=== PATIENT | male | born 1950 | race Caucasian/White ===

== ENCOUNTER 2024-09-01 15:47 | Inpatient (IN) | payer MEDICARE, SELFPAY ==
[2024-09-01 15:55] VITALS: BP 107/71; PULSE 77; RESP 16; TEMP 36.8; O2SAT 100; BMI 21.2
--- NOTE | 2024-09-01 15:55 | ADMGEN ---
This patient, Raysa Valiente, was admitted to 2nd Floor Room 210-2 as a skilled swing bed. Patient/family oriented to hospital policies and general routines including ID bracelet, bed and alarms, visiting hours, pain management, procedures, bathroom and other care routines, personal items, smoking policy, room service/diet, and visiting hours. Information on how to activate the Rapid Response Team has been discussed. Patient/Family are encouraged to report perceived risks to care and to ask questions if they do not understand what they are told or what they should do.
--- NOTE | 2024-09-01 16:00 | PC.NURSE ---
Addendum entered by Enedelia Yuan RN 09/01/24 19:29: Patients Ladan asked if medication Jardiance was continued, patient was taking prior to hospitalization. If possible she would like it to be discontinued, States she does not feel it is safe for him to take and worries it contributed to DKA. Original Note: This RN spoke with patients Ladan about patients stay at [place], states what brought him in was a fall and patient going unconscious. At hospital patient was diagnosed with DKA, UTI and pneumonia. states prior to patients fall there was an issue with insurance and getting patients Dexcom so he was without his Dexcom for 10 days. Patients believes this contributed to him going into DKA.
--- OUTSIDE RECORDS SUMMARY | 2024-09-01 17:20 | XMS_ITS | Encounter Summary ---
Author Organization [facility] Address [address] [place] [address] Care Team Providers Care Site Identification Specialist Name Role Phone Otoniel Hoover MD Primary Care Provider [phone] Encounter Details Date Type Department Care Team (Late st Contact Info) Description 2023 Hospital Orders Only [employer] Pre/Post [address] [place] [address] Kim Montes MD [address] [facility] [address] [phone] Social History Tobacco Use Types Packs/Day Years Used Date Smoking Tobacco: Never Smokeless Tobacco: Never Alcohol Use Standard Drinks/Week Comments Never 0 (1 standard drink = 0.6 oz pur e alcohol) [facility] Utilities Answer Date Recorded In the past 12 months has e [employer], gas, oil, or water [employer] threatened to shut off services in your home? No 10/14/2023 Humiliation, Afraid, Rape, and Kick questionnair e Answer Date Recorded Within the last year, have y ou been afraid of your partner or ex-partner? No 10/14/2023 Within the last year, have y ou been humiliated or emotionally abused in other ways by your partner or ex-partner? No Within the last year, have y ou been kicked, hit, slapped, or otherwise physically hurt by your partner or ex-partner? No 10/14/2023 Within the last year, have y ou been raped or forced to have any kind of sexual activity by your partner or ex-partner? No 10/14/2023 Overall Financial Resource Strain (CARDIA) Answe r Date Recorded How hard is it for you to pa y for the very basics like food, housing, medical care, and heating? Not hard at all 10/14/2023 Hunger Vital Sign Answer Date Recorded Within the past 12 months, y ou worried that your food would run out before you got the money to buy more. Never true 10/14/19 24 Within the past 12 months, t he food you bought just didn't last and you didn't have money to get more. Never true 10/14/2023 PRAPARE - Transportation Answer Date Re corded In the past 12 months, has l ack of transportation kept you from medical appointments or from getting medications? No 10/02 In the past 12 months, has l ack of transportation kept you from meetings, work, or from getting things needed for daily living? No 10/14/2023 Housing Stability Vital Sign Answer Joey e Recorded In the last 12 months, was t here a time when you were not able to pay the mortgage or rent on time? No 10/14/2023 In the past 12 months, how m any times have you moved where you were living? 0 10/14/2023 At any time in the past [address] [facility], were you homeless or living in a prison (including now)? No 10/14/2023 Sex and Gender Information Value Date Recorded Sex Assigned at Male 08/24/2024 11:13 PM CDT Legal Sex Male 6:00 PM CDT Gender Identity Not on file Sexual Orientation Not on file documented as of this encounter Functional Status * Are you deaf or do you have serious difficulty hearing Answer Date of Assessment Author Status No 10/14/2023 11:00 PM CDT Dianne Badillo RN Active * Are you blind or do you have serious difficulty seeing, even when wearing glasses? Answer Date of Assessment Author Status No 10/14/2023 11:00 PM SOPHIAT Dianne Badillo RN Active * Do you have serious difficulty walking or climbing stairs? Answer Date of Assessment Author Status No 10/14/2023 11:00 PM SOPHIAT Dianne Badillo RN Active * Do you have difficulty dressing or bathing? Answer Date of Assessment Author Status No 10/14/2023 11:00 PM CDT Dianne Badillo RN Active * Because of a physical, mental, or emotional condition, do you have difficulty doing errands alone such as visiting a doctor's office or shopping? Answer Date of Assessment Author Status No 10/14/2023 11:00 PM CDT Dianne Badillo RN Active documented as of this encounter Mental Status * Because of a physical, mental, or emotional condition, do you have serious difficulty concentrating, remembering, or making decisions? Answer Entry Date Author Status No 10/14/2023 11:00 PM CDT Dianne Badillo RN Active documented in this encounter Plan of Treatment Not on file documented as of this encounter Visit Diagnoses Not on filedocumented in this encounter Additional Health Concerns Infection Onset Date Last Indicated Resolved Time Respiratory Rule-Out 08/25/2024 08/25/2024 025 2:16 PM CDT documented as of this encounter Care Teams Site Identification Specialist Relationship Specialty Start Date End Date Otoniel Hoover MD [address] [place] [phone] PCP - General FAMILY PRACTICE 02/15/21 documented as of this encounter
--- OUTSIDE RECORDS SUMMARY | 2024-09-01 17:20 | XMS_ITS | Encounter Summary ---
Author Organization [facility] Address [facility] [place] [address] Care Team Providers Care Client Solutions Specialist Name Role Phone Ian Edwards MD Primary Care Provider [phone] Otoniel Hoover MD Primary Care Provider Encounter Details Date Type Department Care Team (Late st Contact Info) Description 11/09/2018 Abstract SFL CONVERSION [address] [place] [address] , Generic Conversion, Social History Tobacco Use Types Packs/Day Years Used Date Smoking Tobacco: Never Assessed Sex and Gender Information Value Date Recorded Sex Assigned at Male 08/24/2024 11:13 PM CDT Legal Sex Male 6:00 PM CDT Gender Identity Not on file Sexual Orientation Not on file documented as of this encounter Plan of Treatment Not on file documented as of this encounter Visit Diagnoses Not on filedocumented in this encounter Additional Health Concerns Infection Onset Date Last Indicated Resolved Time Respiratory Rule-Out 08/25/2024 08/25/2024 025 2:16 PM CDT documented as of this encounter Care Teams Client Solutions Specialist Relationship Specialty Start Date End Date Ian Edwards MD [address] [place] [phone] PCP - General FAMILY PRACTICE 02/14/19 02/14/21 Otoniel Hoover MD [address] [place] [phone] PCP - General FAMILY PRACTICE 02/15/21 documented as of this encounter
--- OUTSIDE RECORDS SUMMARY | 2024-09-01 17:20 | XMS_ITS | Encounter Summary ---
Author Organization [facility] Address [address] [place] [address] Care Team Providers Care Guest Service Host Name Role Phone Otoniel Hoover MD Primary Care Provider Encounter Details Date Type Department Care Team (Late st Contact Info) Description 2023 Pre-Procedure Call [employer] Position Clerk Pre/Post [address] [place] [address] Kim Montes MD [address] [place] [phone] Social History Tobacco Use Types Packs/Day Years Used Date Smoking Tobacco: Never Smokeless Tobacco: Never Alcohol Use Standard Drinks/Week Comments Never 0 (1 standard drink = 0.6 oz pur e alcohol) [facility] Utilities Answer Date Recorded In the past 12 months has [facility] [employer], gas, oil, or water [employer] threatened to shut off services in your [...] any time in the past 12 m [facility], were you homeless or living in a half-way (including now)? No 10/14/2023 Sex and Gender [...] documented as of this encounter Care Teams Guest Service Host Relationship Specialty Start Date End Date Otoniel Hoover MD [address] [place] [phone] PCP - General FAMILY PRACTICE 02/15/21 documented as of this encounter
--- OUTSIDE RECORDS SUMMARY | 2024-09-01 17:20 | XMS_ITS | Encounter Summary ---
Author Organization [facility] Address [facility] [place] [address] Care Team Providers Care Hydroelectric Plant Mechanical Engineer Name Role Phone Otoniel Hoover MD Primary Care Provider [phone] Reason for Referral * Imaging (Routine) - Closed Specialty Diagnoses / Procedures Referred By Nancy varner Referred To Contact RADIOLOGY Diagnoses Mitral regurgitation Procedures [facility]A [facility] POSS Kim Montes MD [address] [place] [phone] Phone: tel: fax: Referral ID Status Reason Start Date Expiration Date Visits Re quested Visits Authorized [id number] Closed 01/24/2024 01/23/2025 1 1 Encounter Details Date Type Department Care Team ([facility] st Contact Info) Description 01/24/2024 Community Orders [facility] EPICCARE LINK Kim Montes MD [address] [place] [phone] Social History Tobacco Use Types Packs/Day Years Used Date Smoking Tobacco: Never Smokeless Tobacco: Never Alcohol Use Standard Drinks/Week Comments Never 0 (1 standard drink = 0.6 oz pur e alcohol) [facility] Utilities Answer Date Recorded In the past 12 months has th e electric, gas, oil, or water company threatened to shut off services in your [...] any time in the past 12 m [facility], were you homeless or living in a senior care (including now)? No 10/14/2023 Sex and Gender [...] PM CDT Dianne Badillo RN Active * Do you have serious difficulty walking or climbing stairs? Answer Date of Assessment Author Status No 10/14/2023 11:00 PM CDT Dianne Badillo RN Active * Do you [...] on file documented as of this encounter Results * XA [facility] POSS (02/01/2024 10:11 AM CDT) Anatomical Region Laterality Modality Cardiac [employer] Out[employer] Supervisor 02/01/2024 9:00 AM CDT Kim Montes MD LUNCHROOM WORKER Final Res ult documented in this encounter Visit Diagnoses Diagnosis Mitral regurgitation- Primary Mitral valve disorders documented in this encounter Additional Health Concerns Infection Onset Date Last Indicated Resolved Time Respiratory Rule-Out 08/25/2024 08/25/2024 025 2:16 PM CDT documented as of this encounter Care Teams Hydroelectric Plant Mechanical Engineer Relationship Specialty Start Date End Date Otoniel Hoover MD [address] [place] [phone] PCP - General FAMILY PRACTICE 02/15/21 documented as of this encounter
--- OUTSIDE RECORDS SUMMARY | 2024-09-01 17:20 | XMS_ITS | Clinical Summary ---
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 Active aspirin 81 MG chewable tablet Chew 1 tablet (81 mg total) by mouth daily. Active clopidogrel (PLAVIX) 75 MG tablet Take 1 tablet (75 mg total) by mouth daily. Active JARDIANCE 10 MG tablet Take 1 tablet (10 mg total) by mouth daily. Active BASAGLAR KWIKPEN 100 UNIT/ML injection (PEN) Lantus 8 units in the morning and 2 units at night 3 mL 1 09/02/19 25 Active NOVOLOG FLEXPEN 100 UNIT/ML injection (PEN) 4 units before meals three times a day Add sliding scale insulin coverage as below: 0-5 Units, Subcutaneous, 4 times daily with meals and nightly, First dose (after last modification) on Sun08/29/24 at 1700, Until Discontinued Instructions: Humalog for high blood sugars. 150-200 +1 unit 201-250 +2 unit 251-300 +3 units 301-350 +4 units 351-400 +5 units. 3 mL 09/02/19 25 Active atorvastatin (LIPITOR) 20 MG tablet Take 1 tablet (20 mg total) by mouth daily. 30 tablet 09/03/19 25 Active polyethylene glycol (GLYCOLAX) packet Take 240 mLs (17 g total) by mouth daily as needed. Dissolve powder in 240 mL water 30 each 09/02/19 25 Active senna-docusat e (SENOKOT-S) 8.6-50 MG tablet Take 2 tablets by mouth nightly as needed for Constipation. 60 tablet 09/02/19 25 Active cefUROXime (CEFTIN) 500 MG tablet Take 1 tablet (500 mg total) by mouth 2 (two) times daily for 14 days. 28 tablet 09/02/19 25 025 Active NOVOLOG FLEXPEN 100 UNIT/ML injection (PEN) Inject 10 Units into the skin 3 (three) times daily before meals. Sliding scale with meals. Typically about 10 units 06/06/19 22 025 Discontinued BASAGLAR KWIKPEN 100 UNIT/ML injection (PEN) Inject 12 Units into the skin every morning. 6 units every night 04/19/20 21 025 Discontinued simvastatin 40 MG tablet Take 1 tablet (40 mg total) by mouth daily. 05/20/20 21 025 Discontinued(S top Taking at Discharge) senna-docusat e (SENOKOT-S) 8.6-50 MG tablet Take 1 tablet by mouth 2 (two) times daily for 7 days. 14 tablet 10/16/19 24 025 Discontinued(S top Taking at Discharge) Active Problems Problem Noted Date Diagnosed Date DKA (diabetic ketoacidosis) ([facility]) SDH (subdural hematoma) 10/14/2023 Nasal bones, closed fracture 10/14/2023 Nasal septum fracture, closed, initial encounter 10/14/2023 Closed fracture of right orbit 10/14/2023 Closed fracture of left orbit 10/14/2023 Fall 10/14/2023 Closed nondisplaced fracture of sternal end of left clavicle with routine healing 06/13/2021 Other closed fracture of dis dharmesh end of left radius with routine healing, subsequent encounter 06/13/2021 Encounters Date Type Department Care Team Description 08/28/2024 Telephone [facility] Care Management Formerly [facility], [id number] [facility] [place] [address] 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, 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 to [facility] from S/) 08/25/2024 4:37 AM CDT - 09/01/2024 2:40 PM CDT Hospital Encounter [facility] 4th Floor Medical [address] [place] [address] Alexandria Longo MD Subramaniyam, MD Jess Dinero, MD Efraín Crain, MD Mia Zavala, MD Zay Discharge Disposition: Swing Bed 08/24/2024 11:02 PM CDT - 08/25/2024 2:57 AM CDT Emergency [facility] Emergency Services [address] [place] [address] DO Hyperglycemia Discharge Disposition: Another Health Care Institution Not Defined 08/24/2024 Travel 06/06/2024 11:55 AM DISC JOCKEY - 06/06/2024 11:59 PM DISC JOCKEY Hospital Encounter [facility], 1928[id number] [place] [address] Frantz Dee MD Discharge Disposition: Home or Self Care (Routine Discharge) 06/06/[address] [facility], [id number] [place] [address] Frantz Dee MD 06/06/2024 Travel from Last 3 Months Immunizations Name Administration Dates Next Due Fluzone High Dose - >Age 65 (Prefilled Syringe) 02/27/2019,02/21/2018,02/26/2017 Influenza (Generic) 02/19/2020 Influenza Adult (Generic) 03/01/2016,01/2015,02/19/2014, 013 MODERNA COVID-19 (12+) MRNA, LNP-S, PF, 100 MCG/ 0.5 ML DOSE 09/10/2020,08/13/2020 Tdap (Boostrix) 10/16/2023 Family History Medical History Relation Comments No Known Problems Brother No Known Problems Father No Known Problems Mother Relation Status Comments Brother Father Mother Social History Tobacco Use Types Packs/Day Years Used Date Smoking Tobacco: Never Smokeless Tobacco: Never Alcohol Use Standard Drinks/Week Comments Never 0 (1 standard drink = 0.6 oz pur e alcohol) [facility] Utilities Answer Date Recorded In the past 12 months has e electric, gas, oil, or water company threatened to shut off services in your home? Patient unable to answer 08/25/2024 Humiliation, Afraid, Rape, a nd Kick questionnaire Answer Date Recorded Within the last year, have y ou been afraid of your partner or ex-partner? Patient unable to answer 08/25/2024 Within the last year, have y ou been humiliated or emotionally abused in other ways by your partner or ex-partner? Patient unable to answer 08/25/2024 Within the last year, have y ou been kicked, hit, slapped, or otherwise physically hurt by your partner or ex-partner? Patient unable to answer 08/25/2024 Within the last year, have y ou been raped or forced to have any kind of sexual activity by your partner or ex-partner? Patient unable to answer 08/25/2024 Overall Financial Resource Strain (CARDIA) Answe r Date Recorded How hard is it for you to pa y for the very basics like food, housing, medical care, and heating? Patient unable to answer 08/25/2024 Hunger Vital Sign Answer Date Recorded Within the past 12 months, y ou worried that your food would run out before you got the money to buy more. Patient unable to answer 08/25/2024 Within the past 12 months, t he food you bought just didn't last and you didn't have money to get more. Patient unable to answer 08/25/2024 PRAPARE - Transportation Answer Date Re corded In the past 12 months, has l ack of transportation kept you from medical appointments or from getting medications? Patient unable to answer 08/25/2024 In the past 12 months, has l ack of transportation kept you from meetings, work, or from getting things needed for daily living? Patient unable to answer 08/25/2024 Housing Stability Vital Sign Answer Ojey e Recorded In the last 12 months, was t here a time when you were not able to pay the mortgage or rent on time? Patient unable to answer 08/25/2024 In the past 12 months, how m any times have you moved where you were living? 1 08/25/2024 At any time in the past 12 m [facility], were you homeless or living in a senior living (including now)? Patient unable to answer 08/25/2024 Sex and Gender Information Value Date Recorded Sex Assigned at Male 08/24/2024 11:13 PM CDT Legal Sex Male 6:00 PM CDT Gender Identity Not on file Sexual Orientation Not on file Last Filed Vital Signs Vital Sign Reading Time Taken Comments Blood Pressure 92/52 09/01/2024 8:25 AM CDT Pulse 89 09/01/2024 8:25 AM CDT Temperature 36.4 C (97.5 F) 09/01/2024 8:25 AM CDT Respiratory Rate 20 09/01/2024 8:25 AM CDT Oxygen Saturation 96% 09/01/2024 8:25 AM CDT Inhaled Oxygen Concentration - - Weight 59.1 kg (130 lb 6.4 oz) 08/30/2024 4:00 A M CDT Height 180.3 cm (5' 10.98 ) 08/25/2024 5:30 AM C DT Body Mass Index 18.2 08/25/2024 5:30 AM CDT Plan of Treatment Health Maintenance Due Date Last Done Comments Colorectal Cancer Screening Colonoscopy (10 Years) 1950 Pneumococcal Vaccine: 65+ Years (1 of 2 - PCV) 11/06/1957 Diabetes: Retinopathy Eye Exam 11/06/1969 Hepatitis C 11/06/1969 Zoster Vaccines (1 of 2) 11/06/2001 RSV Immunization or 60+ Years (1 - Risk 60-74 years 1-dose series) 2011 Annual Medicare Wellness Visit 11/06/2016 COVID-19 Vaccine ( season) 2024 04/25/2021, 09/10/2020, 08/13/2020 Hemoglobin A1C 02/26/2025 08/26/2024, 08/2024, 10/15/2023, Additional history exists Kidney Health Evaluation 06/06/2025 06/06/2024 Lipid Panel 06/06/2025 06/06/2024, 08/02, 10/22/2020, Additional history exists DTaP, Tdap and Td Vaccines (2 - Td or Tdap) 10/15/2033 10/16/2023 Meningococcal B Vaccine Aged Out No l onger eligible based on patient's age to complete this topic Meningococcal Vaccine Aged Out No cindy samreen eligible based on patient's age to complete this topic RSV Immunizations Under 20 Months Aged Out No longer eligible based on patient's age to complete this topic Procedures Procedure Name Priority Date/Time Associated Diagnosis Comments HEMOGLOBIN AND HEMATOCRIT Routine 09/01/2024 12:13 PM CDT POCT GLUCOSE - CHÁVEZ DOCKED DEVICE Routine 09/01/2024 10:29 AM CDT POCT GLUCOSE - CHÁVEZ DOCKED DEVICE Routine 09/01/2024 8:39 AM CDT POCT GLUCOSE - CHÁVEZ DOCKED DEVICE Routine 09/01/2024 6:25 AM CDT POCT GLUCOSE - CHÁVEZ DOCKED DEVICE Routine 08/31/2024 8:12 PM CDT POCT GLUCOSE - CHÁVEZ DOCKED DEVICE Routine 08/31/2024 5:21 PM CDT POCT GLUCOSE - CHÁVEZ DOCKED DEVICE Routine 08/31/2024 11:43 AM CDT PHOSPHORUS, INORGANIC PHOSPHATE Routine 08/31/2024 8:25 AM CDT MAGNESIUM Routine 08/31/2024 8:25 AM CDT BASIC METABOLIC PANEL Routine 08/31/2024 8:25 AM CDT CBC W/DIFF AUTOMATED Routine 08/31/2024 8:25 AM CDT HEPARIN INDUCED ANTIBODIES Routine 08/31/2024 8:25 AM CDT POCT GLUCOSE - CHÁVEZ DOCKED DEVICE Routine 08/31/2024 5:50 AM CDT POCT GLUCOSE - CHÁVEZ DOCKED DEVICE Routine 08/30/2024 8:56 PM CDT POCT GLUCOSE - CHÁVEZ DOCKED DEVICE Routine 08/30/2024 4:46 PM CDT POCT GLUCOSE - CHÁVEZ DOCKED DEVICE Routine 08/30/2024 11:47 AM CDT POCT GLUCOSE - CHÁVEZ DOCKED DEVICE Routine 08/30/2024 9:45 AM CDT POCT GLUCOSE - CHÁVEZ DOCKED DEVICE Routine 08/30/2024 5:43 AM CDT BASIC METABOLIC PANEL Routine 08/30/2024 4:53 AM CDT CBC W/DIFF AUTOMATED Routine 08/30/2024 4:53 AM CDT POCT GLUCOSE - CHÁVEZ DOCKED DEVICE Routine 08/29/2024 8:23 PM CDT POCT GLUCOSE - CHÁVEZ DOCKED DEVICE Routine 08/29/2024 6:39 PM CDT POCT GLUCOSE - CHÁVEZ DOCKED DEVICE Routine 08/29/2024 5:07 PM CDT POCT GLUCOSE - CHÁVEZ DOCKED DEVICE Routine 08/29/2024 11:47 AM CDT POCT GLUCOSE - CHÁVEZ DOCKED DEVICE Routine 08/29/2024 6:23 AM CDT POCT GLUCOSE - CHÁVEZ DOCKED DEVICE Routine 08/29/2024 6:04 AM CDT POCT GLUCOSE - CHÁVEZ DOCKED DEVICE Routine 08/29/2024 5:05 AM CDT BASIC METABOLIC PANEL Routine 08/29/2024 4:04 AM CDT CBC W/DIFF AUTOMATED Routine 08/29/2024 4:04 AM CDT POCT GLUCOSE - CHÁVEZ DOCKED DEVICE Routine 08/28/2024 8:42 PM CDT URINE BACTERIA CULTURE Nurse Collected Priority 08/28/2024 5:47 PM CDT POCT GLUCOSE - CHÁVEZ DOCKED DEVICE Routine 08/28/2024 5:44 PM CDT CBC W/DIFF AUTOMATED STAT 08/28/2024 12:25 PM CDT POCT GLUCOSE - CHÁVEZ DOCKED DEVICE Routine 08/28/2024 10:59 AM CDT CULTURE, BACTERIA, BLOOD Routine 08/28/2024 7:51 AM CDT POCT GLUCOSE - CHÁVEZ DOCKED DEVICE Routine 08/28/2024 5:15 AM CDT BASIC METABOLIC PANEL Routine 08/28/2024 3:33 AM CDT BLOOD GAS, VENOUS Routine 08/28/2024 3:3 3 AM CDT MAGNESIUM Routine 08/28/2024 3:33 AM CDT PHOSPHORUS, INORGANIC PHOSPHATE Routine 08/28/2024 3:33 AM CDT POCT GLUCOSE - CHÁVEZ DOCKED DEVICE Routine 08/27/2024 8:31 PM CDT POCT GLUCOSE - CHÁVEZ DOCKED DEVICE Routine 08/27/2024 4:59 PM CDT USE ECHOCARDIOGRAM Today 08/27/2024 4: 04 PM CDT POCT GLUCOSE - CHÁVEZ DOCKED DEVICE Routine 08/27/2024 1:06 PM CDT POCT GLUCOSE - CHÁVEZ DOCKED DEVICE Routine 08/27/2024 6:29 AM CDT POCT EG7 BLD GAS VENOUS TEMP VERÓNICA Routine 08/27/2024 4:03 AM CDT BASIC METABOLIC PANEL TIMED 08/27/2024 4:00 AM CDT MAGNESIUM Routine 08/27/2024 4:00 AM CDT PHOSPHORUS, INORGANIC PHOSPHATE Routine 08/27/2024 4:00 AM CDT POCT GLUCOSE - CHÁVEZ DOCKED DEVICE Routine 08/26/2024 9:06 PM CDT POCT ACUTE VENOUS PANEL Routine 08/26/2024 9:06 PM CDT BASIC METABOLIC PANEL TIMED 08/26/2024 9:05 PM CDT MRI BRAIN WWO CON STAT 08/26/2024 6:5 8 PM CDT BASIC METABOLIC PANEL TIMED 08/26/2024 6:00 PM CDT POCT GLUCOSE - CHÁVEZ DOCKED DEVICE Routine 08/26/2024 5:47 PM CDT POCT GLUCOSE - CHÁVEZ DOCKED DEVICE Routine 08/26/2024 4:25 PM CDT BLOOD GAS, VENOUS TIMED 08/26/2024 4:0 0 PM CDT POCT GLUCOSE - CHÁVEZ DOCKED DEVICE Routine 08/26/2024 1:49 PM CDT BLOOD GAS, VENOUS TIMED 08/26/2024 1:4 5 PM CDT POTASSIUM, SERUM Routine 08/26/2024 12:45 PM CDT POCT ACUTE VENOUS PANEL Routine 08/26/2024 10:22 AM CDT POCT GLUCOSE - CHÁVEZ DOCKED DEVICE Routine 08/26/2024 8:36 AM CDT POCT GLUCOSE - CHÁVEZ DOCKED DEVICE Routine 08/26/2024 6:37 AM CDT POCT ACUTE VENOUS PANEL Routine 08/26/2024 4:27 AM CDT POCT GLUCOSE - CHÁVEZ DOCKED DEVICE Routine 08/26/2024 4:26 AM CDT MAGNESIUM Routine 08/26/2024 4:25 AM CDT PHOSPHORUS, INORGANIC PHOSPHATE Routine 08/26/2024 4:25 AM CDT HEMOGLOBIN, GLYCOSYLATED Routine 08/26/2024 4:25 AM CDT COMPREHENSIVE METABOLIC PANEL Routine 08/26/2024 4:25 AM CDT CBC W/DIFF AUTOMATED Routine 08/26/2024 4:25 AM CDT POCT GLUCOSE - CHÁVEZ DOCKED DEVICE Routine 08/25/2024 11:58 PM CDT POCT GLUCOSE - CHÁVEZ DOCKED DEVICE Routine 08/25/2024 9:12 PM CDT POCT GLUCOSE - CHÁVEZ DOCKED DEVICE Routine 08/25/2024 6:13 PM CDT POCT GLUCOSE - CHÁVEZ DOCKED DEVICE Routine 08/25/2024 4:32 PM CDT MAGNESIUM TIMED 08/25/2024 4:30 PM CDT BASIC METABOLIC PANEL TIMED 08/25/2024 4:30 PM CDT BLOOD GAS, VENOUS TIMED 08/25/2024 4:3 0 PM CDT PHOSPHORUS, INORGANIC PHOSPHATE TIMED 08/25/2024 4:30 PM CDT POCT GLUCOSE - CHÁVEZ DOCKED DEVICE Routine 08/25/2024 3:33 PM CDT RESPIRATORY PCR PANEL 2 Nurse Collected Priority 08/25/2024 12:45 PM CDT MAGNESIUM TIMED 08/25/2024 12:45 PM CDT BASIC METABOLIC PANEL TIMED 08/25/2024 12:45 PM CDT BLOOD GAS, VENOUS TIMED 08/25/2024 12:45 PM CDT PHOSPHORUS, INORGANIC PHOSPHATE TIMED 08/25/2024 12:45 PM CDT POCT GLUCOSE - CHÁVEZ DOCKED DEVICE Routine 08/25/2024 12:38 PM CDT POCT GLUCOSE - CHÁVEZ DOCKED DEVICE Routine 08/25/2024 11:09 AM CDT POCT GLUCOSE - CHÁVEZ DOCKED DEVICE Routine 08/25/2024 10:07 AM CDT POCT GLUCOSE - CHÁVEZ DOCKED DEVICE Routine 08/25/2024 9:11 AM CDT MAGNESIUM TIMED 08/25/2024 8:15 AM CDT BASIC METABOLIC PANEL TIMED 08/25/2024 8:15 AM CDT BLOOD GAS, VENOUS TIMED 08/25/2024 8:1 5 AM CDT PHOSPHORUS, INORGANIC PHOSPHATE TIMED 08/25/2024 8:15 AM CDT POCT GLUCOSE - CHÁVEZ DOCKED DEVICE Routine 08/25/2024 8:09 AM CDT POCT GLUCOSE - CHÁVEZ DOCKED DEVICE Routine 08/25/2024 6:25 AM CDT MAGNESIUM STAT 08/25/2024 4:50 AM CDT COMPREHENSIVE METABOLIC PANEL STAT 08/25/2024 4:50 AM CDT POCT GLUCOSE - CHÁVEZ DOCKED DEVICE Routine 08/25/2024 4:45 AM CDT POCT GLUCOSE - CHÁVEZ DOCKED DEVICE Routine 08/25/2024 2:25 AM CDT LACTIC ACID W REFLEX (SEPSIS) TIMED 08/25/2024 1:24 AM CDT POCT GLUCOSE - CHÁVEZ DOCKED DEVICE Routine 08/25/2024 1:16 AM CDT XR CHEST PORTABLE STAT 08/25/2024 12:30 AM CDT POCT GLUCOSE - CHÁVEZ DOCKED DEVICE Routine 08/25/2024 12:30 AM CDT URINALYSIS AUTO DIP STAT 08/25/2024 12:[address] HEAD WO CON STAT 08/24/2024 11:49 PM CDT ECG 12-LEAD Routine 08/24/2024 11:21 PM CDT KETONE BODYS QUALITATIVE STAT 08/24/2024 11:16 PM CDT LACTIC ACID W REFLEX (SEPSIS) STAT 08/24/2024 11:16 PM CDT TROPONIN, QUANT STAT 08/24/2024 11:16 PM CDT COMPREHENSIVE METABOLIC PANEL STAT 08/24/2024 11:16 PM CDT CBC W/DIFF AUTOMATED STAT 08/24/2024 11:16 PM CDT POCT GLUCOSE - CHÁVEZ DOCKED DEVICE Routine 08/24/2024 11:06 PM CDT ALBUMIN URINE RANDOM W/CREATININE Routine 06/06/2024 12:30 PM DISC JOCKEY Type 1 diabetes mellitus without complications (CMS/HCC HHS/HCC) THYROXINE, FREE (FT4) Routine 06/06/2024 12:11 PM DISC JOCKEY COMPREHENSIVE METABOLIC PANEL Routine 06/06/2024 12:11 PM DISC JOCKEY Diabetes mellitus type I (CMS/HCC HHS/HCC) HEMOGLOBIN, GLYCOSYLATED Routine 06/06/2024 12:11 PM DISC JOCKEY Diabetes mellitus type I (CMS/HCC HHS/HCC) TSH W/REFLEX Routine 06/06/2024 12:11 PM DISC JOCKEY Diabetes mellitus type I (CMS/HCC HHS/HCC) VITAMIN B-12 Routine 06/06/2024 12:11 PM DISC JOCKEY Diabetes mellitus type I (CMS/HCC HHS/HCC) LIPID PANEL Routine 06/06/2024 12:11 PM DISC JOCKEY Diabetes mellitus type I (CMS/HCC HHS/HCC) from Last 3 Months Results * (ABNORMAL) HEMOGLOBIN AND HEMATOCRIT (09/01/2024 12:13 PM CDT) HGB 9.2(L) 12.0 - 16.0 G/DL 09/01/2024 12:35 PM CDT [facility] HCT 28.5(L) 37.0 - 52.0 % 09/01/2024 12:35 PM CDT [facility] 09/01/2024 12:1 3 PM CDT us Zay Bellamy MD LABORATORY Final Result Performing Organization Address [facility]/ZIP Co de Phone Number [facility] [address] [place] [address], [id number] * (ABNORMAL) POCT glucose (09/01/2024 10:29 AM CDT) Only the most recent of50 resultswithin the time period is included. GLUCOSE POC 284(H) 70 - 109 09/01/2024 10:51 AM CDT [facility] 09/01/2024 10:2 9 AM CDT us Zay Bellamy MD POCT ORDERABLES - DEVICE Final Result Performing Organization Address City/[facility]/ZIP Co de Phone Number [facility] [address] [place] [address], [id number] * HEPARIN INDUCED ANTIBODIES (08/31/2024 8:25 AM CDT) Pathologist [facility] HIT AMINATA (ANTI-HEPARIN PF4) NEGATIVE NEGATIVE 09/01/2024 9:30 AM CDT [facility] Comment: A POSITIVE HIT AB (HEPARIN PF4 ANTIBODY PRISCILA TEST) IS EXTREMELY SENSITIVE FOR HEPARIN-INDUCED THROMBOCYTOPENIA (HIT), BUT NOT SPECIFIC, SINCE MANY PATIENTS EXPOSED TO HEPARIN HAVE POSITIVE ANTIBODY TESTS WITHOUT DEVELOPING HIT. HIT IS A CLINICAL DIAGNOSIS, SUPPORTED BY LABORATORY TESTING. THEREFORE, CLINICAL CORRELATION IS REQUIRED. 08/31/2024 8:25 AM CDT Zay Bellamy MD LABORATORY Final Result [facility] [address] [place] [address], [id number] * (ABNORMAL) BASIC METABOLIC PANEL (08/31/2024 8:25 AM CDT) Only the most recent of10 resultswithin the time period is included. [facility] SODIUM S/P/B 140 136 - 145 MMOL/L 08/31/2024 9:19 AM CDT [facility] POTASSIUM S/P/B 3.7 3.5 - 5.1 MMOL/L 08/31/2024 9:19 AM CDT [facility] CHLORIDE S/P/B 103 97 - 115 MMOL/L 08/31/2024 9:19 AM CDT [facility] CO2 30.2 21.0 - 32.0 MMOL/L 08/31/2024 9:19 AM CDT [facility] GLUCOSE 131(H) 74 - 106 MG/DL 08/31/2024 9:19 AM CDT [facility] BUN 9 7 - 18 MG/DL 08/31/2024 9:19 AM CDT [facility] CREATININE S/P/B 0.84 0.70 - 1.30 MG/DL 08/31/2024 9:19 AM CDT [facility] CALCIUM S/P/B 8.7 8.5 - 10.1 MG/DL 08/31/2024 9:19 AM CDT [facility] ANION GAP 6.8 2.0 - 10.0 MMOL/L 08/31/2024 9:19 AM CDT [facility] OSMOLALITY (CALC) 290 MOSM/KG 025 9:19 AM CDT [facility] Comment:REFERENCE RANGE NOT ESTABLISHED GFR ESTIMATE >90 >90 ML/MIN/1. 73 M2 08/31/2024 9:19 AM CDT [facility] GFR NOTES GFR REFERENCE S: 08/31/2024 9:19 AM CDT [facility] Comment: THE ESTIMATED GFR IS CALCULATED USING THE 2020 CKD-EPI EQUATION. THE FOLLOWING CATEGORIES FOR GRADING RENAL FUNCTION ARE RECOMMENDED BY THE INTERNATIONAL SOCIETY OF NEPHROLOGY (KDIGO 2012 CLINICAL PRACTICE GUIDELINE). G1,NORMAL OR HIGH: >89 ml/min/1.73 m2 G2,MILDLY DECREASED: 60-89 ml/min/1.73 m2 G3A,MILDLY TO MODERATELY DECREASED: 45-59 ml/min/1.73 m2 G3B,MODERATELY TO SEVERELY DECREASED: 30-44 ml/min/1.73 m2 G4,SEVERELY DECREASED: 15-29 ml/min/1.73 m2 G5,KIDNEY FAILURE: <15 ml/min/1.73 m2 08/31/2024 8:25 AM CDT Zay Bellamy MD LABORATORY Final Result [facility] [address] [place] [address], [id number] * (ABNORMAL) CBC W/DIFF AUTOMATED (08/31/2024 8:25 AM CDT) Only the most recent of6 resultswithin the time period is included. WBC 4.93 4.00 - 10.80 x10'3/uL 08/31/2024 9:12 AM CDT [facility] RBC 2.95(L) 4.50 - 6.10 x10'6/uL 08/31/2024 9:12 AM CDT [facility] HGB 9.8(L) 12.0 - 16.0 G/DL 08/31/2024 9:12 AM CDT [facility] HCT 29.3(L) 37.0 - 52.0 % 08/31/2024 9:12 AM CDT [facility] MCV 99.3 78.0 - 100.0 FL 08/31/2024 9:12 AM CDT [facility] MCH 33.2(H) 27.0 - 31.0 PG 08/31/2024 9:12 AM CDT [facility] MCHC 33.4 33.0 - 36.0 G/DL 08/31/2024 9:12 AM CDT [facility] RDW 16.2(H) 11.5 - 14.5 % 08/31/2024 9:12 AM CDT [facility] PLT 66(L) 150 - 350 x10'3/uL 08/31/2024 9:12 AM CDT [facility] MPV 12.0(H) 7.4 - 10.4 FL 08/31/2024 9:12 AM CDT [facility] DIFFERENTIAL TYPE AUTOMATED DIFFERENTIAL 08/31/2024 9:13 AM CDT [facility] SEG NEUTROPHILS 64.3 % 9:13 AM CDT [facility] LYMPHOCYTES 17.4 % 08/31/2024 9:13 AM CDT [facility] MONOCYTES 13.6 % 08/31/2024 9:13 AM CDT [facility] EOSINOPHILS 3.7 % 08/31/2024 9:13 AM CDT [facility] BASOPHILS 0.6 % 08/31/2024 9:13 AM CDT [facility] IMMATURE GRANS % 0.4 % 09/01/19 9:13 AM CDT [facility] ABS. NEUTROPHILS 3.17 1.60 - 8.30 x10'3/uL 08/31/2024 9:13 AM CDT [facility] ABS. LYMPHOCYTES 0.86 0.80 - 4.70 x10'3/uL 08/31/2024 9:13 AM CDT [facility] ABS. MONOCYTES 0.67 0.00 - 1.50 x10'3/uL 08/31/2024 9:13 AM CDT [facility] ABS. EOSINOPHILS 0.18 0.00 - 0.40 x10'3/uL 08/31/2024 9:13 AM CDT [facility] ABS. BASOPHILS 0.03 0.00 - 0.20 x10'3/uL 08/31/2024 9:13 AM CDT [facility] ABS. IMMATURE GRANULOCYTES 0.02 0.00 - 0.03 x10'3/uL 08/31/2024 9:13 AM CDT [facility] ABS. NUCLEATED RBC'S 0.00 0.00 - 0.01 x10'3/uL 08/31/2024 9:13 AM CDT [facility] NRBC % 0.0 % 08/31/2024 9:13 AM CDT [facility] 08/31/2024 8:25 AM CDT Zay Bellamy MD LABORATORY Final Result [facility] [address] [place] [address], [id number] * PHOSPHORUS, INORGANIC PHOSPHATE (08/31/2024 8:25 AM CDT) Only the most recent of7 resultswithin the time period is included. [facility] PHOSPHORUS 3.0 2.5 - 4.9 MG/DL 08/31/2024 9:19 AM CDT [facility] 08/31/2024 8:25 AM CDT us Zay Bellamy MD LABORATORY Final Result Performing Organization Address City/[facility]/ZIP Co de Phone Number [facility] [address] [place] [address], [place] [phone] * MAGNESIUM (08/31/2024 8:25 AM CDT) Only the most recent of8 resultswithin the time period is included. MAGNESIUM 2.0 1.6 - 2.6 MG/DL 08/31/2024 9:19 AM CDT [facility] 08/31/2024 8:25 AM CDT us Zay Bellamy MD LABORATORY Final Result Performing Organization Address [facility] de Phone Number [facility] [address] [place] [address], [place] [phone] * CULTURE, URINE (08/28/2024 5:47 PM CDT) SPEC DESCRIPTION URINE CLEAN CATCH 08/28/2024 5:47 PM CDT [facility] SPECIAL REQUESTS NO SPECIAL REQUEST 08/28/2024 5:47 PM CDT [facility] CULTURE RESULT NO GROWTH (< OR = 1,000 CFU/ML) 08/30/2024 12:13 PM CDT [facility] URINE SPECIMEN OBTAINED BY CLEAN CATCH PROCEDURE / Unknown 08/28/2024 5:47 PM CDT 08/28/2024 5:59 PM CDT us Simin Younger [employer] DES[employer]-BC MICROBIOLOGY - GENERAL ORDER MIAH Final Result Performing Organization Address [facility] Co de Phone Number [facility] [address] [place] [address], [place] [phone] * (ABNORMAL) Blood gas, venous (08/28/2024 3:33 AM CDT) Only the most recent of6 resultswithin the time period is included. PH VENOUS 7.38 7.32 - 7.42 08/28/2024 3:48 AM CDT [facility] PCO2 VENOUS 49.6 41.0 - 51.0 MMHG 08/28/2024 3:48 AM CDT [facility] PO2 VENOUS 45.9(H) 25.0 - 40.0 MM HG 08/28/2024 3:48 AM CDT [facility] BICARB VENOUS 28.8(H) 24 - 28 MMOL/L 08/28/2024 3:48 AM CDT [facility] [facility] TOTAL CO2 VENOUS 30.3(H) 25.0 - 29.0 MMOL/L 08/28/2024 3:48 AM CDT [facility] BASE EXCESS VENOUS 3.6(H) 0 - 2 MMOL/L 08/28/2024 3:48 AM CDT [facility] O2 SAT VENOUS 80(H) <75 % 08/28/2024 3:48 AM CDT [facility] 08/28/2024 3:33 AM CDT Ariadna Saucedo MD LABORATORY Fi nal Result [facility] [address] [place] [address], [id number] * USE ECHOCARDIOGRAM (08/27/2024 4:04 PM CDT) Anatomical Region Laterality Modality Cardiac Echocardiogram 08/27/2024 3:29 PM CDT Narrative 08/28/2024 10:59 AM CDT Echocardiography Report Pat.Name: CORBY VALIENTE Pat.ID: [id number] .Date: 08/27/2024 Refer.: [id number] VICENTE JOVANNY Mikie EWDPROV EWDPROV Exam Time: 3:29:00 PM Study Type:ECHO WITH CARDIAC DOPPLER COMP Height: 70 in Weight: 132 lb BSA: 1.75 m2 Age: 6 1950,73Y Sex: M HR: 70 bpm Sonogrphr: Shari Garg Pat. Stat.:Inpatient Room: [facility] CPT - 4: 61847 Reason for Study:CAD Procedures: 2D, M-mode, Doppler, Color Flow Race: W ++++++++++++++++++++++++++++++++++++ SUMMARY: ++++++++++++++++++++++++++++++++++++ Estimated left ventricular ejection fraction is 45-50%. The left ventricular size is mildly enlarged. Mild global hypokinesis is noted. Right ventricular systolic function is normal. The right ventricular size is mildly enlarged. The left atrial volume is severely increased (>48 ml/M2). Right atrial size is mildly enlarged. 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 s/p three MitraClip at A2 P2 with residual mild eccentric mitral regurgitation. Mild mitral stenosis with MG of 4 at heart willie of 70 bpm Mild tricuspid regurgitation. Right ventricular systolic pressure is 34 mmHg. ++++++++++++++++++++++++++++++++++++ FINDINGS: ++++++++++++++++++++++++++++++++++++ LV: The left ventricular size is mildly enlarged. Estimated left ventricular ejection fraction is 45-50%. Left ventricular diastolic function is abnormal (grade 1 - impaired relaxation). WM: Mild global hypokinesis is noted. RV: The right ventricular size is mildly enlarged. Right ventricular systolic function is normal. IVS: Intraventricular septum is normal. LA: The left atrial volume is severely increased (>48 ml/M2). RA: Right atrial size is mildly enlarged. 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 KRISTI: No evidence of pericardial effusion. AO: The proximal ascending aorta measures 3.3cm. PA: Estimated right atrial pressure of 3 mmHg. SVn: Systemic veins not well visualized. Other: Technically difficult exam due to patient position, exam done in chair. AV: Structurally normal aortic valve. The aortic valve is trileaflet. No evidence of aortic valve stenosis. No evidence of aortic valve regurgitation. MV: Mild eccentric mitral regurgitation. Mitral clip visualized. PV: No evidence of pulmonic regurgitation. Pulmonic valve not well visualized. TV: Structurally normal tricuspid valve. Mild tricuspid regurgitation. Right ventricular systolic pressure is 34 mmHg. ++++++++++++++++++++++++++++++++++++ MEASUREMENTS: ++++++++++++++++++++++++++++++++++++ DOPPLER LVOT LVOTpkPG 1 mmHg LVOT TVI 8.62 cm LVOTpkVel 59.1 cm/s (70-110)+* LVOT SV 39 ml AV Forward Flow AV TVI 18.6 cm AV pkPG 4 mmHg AV pkVel 99.9 cm/s (100-170)+* Area (TVI) 2.09 cm2 (3-5)* AV mnVel 62.3 cm/s Area (Arvind) 2.67 cm2 (3-5)* AV mnPG 2 mmHg MV Forward Flow MV DeTm 415 msec MV E/A 1.5 MV mnPG 4 mmHg MV pkE 98 cm/s (60-130) MV pkPG 12 mmHg MV pkA 63.5 cm/s MV Regurg Flow MV TVI 116 cm MV pkPG 51 mmHg MV mnPG 30 mmHg MV pkVel 356 cm/s (60-130)* MV mnVel 257 cm/s PV Forward Flow PV pkVel 82.8 cm/s (60-90) PV pkPG 3 mmHg TV Regurg Flow TV pkPG 29 mmHg TV pkVel 267 cm/s (30-70)+* Lat E' Lat e 4.68 cm/s Lat E/E' Lat E/e 20.9 Med E' Med e 6.09 cm/s Med E/E' Med E/e 16.1 Aortic Valve Aortic Valve Ar 1.19 Aortic Valve Ve 0.59 AV DI Value 0.5 MOOKIE (VTI) Index Value 1.2 LV Mass 2D Value 261 g LV Mass [id number] Value 149 g/m2 RA Volume Atrial Barahona 5.89 cm Atrial Barahona 23.4 cm2 Atrial Barahona 74.5 ml SV (LVOT) Index Value 22 ml 2D Left Ventricle LVIDd 6.06 cm (3.6-5.2)* LV EF(Bi-Plane) 49.3 % (63-77)* LVIDs 4.23 cm (2.3-3.9)* LVPW LVPWd 1.02 cm Ventricular Septum IVSd 1.04 cm Left Atrium LA a-p 4.63 cm (2.8-3.4)* Aorta Ao Rtd 3.27 cm (zsc 1.9) Ao Asc 3.33 cm (zsc 3.6)* LVOT LVOT 2.4 cm RVOT RVOT 2.55 cm (1.8-3.4) RVOT Area 5.11 cm2 Ratios IVS LA Biplane LAVol I BP 70.3 ml/m2 Right Ventricle Right Ventricle 4.4 cm Major [place] 8.67 cm MMODE TA Tricuspid Annul 2.89 cm <Electronic Signature> 08/28/2024 10:59 AM Kim Montes M.D. Procedure Note Kim Montes MD - 08/28/2024 Echocardiography Report Pat.Name: CORBY VALIENTE Pat.ID: [id number] .Date: 08/27/2024 Refer.: [id number] VICENTE Deluna EWDPROV EWDPROV Exam Time: 3:29:00 PM Study Type:ECHO WITH CARDIAC DOPPLER COMP Height: 70 in Weight: 132 lb BSA: 1.75 m2 Age: 6 1950,73Y Sex: M HR: 70 bpm Sonogrphr: Shari Garg Pat. Stat.:Inpatient Room: 440 CPT - 4: 08494 Reason for Study:CAD Procedures: 2D, M-mode, Doppler, Color Flow Race: W ++++++++++++++++++++++++++++++++++++ SUMMARY: ++++++++++++++++++++++++++++++++++++ Estimated left ventricular ejection fraction is 45-50%. The left ventricular size is mildly enlarged. Mild global hypokinesis is noted. Right ventricular systolic function is normal. The right ventricular size is mildly enlarged. The left atrial volume is severely increased (>48 ml/M2). Right atrial size is mildly enlarged. 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 s/p three MitraClip at A2 P2 with residual mild eccentric mitral regurgitation. Mild mitral stenosis with MG of 4 at heart willie of 70 bpm Mild tricuspid regurgitation. Right ventricular systolic pressure is 34 mmHg. ++++++++++++++++++++++++++++++++++++ FINDINGS: ++++++++++++++++++++++++++++++++++++ LV: The left ventricular size is mildly enlarged. Estimated left ventricular ejection fraction is 45-50%. Left ventricular diastolic function is abnormal (grade 1 - impaired relaxation). WM: Mild global hypokinesis is noted. RV: The right ventricular size is mildly enlarged. Right ventricular systolic function is normal. IVS: Intraventricular septum is normal. LA: The left atrial volume is severely increased (>48 ml/M2). RA: Right atrial size is mildly enlarged. 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 KRISTI: No evidence of pericardial effusion. AO: The proximal ascending aorta measures 3.3cm. PA: Estimated right atrial pressure of 3 mmHg. SVn: Systemic veins not well visualized. Other: Technically difficult exam due to patient position, exam done in chair. AV: Structurally normal aortic valve. The aortic valve is trileaflet. No evidence of aortic valve stenosis. No evidence of aortic valve regurgitation. MV: Mild eccentric mitral regurgitation. Mitral clip visualized. PV: No evidence of pulmonic regurgitation. Pulmonic valve not well visualized. TV: Structurally normal tricuspid valve. Mild tricuspid regurgitation. Right ventricular systolic pressure is 34 mmHg. ++++++++++++++++++++++++++++++++++++ MEASUREMENTS: ++++++++++++++++++++++++++++++++++++ DOPPLER LVOT LVOTpkPG 1 mmHg LVOT TVI 8.62 cm LVOTpkVel 59.1 cm/s (70-110)+* LVOT SV 39 ml AV Forward Flow AV TVI 18.6 cm AV pkPG 4 mmHg AV pkVel 99.9 cm/s (100-170)+* Area (TVI) 2.09 cm2 (3-5)* AV mnVel 62.3 cm/s Area (Arvind) 2.67 cm2 (3-5)* AV mnPG 2 mmHg MV Forward Flow MV DeTm 415 msec MV E/A 1.5 MV mnPG 4 mmHg MV pkE 98 cm/s (60-130) MV pkPG 12 mmHg MV pkA 63.5 cm/s MV Regurg Flow MV TVI 116 cm MV pkPG 51 mmHg MV mnPG 30 mmHg MV pkVel 356 cm/s (60-130)* MV mnVel 257 cm/s PV Forward Flow PV pkVel 82.8 cm/s (60-90) PV pkPG 3 mmHg TV Regurg Flow TV pkPG 29 mmHg TV pkVel 267 cm/s (30-70)+* Lat E' Lat e 4.68 cm/s Lat E/E' Lat E/e 20.9 Med E' Med e 6.09 cm/s Med E/E' Med E/e 16.1 Aortic Valve Aortic Valve Ar 1.19 Aortic Valve Ve 0.59 AV DI Value 0.5 MOOKIE (VTI) Index Value 1.2 LV Mass 2D Value 261 g LV Mass [id number] Value 149 g/m2 RA Volume Atrial Barahona 5.89 cm Atrial [place] 23.4 cm2 Atrial [place] 74.5 ml SV (LVOT) Index Value 22 ml 2D Left Ventricle LVIDd 6.06 cm (3.6-5.2)* LV EF(Bi-Plane) 49.3 % (63-77)* LVIDs 4.23 cm (2.3-3.9)* LVPW LVPWd 1.02 cm Ventricular Septum IVSd 1.04 cm Left Atrium LA a-p 4.63 cm (2.8-3.4)* Aorta Ao Rtd 3.27 cm (zsc 1.9) Ao Asc 3.33 cm (zsc 3.6)* LVOT LVOT 2.4 cm RVOT RVOT 2.55 cm (1.8-3.4) RVOT Area 5.11 cm2 Ratios IVS LA Biplane LAVol I BP 70.3 ml/m2 Right Ventricle Right Ventricle 4.4 cm Major [place] 8.67 cm MMODE TA Tricuspid Annul 2.89 cm <Electronic Signature> 08/28/2024 10:59 AM Kim Montes M.D. [facility] ECHO Final Result * (ABNORMAL) POCT EG7 BLD GAS VENOUS TEMP VERÓNICA (08/27/2024 4:03 AM CDT) SODIUM WHOLE BLOOD 139 138 - 146 mmol/L 08/27/2024 4:08 AM CDT [facility] POTASSIUM WHOLE BLOOD 4.2 3.5 - 4.9 mmol/L 08/27/2024 4:08 AM CDT [facility] CA IONIZED WH BLOOD 1.25 1.12 - 1.32 mmol/L 08/27/2024 4:08 AM CDT [facility] POC PH VENOUS 7.349 7.31 - 7.41 08/27/2024 4:08 AM T [facility] POC PCO2 VENOUS 49.2 41.0 - 51.0 MMHG 08/27/2024 4:08 AM CDT [facility] POC PO2 VENOUS 43(H) 25 - 40 MMHG 08/27/2024 4:08 AM CDT [facility] POC HCO3 VENOUS 27.1 23 - 28 MMOL/L 08/27/2024 4:08 AM CDT [facility] POC TCO2 VENOUS 29 24 - 29 MMOL/L 08/27/2024 4:08 AM T [facility] POC BASE EXCESS VENOUS 1 0 - 3 MMOL/L 08/27/2024 4:08 AM CDT [facility] TEMPERATURE 98.6 08/27/2024 4:08 AM CDT [facility] POC PH TEMP CORRECTED VENOUS 7.349 7.31 - 7.41 08/27/2024 4:08 AM CDT [facility] POC PCO2 TEMP VERÓNICA VENOUS 49.2 41.0 - 51.0 MMHG 08/27/2024 4:08 AM CDT [facility] POC PO2 TEMP VERÓNICA VENOUS 43(H) 25 - 40 MMHG 08/27/2024 4:08 AM CDT [facility] POC HEMATOCRIT 28(L) 38 - 51 % 08/27/2024 4:08 AM CDT [facility] TIME TEST WAS PERFORMED: 403 08/27/2024 4:08 AM CDT [facility] 08/27/2024 4:03 AM CDT us Ariadna Saucedo MD POINT OF CARE TEST ORDERABLES Final Result [facility] [address] [place] [address], [id number] * (ABNORMAL) POCT ACUTE VENOUS PANEL (08/26/2024 9:06 PM CDT) Only the most recent of3 resultswithin the time period is included. SODIUM WHOLE BLOOD 140 138 - 146 mmol/L 08/26/2024 9:13 PM CDT [facility] POTASSIUM WHOLE BLOOD 4.1 3.5 - 4.9 mmol/L 08/26/2024 9:13 PM CDT [facility] CA IONIZED WH BLOOD 1.25 1.12 - 1.32 mmol/L 08/26/2024 9:13 PM CDT [facility] POC PH VENOUS 7.338 7.31 - 7.41 08/26/2024 9:13 PM CDT [facility] POC PCO2 VENOUS 48.0 41.0 - 51.0 MMHG 08/26/2024 9:13 PM CDT [facility] POC PO2 VENOUS 27 25 - 40 MMHG 08/26/2024 9:13 PM CDT [facility] POC HCO3 VENOUS 25.8 23 - 28 MMOL/L 08/26/2024 9:13 PM CDT [facility] POC TCO2 VENOUS 27 24 - 29 MMOL/L 08/26/2024 9:13 PM CDT [facility] POC BASE EXCESS VENOUS 0 0 - 3 MMOL/L 08/26/2024 9:13 PM CDT [facility] POC HEMATOCRIT 27(L) 38 - 51 % 08/26/2024 9:13 PM CDT [facility] TIME TEST WAS PERFORMED: 210508/26/2024 9:13 PM CDT [facility] 08/26/2024 9:06 PM CDT Ariadna Saucedo MD POCT ORDERABLES - DEVICE Final Result [facility] [address] [place] [address], [id number] * MRI BRAIN WWO CON (08/26/2024 6:58 PM CDT) Anatomical Region Laterality Modality Head Magnetic Resonan ce 08/26/2024 7:08 PM CDT Impressions 08/26/2024 7:17 PM CDT IMPRESSION: 1. No acute intracranial findings. No brain abscess. 2. Indeterminate mastoid air cell effusions. 3. Chronic/nonemergent findings as above. Referred By: JOVANNY STREET Interpreted By: Whitney Thorne DO, 08/26/2024 7:08 PM Narrative 08/26/2024 7:17 PM CDT [facility] [address] [place] [address] EXAMINATION: MRI Brain without and with Contrast REPORT DATE: 08/26/2024 INDICATION: Brain abscess COMPARISON(S): CT head without 08/24/2024, 11/22/2023. TECHNIQUE: Multiplanar, multisequence MR imaging of the brain before and after intravenous administration of gadolinium based contrast. Contrast: 13 mL Dotarem. FINDINGS: Brain: Scattered foci of T2 hyperintensity within the periventricular and subcortical white matter. Small foci of increased diffusion signal with T2 shine through, no diffusion restriction. Small foci of susceptibility. No abnormal enhancement. Ventricles/CSF spaces: Mildly prominent size with associated parenchymal loss. Vascular: Intracranial flow voids are normal. Intracranial vascular structures enhance normally. Orbits: Bilateral lens replacement. Paranasal sinuses: Normal. Mastoids/middle ears: Moderate left and small right mastoid air cell effusions. Bones: Normal. Scalp/facial soft tissues: Normal. Procedure Note Whitney Thorne DO - 08/26/2024 [place] [address] EXAMINATION: MRI Brain without and with Contrast REPORT DATE: 08/26/2024 INDICATION: Brain abscess COMPARISON(S): CT head without 08/24/2024, 11/22/2023. TECHNIQUE: Multiplanar, multisequence MR imaging of the brain before andafter intravenous administration of gadolinium based contrast. Contrast: 13 mL Dotarem. FINDINGS: Brain: Scattered foci of T2 hyperintensity within the periventricular andsubcortical white matter. Small foci of increased diffusion signal with [id number] through, no diffusion restriction. Small foci of susceptibility. Noabnormal enhancement. Ventricles/CSF spaces: Mildly prominent size with associated parenchymalloss. Vascular: Intracranial flow voids are normal. Intracranial vascularstructures enhance normally. Orbits: Bilateral lens replacement. Paranasal sinuses: Normal. Mastoids/middle ears: Moderate left and small right mastoid air celleffusions. Bones: Normal. Scalp/facial soft tissues: Normal. IMPRESSION: 1. No acute intracranial findings. No brain abscess. 2. Indeterminate mastoid air cell effusions. 3. Chronic/nonemergent findings as above. Referred By: JOVANNY STREET Interpreted By: Whitney Thorne DO, 08/26/2024 7:08 PM Ariadna Saucedo MD MRI Fi nal Result * POTASSIUM, SERUM (08/26/2024 12:45 PM CDT) POTASSIUM S/P/B 4.3 3.5 - 5.1 MMOL/L 08/26/2024 2:32 PM CDT [facility] 08/26/2024 12:4 5 PM CDT Ariadna Saucedo MD LABORATORY Fi nal Result Performing Organization Address [facility] Co de Phone Number [facility] [address] [place] [address], [id number] * (ABNORMAL) HEMOGLOBIN, GLYCATED (08/26/2024 4:25 AM CDT) Only the most recent of2 resultswithin the time period is included. HGB A1C 8.2(H) <5.7 % 08/26/2024 5:51 AM CDT [facility] ESTIMATED AVG GLUCOSE 189(H) 74 - 114 MG/DL 08/26/2024 5:51 AM CDT [facility] 08/26/2024 4:25 AM CDT Alexandria Longo MD LABORATORY Final Result Performing Organization Address [facility] Co de Phone Number [facility] [address] [place] [address], [id number] * (ABNORMAL) COMPREHENSIVE METABOLIC PANEL (08/26/2024 4:25 AM CDT) Only the most recent of4 resultswithin the time period is included. SODIUM S/P/B 141 136 - 145 MMOL/L 08/26/2024 5:30 AM CDT [facility] POTASSIUM S/P/B 4.5 3.5 - 5.1 MMOL/L 08/26/2024 5:30 AM CDT [facility] CHLORIDE S/P/B 109 97 - 115 MMOL/L 08/26/2024 5:30 AM [facility] CO2 28.3 21.0 - 32.0 MMOL/L 08/26/2024 5:30 AM CDT [facility] GLUCOSE 88 74 - 106 MG/DL 08/26/2024 5:30 AM T [facility] BUN 22(H) 7 - 18 MG/DL 08/26/2024 5:30 AM T [facility] CREATININE S/P/B 1.39(H) 0.70 - 1.30 MG/DL 08/26/2024 5:30 AM T [facility] CALCIUM S/P/B 8.1(L) 8.5 - 10.1 MG/DL 08/26/2024 5:30 AM T [facility] BILIRUBIN TOTAL S/P/B 0.8 0.2 - 1.0 MG/DL 08/26/2024 5:30 AM T [facility] ALKALINE PHOSPHATASE S/P/B 63 45 - 115 U/L 08/26/2024 5:30 AM [facility] AST 87(H) 15 - 37 U/L 08/26/2024 5:30 AM T [facility] ALT 29 16 - 61 U/L 08/26/2024 5:30 AM T [facility] TOTAL PROTEIN S/P/B 5.6(L) 6.4 - 8.2 G/DL 08/26/2024 5:30 AM T [facility] ALBUMIN S/P/B 3.1(L) 3.4 - 5.0 G/DL 08/26/2024 5:30 AM T [facility] ANION GAP 3.7 2.0 - 10.0 MMOL/L 08/26/2024 5:30 AM CDT [facility] OSMOLALITY (CALC) 295 MOSM/KG 025 5:30 AM CDT [facility] Comment:REFERENCE RANGE NOT ESTABLISHED GFR ESTIMATE 54(L) >90 ML/MIN/1. 73 M2 08/26/2024 5:30 AM CDT [facility] GFR NOTES GFR REFERENCE S: 08/26/2024 5:30 AM CDT [facility] Comment: THE ESTIMATED GFR IS CALCULATED USING THE 2020 CKD-EPI EQUATION. THE FOLLOWING CATEGORIES FOR GRADING RENAL FUNCTION ARE RECOMMENDED BY THE INTERNATIONAL SOCIETY OF NEPHROLOGY (KDIGO 2012 CLINICAL PRACTICE GUIDELINE). G1,NORMAL OR HIGH: >89 ml/min/1.73 m2 G2,MILDLY DECREASED: 60-89 ml/min/1.73 m2 G3A,MILDLY TO MODERATELY DECREASED: 45-59 ml/min/1.73 m2 G3B,MODERATELY TO SEVERELY DECREASED: 30-44 ml/min/1.73 m2 G4,SEVERELY DECREASED: 15-29 ml/min/1.73 m2 G5,KIDNEY FAILURE: <15 ml/min/1.73 m2 08/26/2024 4:25 AM CDT Alexandria Longo MD LABORATORY Final Result [facility] [address] [place] [address], [id number] * BIOFIRE PCR UPPER RESPIRATORY PROFILE (RESPIRATORY PCR PANEL 2) (08/25/2024 12:45 PM CDT) ADENOVIRUS PCR (RESP) NOT DETECTED NOT DETECTED 08/25/2024 2:15 PM CDT [facility] CORONAVIRUS 229E PCR (RESP) NOT DETECTED NOT DETECTED 08/25/2024 2:15 PM CDT [facility] CORONAVIRUS HKU1 PCR (RESP) NOT DETECTED NOT DETECTED 08/25/2024 2:15 PM CDT [facility] CORONAVIRUS NL63 PCR (RESP) NOT DETECTED NOT DETECTED 08/25/2024 2:15 PM CDT [facility] CORONAVIRUS OC43 PCR (RESP) NOT DETECTED NOT DETECTED 08/25/2024 2:15 PM CDT [facility] METAPNEUMOVIRUS PCR (RESP) NOT DETECTED NOT DETECTED 08/25/2024 2:15 PM CDT [facility] RHINOVIRUS/ENTEROV IRUS PCR (RESP) NOT DETECTED NOT DETECTED 08/25/2024 2:15 PM CDT [facility] INFLUENZA A PCR (RESP) NOT DETECTED NOT DETECTED 08/25/2024 2:15 PM CDT [facility] INFLUENZA B PCR (RESP) NOT DETECTED NOT DETECTED 08/25/2024 2:15 PM CDT [facility] PARAINFLUENZA 1 PCR (RESP) NOT DETECTED NOT DETECTED 08/25/2024 2:15 PM CDT [facility] PARAINFLUENZA 2 PCR (RESP) NOT DETECTED NOT DETECTED 08/25/2024 2:15 PM CDT [facility] PARAINFLUENZA 3 PCR (RESP) NOT DETECTED NOT DETECTED 08/25/2024 2:15 PM CDT [facility] PARAINFLUENZA 4 PCR (RESP) NOT DETECTED NOT DETECTED 08/25/2024 2:15 PM CDT [facility] RSV PCR (RESP) NOT DETECTED NOT DETECTED 08/25/2024 2:15 PM CDT [facility] B PARAPERTUSIS PCR (RESP) NOT DETECTED NOT DETECTED 08/25/2024 2:15 PM CDT [facility] BORDETELLA PERTUSSIS PCR (RESP) NOT DETECTED NOT DETECTED 08/25/2024 2:15 PM CDT [facility] CHLAMYDOPHILA PNEUMONIAE PCR (RESP) NOT DETECTED NOT DETECTED 08/25/2024 2:15 PM CDT [facility] MYCOPLASMA PNEUMONIAE PCR (RESP) NOT DETECTED NOT DETECTED 08/25/2024 2:15 PM CDT [facility] CORONAVIRUS SARS COV 2 PCR (RESP) NOT DETECTED NOT DETECTED 08/25/2024 2:15 PM CDT [facility] NASOPHARYNGEAL SWAB / Unknown 08/25/2024 12:45 PM CDT Ariadna Saucedo MD MICROBIOLOGY - GEN ERAL ORDERABLES Final Result Performing Organization Address [facility]/ZIP Co de Phone Number [facility] [address] [place] [address], [place] [phone] * (ABNORMAL) LACTIC ACID W REFLEX (SEPSIS) (08/25/2024 1:24 AM CDT) Only the most recent of2 resultswithin the time period is included. LACTIC ACID VENOUS 3.9(HH) 0.5 - 2.0 MMOL/L 08/25/2024 2:02 AM CDT [facility] Comment: CRITICAL VALUE CALLED RESULT RESULT REPORTED TO JARROD IN ED @0202 CL 08/25/2024 1:[address] DO LABORATORY Final Result Performing Organization Address [facility] de Phone Number [facility] [address] [place] [address], [place] * XR CHEST PORTABLE (08/25/2024 12:30 AM CDT) Anatomical Region Laterality Modality Chest Computed Tomogra phy 08/25/2024 12:3 1 AM CDT Impressions 08/25/2024 12:32 AM CDT IMPRESSION: Mild left basilar atelectasis or consolidation Ordered By: JOVANNY STREET Interpreted By: Artur Morales MD, 08/25/2024 12:31 AM Narrative 08/25/2024 12:32 AM CDT [facility] [address] [place] [address] SINGLE VIEW OF THE CHEST Clinical history: Dyspnea Comparison: December 24, 2023 A single view of the chest demonstrates cardiomegaly. Multiple mitral clips are noted. The pulmonary vessels are normally distributed. Mild left basilar atelectasis or consolidation partially silhouettes the heart border and left hemidiaphragm. The right lung is clear Procedure Note Artur Morales MD - 08/25/2024 [place] [address] [place] [address] SINGLE VIEW OF THE CHEST Clinical history: Dyspnea Comparison: December 24, 2023 A single view of the chest demonstrates cardiomegaly. Multiple mitralclips are noted. The pulmonary vessels are normally distributed. Mild leftbasilar atelectasis or consolidation partially silhouettes the heartborder and left hemidiaphragm. The right lung is clear IMPRESSION: Mild left basilar atelectasis or consolidation Ordered By: JOVANNY STREET Interpreted By: Artur Morales MD, 08/25/2024 12:[address] DO GENERAL IMAGING Final Result * (ABNORMAL) URINALYSIS AUTO DIP (08/25/2024 12:20 AM CDT) COLOR (U) YELLOW YELLOW 08/25/2024 12:54 AM CDT [facility] TRANSPARENCY CLOUDY(A) CLEAR 08/25/2024 12:54 AM CDT [facility] SPECIFIC GRAVITY (U) 1.020 1.010 - 1.025 08/25/2024 12:54 AM CDT [facility] U PH 6.0 5.0 - 8.5 08/25/2024 12:54 AM CDT [facility] LEUKOCYTES (U) NEGATIVE NEGATIVE 08/25/2024 12:54 AM CDT [facility] NITRITES NEGATIVE NEGATIVE 08/25/2024 12:54 AM CDT [facility] PROTEIN RANDOM (U) NEGATIVE NEGATIVE 08/25/2024 12:54 AM CDT [facility] GLUCOSE (U) 2+(A) NEGATIVE 08/25/2024 12:54 AM CDT [facility] KETONES MG/DL (U) 2+(A) NEGATIVE 08/25/2024 12:54 AM CDT [facility] UROBILINOGEN 0.2 0.2 - 1.0 EU/DL 08/25/2024 12:54 AM CDT [facility] BILIRUBIN (U) NEGATIVE NEGATIVE 08/25/2024 12:54 AM CDT [facility] BLOOD (U) 3+(A) NEGATIVE 08/25/2024 12:54 AM CDT [facility] URINE SPECIMEN OBTAINED BY CLEAN CATCH PROCEDURE / Unknown 08/25/2024 12:20 AM CDT us [address] DO URINE ORDERABLES Final Result [address] [place] [address], [place] * CT HEAD WO CON (08/24/2024 11:49 PM CDT) Anatomical Region Laterality Modality Head Computed Tomogra phy 08/24/2024 11:4 9 PM CDT Impressions 08/24/2024 11:50 PM CDT IMPRESSION: Compromised study due to motion artifact. No gross acute findings Ordered By: JOVANNY STRE[address] Interpreted By: Artur Morales MD, 08/24/2024 11:49 PM Narrative 08/24/2024 11:50 PM CDT [address] [place] [address] CT HEAD WITHOUT CONTRAST Exam date: 08/24/2024 11:49 PM Clinical history: Depressed mental status Technique: 3 mm collimated axial images of the head were obtained without contrast. A dose lowering technique was used for this procedure, which may include, but is not limited to, dose reduction technique, automated exposure control, the use of iterative reconstruction, and ALARA (As Low As Reasonably Achievable) / Image Gently techniques. Comparison: November 22, 2023 FINDINGS: The obtained images are moderately compromised due to motion artifact. Grossly, there is no evidence of acute or chronic intercranial hemorrhage. No masses or mass effects are seen. The ventricles and sulci are symmetric and within normal limits. There is normal allison-white differentiation throughout. No extra-axial fluid collections are evident. The basilar cisterns are normally patent. The posterior fossa is unchanged Bone windows reveal the paranasal sinuses and mastoid air cells to appear clear. There is no evidence of fracture. Procedure Note Artur Morales MD - 08/24/[address] [place] [address] CT HEAD WITHOUT CONTRAST Exam date: 08/24/2024 11:49 PM Clinical history: Depressed mental status Technique: 3 mm collimated axial images of the head were obtained withoutcontrast. A dose lowering technique was used for this procedure, which mayinclude, but is not limited to, dose reduction technique, automatedexposure control, the use of iterative reconstruction, and ALARA (As LowAs Reasonably Achievable) / Image Gently techniques. Comparison: November 22, 2023 FINDINGS: The obtained images are moderately compromised due to motion artifact.Grossly, there is no evidence of acute or chronic intercranial hemorrhage.No masses or mass effects are seen. The ventricles and sulci are symmetricand within normal limits. There is normal allison-white differentiationthroughout. No extra-axial fluid collections are evident. The basilarcisterns are normally patent. The posterior fossa is unchanged Bone windows reveal the paranasal sinuses and mastoid air cells to appearclear. There is no evidence of fracture. IMPRESSION: Compromised study due to motion artifact. 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1950 Requested By: JOVANNY STREET Order Number: [id number] Reading MD: Adrian Nieto Measurements Intervals [place] Rate: 109 P: 0 PA: 0 QRS: 24 QRSD: 113 T: 77 QT: 341 QTc: 460 Interpretive Statements ATRIAL FIBRILLATION WITH RAPID VENTRICULAR RESPONSE WITH ABERRANT CONDUCTION OR VENTRICULAR PREMATURE COMPLEXES MODERATE INTRAVENTRICULAR CONDUCTION DELAY [110+ ms QRS DURATION] NONSPECIFIC ST & T-WAVE ABNORMALITY ABNORMAL RHYTHM ECG COMPARED TO PREVIOUS TRACING Atrial fibrillation is present Procedure Note Adrian Nieto MD - 08/26/2024 HFG Test Date: 2024-08-24 Pat Name: [facility] Department: 100 Room: ED202 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1950 Requested By: JOVANNY STREET Order Number: [id number] Reading MD: Adrian Nieto Measurements Intervals [place] Rate: 109 P: 0 PA: 0 QRS: 24 QRSD: 113 T: 77 QT: 341 QTc: 460 Interpretive Statements ATRIAL FIBRILLATION WITH RAPID VENTRICULAR RESPONSE WITH ABERRANTCONDUCTION OR VENTRICULAR PREMATURE COMPLEXES MODERATE INTRAVENTRICULAR CONDUCTION DELAY [110+ ms QRS DURATION] NONSPECIFIC ST & T-WAVE ABNORMALITY ABNORMAL RHYTHM ECG COMPARED TO PREVIOUS TRACING Atrial fibrillation is present Jovanny Street DO ECG ORDERABLES Final Result [address] [address] * (ABNORMAL) KETONE BODYS QUALITATIVE (08/24/2024 11:16 PM CDT) ACETONE S/P/B POSITIVE(A ) NEGATIVE 08/25/2024 12:06 AM CDT [facility] 08/24/2024 11:1 [address] DO LABORATORY Final Result Performing Organization Address [facility]/ZIP Co de Phone Number [facility] [address] [place] [address], [place] * TROPONIN, QUANT (08/24/2024 11:16 PM CDT) Pathologist [facility] TROPONIN I HIGH SENSITIVITY 46 0 - 54 ng/L 08/25/2024 12:04 AM CDT [facility] Comment: HIGH DOSES OF BIOTIN, TROPONIN-SPECIFIC AUTOANTIBODIES, AND ANTIBODY THERAPY CONTAINING HAMA MAY INTERFERE WITH THIS TEST RESULT. CORRELATION TO CLINICAL HISTORY AND PRESENTATION RECOMMENDED. 08/24/2024 11:[address] DO LABORATORY Final Result Performing Organization Address [facility] Co de Phone Number [facility] [address] [place] [address], [place] * (ABNORMAL) ALBUMIN CREATININE URINE RANDOM (06/06/2024 12:30 PM DISC JOCKEY) [facility] ALBUMIN (U) 6.7 MG/DL 06/06/2024 4:06 PM DISC JOCKEY [facility] Comment:REFERENCE RANGE NOT ESTABLISHED CREATININE RANDOM (U) 189.3 MG/DL 06/06/2024 4:06 PM DISC JOCKEY [facility] Comment:REFERENCE RANGE NOT ESTABLISHED ALBUMIN/CREAT RATIO 35.4(H) <30 MG/G 06/06/2024 4:06 PM DISC JOCKEY [facility] Comment: NORMAL TO MILDLY INCREASED ALBUMINURIA: <30 MG/G MODERATELY INCREASED ALBUMINURIA: 30 TO 300 MG/G SEVERELY INCREASED ALBUMINURIA: >300 MG/G PER KDIGO URINE SPECIMEN / Unknown 06/06/2024 12:30 PM DISC JOCKEY us Frantz Dee MD URINE ORDERABLES Final Result Performing Organization Address City/[facility]/ZIP Co de Phone Number [facility] [address] [place] [address], * (ABNORMAL) TSH W/REFLEX (06/06/2024 12:11 PM DISC JOCKEY) Pathologist [facility] TSH 17.733(H) 0.358 - 3.740 uIU/ML 06/06/2024 1:09 PM DISC JOCKEY [facility] Comment: ASSAY PERFORMED BY CHEMILUMINESCENT IMMUNOASSAY METHODOLOGY USING SIEMENS DIMENSION REAGENT. PATIENT RESULTS DETERMINED BY ASSAYS FROM DIFFERENT MANUFACTURERS AND/OR BY DIFFERENT METHODS MAY NOT BE COMPARABLE. 06/06/2024 12:1 1 PM DISC JOCKEY us Frantz Dee MD LABORATORY Final Result [facility] [address] [place] [address], [place] [phone] * (ABNORMAL) VITAMIN B-12 (06/06/2024 12:11 PM DISC JOCKEY) Pathologist [facility] VITAMIN B12 S/P/B 1,549(H) 193 - 986 PG/ML 06/07/2024 7:39 PM DISC JOCKEY [facility] 06/06/2024 12:1 1 PM DISC JOCKEY us Frantz Dee MD LABORATORY Final Result [facility] [address] [place] [address], [place] [phone] [id number] * LIPID PANEL (06/06/2024 12:11 PM DISC JOCKEY) Pathologist [facility] CHOLESTEROL 181 MG/DL 06/07/2024 3:50 PM DISC JOCKEY [facility] Comment:DESIRABLE: <200 TRIGLYCERIDES 92 MG/DL 06/07/2024 3:50 PM DISC JOCKEY [facility] Comment:<150 NORMAL HDL 76 >39 MG/DL 06/07/2024 3:50 PM DISC JOCKEY [facility] LDL-C 87 MG/DL 06/07/2024 3:50 PM DISC JOCKEY [facility] Comment:<100 OPTIMAL VLDL CALCULATION 18 MG/DL 06/07/19 25 3:50 PM DISC JOCKEY [facility] Comment:REFERENCE RANGE NOT ESTABLISHED CHOL/HDL RATIO 2.4 06/07/2024 3:50 PM DISC JOCKEY [facility] Comment:REFERENCE RANGE NOT ESTABLISHED LDL/HDL 1.1 06/07/2024 3:50 PM DISC JOCKEY [facility] Comment:REFERENCE RANGE NOT ESTABLISHED NON HDL CHOLESTEROL 105 MG/DL 06/07/2024 3:50 PM DISC JOCKEY [facility] Comment:REFERENCE RANGE NOT ESTABLISHED 06/06/2024 12:1 1 PM DISC JOCKEY us Frantz Dee MD LABORATORY Final Result [facility] [address] [place] [address], [place] [phone] [id number] * THYROXINE, FREE (FT4) (06/06/2024 12:11 PM DISC JOCKEY) FREE T4 1.05 0.76 - 1.46 NG/DL 06/06/2024 1:28 PM DISC JOCKEY [facility] 06/06/2024 12:1 1 PM DISC JOCKEY us Frantz Dee MD LABORATORY Final Result [facility] [address] [place] [address], from Last 3 Months Insurance MEDICARE BLUE CROSS BLUE [employer] Advance Directives * Full Code (Latest Code Status on File) Date Activated Date Inactivated Comments 08/25/2024 4:38 AM 09/01/2024 4:51 PM * Full Code Date Activated Date Inactivated Comments 02/01/2024 10:21 AM 02/01/2024 2:32 PM * Full Code Date Activated Date Inactivated Comments 10/14/2023 10:22 PM 10/16/2023 3:36 PM Care Teams 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
--- OUTSIDE RECORDS SUMMARY | 2024-09-01 17:20 | XMS_ITS | Encounter Summary ---
Author Organization [facility] Address [facility] [place] [address] Care Team Providers Care Oracle Database Consultant Name Role Phone Otoniel Melton MD Primary Care Provider [phone]- [phone] Reason for Referral * Imaging (Urgent) - New Request Specialty Diagnoses / Procedures Referred By Contac t Referred To Contact RADIOLOGY Procedures USE ECHOCARDIOGRAM Mary Kay Kilgore DNP [address] [address] Phone: tel: fax: Referral ID Status Reason Start Date Expiration Date V isits Requested Visits Authorized [id number] New Request 08/27/2024 08/27/2025 1 1 * Imaging (Emergency) - New Request Specialty Diagnoses / Procedures Referred By Contac t Referred To Contact RADIOLOGY Procedures MRI BRAIN WWO CON Ariadna Saucedo MD [address] [place] [address] Phone: tel: fax: Referral ID Status Reason Start Date Expiration Date V isits Requested Visits Authorized [id number] New Request 08/26/2024 08/26/2025 1 1 * (Routine) - Canceled Specialty Diagnoses / Procedures Referred By Contac t Referred To Contact Procedures OT Eval and Treat [facility] Intensive Care Unit - [address] [place] [address] Phone: tel: Referral ID Status Reason Start Date Expiration Date V isits Requested Visits Authorized [id number] Canceled 08/26/2024 08/26/2025 1 1 * (Routine) - Canceled Specialty Diagnoses / Procedures Referred By Contac t Referred To Contact Procedures PT Eval and Treat [facility] Intensive Care Unit - [address] [place] [address] Phone: tel: Referral ID Status Reason Start Date Expiration Date V isits Requested Visits Authorized [id number] Canceled 08/26/2024 08/26/2025 1 1 Reason for Visit * Auth/Cert (Routine) Specialty Diagnoses / Procedures Referred By Contac t Referred To Contact Diagnoses DKA (diabetic ketoacidosis) ([facility]) DKA Procedures NONE Alexandria Longo MD [address] [place] [address] Phone: tel: fax: Referral ID Status Reason Start Date Expiration Date Visits Re quested Visits Authorized [id number] 1 1 Encounter Details Date Type Department Care Team (Late st Contact Info) Description 08/25/2024 4:37 AM CDT - 09/01/2024 2:40 PM CDT Hospital Encounter [facility] 4th Floor Medical [address] [place] [address] Alexandria Longo MD [address] [place] [address] Ariadna Saucedo MD [address] [place] [address] Dony Mercado MD [address] [place] [address] Lucas Kenny MD [address] [place] [address] Zay Bellamy MD [address] [place] [address] Discharge Disposition: Swing Bed Social History Tobacco Use Types Packs/Day Years Used Date Smoking Tobacco: Never Smokeless Tobacco: Never Alcohol Use Standard Drinks/Week Comments Never 0 (1 standard drink = 0.6 oz pur e alcohol) [facility] Utilities Answer Date Recorded In the past 12 months has [facility] electric, gas, oil, or water [employer] threatened to shut off services in your [...] answer 08/25/2024 Housing Stability Vital Sign Answer Joey e Recorded In the last 12 months, was t here a time when you were not able to pay the mortgage or rent on time? Patient unable to answer 08/25/2024 In the past 12 months, how m any times have you moved where you were living? 1 08/25/2024 At any time in the past 12 m [facility], were you homeless or living in a residential (including now)? Patient unable to answer 08/25/2024 Sex and Gender Information Value Date Recorded Sex Assigned at Male 08/24/2024 11:13 PM CDT Legal Sex Male 6:00 PM CDT Gender Identity Not on file Sexual Orientation Not on file documented as of this encounter Last Filed Vital Signs Vital Sign Reading [...] Mass Index 18.2 08/25/2024 5:30 AM CDT documented in this encounter Functional Status * Question Answer Date of Assessment Author Status Do you have serious difficulty walking or climbing stairs? No 08/25/2024 8:33 AM CDT Nallely Feliciano RN Ac tive * Question Answer Date of Assessment Author Status Do you have difficulty dressing or bathing? No 08/25/2024 8:33 AM CDNallely Ellison R N Active Because of a physical, mental, or emotional condition, do you have difficulty doing errands alone such as visiting a doctor's office or shopping? No 08/25/2024 8:33 AM Nallely Montanez RN Act daphne * Are you deaf or do you have serious difficulty hearing Answer Date of Assessment Author Status No 08/25/2024 8:33 AM Nallely Montanez RN Active * Are you blind or do you have serious difficulty seeing, even when wearing glasses? Answer Date of Assessment Author Status No 08/25/2024 8:33 AM Nallely Montanez RN Active * Do you have serious difficulty walking or climbing stairs? Answer Date of Assessment Author Status No 08/25/2024 8:33 AM Nallely Montanez RN Active * Do you have difficulty dressing or bathing? Answer Date of Assessment Author Status No 08/25/2024 8:33 AM Nallely Montanez RN Active * Because of a physical, mental, or emotional condition, do you have difficulty doing errands alone such as visiting a doctor's office or shopping? Answer Date of Assessment Author Status No 08/25/2024 8:33 AM Nallely Montanez RN Active documented as of this encounter Mental Status * Question Answer Entry Date Author Status Because of a physical, mental, or emotional condition, do you have serious difficulty concentrating, remembering, or making decisions? No 08/25/2024 8:33 AM Nallely Montanez R N Active * Because of a physical, mental, or emotional condition, do you have serious difficulty concentrating, remembering, or making decisions? Answer Entry Date Author Status No 08/25/2024 8:33 AM Nallely Montanez RN Active documented in this encounter Discharge Summaries * Zay Bellamy MD - 09/01/2024 1:58 PM CDTSummary: Discharge Summary Images from the original note were not included. Hospitalist Discharge Summary Patient ID: Corby Valiente [id number] 73-year-old 1950 Admit date: 08/25/2024 Expected Discharge Date: 09/01/2024 Primary care Physician: OTONIEL MELTON MD Admitting Physician: Alexandria Longo MD Discharge Physician: Zay Bellamy MD Admission Diagnoses: DKA (diabetic ketoacidosis) ([facility]) [E11.10] Discharge Diagnoses: Acute hypoxic respiratory failure, resolved Left-sided community-acquired pneumonia, presumed bacterial DKA Hypoglycemia Hypothyroidism CAD with recent MitraClip procedure on aspirin and Plavix New onset thrombocytopenia DEVIN Metabolic encephalopathy, resolved Anemia of chronic disease Constipation Depressed LVEF 45 to 50% with grade 1 diastolic dysfunction Past Medical History Past Medical History: Diagnosis Date Diabetes mellitus ([facility]) Fracture, clavicle DOI: 06/11/2021 LEFT Clavicle Hyperlipemia Hypothyroidism Radius and ulna distal fracture DOI: 06/11/2021 LEFT distal radius Brief Hospital Course: 73-year-old man with insulin-dependent diabetes mellitus presented to [facility] ER with confusion and weakness. Lab significant for blood sugars in the 600 and increased anion gap. Patient started on insulin infusion per DKA protocol and transferred to [facility] for management of the same. CT head obtained negative for acute intracranial pathology. On arrival to [facility] patient heart rate 80/min, blood pressure 80/40 improved with IV fluid. Chest x-ray showing left lower lobe consolidation and he was treated with IV antibiotics as recommended by ID. Being discharged on cefuroxime until 09/15 as recommended by ID. His hospital course was complicated by frequent hypoglycemic episode after requiring dextrose infusion and was seen by endocrine, insulin dose was adjusted. Being discharged on adjusted dose of insulin and patient will need to follow-up with endocrinology as outpatient. Patient was also found to have new onset thrombocytopenia platelet progressively trended down from 1 43-66 which is most likely secondary to antibiotics and supplements. HIT panel was negative. His hypoxia has resolved and currently on room air. He has been started on MiraLAX and stool softenersfor constipation. Seen by PT and OT and recommended swing bed unit which has been arranged by case management. Problem Based course: Acute hypoxic resp failure currently on room air. Monitor. On oxygen by nasal cannula Left-sided cap presumed bacterial Seen by ID initially treated with IV antibiotics until 08/31 and was switched to Ceftin 500 mg every12 hours to complete 3 weeks of therapy following conclusion of IV ceftriaxone on 08/14. On antibiotic preliminary cultures negative respiratory PCR negative Currently on room air. May need as needed oxygen supplementation, monitor DKA Hypoglycemia requiring dextrose infusion Seen by endocrinology Given that patient is still not eating well due to recent dental procedure we will continue him on reduced doses of insulin Continue Lantus 8 units in the morning and 2 units at night Increase Humalog to 4 units per meal Continue with sliding scale insulin Please notify [facility] Endocrinology for blood glucose value 70 or greater than 350. Patient to follow-up with [place] [facility]ocrinology Dr. Dee in 2-4 weeks. Office will call to schedule patient. HYPOTHYROIDISM on synthroid Cad with recent MitraClip procedure on aspirin plavix statin New onset thrombocytopenia Platelet count has progressively trended down from 143 on admission to 66 today. No signs of bleeding. Likely secondary to antibiotics and sepsis but will need to rule out HIT. Negative HIT panel, monitor Devin- resolved Metabolic encephalopathy resolved CT head was negative, now resolved Anemia likely of chronic disease monitor with repeat labs. Weekly Constipation Started on MiraLAX daily and Senokot 2 tablets nightly as needed Consults: ID and endocrinology Procedures/Significant Diagnostic Studies: USE ECHOCARDIOGRAM Final Result by User, [id number] (08/28 1058) Echocardiography Report Pat.Name: CORBY VALINETE Pat.ID: [id number] .Date: 08/27/2024 Refer.MD: [id number] JAD Deluna EWDPROV EWDPROV Exam Time: 3:29:00 PM Study Type:ECHO WITH CARDIAC DOPPLER COMP Height: 70 in Weight: 132 lb BSA: 1.75 m2 Age: 6 1950,73Y Sex: M HR: 70 bpm Sonogrphr: Shari Garg Pat. Stat.:Inpatient Room: [facility] CPT - 4: 87451 Reason for Study:CAD Procedures: 2D, M-mode, Doppler, Color Flow Race: W ++++++++++++++++++++++++++++++++++++ SUMMARY: ++++++++++++++++++++++++++++++++++++ Estimated left ventricular ejection fraction is 45-50%. The left ventricular size is mildly enlarged. ??Mild global hypokinesis is noted. Right ventricular systolic [...] Mass 2D Value 261 g LV Mass Ebdvy0R Value 149 g/m2 RA Volume Atrial Barahona [...] Right Ventricle Right Ventricle 4.4 cm Major Tafton 8.67 cm MMODE TA Tricuspid Annul 2.89 cm <Electronic Signature> 08/28/2024 10:59 AM Kim Montes M.D. MRI BRAIN WWO CON Final Result by User, [email or web address] (08/26 1917) [facility] [address] [place], [place] [address] EXAMINATION: MRI Brain without and with Contrast [...] effusions. Bones: Normal. Scalp/facial soft tissues: Normal. IMPRESSION: 1. No acute intracranial findings. No brain abscess. 2. Indeterminate mastoid air cell effusions. 3. Chronic/nonemergent findings as above. Referred By: J[address]ANNY STRE[address] Interpreted By: Whitney Thorne DO, 08/26/2024 7:08 PM Lab Results Component Value Date CHOL 181 06/06/2024 TRI 92 06/06/2024 HDL 76 06/06/2024 LDL 95 08/16/2021 NA 140 08/31/2024 K 3.7 08/31/2024 CL 103 08/31/2024 CO2 30.2 08/31/2024 BUN 9 08/31/2024 CR 0.84 08/31/2024 CA 8.7 08/31/2024 GLU 131 (H) 08/31/2024 AGAP 6.8 08/31/2024 TP 5.6 (L) 08/26/2024 ALB 3.1 (L) 08/26/2024 AST 87 (H) 08/26/2024 ALT 29 08/26/2024 WBC 4.93 08/31/2024 HGB 9.2 (L) 09/01/2024 PLT 66 (L) 08/31/2024 HGBA1C 8.2 (H) 08/26/2024 TSH 17.733 (H) 06/06/2024 INR Date Value Ref Range Status 10/14/2023 1.0 0.8 - 1.1 Final Discharged Condition: fair Code Status: Full Code Discharge Exam: Patient was seen and examined on day of discharge, vitals were stable. Disposition: discharged to swing bed unit Patient Instructions: Current Discharge Medication List START taking these medications Details atorvastatin (LIPITOR) 20 MG tablet Take 1 tablet (20 mg total) by mouth daily. Qty: 30 tablet, Refills: 0 cefUROXime (CEFTIN) 500 MG tablet Take 1 tablet (500 mg total) by mouth 2 (two) times daily for 14 days. Qty: 28 tablet, Refills: 0 polyethylene glycol (GLYCOLAX) packet Take 240 mLs (17 g total) by mouth daily as needed. Dissolve powder in 240 mL water Qty: 30 each, Refills: 0 CONTINUE these medications which have CHANGED Details BASAGLAR KWIKPEN 100 UNIT/ML injection (PEN) Lantus 8 units in the morning and 2 units at night Qty: 3 mL, Refills: 1 NOVOLOG FLEXPEN 100 UNIT/ML injection (PEN) 4 units before meals three times a day Add sliding scale insulin coverage as below: 0-5 Units, Subcutaneous, 4 times daily with meals and nightly, First dose (after last modification)on Sun08/29/24 at 1700, Until Discontinued Instructions: Humalog for high blood sugars. 150-200 +1 unit 201-250 +2 unit 251-300 +3 units 301-350 +4 units 351-400 +5 units. Qty: 3 mL, Refills: 0 senna-docusate (SENOKOT-S) 8.6-50 MG tablet Take 2 tablets by mouth nightly as needed for Constipation. Qty: 60 tablet, Refills: 0 CONTINUE these medications which have NOT CHANGED Details aspirin 81 MG chewable tablet Chew 1 tablet (81 mg total) by mouth daily. clopidogrel (PLAVIX) 75 MG tablet Take 1 tablet (75 mg total) by mouth daily. JARDIANCE 10 MG tablet Take 1 tablet (10 mg total) by mouth daily. levothyroxine (SYNTHROID) 112 MCG tablet Take 1 tablet (112 mcg total) by mouth every morning. STOP taking these medications simvastatin 40 MG tablet Wound Care: none needed Follow-up: Otoniel Melton MD [address] [place] [phone] Schedule an appointment as soon as possible for a visit in 1 day(s) Total time spent on discharge was 33 minutes. Thank you for choosing [facility] service. Please call [phone] if you have any questions or concerns. Signed: Zay Bellamy MD 09/01/2024 2:03 PM documented in this encounter Discharge Instructions * Discharge Instructions* HERMINIO Griffin - 09/01/2024 8:54 AM CDT --Check blood glucose before meals and before bedtime every day. --Record blood glucose readings and bring to follow-up appointment with [facility] --Follow-up with Dr. Dee in 2-4 weeks. Our staff will call and schedule you. --Continue on decreased doses of insulin while not eating well --- Lantus 8 units in the morning and 2 units at bedtime --- Humalog 4 units with meals --- If premeal blood glucose 150-199 add 1 additional unit 200-249: add 2 additional units 250-299: add 3 additional units 251-300: add 4 additional units 301-349: add 5 additional units More than 350 call [facility]; if after hours call telehealth nurse --Please notify [facility] when you are eating more normally --- Please notify [facility] with blood glucose greater than 350. documented in this encounter Medications at Time of Discharge aspirin 81 MG chewable tablet Chew 1 tablet (81 mg total) by mouth daily. atorvastatin (LIPITOR) 20 MG tablet Take 1 tablet (20 mg total) by mouth daily. 30 tablet 09/02/2024 BASAGLAR KWIKPEN 100 UNIT/ML injection (PEN) Lantus 8 units in the morning and 2 units at night 3 mL 1 09/01/2024 cefUROXime (CEFTIN) 500 MG tablet Take 1 tablet (500 mg total) by mouth 2 (two) times daily for 14 days. 28 tablet 09/01/2024 clopidogrel (PLAVIX) 75 MG tablet Take 1 tablet (75 mg total) by mouth daily. JARDIANCE 10 MG tablet Take 1 tablet (10 mg total) by mouth daily. levothyroxine (SYNTHROID) 112 MCG tablet Take 1 tablet (112 mcg total) by mouth every morning. NOVOLOG FLEXPEN 100 UNIT/ML injection (PEN) 4 [...] +4 units 351-400 +5 units. 3 mL 09/01/2024 polyethylene glycol (GLYCOLAX) packet Take 240 mLs (17 g total) by mouth daily as needed. Dissolve powder in 240 mL water 30 each 09/01/2024 senna-docusate (SENOKOT-S) 8.6-50 MG tablet Take 2 tablets by mouth nightly as needed for Constipation. 60 tablet 09/01/2024 documented as of this encounter Progress Notes * Farooq Cabrera - 09/01/2024 1:43 PM CDT Transportation arranged with [facility] going to [facility] in [facility] at 2:30 pm. Notified CM of transportation details. Prior authorization through Lisbeth Ackerman as facility and patient are unable to pay. * Elham Avitia RN - 09/01/2024 11:05 AM CDT 0935: Called [facility] and spoke with Gamaliel. I let her know that patient was ready for d/c.She stated that they were going into rounding and she would call me back to let me know the status on patient going there today. 09/01/24 1105 Forms Reinforcement Important Message from Medicare (Subsequent IMM) Signed Copy delivered 1124: Gamaliel called back to let me know that they would like an updated hgb before they can accept. Dr. Bellamy notified and H&H ordered. 1247: Called and notified Gamaliel at [facility] that hgb was 9.2. She stated that she would talk with hospitalist about hgb and see if she was okay with accepting. 1255: Hospitalist at [facility] is okay to accept today. Dr. Bellamy notified. He would like to see patient prior to d/c. Met with patient at bedside to finalize discharge plan. Family notified. Risk of unplanned readmission score: medium After Visit Summary post acute appointments: see AVS Final discharge disposition: [facility] N2N: [phone] Pharm: [facility] Transportation: 230pm w/ [facility] IMM: 09/01/24 1425: [facility] notified of transport and AVS faxed. * Gael Horne PTA - 09/01/2024 8:27 AM CDT PT Treatment Discharge Recommendation: Swing bed unit Activity Recommendation for carpet winder: up with assist of 1,gt belt and walker 09/01/24 0815 Therapy Visit Ordering Provider Ariadna Saucedo MD Subjective RN and wax engraver student nurse gave permisison to se ept.Pt willing to try and asks to go to the bathroom Reason for admission Pt presented 08/24 with hyperglycemia, altered mental status, and syncopal episode. He was admitted with DKA, hyperglycemia, metabolic encephalopathy, and CAP...PMH: DM, HLD, HTN,hypothyroidism, hx of LUE fxs 2021...Orders: eval and treat...Activity: up in chair Verified Two Patient Identifiers Yes Patient consents to therapy Yes Acute Inpatient PT Time Calculation PT Start Time 0740 PT Stop Time 0810 PT Time Calculation (min) 30 min Precautions General Precautions Bed Alarm;Chair Alarm;Fall Risk Instructed on Precautions Yes;Verbalizes understanding;Needs reinforcement and education Other IV, telemetry, room air Prior Function PLOF Comments Per Eval: Pt reports that he lives with his in a 2 story home with 5 steps to enter with HR. His bedroom is on the 2nd floor with 16 steps to access with HR x 1...Bathroom: ML: tub/shower with standard toilet with sink close; 2nd floor: walk-in shower with seat and grab bar alongwith a standard toilet with sink close....Baseline: independent with self care, mobility, and does IADLs. sleeps on the ML and walks without AE...Falls: none...AE: I don't remmber, I don'tuse them Pain Pain Patient does not offer or c/o pain Activity Tolerance Limiting Factors to Endurance Acute deconditioning Pre-activity VS spo2 was at 94% after amb from the bathroom Cognition Overall Cognitive Status WFL Arousal/Alertness Appropriate responses to stimuli Attention Span Appears intact Memory Appears intact Orientation Level Oriented to person;Oriented to place;Oriented to time Following Commands Follows multistep commands with increased time Safety Judgment Decreased awareness of need for safety Awareness of Errors Assistance required to identify errors made Deficits Fully aware of deficits Problem Solving Assistance required to identify errors made Comments encouragement to try Motor Planning Appears intact Perseveration Not present Initiation Appears intact Bed Mobility Other (Comment) not tested, pt seated edge of the bed TRANSFERS Sit to Stand Contact guard assist;SBA/supervision Other (Comment) Pt transfers sit to/from stand from the bed and commode over the toilet Gait Gait Assistance Contact guard assist;With gait belt Assistive Device 2 Wheeled walker Other (Comment) 30 feet and 20 feet with the 2 wheeled walker and step through gt pattern with cuesto stay closer to the walker with mobility and to bring it back with him before sitting down Balance Sitting - Static SBA;Modified independence Sitting - Dynamic SBA;Support of both upper extremities Standing - Static SBA;Support of both upper extremities Standing - Dynamic CGA;Support of both upper extremities Other (Comment) no loss of balance this date.He does need cues for safety throughout. Exercises Other (Comment) 10 reps of long arc quads, marching, ankle pumps, hip abd/add with brief rest breaks due to shortness of breath PT Assessment PT Assessment Pt fatigued but willing to try .He was able to participate in transfers and amb,strengthening this date. Pt short of breath throughout but spo2 was at 94% on room air.Pt fatigued quickly but with rest breaks, he was able to continue on.He could not remember what he had done over the weekend . He asked to rest after all he had accomplished. Recommend swing bed at this time to increase his strength activioty tolerance, balance and functional mobility Discharge Recommendation PT Recommendation Swing bed unit Plan PT Treatments/Interventions Gait Training;Therapeutic Exercises;Therapeutic Activities;Neuromuscular re-education;Patient/family training PT Frequency 5 times/week PT - Next Appointment 09/01/24 If this is the last treatment note,it will serve as the discharge summary Yes End of Session End of Session Safety Chair alarm set/activated;Call light within reach;Nursing aware of session Interdisciplinary Collaboration spoke to RN and wax engraver nurse re: giovana johnson ordered End of Session Comment Pt is up inthe chair with chair alrm on and all needs in reach Education: Primary Learners Name: Corby Jimy Valiente Primary Language of learner: [place] Patient was educated on exercises transfers ADLs gait safety joint protection. Education was completed one to one verbal hands-on this date. Preference of learning new concepts one to one verbal hands-on Barriers to education this date were fatigue anxious physical impairment. Response to education this date demos with verbal cues needs reinforcement needs follow up needs assistance. * Jourdan Camarena RD - 09/01/2024 8:08 AM CDT CLINICAL DIETITIAN ASSESSMENT NUTRITION ASSESSMENT Past Medical History: Diagnosis Date Diabetes mellitus ([facility]) Fracture, clavicle DOI: 06/11/2021 LEFT Clavicle Hyperlipemia Hypothyroidism Radius and ulna distal fracture DOI: 06/11/2021 LEFT distal radius Initial History (09/01/2024): Remote Registered Dietitian (RD) completing an initial assessment secondary to MST score of 2 and low BMI. Patient is a 73-year-old male admitted secondary to DKA (diabetic ketoacidosis) ([facility]) [E11.10]. Also noted during hospitalization: acute respiratory failure, pneumonia, hypothyroidism, thrombocytopenia, DEVIN, metabolic encephalopathy, anemia, constipation, hypoglycemia. He was formally on a Dexcom monitoring system however his insurance no longer pays for this apparatus and therefore his blood sugars have been less controlled. Remote RD spoke with pt via phone, though conversation was very brief because pt stated he was in the middle of eating. Pt also seemed to be a fairly poor historian. Weight history (09/01/2024): unable to obtain from pt at this time. Pt was unable to answer MST questions at time of attempt per documentation. Per EHR: 08/24/24 60.8 kg (134 lb 0.6 oz) 02/01/24 64.8 kg (142 lb 13.7 oz) Possible 8.8% wt loss x7 months. Diet history (09/01/2024): pt stated he ate well/had good appetite at home but no other details provided at this time. Pt reported good appetite/intake currently. 66% average meal intake per availablemeal intake documentation past 3 days, though this includes a 25% meal intake when pt ate food fromfamily instead of finishing facility provided meal. Current order noted for Ensure TID, will changeto more blood sugar friendly ONS. Food allergies/intolerances: NKFA per EHR Cultural/Roman Catholic food preferences: None reported in EHR/per pt Food Insecurity: Patient Unable To Answer (08/25/2024) Hunger Vital Sign Worried About Running Out of Food in the Last Year: Patient unable to answer Ran Out of Food in the Last Year: Patient unable to answer Unable to discuss with pt at this time. Cardiorespiratory: room air Neuro: alert, oriented x3 Edema: no edema noted per EHR GI: abdomen WDL with positive bowel sounds per financial sales assistant; last BM documented on 08/30 (no BM details documented). On bowel meds regimen. Chewing/swallowing problems: None reported. Poor dentition per EHR. Skin: no nutrition-related concerns noted at this time Nutrition-focused physical findings: Deferred at this time due to RD remote, though may benefit from NFPE at future time, if feasible. Labs: Reviewed. No nutrition-related concerns requiring new intervention at this time. A1c and glucose noted - pt on carb controlled diet. Episode of hypoglycemia noted yesterday. Endocrinology on case. Recent Labs Lab 08/30/24 1646 08/30/24 2056 08/31/24 0550 08/31/24 1143 08/31/24 1721 08/31/24201109/01/24 0625 GLUCOSEPOC 106 118* 47* 288* 351* 214* 138* Recent Labs Lab 08/27/24 0400 08/28/24 0333 08/29/24 0404 08/30/24 0453 08/31/24 0825 NA 140 138 141 139 140 K 4.1 4.0 3.6 3.9 3.7 MAGNESIUM 1.9 1.9 -- -- 2.0 PHOS 2.6 2.3* -- -- 3.0 BUN 15 15 16 10 9 CR 0.97 0.89 0.79 0.83 0.84 GFREST 83* >90 >90 >90 >90 GLU 103 183* 33* 103 131* HGB A1C Date Value Ref Range Status 08/26/2024 8.2 (H) <5.7 % Final 06/06/2024 7.1 (H) <5.7 % Final Meds: Reviewed. No nutrition-related concerns requiring intervention at this time. aspirin 81 mg Oral Daily atorvastatin 20 mg Oral Daily budesonide 0.5 mg Nebulization 2 times daily RT clopidogrel 75 mg Oral Daily insulin glargine 2 Units Subcutaneous Nightly at bedtime insulin glargine 8 Units Subcutaneous Daily insulin lispro 0-5 Units Subcutaneous 4x Daily WC insulin lispro 2 Units Subcutaneous TID WC ipratropium-albuterol 3 mL Nebulization Q4H RT levothyroxine 112 mcg Oral Daily normal saline 3-10 mL Intravenous Q8H polyethylene glycol 1 packet Oral Daily senna-docusate 2 tablet Oral Nightly at bedtime Anthropometrics: Admission weight: 60.8 kg (Date: 08/24; Method: Bed) Last 5 Recorded Weights 08/25/24 0452 08/25/24 0530 08/30/24 0400 Weight: 60.1 kg (132 lb 7.9 oz) 60.1 kg (132 lb 8 oz) 59.1 kg (130 lb 6.4 oz) Weight status: fairly stable since admission Height: 182.9 cm Actual Body Weight (ABW): 59.1 kg Oriental Body Weight (IBW): 78 kg (ABW is 76% of IBW) Usual Body Weight (UBW): unable to obtain from pt at this time, see EHR wt hx above Dosing Weight (DW): 59.1 kg Body Mass Index (BMI): 18.2 kg/m?? (Underweight) Estimated Nutrient Needs: Calories: 1704 kcal/day based on [place] Jeor x 1.25 Protein: 71-89 gm/day based on 1.2-1.5 gm/kg, using ABW Carbohydrate: 213 gm/day based on 50% of total kcal from carbohydrate Fluid: 1704 mL/day based on 1 mL/kcal estimated needs or as per MD Current diet order: Diet Carb Controlled Appropriate; 60g/meal Dietary nutrition supplements Current diet appropriate? Yes; to support glucose management. Current diet order provides 85% estimated carb needs, though pt also eating food brought in by family at times. Current intake sufficient to meet nutritional needs? Difficult to accurately assess considering food brought in by family at times but based on 3-day review of PO intake per EHR and [facility], patientconsumed an average of 921 kcal/day (54% of estimated needs) and 42 gm/day protein (59% of estimated needs), not including kcals/protein from food brought in by family. Fluid intake appears adequate for hydration. Pain affecting PO intake? No Nutrition Education: unable to assess education needs at this time. Possible barrier: impaired cognition. NUTRITION DIAGNOSIS Inadequate protein-energy intake related to inadequate oral intake as evidenced by 66% meal intake average past 3 days, met <75% average kcal/protein needs past 3 days, 8.8% wt loss x7 months, underweight BMI. Altered nutrition related lab values related to endocrine dysfunction as evidenced by POC glucose ranging 47-351, A1c 8.2, DM, admitted for DKA, insurance no longer covers dexcom system. NUTRITION INTERVENTION Nutrition prescription: Carbohydrate controlled diet (60 gm CHO/meal) + ONS (Glucerna TID) Plan: 1. Continue current diet order as tolerated and encourage good PO intake of meals. May consider increasing carbs/meal to 75g. 2. Change Ensure TID order to Glucerna TID (220 kcal, 10 g protein each) 3. Weigh patient at least weekly 4. Bowel regimen as per MD. 5. Monitor labs including glucose. 6. Consider NFPE at follow up, if feasible Discharge nutrition plan: Discharge needs assessed - carb controlled diet. Will provide/update discharge instructions as needed. MONITORING/EVALUATION 09/01/2024 Goals: 1. PO intake will meet at least 75% of estimated kcal/protein needs based on 3- day average intake per review of EHR and [employer] at follow up. 2. Glucose will trend towards normal by follow up date, as medically feasible. JOURDAN CAMARENA RD, LDN * Radha Mijares RN - 09/01/2024 2:07 AM CDT Problem: Discharge Planning Goal: Knowledge of discharge instructions 09/01/2024206 by Radha Mijares RN Outcome: Progressing 09/01/2024156 by Radha Mijares RN Outcome: Progressing Problem: Pain control/comfort Goal: Promote pain control/comfort 09/01/2024206 by Radha Mijares RN Outcome: Progressing 09/01/2024156 by Radha Mijares RN Outcome: Progressing Problem: Skin integrity, Impaired-wound Goal: Absence of new skin breakdown 09/01/2024206 by Radha Mijares RN Outcome: Progressing 09/01/2024156 by Radha Mijares RN Outcome: Progressing Goal: Evidence of wound healing 09/01/2024206 by Radha Mijares RN Outcome: Progressing 09/01/2024156 by Radha Mijares RN Outcome: Progressing Problem: Skin integrity, Impaired-pressure injury/ulcer Goal: Absence of new skin breakdown 09/01/2024206 by Radha Mijares RN Outcome: Progressing 09/01/2024156 by Radha Mijares RN Outcome: Progressing Goal: Evidence of pressure injury/ulcer healing 09/01/2024206 by Radha Mijares RN Outcome: Progressing 09/01/2024156 by Radha Mijares RN Outcome: Progressing Problem: Skin integrity, at risk Goal: Absence of new skin breakdown 09/01/2024206 by Radha Mijares RN Outcome: Progressing 09/01/2024156 by Radha Mijares RN Outcome: Progressing Problem: Moisture associated skin impairment Goal: Reduce moisture exposure 09/01/2024206 by Radha Mijares RN Outcome: Progressing 09/01/2024156 by Radha Mijares RN Outcome: Progressing Goal: Evidence of wound healing 09/01/2024206 by Radha Mijares, FRANCISCO Outcome: Progressing 09/01/2024156 by Radha Mijares RN Outcome: Progressing Goal: Evidence of pressure injury/ulcer healing 09/01/2024206 by Radha Mijares RN Outcome: Progressing 09/01/2024156 by Radha Mijares RN Outcome: Progressing Goal: Absence of new skin breakdown 09/01/2024206 by Radha Mijares RN Outcome: Progressing 09/01/2024156 by Radha Mijares RN Outcome: Progressing Problem: Reduced risk for falls/injury Goal: Reduced Risk for Falls/Injury 09/01/2024206 by Radha Mijares RN Outcome: Progressing 09/01/2024156 by Radha Mijares RN Outcome: Progressing Goal: Reduced Risk of Confusion (Acute vs Chronic) 09/01/2024206 by Radha Mijares RN Outcome: Progressing 09/01/2024156 by Radha Mijares RN Outcome: Progressing Goal: Reduced Risk of Symptomatic Depression 09/01/2024206 by Radha Mijares RN Outcome: Progressing 09/01/2024156 by Radha Mijares RN Outcome: Progressing Goal: Reduced Risk of Altered Elimination 09/01/2024206 by Radha Mijares RN Outcome: Progressing 09/01/2024156 by Radha Mijares RN Outcome: Progressing Goal: Reduced Risk of Dizziness/Vertigo/Balance 09/01/2024206 by Radha Mijares RN Outcome: Progressing 09/01/2024156 by Radha Mijares RN Outcome: Progressing Goal: Reduced Risk of Polypharmacy 09/01/2024206 by Radha Mijares RN Outcome: Progressing 09/01/2024156 by Radha Mijares RN Outcome: Progressing Problem: Abnormal Serum Glucose Level Goal: Glucose level within specified parameters 09/01/2024206 by Radha Mijares RN Outcome: Progressing 09/01/2024156 by Radha Mijares RN Outcome: Progressing Problem: Fluid Volume - Imbalance Goal: Absence of imbalanced fluid volume signs and symptoms 09/01/2024206 by Radha Mijares RN Outcome: Progressing 09/01/2024156 by Radha Mijares RN Outcome: Progressing Problem: Mobility - Impaired Goal: Able to use ambulatory assistive device appropriately 09/01/2024206 by Radha Mijares RN Outcome: Progressing 09/01/2024156 by Radha Mijares RN Outcome: Progressing Goal: Knowledge of need for increased mobility 09/01/2024206 by Radha Mijares RN Outcome: Progressing 09/01/2024156 by Radha Mijares RN Outcome: Progressing Problem: Mobility - Impaired Goal: Able to use ambulatory assistive device appropriately 09/01/2024206 by Radha Mijares RN Outcome: Progressing 09/01/2024156 by Radha Mijares RN Outcome: Progressing Goal: Knowledge of need for increased mobility 09/01/2024206 by Radha Mijares RN Outcome: Progressing 09/01/2024156 by Radha Mijares RN Outcome: Progressing * Radha Mijares RN - 09/01/2024 1:57 AM CDT Problem: Discharge Planning Goal: Knowledge of discharge instructions Outcome: Progressing Problem: Pain control/comfort Goal: Promote pain control/comfort Outcome: Progressing Problem: Skin integrity, Impaired-wound Goal: Absence of new skin breakdown Outcome: Progressing Goal: Evidence of wound healing Outcome: Progressing Problem: Skin integrity, Impaired-pressure injury/ulcer Goal: Absence of new skin breakdown Outcome: Progressing Goal: Evidence of pressure injury/ulcer healing Outcome: Progressing Problem: Skin integrity, at risk Goal: Absence of new skin breakdown Outcome: Progressing Problem: Moisture associated skin impairment Goal: Reduce moisture exposure Outcome: Progressing Goal: Evidence of wound healing Outcome: Progressing Goal: Evidence of pressure injury/ulcer healing Outcome: Progressing Goal: Absence of new skin breakdown Outcome: Progressing Problem: Reduced risk for falls/injury Goal: Reduced Risk for Falls/Injury Outcome: Progressing Goal: Reduced Risk of Confusion (Acute vs Chronic) Outcome: Progressing Goal: Reduced Risk of Symptomatic Depression Outcome: Progressing Goal: Reduced Risk of Altered Elimination Outcome: Progressing Goal: Reduced Risk of Dizziness/Vertigo/Balance Outcome: Progressing Goal: Reduced Risk of Polypharmacy Outcome: Progressing Problem: Abnormal Serum Glucose Level Goal: Glucose level within specified parameters Outcome: Progressing Problem: Fluid Volume - Imbalance Goal: Absence of imbalanced fluid volume signs and symptoms Outcome: Progressing Problem: Mobility - Impaired Goal: Able to use ambulatory assistive device appropriately Outcome: Progressing Goal: Knowledge of need for increased mobility Outcome: Progressing * Zay Bellamy MD - 08/31/2024 12:42 PM CDTSummary: Progress note Images from the original note were not included. Hospitalist Daily Progress Note Chief Complain: f/u of dka , pneumonia ASSESSMENT /PLAN: Acute hypoxic resp failure on 2l now on room air Left-sided cap presumed bacterial ID following follow blood cultures on nebd and pulmicort On antibiotic preliminary cultures negative respiratory PCR negative Wean O2 Continue ceftriaxone 2 g IV daily through the dose on 08/31/2024. Substitute Ceftin 500 p.o. every 12 hours to complete 3 of 3 weeks of therapy following conclusion of ceftriaxone on 08/31/2024. Will start Ceftin on 09/01/2024 to conclude with the doses administered on 09/14/2024 DKA Hypoglycemia Endocrine on board, currently on Lantus 8 units a.m. and 3 units at night, not eating well. Monitorblood glucose. Required D10 drip which has now been discontinued Was hypoglycemic this morning, further insulin dosing as per endocrine HYPOTHYROIDISM on synthroid Cad with recent MitraClip procedure on aspirin plavix statin New onset thrombocytopenia Platelet count has progressively trended down from 143 on admission to 66 today. No signs of bleeding. Likely secondary to antibiotics and sepsis but will need to rule out HIT. Send HIT panel, awaited. Devin- resolved Metabolic encephalopathy resolved CT head was negative Anemia likely of chronic disease monitor H&H and CBC Constipation Started on MiraLAX daily and Senokot 2 tablets nightly Seen by PT and OT and now recommending swing bed unit, awaiting placement Body mass index is 18.2 kg/m??. DVT Prophylaxis: Holding chemical prophylaxis due to severe thrombocytopenia Code Status: Full Code Not Medically Ready/Awaiting Clinical Improvement Need swing bed Improvement in platelet count Improvement in hypoglycemia Finalization of cultures and final ID recs Anticipate 24-48 more hours of hospital stay SUBJECTIVE Patient seen and examined. Denies any new complaints. Reports that he has not had a bowel movement.No other complaints. No other significant overnight events. OBJECTIVE Blood pressure 100/62, pulse 84, temperature 97.7 ??F (36.5 ??C), temperature source Oral, resp. rate 20, height 1.803 m (5' 10.98 ), weight 59.1 kg (130 lb 6.4 oz), SpO2 95%. Wt Readings from Last 3 Encounters: 08/30/24 59.1 kg (130 lb 6.4 oz) 08/24/24 60.8 kg (134 lb 0.6 oz) 02/01/24 64.8 kg (142 lb 13.7 oz) Review of system: 10 point review of system performed otherwise unremarkable except as mentioned above. Physical Exam Vitals and nursing note reviewed. Constitutional: Appearance: Normal appearance. He is well-developed. HENT: Head: Normocephalic and atraumatic. Eyes: General: No scleral icterus. Conjunctiva/sclera: Conjunctivae normal. Pupils: Pupils are equal, round, and reactive to light. Neck: Vascular: No JVD. Cardiovascular: Rate and Rhythm: Normal rate and regular rhythm. Pulses: Normal pulses. Heart sounds: Normal heart sounds, S1 normal and S2 normal. No murmur heard. Pulmonary: Effort: Pulmonary effort is normal. No accessory muscle usage or respiratory distress. Breath sounds: Normal breath sounds. No wheezing. Abdominal: General: Bowel sounds are normal. Palpations: Abdomen is soft. Tenderness: There is no abdominal tenderness. There is no guarding. Musculoskeletal: General: Normal range of motion. Cervical back: Normal range of motion and neck supple. No edema or rigidity. Skin: Findings: No erythema or rash. Neurological: Mental Status: He is alert and oriented to person, place, and time. Cranial Nerves: No cranial nerve deficit. Sensory: No sensory deficit. Coordination: Coordination normal. Deep Tendon Reflexes: Reflexes are normal and symmetric. Psychiatric: Speech: Speech normal. Behavior: Behavior normal. LABS: Recent Labs 08/29/24 0404 08/30/24 0453 08/31/24 0825 WBC 7.71 6.29 4.93 HGB 9.8* 9.7* 9.8* HCT 30.4* 29.8* 29.3* MCV 98.4 99.7 99.3 PLT 62* 59* 66* RBC 3.09* 2.99* 2.95* Recent Labs 08/29/24 0404 08/30/24 0453 08/31/24 0825 CO2 30.7 31.0 30.2 CL 106 103 103 GLU 33* 103 131* K 3.6 3.9 3.7 NA 141 139 140 BUN 16 10 9 Intake/Output Summary (Last 24 hours) at 08/31/2024 1242 Last data filed at 08/31/2024 1100 Gross per 24 hour Intake 240 ml Output 700 ml Net -460 ml Microbiology Results (last 14 days) Procedure Component Value Units Date/Time CULTURE, URINE [[id number]] Order Status: No result Lab Status: No result Specimen: URINE, CLEAN CATCH CULTURE, BACTERIA BLOOD X2 [[id number]] Collected: 08/28/24 0751 Order Status: Completed Lab Status: Preliminary result Updated: 08/28/24 08 Specimen: BLOOD SPEC DESCRIPTION BLOOD SPECIAL REQUESTS NO SPECIAL REQUEST CULTURE RESULT NO GROWTH <24 HRS BIOFIRE PCR UPPER RESPIRATORY PROFILE (RESPIRATORY PCR PANEL 2) [[id number]] Collected: 08/25/24 1245 Order Status: Completed Lab Status: Final result Updated: 08/25/24 1416 Specimen: NASOPHARYNGEAL SWAB ADENOVIRUS PCR (RESP) NOT DETECTED CORONAVIRUS 229E PCR (RESP) NOT DETECTED CORONAVIRUS HKU1 PCR (RESP) NOT DETECTED CORONAVIRUS NL63 PCR (RESP) NOT DETECTED CORONAVIRUS OC43 PCR (RESP) NOT DETECTED METAPNEUMOVIRUS PCR (RESP) NOT DETECTED RHINOVIRUS/ENTEROVIRUS PCR (RESP) NOT DETECTED INFLUENZA A PCR (RESP) NOT DETECTED INFLUENZA B PCR (RESP) NOT DETECTED PARAINFLUENZA 1 PCR (RESP) NOT DETECTED PARAINFLUENZA 2 PCR (RESP) NOT DETECTED PARAINFLUENZA 3 PCR (RESP) NOT DETECTED PARAINFLUENZA 4 PCR (RESP) NOT DETECTED RSV PCR (RESP) NOT DETECTED B PARAPERTUSIS PCR (RESP) NOT DETECTED BORDETELLA PERTUSSIS PCR (RESP) NOT DETECTED CHLAMYDOPHILA PNEUMONIAE PCR (RESP) NOT DETECTED MYCOPLASMA PNEUMONIAE PCR (RESP) NOT DETECTED CORONAVIRUS SARS COV 2 PCR (RESP) NOT DETECTED CULTURE, RESPIRATORY W/ GRAM STAIN [[id number]] Order Status: No result Lab Status: No result Specimen: SPUTUM, EXPECTORATED Radiology MEDICATIONS Scheduled medications aspirin 81 mg Oral Daily atorvastatin 20 mg Oral Daily budesonide 0.5 mg Nebulization 2 times daily RT cefTRIAXone 2 g Intravenous Q24H clopidogrel 75 mg Oral Daily insulin glargine 3 Units Subcutaneous Nightly at bedtime insulin glargine 8 Units Subcutaneous Daily insulin lispro 0-5 Units Subcutaneous 4x Daily WC insulin lispro 2 Units Subcutaneous TID WC ipratropium-albuterol 3 mL Nebulization Q4H RT levothyroxine 112 mcg Oral Daily normal saline 3-10 mL Intravenous Q8H Infusion PRN acetaminophen, dextrose 10 % bolus, glucagon, normal saline, ondansetron Zay Bellamy MD 12:42 PM 08/31/2024 * Jorge Alberto Singh MD - 08/31/2024 11:46 AM CDT Progress Note Patient Name: Corby Valiente Date of : 1950 Admission Date: 08/25/2024 Subjective: Patient blood glucose level trended down overnight. Hypoglycemia episode 47 at 6:00 in the morning Medications: No current outpatient medications on file. Objective: Current Vitals: Weight: Last Recorded Weight 08/30/24 0400 Weight: 59.1 kg (130 lb 6.4 oz) Vitals: 08/31/24 0848 BP: 100/62 Pulse: 84 Resp: 20 Temp: 97.7 ??F (36.5 ??C) SpO2: 95% Labs: Recent Results (from the past 24 hours) POCT glucose Collection Time: 08/30/24 11:47 AM Result Value Ref Range GLUCOSE POC 206 (H) 70 - 109 POCT glucose Collection Time: 08/30/24 4:46 PM Result Value Ref Range GLUCOSE POC 106 70 - 109 POCT glucose Collection Time: 08/30/24 8:56 PM Result Value Ref Range GLUCOSE POC 118 (H) 70 - 109 POCT glucose Collection Time: 08/31/24 5:50 AM Result Value Ref Range GLUCOSE POC 47 (L) 70 - 109 CBC W/DIFF AUTOMATED Collection Time: 08/31/24 8:25 AM Result Value Ref Range WBC 4.93 4.00 - 10.80 x10'3/uL RBC 2.95 (L) 4.50 - 6.10 x10'6/uL HGB 9.8 (L) 12.0 - 16.0 G/DL HCT 29.3 (L) 37.0 - 52.0 % MCV 99.3 78.0 - 100.0 FL MCH 33.2 (H) 27.0 - 31.0 PG MCHC 33.4 33.0 - 36.0 G/DL RDW 16.2 (H) 11.5 - 14.5 % PLT 66 (L) 150 - 350 x10'3/uL MPV 12.0 (H) 7.4 - 10.4 FL DIFFERENTIAL TYPE AUTOMATED DIFFERENTIAL SEG NEUTROPHILS 64.3 % LYMPHOCYTES 17.4 % MONOCYTES 13.6 % EOSINOPHILS 3.7 % BASOPHILS 0.6 % IMMATURE GRANS % 0.4 % ABS. NEUTROPHILS 3.17 1.60 - 8.30 x10'3/uL ABS. LYMPHOCYTES 0.86 0.80 - 4.70 x10'3/uL ABS. MONOCYTES 0.67 0.00 - 1.50 x10'3/uL ABS. EOSINOPHILS 0.18 0.00 - 0.40 x10'3/uL ABS. BASOPHILS 0.03 0.00 - 0.20 x10'3/uL ABS. IMMATURE GRANULOCYTES 0.02 0.00 - 0.03 x10'3/uL ABS. NUCLEATED RBC'S 0.00 0.00 - 0.01 x10'3/uL NRBC % 0.0 % BASIC METABOLIC PANEL Collection Time: 08/31/24 8:25 AM Result Value Ref Range SODIUM S/P/B 140 136 - 145 MMOL/L POTASSIUM S/P/B 3.7 3.5 - 5.1 MMOL/L CHLORIDE S/P/B 103 97 - 115 MMOL/L CO2 30.2 21.0 - 32.0 MMOL/L GLUCOSE 131 (H) 74 - 106 MG/DL BUN 9 7 - 18 MG/DL CREATININE S/P/B 0.84 0.70 - 1.30 MG/DL CALCIUM S/P/B 8.7 8.5 - 10.1 MG/DL ANION GAP 6.8 2.0 - 10.0 MMOL/L OSMOLALITY (CALC) 290 MOSM/KG GFR ESTIMATE >90 >90 ML/MIN/1.73 M2 GFR NOTES GFR REFERENCES: MAGNESIUM Collection Time: 08/31/24 8:25 AM Result Value Ref Range MAGNESIUM 2.0 1.6 - 2.6 MG/DL PHOSPHORUS, INORGANIC PHOSPHATE Collection Time: 08/31/24 8:25 AM Result Value Ref Range PHOSPHORUS 3.0 2.5 - 4.9 MG/DL Assessment and Plan Type 1 diabetes Current use of insulin Hypothyroidism Pneumonia The patient was admitted to the hospital with diabetic ketoacidosis and pneumonia. 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 Dee. Home diabetes regimen: Lantus 10 units Q AM / 5 units Q HS Humalog 20 bkfst / 13 lunch / 20 supper if <140 -- 14 units supper if glucose >140 Prandial correction (Humalog): <80 -1 >180 +1 >280 +2 Take Humalog 2-4 units before bkfst if glucose >140 with upward trend Current diabetes regimen: Lantus 8 units in the morning 5 units at bedtime. Humalog 2 units with each meal. Humalog sliding scale. Blood glucose review: Hypoglycemia episode overnight Plan: Reduce Lantus at bedtime to 2 units. Continue current dose of Humalog 2 units with each meal. Will continue to monitor blood sugars and modify dose of insulin accordingly. Patient will be covered by Dr Dee for endocrine issues ,starting at 8 a.m. on09/01/24 at 8 am JORGE ALBERTO SINGH MD 08/31/2024 * Radha Mijares RN - 08/31/2024 1:37 AM CDT Problem: Discharge Planning Goal: Knowledge of discharge instructions Outcome: Progressing Problem: Pain control/comfort Goal: Promote pain control/comfort Outcome: Progressing Problem: Skin integrity, Impaired-wound Goal: Absence of new skin breakdown Outcome: Progressing Goal: Evidence of wound healing Outcome: Progressing Problem: Skin integrity, Impaired-pressure injury/ulcer Goal: Absence of new skin breakdown Outcome: Progressing Goal: Evidence of pressure injury/ulcer healing Outcome: Progressing Problem: Skin integrity, at risk Goal: Absence of new skin breakdown Outcome: Progressing Problem: Moisture associated skin impairment Goal: Reduce moisture exposure Outcome: Progressing Goal: Evidence of wound healing Outcome: Progressing Goal: Evidence of pressure injury/ulcer healing Outcome: Progressing Goal: Absence of new skin breakdown Outcome: Progressing Problem: Reduced risk for falls/injury Goal: Reduced Risk for Falls/Injury Outcome: Progressing Goal: Reduced Risk of Confusion (Acute vs Chronic) Outcome: Progressing Goal: Reduced Risk of Symptomatic Depression Outcome: Progressing Goal: Reduced Risk of Altered Elimination Outcome: Progressing Goal: Reduced Risk of Dizziness/Vertigo/Balance Outcome: Progressing Goal: Reduced Risk of Polypharmacy Outcome: Progressing Problem: Abnormal Serum Glucose Level Goal: Glucose level within specified parameters Outcome: Progressing Problem: Fluid Volume - Imbalance Goal: Absence of imbalanced fluid volume signs and symptoms Outcome: Progressing Problem: Mobility - Impaired Goal: Able to use ambulatory assistive device appropriately Outcome: Progressing Goal: Knowledge of need for increased mobility Outcome: Progressing * Zay Bellamy MD - 08/30/2024 12:19 PM CDTSummary: Progress note Images from the original note were not included. Hospitalist Daily Progress Note Chief Complain: f/u of dka , pneumonia ASSESSMENT /PLAN: Acute hypoxic resp failure on 2l now on room air Left-sided cap presumed bacterial ID following follow blood cultures on nebd and pulmicort On antibiotic preliminary cultures negative respiratory PCR negative Wean O2 Continue ceftriaxone 2 g IV daily through the dose on 08/31/2024. Substitute Ceftin 500 p.o. every 12 hours to complete 3 of 3 weeks of therapy following conclusion of ceftriaxone on 08/31/2024. Will start Ceftin on 09/01/2024 to conclude with the doses administered on 09/14/2024 DKA Hypoglycemia Endocrine on board, currently on Lantus 8 units a.m. and 3 units at night, not eating well, hold off on mealtime lispro for now. Monitor blood glucose. Required D10 drip which has now been discontinued HYPOTHYROIDISM on synthroid Cad with recent MitraClip procedure on aspirin plavix statin New onset thrombocytopenia Platelet count has progressively trended down from 143 on admission to 59 today. No signs of bleeding. Likely secondary to antibiotics and sepsis but will need to rule out HIT. Send HIT panel Devin- resolved Metabolic encephalopathy resolved CT head was negative Anemia likely of chronic disease monitor H&H and CBC Seen by PT and OT and now recommending swing bed unit Body mass index is 18.2 kg/m??. DVT Prophylaxis: Holding chemical prophylaxis due to severe thrombocytopenia Code Status: Full Code Not Medically Ready/Awaiting Clinical Improvement Need swing bed Improvement in platelet count Improvement in hypoglycemia Finalization of cultures and final ID recs SUBJECTIVE Patient seen and examined. Denies any new complaints. Feels like he is going to have bowel movementtoday. No other significant overnight events, does not feel like eating as he does not like hospital food. No other complaints at OBJECTIVE Blood pressure 110/68, pulse 87, temperature 97.3 ??F (36.3 ??C), resp. rate 18, height 1.803 m (5'10.98 ), weight 59.1 kg (130 lb 6.4 oz), SpO2 100%. Wt Readings from Last 3 Encounters: 08/30/24 59.1 kg (130 lb 6.4 oz) 08/24/24 60.8 kg (134 lb 0.6 oz) 02/01/24 64.8 kg (142 lb 13.7 oz) Review of system: 10 point review of system performed otherwise unremarkable except as mentioned above. Physical Exam Vitals and nursing note reviewed. Constitutional: Appearance: Normal appearance. He is well-developed. HENT: Head: Normocephalic and atraumatic. Eyes: General: No scleral icterus. Conjunctiva/sclera: Conjunctivae normal. Pupils: Pupils are equal, round, and reactive to light. Neck: Vascular: No JVD. Cardiovascular: Rate and Rhythm: Normal rate and regular rhythm. Pulses: Normal pulses. Heart sounds: Normal heart sounds, S1 normal and S2 normal. No murmur heard. Pulmonary: Effort: Pulmonary effort is normal. No accessory muscle usage or respiratory distress. Breath sounds: Normal breath sounds. No wheezing. Abdominal: General: Bowel sounds are normal. Palpations: Abdomen is soft. Tenderness: There is no abdominal tenderness. There is no guarding. Musculoskeletal: General: Normal range of motion. Cervical back: Normal range of motion and neck supple. No edema or rigidity. Skin: Findings: No erythema or rash. Neurological: Mental Status: He is alert and oriented to person, place, and time. Cranial Nerves: No cranial nerve deficit. Sensory: No sensory deficit. Coordination: Coordination normal. Deep Tendon Reflexes: Reflexes are normal and symmetric. Psychiatric: Speech: Speech normal. Behavior: Behavior normal. LABS: Recent Labs 08/28/24 1225 08/29/24 0404 08/30/24 0453 WBC 8.91 7.71 6.29 HGB 10.7* 9.8* 9.7* HCT 32.9* 30.4* 29.8* MCV 101.9* 98.4 99.7 PLT 55* 62* 59* RBC 3.23* 3.09* 2.99* Recent Labs 08/28/24 0333 08/29/24 0404 08/30/24 0453 CO2 27.4 30.7 31.0 CL 105 106 103 GLU 183* 33* 103 K 4.0 3.6 3.9 NA 138 141 139 BUN 15 16 10 Intake/Output Summary (Last 24 hours) at 08/30/2024 1220 Last data filed at 08/30/2024 0900 Gross per 24 hour Intake 1080 ml Output 1400 ml Net -320 ml Microbiology Results (last 14 days) Procedure Component Value Units Date/Time CULTURE, URINE [[id number]] Order Status: No result Lab Status: No result Specimen: URINE, CLEAN CATCH CULTURE, BACTERIA BLOOD X2 [[id number]] Collected: 08/28/24 0751 Order Status: Completed Lab Status: Preliminary result Updated: 08/28/24 0819 Specimen: BLOOD SPEC DESCRIPTION BLOOD SPECIAL REQUESTS NO SPECIAL REQUEST CULTURE RESULT NO GROWTH <24 HRS BIOFIRE PCR UPPER RESPIRATORY PROFILE (RESPIRATORY PCR PANEL 2) [[id number]] Collected: 08/25/24 1245 Order Status: Completed Lab Status: Final result Updated: 08/25/24 1416 Specimen: NASOPHARYNGEAL SWAB ADENOVIRUS PCR (RESP) NOT DETECTED CORONAVIRUS 229E PCR (RESP) NOT DETECTED CORONAVIRUS HKU1 PCR (RESP) NOT DETECTED CORONAVIRUS NL63 PCR (RESP) NOT DETECTED CORONAVIRUS OC43 PCR (RESP) NOT DETECTED METAPNEUMOVIRUS PCR (RESP) NOT DETECTED RHINOVIRUS/ENTEROVIRUS PCR (RESP) NOT DETECTED INFLUENZA A PCR (RESP) NOT DETECTED INFLUENZA B PCR (RESP) NOT DETECTED PARAINFLUENZA 1 PCR (RESP) NOT DETECTED PARAINFLUENZA 2 PCR (RESP) NOT DETECTED PARAINFLUENZA 3 PCR (RESP) NOT DETECTED PARAINFLUENZA 4 PCR (RESP) NOT DETECTED RSV PCR (RESP) NOT DETECTED B PARAPERTUSIS PCR (RESP) NOT DETECTED BORDETELLA PERTUSSIS PCR (RESP) NOT DETECTED CHLAMYDOPHILA PNEUMONIAE PCR (RESP) NOT DETECTED MYCOPLASMA PNEUMONIAE PCR (RESP) NOT DETECTED CORONAVIRUS SARS COV 2 PCR (RESP) NOT DETECTED CULTURE, RESPIRATORY W/ GRAM STAIN [[id number]] Order Status: No result Lab Status: No result Specimen: SPUTUM, EXPECTORATED Radiology MEDICATIONS Scheduled medications aspirin 81 mg Oral Daily atorvastatin 20 mg Oral Daily budesonide 0.5 mg Nebulization 2 times daily RT cefTRIAXone 2 g Intravenous Q24H clopidogrel 75 mg Oral Daily insulin glargine 5 Units Subcutaneous Nightly at bedtime insulin glargine 8 Units Subcutaneous Daily insulin lispro 0-5 Units Subcutaneous 4x Daily WC ipratropium-albuterol 3 mL Nebulization Q4H RT levothyroxine 112 mcg Oral Daily normal saline 3-10 mL Intravenous Q8H Infusion PRN acetaminophen, dextrose 10 % bolus, glucagon, normal saline, ondansetron Zay Bellamy MD 12:20 PM 08/30/2024 * MORGAN Harper - 08/30/2024 12:08 PM CDT OT Treatment Discharge Recommendation: Swing bed unit Activity 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 He was admitted with DKA, hyperglycemia, metabolic encephalopathy, and CAP...PMH: DM, HLD, HTN,hypothyroidism, hx of LUE fxs 2021...Orders: eval and treat...Activity: up in chair Ordering Provider Ariadna Saucedo MD Verified Two Patient Identifiers Yes Patient consents to therapy Yes Acute Inpatient OT Time Calculation OT Start Time 1136 OT Stop Time 1208 OT Time Calculation (min) 32 min Precautions General Precautions Bed Alarm;Chair Alarm;Fall Risk Instructed on Precautions Yes;Verbalizes understanding;Needs reinforcement and education Other IV, telemetry, room air Prior Function PLOF Comments Per Eval: Pt reports that he lives with his in a 2 story home with 5 steps to enter with HR. His bedroom is on the 2nd floor with 16 steps to access with HR x 1...Bathroom: ML: tub/shower with standard toilet with sink close; 2nd floor: walk-in shower with seat and grab bar alongwith a standard toilet with sink close....Baseline: independent with self care, mobility, and does IADLs. sleeps on the ML and walks without AE...Falls: none...AE: I don't remmber, I don'tuse them Subjective Subjective RN okayed session. Pt sitting in bedside recliner upon arrival, agreeable and motivated to participate in session. Pain Pain Patient does not offer or c/o pain Activity Tolerance Endurance Quality Fair Limiting Factors to Endurance Acute deconditioning Activity Tolerance Comments improving Cognition Overall Cognitive Status WFL Arousal/Alertness Appropriate responses to stimuli Attention Span Appears intact Memory Appears intact Orientation Level Oriented to person;Oriented to place;Oriented to time Following Commands Follows multistep commands with increased time Safety Judgment Decreased awareness of need for safety Awareness of Errors Assistance required to identify errors made Deficits Fully aware of deficits Problem Solving Assistance required to identify errors made Comments Pt conitnues to require verbal instruction for proper body positioning and walker management during mobility. Motor Planning Appears intact Perseveration Not present Initiation Appears intact ADL Additional Comments Pt declined ADLs this session. Bed Mobility Other (Comment) not tested; began and ended session in chair Functional Transfers Sit to Stand Contact guard assist Functional Mobility Pt completed sit to stands from recliner to 2ww with CGA, min cues for hand placement to push off surface. Pt completed 2 sets of functional mobility in halls with 2ww and CGA, simulating household distances. Pt has some difficulty with transitions with 2ww like turning around or transferring back to chair. Balance Sitting - Static SBA Sitting - Dynamic SBA;Support of both upper extremities;Support of one upper extremity;Inside base of support Standing - Static SBA;Support of both upper extremities Standing - Dynamic CGA;Support of both upper extremities;Support of one upper extremity;Inside baseof support Other (Comment) Pt had no over LOB today, noted some decreased foot clearance with fatigue and difficulty with 2ww management during transitions like turning around in hallway and transferring back to chair. Patient/Family Training Other (Comment) Jig Worker and patient discussed discharge plans. He is open to doing a short term rehab stay, but would like not stay long. Pt showing improvement in activity tolerance this date, would benefit from continued skilled OT and PT to return to his PLOF Discharge Recommendation OT Recommendation Swing bed unit Barriers to Community Discharge Safety;Stairs Plan OT Treatment/Intervention Self-care training;Therapeutic activities;Safety;Functional activity;Patient/family training Progress Progressing toward goals OT Frequency 5 times/week OT - Next Appointment 08/30/24 If this is the last treatment note, it will serve as the discharge summary Yes End of Session End of Session Safety Chair alarm set/activated;Call light within reach;Nursing aware of session Education: Primary Learners Name: Corby Valiente Primary Language of learner: [place] Patient was educated on precautions transfers balance therapy plan safety. Education was completed one to one verbal this date. Preference of learning new concepts one to one verbal Barriers to education this date were fatigue. Response to education this date verbalized understanding needs follow up needs assistance. * Jorge Alberto Singh MD - 08/30/2024 10:12 AM CDT Progress Note Patient Name: Corby Valiente Date of : 1950 Admission Date: 08/25/2024 Subjective: Patient blood glucose level went up overnight. No hypoglycemia episodes. Medications: No current outpatient medications on file. Objective: Current Vitals: Weight: Last Recorded Weight 08/30/24 0400 Weight: 59.1 kg (130 lb 6.4 oz) Vitals: 08/30/24 0823 BP: 111/64 Pulse: 84 Resp: Temp: 97.2 ??F (36.2 ??C) SpO2: 96% Labs: Recent Results (from the past 24 hours) POCT glucose Collection Time: 08/29/24 11:47 AM Result Value Ref Range GLUCOSE POC 61 (L) 70 - 109 POCT glucose Collection Time: 08/29/24 5:07 PM Result Value Ref Range GLUCOSE POC 63 (L) 70 - 109 POCT glucose Collection Time: 08/29/24 6:39 PM Result Value Ref Range GLUCOSE POC 127 (H) 70 - 109 POCT glucose Collection Time: 08/29/24 8:23 PM Result Value Ref Range GLUCOSE POC 111 (H) 70 - 109 CBC W/DIFF AUTOMATED Collection Time: 08/30/24 4:53 AM Result Value Ref Range WBC 6.29 4.00 - 10.80 x10'3/uL RBC 2.99 (L) 4.50 - 6.10 x10'6/uL HGB 9.7 (L) 12.0 - 16.0 G/DL HCT 29.8 (L) 37.0 - 52.0 % MCV 99.7 78.0 - 100.0 FL MCH 32.4 (H) 27.0 - 31.0 PG MCHC 32.6 (L) 33.0 - 36.0 G/DL RDW 16.3 (H) 11.5 - 14.5 % PLT 59 (L) 150 - 350 x10'3/uL MPV 11.9 (H) 7.4 - 10.4 FL DIFFERENTIAL TYPE AUTOMATED DIFFERENTIAL SEG NEUTROPHILS 67.4 % LYMPHOCYTES 16.2 % MONOCYTES 12.4 % EOSINOPHILS 3.5 % BASOPHILS 0.3 % IMMATURE GRANS % 0.2 % ABS. NEUTROPHILS 4.24 1.60 - 8.30 x10'3/uL ABS. LYMPHOCYTES 1.02 0.80 - 4.70 x10'3/uL ABS. MONOCYTES 0.78 0.00 - 1.50 x10'3/uL ABS. EOSINOPHILS 0.22 0.00 - 0.40 x10'3/uL ABS. BASOPHILS 0.02 0.00 - 0.20 x10'3/uL ABS. IMMATURE GRANULOCYTES 0.01 0.00 - 0.03 x10'3/uL ABS. NUCLEATED RBC'S 0.00 0.00 - 0.01 x10'3/uL NRBC % 0.0 % BASIC METABOLIC PANEL Collection Time: 08/30/24 4:53 AM Result Value Ref Range SODIUM S/P/B 139 136 - 145 MMOL/L POTASSIUM S/P/B 3.9 3.5 - 5.1 MMOL/L CHLORIDE S/P/B 103 97 - 115 MMOL/L CO2 31.0 21.0 - 32.0 MMOL/L GLUCOSE 103 74 - 106 MG/DL BUN 10 7 - 18 MG/DL CREATININE S/P/B 0.83 0.70 - 1.30 MG/DL CALCIUM S/P/B 8.9 8.5 - 10.1 MG/DL ANION GAP 5.0 2.0 - 10.0 MMOL/L OSMOLALITY (CALC) 287 MOSM/KG GFR ESTIMATE >90 >90 ML/MIN/1.73 M2 GFR NOTES GFR REFERENCES: POCT glucose Collection Time: 08/30/24 5:43 AM Result Value Ref Range GLUCOSE POC 126 (H) 70 - 109 POCT glucose Collection Time: 08/30/24 9:45 AM Result Value Ref Range GLUCOSE POC 207 (H) 70 - 109 Assessment and Plan Type 1 diabetes Current use of insulin Hypothyroidism Pneumonia The patient was admitted to the hospital with diabetic ketoacidosis and pneumonia. 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 Dee. Home diabetes regimen: Lantus 10 units Q AM / 5 units Q HS Humalog 20 bkfst / 13 lunch / 20 supper if <140 -- 14 units supper if glucose >140 Prandial correction (Humalog): <80 -1 >180 +1 >280 +2 Take Humalog 2-4 units before bkfst if glucose >140 with upward trend Current diabetes regimen: Lantus 8 units in the morning 3 units at bedtime. Humalog sliding scale. Blood glucose review: Glucose level is 207 this morning 126 last night Plan: Increase Lantus at night to 5 units at bedtime. Will start the patient on Humalog 2 units with each meal.. Will continue to monitor blood sugars and modify dose of insulin accordingly. JORGE ALBERTO SINGH MD 08/30/2024 * Radha Mijares RN - 08/30/2024 3:04 AM CDT Problem: Discharge Planning Goal: Knowledge of discharge instructions Outcome: Progressing Problem: Pain control/comfort Goal: Promote pain control/comfort Outcome: Progressing Problem: Skin integrity, Impaired-wound Goal: Absence of new skin breakdown Outcome: Progressing Goal: Evidence of wound healing Outcome: Progressing Problem: Skin integrity, Impaired-pressure injury/ulcer Goal: Absence of new skin breakdown Outcome: Progressing Goal: Evidence of pressure injury/ulcer healing Outcome: Progressing Problem: Skin integrity, at risk Goal: Absence of new skin breakdown Outcome: Progressing Problem: Moisture associated skin impairment Goal: Reduce moisture exposure Outcome: Progressing Goal: Evidence of wound healing Outcome: Progressing Goal: Evidence of pressure injury/ulcer healing Outcome: Progressing Goal: Absence of new skin breakdown Outcome: Progressing Problem: Reduced risk for falls/injury Goal: Reduced Risk for Falls/Injury Outcome: Progressing Goal: Reduced Risk of Confusion (Acute vs Chronic) Outcome: Progressing Goal: Reduced Risk of Symptomatic Depression Outcome: Progressing Goal: Reduced Risk of Altered Elimination Outcome: Progressing Goal: Reduced Risk of Dizziness/Vertigo/Balance Outcome: Progressing Goal: Reduced Risk of Polypharmacy Outcome: Progressing Problem: Abnormal Serum Glucose Level Goal: Glucose level within specified parameters Outcome: Progressing Problem: Fluid Volume - Imbalance Goal: Absence of imbalanced fluid volume signs and symptoms Outcome: Progressing Problem: Mobility - Impaired Goal: Able to use ambulatory assistive device appropriately Outcome: Progressing Goal: Knowledge of need for increased mobility Outcome: Progressing * Maria Isabel Jones RN - 08/29/2024 2:21 PM CDT Problem: Discharge Planning Goal: Knowledge of discharge instructions Outcome: Progressing Problem: Pain control/comfort Goal: Promote pain control/comfort Outcome: Progressing Problem: Skin integrity, Impaired-wound Goal: Absence of new skin breakdown Outcome: Progressing Goal: Evidence of wound healing Outcome: Progressing * Gael Horne PTA - 08/29/2024 12:56 PM CDT PT Treatment Discharge Recommendation: Swing bed unit Activity Recommendation for carpet winder: up with assist of one,gt belt and walker . 08/29/24 1247 Therapy Visit Ordering Provider Ariadna Saucedo MD Subjective RN gave permission to see pt.Pt willing to try Reason for admission Pt presented 08/24 with hyperglycemia, altered mental status, and syncopal episode. He was admitted with DKA, hyperglycemia, metabolic encephalopathy, and CAP...PMH: DM, HLD, HTN,hypothyroidism, hx of LUE fxs 2021...Orders: eval and treat...Activity: up in chair Verified Two Patient Identifiers Yes Patient consents to therapy Yes Acute Inpatient PT Time Calculation PT Start Time 1140 PT Stop Time 1220 PT Time Calculation (min) 40 min Precautions General Precautions Bed Alarm;Chair Alarm;Fall Risk Instructed on Precautions Yes;Verbalizes understanding Other IV, telemetry, room air Prior Function PLOF Comments Per Eval: Pt reports that he lives with his in a 2 story home with 5 steps to enter with HR. His bedroom is on the 2nd floor with 16 steps to access with HR x 1...Bathroom: ML: tub/shower with standard toilet with sink close; 2nd floor: walk-in shower with seat and grab bar alongwith a standard toilet with sink close....Baseline: independent with self care, mobility, and does IADLs. sleeps on the ML and walks without AE...Falls: none...AE: I don't remmber, I don'tuse them Pain Pain Patient does not offer or c/o pain Activity Tolerance Limiting Factors to Endurance Acute deconditioning;Fatigue;Weakness Pre-activity VS spo2 was at 93% on room air Post Activity VS Recovery spo2 was at 99% after amb Activity Tolerance Comments blood sugars were at 60 with pt sipping on grape juice throughout session Cognition Overall Cognitive Status WFL Arousal/Alertness Appropriate responses to stimuli Attention Span Attends with cues to redirect Memory Appears intact Orientation Level Oriented to person;Oriented to place;Disoriented to time;Disoriented to situation Bed Mobility Other (Comment) not tested, pt is up in the chair TRANSFERS Sit to Stand Contact guard assist Bed to Chair Contact guard assist;Min assist Other (Comment) Pt transfers sit to/from stand from the bed and chair Gait Gait Assistance Contact guard assist;With gait belt Assistive Device 2 Wheeled walker;None Other (Comment) pt amb 25, feet 30 feet with the 2 wheeled walker and 5 feet withoutthe walker witharms raised up and unsteady.Ptunsteady with the walker with small base of support . Cues to stay closer to the walker and bring it back with him to the chair and why Balance Sitting - Static SBA Sitting - Dynamic SBA Standing - Static CGA;Support of both upper extremities Standing - Dynamic CGA;Support of both upper extremities Other (Comment) Ptis very unsteady but no loss o fbalance with mobility PT Assessment PT Assessment Pt required increased time with mobility and during sesison this date.Pt was able to partciipate in transfers and amb with cues for safety throughout sesison,Pt fatigued and sugars are low .Pt also declined drinking his juice when offered 4 times . Hewould benefit from contnued rehab to prgress back to his prior levelof function Discharge Recommendation PT Recommendation Swing bed unit Plan PT Treatments/Interventions Gait Training;Therapeutic Exercises;Therapeutic Activities;Neuromuscular re-education;Patient/family training Progress Progressing toward goals PT Frequency 5 times/week PT - Next Appointment 08/29/24 If this is the last treatment note,it will serve as the discharge summary Yes End of Session End of Session Safety Chair alarm set/activated;Call light within reach;Nursing aware of session End of Session Comment Pt is upinthe chair with all needs in reach and chair alarm on Education: Primary Learners Name: Corby Valiente Primary Language of learner: [place] Patient was educated on precautions transfers balance bed mobility gait safety energy conservation joint protection. Education was completed one to one verbal hands-on this date. Preference of learning new concepts one to one verbal hands-on Barriers to education this date were fatigue anxious physical impairment. Response to education this date demos with verbal cues needs reinforcement needs follow up needs assistance. * Lucas Kenny MD - 08/29/2024 12:34 PM CDT Images from the original note were not included. Hospitalist Daily Progress Note Chief Complain: f/u of dka , pneumonia ASSESSMENT /PLAN: acute hypoxic resp failure on 2l now on room air Left-sided cap presumed bacterial ID following follow blood cultures on nebd and pulmicort On antibiotic preliminary cultures negative respiratory PCR negative Wean O2 DKA reporting concerns of not being able to get insurance Auth for Dexcom Hypoglycemia overnight was started on D10 drip Spoke with endocrinology insulin is being adjusted HYPOTHYROIDISM on synthroid Cad with recent MitraClip procedure on aspirin plavix statin New onset thrombocytopenia platelet count improving from yesterday to 62 monitor for further improvement Devin- resolved Metabolic encephalopathy resolved CT head was negative Anemia likely of chronic disease monitor H&H and CBC Ot/pt recommends rehab -spoke with patient's updated her about plan of care she recommends rehab Body mass index is 18.49 kg/m??. DVT Prophylaxis: Holding chemical prophylaxis due to severe thrombocytopenia Code Status: Full Code Not Medically Ready/Awaiting Clinical Improvement Need swing bed Improvement in platelet count Improvement in hypoglycemia Finalization of cultures SUBJECTIVE Patient seen and examined. Alert awake sitting in chair chronically ill appearing not in distress No bleeding overnight has lost weight according to his he had dental surgery and has not been eating as much or as he should be OBJECTIVE Blood pressure 113/63, pulse 78, temperature 97.5 ??F (36.4 ??C), temperature source Oral, resp. rate 20, height 1.803 m (5' 10.98 ), weight 60.1 kg (132 lb 7.9 oz), SpO2 100%. Wt Readings from Last 3 Encounters: 08/25/24 60.1 kg (132 lb 7.9 oz) 08/24/24 60.8 kg (134 lb 0.6 oz) 02/01/24 64.8 kg (142 lb 13.7 oz) Review of Systems Constitutional: Negative for chills, fever and weight loss. HENT: Negative for congestion and ear pain. Eyes: Negative for blurred vision and double vision. Respiratory: Negative for cough, hemoptysis, sputum production, shortness of breath and wheezing. Cardiovascular: Negative for chest pain, palpitations, orthopnea, leg swelling and PND. Gastrointestinal: Negative for abdominal pain, blood in stool, nausea and vomiting. Genitourinary: Negative for dysuria, flank pain and hematuria. Musculoskeletal: Negative for back pain, joint pain and neck pain. Skin: Negative for rash. Neurological: Negative for speech change, focal weakness and loss of consciousness. Endo/Heme/Allergies: Negative for polydipsia. Psychiatric/Behavioral: Negative for depression and suicidal ideas. The patient is not nervous/anxious. All other systems reviewed and are negative. Physical Exam Vitals and nursing note reviewed. Constitutional: Appearance: Normal appearance. He is well-developed. HENT: Head: Normocephalic and atraumatic. Eyes: General: No scleral icterus. Conjunctiva/sclera: Conjunctivae normal. Pupils: Pupils are equal, round, and reactive to light. Neck: Vascular: No JVD. Cardiovascular: Rate and Rhythm: Normal rate and regular rhythm. Pulses: Normal pulses. Heart sounds: Normal heart sounds, S1 normal and S2 normal. No murmur heard. Pulmonary: Effort: Pulmonary effort is normal. No accessory muscle usage or respiratory distress. Breath sounds: Normal breath sounds. No wheezing. Abdominal: General: Bowel sounds are normal. Palpations: Abdomen is soft. Tenderness: There is no abdominal tenderness. There is no guarding. Musculoskeletal: General: Normal range of motion. Cervical back: Normal range of motion and neck supple. No edema or rigidity. Skin: Findings: No erythema or rash. Neurological: Mental Status: He is alert and oriented to person, place, and time. Cranial Nerves: No cranial nerve deficit. Sensory: No sensory deficit. Coordination: Coordination normal. Deep Tendon Reflexes: Reflexes are normal and symmetric. Psychiatric: Speech: Speech normal. Behavior: Behavior normal. LABS: Recent Labs 08/28/24 1225 08/29/24 0404 WBC 8.91 7.71 HGB 10.7* 9.8* HCT 32.9* 30.4* MCV 101.9* 98.4 PLT 55* 62* RBC 3.23* 3.09* Recent Labs 08/27/24 0400 08/28/24 0333 08/29/24 0404 CO2 27.5 27.4 30.7 CL 107 105 106 GLU 103 183* 33* K 4.1 4.0 3.6 NA 140 138 141 BUN 15 15 16 No intake or output data in the 24 hours ending 08/29/24 1234 Microbiology Results (last 14 days) Procedure Component Value Units Date/Time CULTURE, URINE [[id number]] Order Status: No result Lab Status: No result Specimen: URINE, CLEAN CATCH CULTURE, BACTERIA BLOOD X2 [[id number]] Collected: 08/28/24 0751 Order Status: Completed Lab Status: Preliminary result Updated: 08/28/24 0819 Specimen: BLOOD SPEC DESCRIPTION BLOOD SPECIAL REQUESTS NO SPECIAL REQUEST CULTURE RESULT NO GROWTH <24 HRS BIOFIRE PCR UPPER RESPIRATORY PROFILE (RESPIRATORY PCR PANEL 2) [[id number]] Collected: 08/25/24 1245 Order Status: Completed Lab Status: Final result Updated: 08/25/24 1416 Specimen: NASOPHARYNGEAL SWAB ADENOVIRUS PCR (RESP) NOT DETECTED CORONAVIRUS 229E PCR (RESP) NOT DETECTED CORONAVIRUS HKU1 PCR (RESP) NOT DETECTED CORONAVIRUS NL63 PCR (RESP) NOT DETECTED CORONAVIRUS OC43 PCR (RESP) NOT DETECTED METAPNEUMOVIRUS PCR (RESP) NOT DETECTED RHINOVIRUS/ENTEROVIRUS PCR (RESP) NOT DETECTED INFLUENZA A PCR (RESP) NOT DETECTED INFLUENZA B PCR (RESP) NOT DETECTED PARAINFLUENZA 1 PCR (RESP) NOT DETECTED PARAINFLUENZA 2 PCR (RESP) NOT DETECTED PARAINFLUENZA 3 PCR (RESP) NOT DETECTED PARAINFLUENZA 4 PCR (RESP) NOT DETECTED RSV PCR (RESP) NOT DETECTED B PARAPERTUSIS PCR (RESP) NOT DETECTED BORDETELLA PERTUSSIS PCR (RESP) NOT DETECTED CHLAMYDOPHILA PNEUMONIAE PCR (RESP) NOT DETECTED MYCOPLASMA PNEUMONIAE PCR (RESP) NOT DETECTED CORONAVIRUS SARS COV 2 PCR (RESP) NOT DETECTED CULTURE, RESPIRATORY W/ GRAM STAIN [[id number]] Order Status: No result Lab Status: No result Specimen: SPUTUM, EXPECTORATED Radiology MEDICATIONS Scheduled medications [START ON 08/30/2024] aspirin 81 mg Oral Daily atorvastatin 20 mg Oral Daily budesonide 0.5 mg Nebulization 2 times daily RT cefTRIAXone 2 g Intravenous Q24H [START ON 08/30/2024] clopidogrel 75 mg Oral Daily insulin glargine 8 Units Subcutaneous BID insulin lispro 0-8 Units Subcutaneous 4x Daily WC insulin lispro 6 Units Subcutaneous TID WC ipratropium-albuterol 3 mL Nebulization Q4H RT levothyroxine 112 mcg Oral Daily normal saline 3-10 mL Intravenous Q8H Infusion dextrose 75 mL/hr at 08/29/24 0715 PRN acetaminophen, dextrose 10 % bolus, glucagon, normal saline, ondansetron LUCAS KENNY MD 12:34 PM 08/29/2024 * SHANIQUA Aguilar - 08/29/2024 10:30 AM CDT 0925: [facility] spoke with patient's on the phone. She inquired about swing bed placement and the status. Updated that no facilities have accepted yet. had concerns about him not getting his meals ordered. Notified bedside Rn of this concern. Told we would speak with her more aboutswing bed options this afternoon when she arrived bedside. Will update as information is available. 08/29/24 1030 Interdisciplinary Group Conference Team Members Present Case/Care management;Nursing;Physician Physician present for group conference Efraín Barriers to Discharge Inpatient Review Barriers to Discharge Inpatient Consult delay- incomplete;Weaning for Oxygen in Process;Administering IV meds Administering IV meds follow up IV Abx Consult delay - follow up pending Endo consult Weaning for Oxygen in Process follow up wean O2 as tolerated Patient expects to be discharged to Patient expects to be discharged to: Swing bed (referrals pending) 1344: Gamaliel from [facility] called [address] [facility] to follow up on this patient's status. More than likely can accept this patient pending a final review. 1400: L[facility] and [facility] spoke with patient and patient's bedside. LANE explained that [facility] will most likely accept patient for swing bed. LANE explained that patient will probably not be d/c until early next week. * Simin Younger CAT DRIVER-BC - 08/29/2024 9:38 AM CDT ID Progress Note Patient Name: Corby Valiente Date of : 1950 Admission Date: 08/25/2024 Consult Date: 08/27/2024 HPI: Corby Valiente is a 73-year-old male patient who is seen and examined and the chart is reviewed.The patient is referred for recommendations for diagnostic assessment and evaluation and managementin consideration of partially treated pneumonia, dka and a toxic and metabolic encephalopathy. The patient cannot recall what happened immediately prior to his admission or the process of being admitted to the hospital. He has recovered and he knows his name, the year and that he is at [facility]. Heasks me what day is this? The patient was admitted on 08/25/2024 with a toxic and metabolic encephalopathy with his laboratoryand clinical presentation consistent with diabetic ketoacidosis. He has type 1 insulin-dependent diabetes mellitus and he states he was taking his insulin as prescribed He has a history of an aortic murmur, mitral regurgitation and a mitral clip procedure and atrial fibrillation for which he receives direct acting antiplatelet therapy (clopidogrel). He has a historyof falls a/w a subdural hematoma, facial fractures (nasal septal and bilateral orbital fractures) and left clavicle and left radius and ulnar fractures in June,. He does not demonstrate fever during this admission. The patient demonstrates on chest x-ray left basilar atelectasis or consolidation. His CT of the head studies over time have demonstrated healing of prior facial fractures and clear sinuses and clearmastoid air cells. His MRI of the head demonstrates indeterminate mastoid air cell effusions.' He is treated empirically for left basilar atelectasis as possible pneumonia and for possible mastoiditis with low dose Ceftriaxone. There is no report of skin or skin structure inflammation or ulceration. Culture data is limited to a Biofire upper respiratory pcr which is negative. A sputum gram stain and culture were ordered and a specimen is not submitted A urine culture is not displayed but it is in the system as ordered and not done. Blood cultures are not done. Subjective: Patient seen sitting up in bedside chair, receiving nebulizer treatment. Alert and oriented. Afebrile. Denies chills or sweats. Denies nausea, vomiting, diarrhea, or abdominal pain. Denies shortness of breath, states he has an occasional nonproductive cough. SpO2 100% on 2 L O2 via nasal cannula. Denies urinary symptoms. Tolerating antibiotics. Allergies: Review of patient's allergies indicates: No Known Allergies Medications: Current Facility-Administered Medications Medication Dose Route Frequency Provider Last Rate Last Admin acetaminophen (TYLENOL) tablet 650 mg 650 mg Oral Q4H PRN Charsi Singh MD 650 mg at 08/27/24 0524 aspirin chewable tablet 81 mg 81 mg Oral Daily Ariadna Saucedo MD 81 mg at 08/29/24 0822 atorvastatin (LIPITOR) tablet 20 mg 20 mg Oral Daily Ariadna Saucedo MD 20 mg at 08/29/24 0822 budesonide (PULMICORT) nebulizer solution 0.5 mg 0.5 mg Nebulization 2 times daily RT Ariadna Bonilla MD 0.5 mg at 08/29/24 0523 cefTRIAXone (ROCEPHIN) 2 g in sodium chloride 0.9 % 50 mL IVPB 2 g Intravenous Q24H Grant Toscano MD Stopped at 08/28/24 1408 clopidogrel (PLAVIX) tablet 75 mg 75 mg Oral Daily Ariadna Saucedo MD 75 mg at 822 dextrose 10 % bolus infusion 125-250 mL 125-250 mL Intravenous PRN Alexandria Longo MD Stopped at 08/29/24 0632 dextrose 10 % infusion Intravenous Continuous Godwin Prieto Oliver MD 75 mL/hr at 08/29/24 0715 New Bag at 08/29/24 0715 enoxaparin (LOVENOX) 40 MG/0.4ML syringe 40 mg 40 mg Subcutaneous Q24H Ariadna Saucedo MD 40 mg at 08/29/24 0822 glucagon injection 1 mg 1 mg Intramuscular Once PRN Alexandria Longo MD insulin glargine (LANTUS) injection 8 Units 8 Units Subcutaneous BID Jorge Alberto Singh MD 8Units at 08/29/24 0822 insulin lispro (HUMALOG/ADMELOG) injection 0-8 Units 0-8 Units Subcutaneous 4x Daily Steven Saucedo MD 2 Units at 08/29/24 0822 insulin lispro (HUMALOG/ADMELOG) injection 6 Units 6 Units Subcutaneous TID Jorge Alberto Singh MD 6 Units at 08/29/24 0823 ipratropium-albuterol (DUONEB) 0.5-2.5 (3) MG/3ML nebulizer solution 3 mL 3 mL Nebulization Q4H RT Ariadna Saucedo MD 3 mL at 08/29/24 0522 levothyroxine (SYNTHROID) tablet 112 mcg 112 mcg Oral Daily Ariadna Saucedo MD 112 mcg at 08/29/24 0523 normal saline 0.9 % flush 3-10 mL 3-10 mL Intravenous Q8H Alexandria Longo MD 10 mL at 08/29/24 0522 normal saline 0.9 % flush 3-10 mL 3-10 mL Intravenous PRN Alexandria Longo MD ondansetron (ZOFRAN) injection 4 mg 4 mg Intravenous Q8H PRN Alexandria Longo MD Weight: Last Recorded Weight 08/25/24 0530 Weight: 60.1 kg (132 lb 7.9 oz) Height: Ht Readings from Last 1 Encounters: 08/25/24 1.803 m (5' 10.98 ) BMI: Body mass index is 18.49 kg/m??. Current Vitals: Vitals: 08/29/24 0838 BP: 113/63 Pulse: 78 Resp: 20 Temp: 97.5 ??F (36.4 ??C) SpO2: 100% Physical Exam: The patient is alert and oriented antonietta person, place, station and year and responds appropriately tothe examiner. The patient's body habitus was consistent with the patient's vital measurements and the bmi of 18.5kg/m2. There was no anterior or posterior cervical adenopathy. Pupils were equal round and reactive to light. The lids were not inflamed and the extra ocular movements were intact. The external ears were not inflamed. There was no external ear or mastoid tenderness. The nasopharyngeal mucosa revealed no erythema, there was no frontal or maxillary sinus tenderness. The oropharynx revealed no erythema or exudate. The neck was without meningismus and without adenopathy and there was no thyroid enlargement. Back revealed no spinous or CVA tenderness. The lungs demonstrate scattered rales on auscultation. Heart had an irregularly irregular rhythm with a controlled rate and with a grade 2/6 systolic murmur and no gallop. The abdomen was soft and nontender with no evidence for hepatosplenomegaly. Bowel tones were present and there was no rigidity, rebound tenderness or guarding. The skin revealed no rash. He has onychomycosis of his toenails and no evidence of skin ulceration or cellulitis. The joints of the upper and lower extremities revealed no evidence for acute synovitis or findings consistent with acute arthritis. Cranial nerves III through XII were without asymmetry or deficit. The and rectal exams were deferred. Labs: Recent Labs Lab 08/24/24231508/25/24 0450 08/26/24 0425 08/26/24 1245 08/27/24 0400 08/28/24 0333 08/29/24 0404 NA 140 < > 141 < > 140 138 141 K 4.3 < > 4.5 < > 4.1 4.0 3.6 CL 97* < > 109 < > 107 105 106 CO2 10.7* < > 28.3 < > 27.5 27.4 30.7 AGAP 32.3* < > 3.7 < > 5.5 5.6 4.3 BUN 39* < > 22* < > 15 15 16 CR 2.48* < > 1.39* < > 0.97 0.89 0.79 BUNCREATININ 15.7 -- -- -- -- -- -- GLU 588* < > 88 < > 103 183* 33* CA 9.1 < > 8.1* < > 8.6 8.6 8.8 MAGNESIUM -- < > 2.1 -- 1.9 1.9 -- < > = values in this interval not displayed. Recent Labs Lab 08/24/24231508/26/245 08/29/24 0404 WBC 7.04 < > 7.71 RBC 3.40* < > 3.09* HGB 10.9* < > 9.8* HCT 35.0* < > 30.4* MCV 102.9* < > 98.4 MCH 32.1 < > 31.7* MCHC 31.1 < > 32.2* PLT 121* < > 62* RDW 15.9* < > 15.9* MPV 11.4 < > 11.5* PERNEU 65.4 -- -- PERLYM 19.3 -- -- PERMON 14.3* -- -- NEUC -- < > 5.30 LYMC 1.36 < > 1.33 MONOC 1.01 < > 0.86 EOSC 0.00 < > 0.18 BASOC 0.02 < > 0.02 DTYPE -- < > AUTOMATED DIFFERENTIAL < > = values in this interval not displayed. Microbiology: Microbiology Results (last 14 days) Microbiology Results (last 14 days) Procedure Component Value Units Date/Time CULTURE, URINE [[id number]] Collected: 08/28/24 1747 Order Status: Completed Lab Status: Preliminary result Updated: 08/29/24 0803 Specimen: URINE, CLEAN CATCH SPEC DESCRIPTION URINE CLEAN CATCH SPECIAL REQUESTS NO SPECIAL REQUEST CULTURE RESULT -- NO GROWTH (< OR = 1,000 CFU/ML) TO DATE CULTURE, BACTERIA BLOOD X2 [[id number]] Collected: 08/28/24 0751 Order Status: Completed Lab Status: Preliminary result Updated: 08/29/24 0819 Specimen: BLOOD SPEC DESCRIPTION BLOOD SPECIAL REQUESTS NO SPECIAL REQUEST CULTURE RESULT NO GROWTH 1 DAY BIOFIRE PCR UPPER RESPIRATORY PROFILE (RESPIRATORY PCR PANEL 2) [[id number]] Collected: 08/25/24 1245 Order Status: Completed Lab Status: Final result Updated: 08/25/24 1416 Specimen: NASOPHARYNGEAL SWAB ADENOVIRUS PCR (RESP) NOT DETECTED CORONAVIRUS 229E PCR (RESP) NOT DETECTED CORONAVIRUS HKU1 PCR (RESP) NOT DETECTED CORONAVIRUS NL63 PCR (RESP) NOT DETECTED CORONAVIRUS OC43 PCR (RESP) NOT DETECTED METAPNEUMOVIRUS PCR (RESP) NOT DETECTED RHINOVIRUS/ENTEROVIRUS PCR (RESP) NOT DETECTED INFLUENZA A PCR (RESP) NOT DETECTED INFLUENZA B PCR (RESP) NOT DETECTED PARAINFLUENZA 1 PCR (RESP) NOT DETECTED PARAINFLUENZA 2 PCR (RESP) NOT DETECTED PARAINFLUENZA 3 PCR (RESP) NOT DETECTED PARAINFLUENZA 4 PCR (RESP) NOT DETECTED RSV PCR (RESP) NOT DETECTED B PARAPERTUSIS PCR (RESP) NOT DETECTED BORDETELLA PERTUSSIS PCR (RESP) NOT DETECTED CHLAMYDOPHILA PNEUMONIAE PCR (RESP) NOT DETECTED MYCOPLASMA PNEUMONIAE PCR (RESP) NOT DETECTED CORONAVIRUS SARS COV 2 PCR (RESP) NOT DETECTED CULTURE, RESPIRATORY W/ GRAM STAIN [[id number]] Order Status: No result Lab Status: No result Specimen: SPUTUM, EXPECTORATED Imaging: MRI BRAIN WWO CON Result Date: 08/26/2024 [facility] [address] [place], [place] [address] EXAMINATION: MRI Brain without and with Contrast REPORT DATE: 08/26/2024 INDICATION: Brain abscess COMPARISON(S): CT head without 08/24/2024, 11/22/2023. TECHNIQUE: Multiplanar, multisequence MR imaging of the brain before and after intravenous administration of gadolinium based contrast. Contrast: 13 mL Dotarem. FINDINGS: Brain: Scattered foci of T2 hyperintensity within the periventricular and subcortical whitematter. Small foci of increased diffusion signal with T2 shine through, no diffusion restriction. Small foci of susceptibility. No abnormal enhancement. Ventricles/CSF spaces: Mildly prominent size with associated parenchymal loss. Vascular: Intracranial flow voids are normal. Intracranial vascularstructures enhance normally. Orbits: Bilateral lens replacement. Paranasal sinuses: Normal. Mastoids/middle ears: Moderate left and small right mastoid air cell effusions. Bones: Normal. Scalp/facialsoft tissues: Normal. IMPRESSION: 1. No acute intracranial findings. No brain abscess. 2. Indeterminate mastoid air cell effusions. 3. Chronic/nonemergent findings as above. Referred By: JOVANNY STREET Interpreted By: Whitney Thorne DO, 08/26/2024 7:08 PM ECG 12 lead Result Date: 08/26/2024 HFG Test Date: 2024-08-24 Pat Name: CORBY VALIENTE Department: [facility] Room: ED202 Gender: Male Filling Carrier: : 1950 Requested By: JOVANNY STREET Order Number: [id number] Reading MD: Adrian Nieto Measurements Intervals [place] Rate: 109 P: 0 ME: 0 QRS: 24 QRSD: 113 T: 77QT: 341 QTc: 460 Interpretive Statements ATRIAL FIBRILLATION WITH RAPID VENTRICULAR RESPONSE WITH ABERRANT CONDUCTION OR VENTRICULAR PREMATURE COMPLEXES MODERATE INTRAVENTRICULAR CONDUCTION DELAY [110+ ms QRS DURATION] NONSPECIFIC ST & T-WAVE ABNORMALITY ABNORMAL RHYTHM ECG COMPARED TO PREVIOUS TRACING Atrial fibrillation is present XR CHEST PORTABLE Result Date: 08/25/[address] [place] [address] SINGLE VIEW OF THE CHEST Clinicalhistory: Dyspnea Comparison: December 24, 2023 A single view of the chest demonstrates cardiomegaly. Multiple mitral clips are noted. The pulmonary vessels are normally distributed. Mild left basilar atelectasis or consolidation partially silhouettes the heart border and left hemidiaphragm. The right lung is clear IMPRESSION: Mild left basilar atelectasis or consolidation Ordered By: JOVANNY STREET Interpreted By: Artur Morales MD, 08/25/2024 12:[address] HEAD WO CON Result Date: 08/24/[address] [place] [address] CT HEAD WITHOUT CONTRAST Exam date: 08/24/2024 [...] clear. There is no evidence of fracture. IMPRESSION: Compromised study due to motion artifact. No gross acute findings Ordered By: JOVANNY ANDINO Interpreted By: Artur Morales MD, 08/24/2024 11:49 PM Problem List: Patient Active Problem List Diagnosis Closed nondisplaced fracture of sternal end of left clavicle with routine healing Other closed fracture of distal end of left radius with routine healing, subsequent encounter SDH (subdural hematoma) (CMS/HCC) Nasal bones, closed fracture Nasal septum fracture, closed, initial encounter Closed fracture of right orbit (CMS/HCC) Closed fracture of left orbit (CMS/HCC) Fall DKA (diabetic ketoacidosis) ([facility]/HCC [facility]) Assessment / Plan: Assessment: This is Corby Valiente, a 73-year-old male, who is referred for recommendations for diagnostic evaluation and treatment in consideration of: 1. Left base atelectasis or pneumonia. 2. Bilateral indeterminate mastoid effusions. 3. Admission on 08/25/2024 with altered mental status and diabetic ketoacidosis. 4. Atrial fibrillation. 5. History of mitral regurgitation s/p mitral valve clip. 6. History of and demonstration of an systolic aortic murmur.Long-term use of direct acting oral anticoagulant. 7. History of falls, multifactorial in etiology. 8. History of a fall on June 21, 2021 resulting in subdural hematoma, a nasal septal fracture, bilateral orbital fractures, left clavicular fracture and left radius and ulnar fractures. 9. Insulin treated type 1 diabetes mellitus with complications. 10. Hyperlipidemia 11. Hypothyroidism 12. Need for vaccination. 13. residential use of a DOAC (Clopidogrel) 14. See the past medical history and history of present illness. Plan: 1. Continue ceftriaxone 2 g IV daily through the dose on 08/31/2024. 2. Substitute Ceftin 500 p.o. every 12 hours to complete 3 of 3 weeks of therapy following conclusion of ceftriaxone on 08/31/2024. Will start Ceftin on 09/01/2024 to conclude with the doses administered on 09/14/2024. 3. Check blood cultures x 2. No growth to date 4. Check urinalysis with reflex to culture -no growth to date. 5. Management of his atrial fibrillation is as directed by hospital medicine. 6. 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 Consider placement of an ambulatory EKG with an event monitor and an EEG to assess for causes of syncope. 7. Diabetes care to maintain HgbA1c less than 8 (optimally, less than 7) or an average blood glucose less than 180 mg/dl to optimize healing and immune response. Continue measures for monitoring of and maintenance of metabolic homeostasis, acid-base, fluid and nitrogen balance and measures to reduce the risk of and treat wounds as they occur and address hygiene. His current HgbA1c is 8.2%. 8. Physical therapy and occupational assessment given his history of falling. 9. Immunizations with patient consent if not already administered: 10. Decubitus precautions and DVT precautions, mobilization as is feasible, measures to reduce the risk of and treat wounds as they occur and address hygiene. 11. Hemodynamic monitoring 12. Clinical observation for tolerance and efficacy of the plan of care. Patient remains afebrile. Most recent labs reviewed, hemoglobin 9.8, WBCs 7.71, platelets 62, creatinine 0.79, GFR > 90. SC ID will follow. The patient had the opportunity to ask and have questions answered. The patient voiced an understanding of the diagnosis and of the care plan and intent to comply with it. ADELE HICKS 08/29/2024 Cosigned by Grant Toscano MD at 08/30/2024 3:49 AM CDT Associated attestation - Grant Toscano MD - 08/30/2024 3:49 AM CDT I, GRANT TOSCANO MD, participated in the care of this patient today and discussed the plan of care with ADELE Hicks, who shared in this visit. I have reviewed the DREW's documentation and agree with the findings except as I have documented. I personally spent 12 minutes, caring for this patient. GRANT TOSCANO MD * Charissa Butler RN - 08/29/2024 2:40 AM CDT Problem: Discharge Planning Goal: Knowledge of discharge instructions Outcome: Progressing Problem: Pain control/comfort Goal: Promote pain control/comfort Outcome: Progressing Problem: Skin integrity, Impaired-wound Goal: Absence of new skin breakdown Outcome: Progressing Goal: Evidence of wound healing Outcome: Progressing Problem: Skin integrity, Impaired-pressure injury/ulcer Goal: Absence of new skin breakdown Outcome: Progressing Goal: Evidence of pressure injury/ulcer healing Outcome: Progressing Problem: Skin integrity, at risk Goal: Absence of new skin breakdown Outcome: Progressing Problem: Moisture associated skin impairment Goal: Reduce moisture exposure Outcome: Progressing Goal: Evidence of wound healing Outcome: Progressing Goal: Evidence of pressure injury/ulcer healing Outcome: Progressing Goal: Absence of new skin breakdown Outcome: Progressing Problem: Reduced risk for falls/injury Goal: Reduced Risk for Falls/Injury Outcome: Progressing Goal: Reduced Risk of Confusion (Acute vs Chronic) Outcome: Progressing Goal: Reduced Risk of Symptomatic Depression Outcome: Progressing Goal: Reduced Risk of Altered Elimination Outcome: Progressing Goal: Reduced Risk of Dizziness/Vertigo/Balance Outcome: Progressing Goal: Reduced Risk of Polypharmacy Outcome: Progressing Problem: Abnormal Serum Glucose Level Goal: Glucose level within specified parameters Outcome: Progressing Problem: Fluid Volume - Imbalance Goal: Absence of imbalanced fluid volume signs and symptoms Outcome: Progressing Problem: Mobility - Impaired Goal: Able to use ambulatory assistive device appropriately Outcome: Progressing Goal: Knowledge of need for increased mobility Outcome: Progressing * NIKITA Dalton - 08/28/2024 4:02 PM CDT OT Treatment Discharge Recommendation: Swing bed unit Activity 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 Ambulate to bathroom with nursing staff 08/28/24 1540 Therapy Visit Reason for admission Pt presented 08/24 with hyperglycemia, altered mental status, and syncopal episode. He was admitted with DKA, hyperglycemia, metabolic encephalopathy, and CAP...PMH: DM, HLD, HTN,hypothyroidism, hx of LUE fxs 2021...Orders: eval and treat...Activity: up in chair Ordering Provider Ariadna Saucedo MD Verified Two Patient Identifiers Yes Patient consents to therapy Yes Acute Inpatient OT Time Calculation OT Start Time 1539 OT Stop Time 1602 OT Time Calculation (min) 23 min Precautions General Precautions Bed Alarm;Chair Alarm;Fall Risk Instructed on Precautions Yes;Verbalizes understanding Other IV, telemetry, 2LO2NC Prior Function PLOF Comments Per Eval: Pt reports that he lives with his in a 2 story home with 5 steps to enter with HR. His bedroom is on the 2nd floor with 16 steps to access with HR x 1...Bathroom: ML: tub/shower with standard toilet with sink close; 2nd floor: walk-in shower with seat and grab bar alongwith a standard toilet with sink close....Baseline: independent with self care, mobility, and does IADLs. sleeps on the ML and walks without AE...Falls: none...AE: I don't remmber, I don'tuse them Subjective Subjective RN ok'd therapy session. Pt sitting in chair upon entering room. Pt agreeable to session Pain Pain Patient does not offer or c/o pain Activity Tolerance Limiting Factors to Endurance Acute deconditioning;Fatigue;Weakness Cognition Overall Cognitive Status WFL Arousal/Alertness Appropriate responses to stimuli Attention Span Attends with cues to redirect Memory Appears intact Orientation Level Oriented to person;Oriented to place;Disoriented to time;Disoriented to situation ADL Additional Comments Pt declined ADLs just wanting to rest Bed Mobility Other (Comment) not tested Functional Transfers Sit to Stand Contact guard assist Functional Mobility Pt stood from recliner x3 trials with CGA and 2ww. 1st trial took 3 steps forward/backward with 2ww and CGA. 2nd and 3rd stands ambulated forward to wall then back to recliner about 15-20 feet with 2ww and CGA. Balance Sitting - Static SBA Sitting - Dynamic SBA Standing - Static CGA;Support of both upper extremities Standing - Dynamic CGA;Support of both upper extremities Other (Comment) Pt unsteady but no LOB during this session OT Assessment OT Assessment Pt making progress toward OT goals. Pt with improved functional mobility. Pt limited by weakness, fatigue, and acute deconditioning. Pt would continue to benefit from skilled OT in the acute setting before d/c to swing bed unit to further improve strength, balance, transfers and ADL independence Discharge Recommendation OT Recommendation Swing bed unit Plan Progress Progressing toward goals OT Frequency 5 times/week OT - Next Appointment 08/28/24 If this is the last treatment note, it will serve as the discharge summary Yes End of Session End of Session Safety Call light within reach;Chair alarm set/activated;Nursing aware of session Education: Primary Learners Name: Corby Valiente Primary Language of learner: [place] Patient was educated on transfers balance bed mobility therapy plan safety. Education was completed one to one verbal this date. Preference of learning new concepts one to one verbal Barriers to education this date were fatigue. Response to education this date needs reinforcement needs follow up needs assistance. * Maria Isabel Jones RN - 08/28/2024 3:27 PM CDT Problem: Discharge Planning Goal: Knowledge of discharge instructions Outcome: Progressing Problem: Pain control/comfort Goal: Promote pain control/comfort Outcome: Progressing Problem: Skin integrity, Impaired-wound Goal: Absence of new skin breakdown Outcome: Progressing Goal: Evidence of wound healing Outcome: Progressing * Lucas Kenny MD - 08/28/2024 12:42 PM CDT Images from the original note were not included. Hospitalist Daily Progress Note Chief Complain: f/u of dka , pneumonia ASSESSMENT /PLAN: acute hypoxic resp failure on 2l Cap presumed bacterial ID following follow blood cultures on nebd and pulmicort DKA On lantus lispro regimen Monitor accuchecks Consult endo for input HYPOTHYROIDISM on synthroid Cad on aspirin plavix statin Devin- resolved Metabolic encephalopathy impropving Anemia likely of chronic disease Ot/pt recommends rehab - pt currently refusing - will discuss again in am Body mass index is 18.49 kg/m??. DVT Prophylaxis: lovenox Code Status: Full Code Not Medically Ready/Awaiting Clinical Improvement SUBJECTIVE Patient seen and examined. Alert awake sitting in chair chronically ill appearing not in distress OBJECTIVE Blood pressure 130/57, pulse 73, temperature 97.7 ??F (36.5 ??C), temperature source Axillary, resp. rate 16, height 1.803 m (5' 10.98 ), weight 60.1 kg (132 lb 7.9 oz), SpO2 97%. Wt Readings from Last 3 Encounters: 08/25/24 60.1 kg (132 lb 7.9 oz) 08/24/24 60.8 kg (134 lb 0.6 oz) 02/01/24 64.8 kg (142 lb 13.7 oz) Review of Systems Constitutional: Negative for chills, fever and weight loss. HENT: Negative for congestion and ear pain. Eyes: Negative for blurred vision and double vision. Respiratory: Negative for cough, hemoptysis, sputum production, shortness of breath and wheezing. Cardiovascular: Negative for chest pain, palpitations, orthopnea, leg swelling and PND. Gastrointestinal: Negative for abdominal pain, blood in stool, nausea and vomiting. Genitourinary: Negative for dysuria, flank pain and hematuria. Musculoskeletal: Negative for back pain, joint pain and neck pain. Skin: Negative for rash. Neurological: Negative for speech change, focal weakness and loss of consciousness. Endo/Heme/Allergies: Negative for polydipsia. Psychiatric/Behavioral: Negative for depression and suicidal ideas. The patient is not nervous/anxious. All other systems reviewed and are negative. Physical Exam Vitals and nursing note reviewed. Constitutional: Appearance: Normal appearance. He is well-developed. HENT: Head: Normocephalic and atraumatic. Eyes: General: No scleral icterus. Conjunctiva/sclera: Conjunctivae normal. Pupils: Pupils are equal, round, and reactive to light. Neck: Vascular: No JVD. Cardiovascular: Rate and Rhythm: Normal rate and regular rhythm. Pulses: Normal pulses. Heart sounds: Normal heart sounds, S1 normal and S2 normal. No murmur heard. Pulmonary: Effort: Pulmonary effort is normal. No accessory muscle usage or respiratory distress. Breath sounds: Normal breath sounds. No wheezing. Abdominal: General: Bowel sounds are normal. Palpations: Abdomen is soft. Tenderness: There is no abdominal tenderness. There is no guarding. Musculoskeletal: General: Normal range of motion. Cervical back: Normal range of motion and neck supple. No edema or rigidity. Skin: Findings: No erythema or rash. Neurological: Mental Status: He is alert and oriented to person, place, and time. Cranial Nerves: No cranial nerve deficit. Sensory: No sensory deficit. Coordination: Coordination normal. Deep Tendon Reflexes: Reflexes are normal and symmetric. Psychiatric: Speech: Speech normal. Behavior: Behavior normal. LABS: Recent Labs 08/26/24 0425 WBC 6.67 HGB 9.3* HCT 28.3* MCV 99.6 PLT SEE NOTE RBC 2.84* Recent Labs 08/26/24 0425 08/26/24 1245 08/26/24 2105 08/27/24 0400 08/28/24 0333 ALT 29 -- -- -- -- AST 87* -- -- -- -- CO2 28.3 < > 27.1 27.5 27.4 CL 109 < > 108 107 105 GLU 88 < > 179* 103 183* K 4.5 < > 4.0 4.1 4.0 NA 141 < > 139 140 138 BUN 22* < > 17 15 15 < > = values in this interval not displayed. Intake/Output Summary (Last 24 hours) at 08/28/2024 1242 Last data filed at 08/28/2024 1100 Gross per 24 hour Intake 200 ml Output 1500 ml Net -1300 ml Microbiology Results (last 14 days) Procedure Component Value Units Date/Time CULTURE, URINE [[id number]] Order Status: No result Lab Status: No result Specimen: URINE, CLEAN CATCH CULTURE, BACTERIA BLOOD X2 [[id number]] Collected: 08/28/24 0751 Order Status: Completed Lab Status: Preliminary result Updated: 08/28/24 0819 Specimen: BLOOD SPEC DESCRIPTION BLOOD SPECIAL REQUESTS NO SPECIAL REQUEST CULTURE RESULT NO GROWTH <24 HRS BIOFIRE PCR UPPER RESPIRATORY PROFILE (RESPIRATORY PCR PANEL 2) [[id number]] Collected: 08/25/24 1245 Order Status: Completed Lab Status: Final result Updated: 08/25/24 1416 Specimen: NASOPHARYNGEAL SWAB ADENOVIRUS PCR (RESP) NOT DETECTED CORONAVIRUS 229E PCR (RESP) NOT DETECTED CORONAVIRUS HKU1 PCR (RESP) NOT DETECTED CORONAVIRUS NL63 PCR (RESP) NOT DETECTED CORONAVIRUS OC43 PCR (RESP) NOT DETECTED METAPNEUMOVIRUS PCR (RESP) NOT DETECTED RHINOVIRUS/ENTEROVIRUS PCR (RESP) NOT DETECTED INFLUENZA A PCR (RESP) NOT DETECTED INFLUENZA B PCR (RESP) NOT DETECTED PARAINFLUENZA 1 PCR (RESP) NOT DETECTED PARAINFLUENZA 2 PCR (RESP) NOT DETECTED PARAINFLUENZA 3 PCR (RESP) NOT DETECTED PARAINFLUENZA 4 PCR (RESP) NOT DETECTED RSV PCR (RESP) NOT DETECTED B PARAPERTUSIS PCR (RESP) NOT DETECTED BORDETELLA PERTUSSIS PCR (RESP) NOT DETECTED CHLAMYDOPHILA PNEUMONIAE PCR (RESP) NOT DETECTED MYCOPLASMA PNEUMONIAE PCR (RESP) NOT DETECTED CORONAVIRUS SARS COV 2 PCR (RESP) NOT DETECTED CULTURE, RESPIRATORY W/ GRAM STAIN [[id number]] Order Status: No result Lab Status: No result Specimen: SPUTUM, EXPECTORATED Radiology MEDICATIONS Scheduled medications aspirin 81 mg Oral Daily atorvastatin 20 mg Oral Daily budesonide 0.5 mg Nebulization 2 times daily RT cefTRIAXone 2 g Intravenous Q24H clopidogrel 75 mg Oral Daily enoxaparin 40 mg Subcutaneous Q24H insulin glargine 10 Units Subcutaneous BID insulin lispro 0-8 Units Subcutaneous 4x Daily WC ipratropium-albuterol 3 mL Nebulization Q4H RT levothyroxine 112 mcg Oral Daily normal saline 3-10 mL Intravenous Q8H Infusion PRN acetaminophen, dextrose 10 % bolus, glucagon, normal saline, ondansetron LUCAS KENNY MD 12:42 PM 08/28/2024 * Elham Avitia RN - 08/28/2024 10:30 AM CDT 1000: Received a call from inquiring about swing bed. She stated that she would be okay with swing bed placement. 1.[place], 2. [facility], and 3.[place], swing bed referrals placed. Danielle zelaya and notified of referral. Will update with any new info when available. 08/28/24 1030 Interdisciplinary Group Conference Team Members Present Physician;Case/Care management;Nursing Physician present for group conference Efraín Patient Current Status Paient current status Inpatient Barriers to Discharge Inpatient Review Barriers to Discharge Inpatient Administering IV meds;Test Pending Administering IV meds follow up iv abx Test Pending follow up Pending echo results Patient expects to be discharged to Patient expects to be discharged to: Swing bed (referrals pending) 1443: Gamaliel from [facility] called to get an update on this patient. She stated that she would review the referral and let me know in the morning. * Simin Younger, CAT DRIVER-BC - 08/28/2024 9:58 AM CDT ID Progress Note Patient Name: Corby Valiente Date of : 1950 Admission Date: 08/25/2024 Consult Date: 08/27/2024 HPI: Corby Valiente is a 73-year-old male patient who is seen and examined and the chart is reviewed.The patient is referred for recommendations for diagnostic assessment and evaluation and managementin consideration of partially treated pneumonia, dka and a toxic and metabolic encephalopathy. The patient cannot recall what happened immediately prior to his admission or the process of being admitted to the hospital. He has recovered and he knows his name, the year and that he is at [facility]. Heasks me what day is this? The patient was admitted on 08/25/2024 with a toxic and metabolic encephalopathy with his laboratoryand clinical presentation consistent with diabetic ketoacidosis. He has type 1 insulin-dependent diabetes mellitus and he states he was taking his insulin as prescribed He has a history of an aortic murmur, mitral regurgitation and a mitral clip procedure and atrial fibrillation for which he receives direct acting antiplatelet therapy (clopidogrel). He has a historyof falls a/w a subdural hematoma, facial fractures (nasal septal and bilateral orbital fractures) and left clavicle and left radius and ulnar fractures in June,. He does not demonstrate fever during this admission. The patient demonstrates on chest x-ray left basilar atelectasis or consolidation. His CT of the head studies over time have demonstrated healing of prior facial fractures and clear sinuses and clearmastoid air cells. His MRI of the head demonstrates indeterminate mastoid air cell effusions.' He is treated empirically for left basilar atelectasis as possible pneumonia and for possible mastoiditis with low dose Ceftriaxone. There is no report of skin or skin structure inflammation or ulceration. Culture data is limited to a Biofire upper respiratory pcr which is negative. A sputum gram stain and culture were ordered and a specimen is not submitted A urine culture is not displayed but it is in the system as ordered and not done. Blood cultures are not done. Subjective: Patient seen lying in bed with head of bed elevated. Alert and oriented. Afebrile. Denies chills or sweats. Denies nausea, vomiting, diarrhea, or abdominal pain. Denies shortness of breath or cough. SpO2 97-100% on 2 L O2 via nasal cannula. Denies urinary symptoms. Tolerating antibiotics. Allergies: No Known Allergies Medications: Current Facility-Administered Medications Medication Dose Route Frequency Provider Last Rate Last Admin acetaminophen (TYLENOL) tablet 650 mg 650 mg Oral Q4H PRN Charis Singh MD 650 mg at 08/27/24 0524 aspirin chewable tablet 81 mg 81 mg Oral Daily Ariadna Saucedo MD 81 mg at 08/27/24 0812 atorvastatin (LIPITOR) tablet 20 mg 20 mg Oral Daily Ariadna Saucedo MD 20 mg at 08/27/24 0812 budesonide (PULMICORT) nebulizer solution 0.5 mg 0.5 mg Nebulization 2 times daily RT Ariadna Bonilla MD 0.5 mg at 08/28/24 0602 cefTRIAXone (ROCEPHIN) 2 g in sodium chloride 0.9 % 50 mL IVPB 2 g Intravenous Q24H Grant Toscano MD clopidogrel (PLAVIX) tablet 75 mg 75 mg Oral Daily Ariadna Saucedo MD 75 mg at 812 dextrose 10 % bolus infusion 125-250 mL 125-250 mL Intravenous PRN Alexandria Longo MD enoxaparin (LOVENOX) 40 MG/0.4ML syringe 40 mg 40 mg Subcutaneous Q24H Ariadna Saucedo MD 40 mg at 08/27/24 0812 glucagon injection 1 mg 1 mg Intramuscular Once PRN Alexandria Longo MD insulin glargine (LANTUS) injection 10 Units 10 Units Subcutaneous DIXIE Kenny MD insulin lispro (HUMALOG/ADMELOG) injection 0-8 Units 0-8 Units Subcutaneous 4x Daily Steven Saucedo MD 8 Units at 08/27/242110 ipratropium-albuterol (DUONEB) 0.5-2.5 (3) MG/3ML nebulizer solution 3 mL 3 mL Nebulization Q4H RT Ariadna Saucedo MD 3 mL at 08/28/24 0602 levothyroxine (SYNTHROID) tablet 112 mcg 112 mcg Oral Daily Ariadna Saucedo MD 112 mcg at 08/28/24 0604 normal saline 0.9 % flush 3-10 mL 3-10 mL Intravenous Q8H Alexandria Longo MD 8 mL at 08/28/24 0218 normal saline 0.9 % flush 3-10 mL 3-10 mL Intravenous PRN Alexandria Longo MD ondansetron (ZOFRAN) injection 4 mg 4 mg Intravenous Q8H PRN Alexandria Longo MD Weight: Last Recorded Weight 08/25/24 0530 Weight: 60.1 kg (132 lb 7.9 oz) Height: Ht Readings from Last 1 Encounters: 08/25/24 1.803 m (5' 10.98 ) BMI: Body mass index is 18.49 kg/m??. Current Vitals: Vitals: 08/27/242028 BP: 130/57 Pulse: 73 Resp: 16 Temp: 97.7 ??F (36.5 ??C) SpO2: 97% Physical Exam: The patient is alert and oriented antonietta person, place, station and year and responds appropriately tothe examiner. The patient's body habitus was consistent with the patient's vital measurements and the bmi of 18.5kg/m2. There was no anterior or posterior cervical adenopathy. Pupils were equal round and reactive to light. The lids were not inflamed and the extra ocular movements were intact. The external ears were not inflamed. There was no external ear or mastoid tenderness. The nasopharyngeal mucosa revealed no erythema, there was no frontal or maxillary sinus tenderness. The oropharynx revealed no erythema or exudate. The neck was without meningismus and without adenopathy and there was no thyroid enlargement. Back revealed no spinous or CVA tenderness. The lungs demonstrate left more than right base rales on auscultation. Heart had an irregularly irregular rhythm with a controlled rate and with a grade 2/6 systolic murmur and no gallop. The abdomen was soft and nontender with no evidence for hepatosplenomegaly. Bowel tones were present and there was no rigidity, rebound tenderness or guarding. The skin revealed no rash. He has onychomycosis of his toenails and no evidence of skin ulceration or cellulitis. The joints of the upper and lower extremities revealed no evidence for acute synovitis or findings consistent with acute arthritis. Cranial nerves III through XII were without asymmetry or deficit. The and rectal exams were deferred. Labs: Recent Labs Lab 08/24/24231508/25/24 0450 08/26/24 0425 08/26/24 1245 08/26/24 2105 08/27/24 0400 08/28/24 0333 NA 140 < > 141 < > 139 140 138 K 4.3 < > 4.5 < > 4.0 4.1 4.0 CL 97* < > 109 < > 108 107 105 CO2 10.7* < > 28.3 < > 27.1 27.5 27.4 AGAP 32.3* < > 3.7 < > 3.9 5.5 5.6 BUN 39* < > 22* < > 17 15 15 CR 2.48* < > 1.39* < > 1.24 0.97 0.89 BUNCREATININ 15.7 -- -- -- -- -- -- GLU 588* < > 88 < > 179* 103 183* CA 9.1 < > 8.1* < > 8.5 8.6 8.6 MAGNESIUM -- < > 2.1 -- -- 1.9 1.9 < > = values in this interval not displayed. Recent Labs Lab 08/24/24231508/26/24 0425 WBC 7.04 6.67 RBC 3.40* 2.84* HGB 10.9* 9.3* HCT 35.0* 28.3* MCV 102.9* 99.6 MCH 32.1 32.7* MCHC 31.1 32.9* PLT 121* SEE NOTE RDW 15.9* 15.9* MPV 11.4 -- PERNEU 65.4 -- PERLYM 19.3 -- PERMON 14.3* -- NEUC -- 4.92 LYMC 1.36 1.15 MONOC 1.01 0.53 EOSC 0.00 0.04 BASOC 0.02 0.01 DTYPE -- AUTOMATED DIFFERENTIAL Microbiology: Microbiology Results (last 14 days) Procedure Component Value Units Date/Time CULTURE, BACTERIA BLOOD X2 [[id number]] Collected: 08/28/24 0751 Order Status: Completed Lab Status: Preliminary result Updated: 08/28/24 0819 Specimen: BLOOD SPEC DESCRIPTION BLOOD SPECIAL REQUESTS NO SPECIAL REQUEST CULTURE RESULT NO GROWTH <24 HRS BIOFIRE PCR UPPER RESPIRATORY PROFILE (RESPIRATORY PCR PANEL 2) [[id number]] Collected: 08/25/24 1245 Order Status: Completed Lab Status: Final result Updated: 08/25/24 1416 Specimen: NASOPHARYNGEAL SWAB ADENOVIRUS PCR (RESP) NOT DETECTED CORONAVIRUS 229E PCR (RESP) NOT DETECTED CORONAVIRUS HKU1 PCR (RESP) NOT DETECTED CORONAVIRUS NL63 PCR (RESP) NOT DETECTED CORONAVIRUS OC43 PCR (RESP) NOT DETECTED METAPNEUMOVIRUS PCR (RESP) NOT DETECTED RHINOVIRUS/ENTEROVIRUS PCR (RESP) NOT DETECTED INFLUENZA A PCR (RESP) NOT DETECTED INFLUENZA B PCR (RESP) NOT DETECTED PARAINFLUENZA 1 PCR (RESP) NOT DETECTED PARAINFLUENZA 2 PCR (RESP) NOT DETECTED PARAINFLUENZA 3 PCR (RESP) NOT DETECTED PARAINFLUENZA 4 PCR (RESP) NOT DETECTED RSV PCR (RESP) NOT DETECTED B PARAPERTUSIS PCR (RESP) NOT DETECTED BORDETELLA PERTUSSIS PCR (RESP) NOT DETECTED CHLAMYDOPHILA PNEUMONIAE PCR (RESP) NOT DETECTED MYCOPLASMA PNEUMONIAE PCR (RESP) NOT DETECTED CORONAVIRUS SARS COV 2 PCR (RESP) NOT DETECTED CULTURE, RESPIRATORY W/ GRAM STAIN [[id number]] Order Status: No result Lab Status: No result Specimen: SPUTUM, EXPECTORATED Imaging: MRI BRAIN WWO CON Result Date: 08/26/2024 [facility] [address], [place] [address] EXAMINATION: MRI Brain without and with Contrast REPORT DATE: 08/26/2024 INDICATION: Brain abscess COMPARISON(S): CT head without 08/24/2024, 11/22/2023. TECHNIQUE: Multiplanar, multisequence MR imaging of the brain before and after intravenous administration of gadolinium based contrast. Contrast: 13 mL Dotarem. FINDINGS: Brain: Scattered foci of T2 hyperintensity within the periventricular and subcortical whitematter. Small foci of increased diffusion signal with T2 shine through, no diffusion restriction. Small foci of susceptibility. No abnormal enhancement. Ventricles/CSF spaces: Mildly prominent size with associated parenchymal loss. Vascular: Intracranial flow voids are normal. Intracranial vascularstructures enhance normally. Orbits: Bilateral lens replacement. Paranasal sinuses: Normal. Mastoids/middle ears: Moderate left and small right mastoid air cell effusions. Bones: Normal. Scalp/facialsoft tissues: Normal. IMPRESSION: 1. No acute intracranial findings. No brain abscess. 2. Indeterminate mastoid air cell effusions. 3. Chronic/nonemergent findings as above. Referred By: JOVANNY STREET Interpreted By: Whitney Thorne DO, 08/26/2024 7:08 PM ECG 12 lead Result Date: 08/26/2024 HFG Test Date: 2024-08-24 Pat Name: CORBY VALIENTE Department: [facility] Room: ED202 Gender: Male Filling Carrier: : 1950 Requested By: JOVANNY STREET Order Number: [id number] Reading MD: Adrian Neito Measurements Intervals [place] Rate: 109 P: 0 ME: 0 QRS: 24 QRSD: 113 T: 77 QT: 341 QTc: 460 Interpretive Statements ATRIAL FIBRILLATION WITH RAPID VENTRICULAR RESPONSE WITH ABERRANT CONDUCTION OR VENTRICULAR PREMATURE COMPLEXES MODERATE INTRAVENTRICULAR CONDUCTION DELAY [110+ ms QRS DURATION] NONSPECIFIC ST & T-WAVE ABNORMALITY ABNORMAL RHYTHM ECG COMPARED TO PREVIOUS TRACING Atrial fibrillation is present XR CHEST PORTABLE Result Date: 08/25/[address] [place] [address] SINGLE VIEW OF THE CHEST Clinicalhistory: Dyspnea Comparison: December 24, 2023 A single view of the chest demonstrates cardiomegaly. Multiple mitral clips are noted. The pulmonary vessels are normally distributed. Mild left basilar atelectasis or consolidation partially silhouettes the heart border and left hemidiaphragm. The right lung is clear IMPRESSION: Mild left basilar atelectasis or consolidation Ordered By: JOVANNY STREET Interpreted By: Artur Morales MD, 08/25/2024 12:[address] HEAD WO CON Result Date: 08/24/[address] [place] [address] CT HEAD WITHOUT CONTRAST Exam date: 08/24/2024 [...] clear. There is no evidence of fracture. IMPRESSION: Compromised study due to motion artifact. No gross acute findings Ordered By: JOVANNY ANDINO Interpreted By: Artur Morales MD, 08/24/2024 11:49 PM Problem List: Patient Active Problem List Diagnosis Closed nondisplaced fracture of sternal end of left clavicle with routine healing Other closed fracture of distal end of left radius with routine healing, subsequent encounter SDH (subdural hematoma) (CMS/HCC) Nasal bones, closed fracture Nasal septum fracture, closed, initial encounter Closed fracture of right orbit (CMS/HCC) Closed fracture of left orbit ([facility]/HCC) Fall DKA (diabetic ketoacidosis) ([facility]) Assessment / Plan: Assessment: This is Corby Valiente, a 73-year-old male, who is referred for recommendations for diagnostic evaluation and treatment in consideration of: 1. Left base atelectasis or pneumonia. 2. Bilateral indeterminate mastoid effusions. 3. Admission on 08/25/2024 with altered mental status and diabetic ketoacidosis. 4. Atrial fibrillation. 5. History of mitral regurgitation s/p mitral valve clip. 6. History of and demonstration of an systolic aortic murmur.Long-term use of direct acting oral anticoagulant. 7. History of falls, multifactorial in etiology. 8. History of a fall on June 21, 2021 resulting in subdural hematoma, a nasal septal fracture, bilateral orbital fractures, left clavicular fracture and left radius and ulnar fractures. 9. Insulin treated type 1 diabetes mellitus with complications. 10. Hyperlipidemia 11. Hypothyroidism 12. Need for vaccination. 13. residential use of a DOAC (Clopidogrel) 14. See the past medical history and history of present illness. Plan: 1. Continue ceftriaxone to 2 g IV daily through the dose on 08/31/2024. 2. Substitute Ceftin 500 p.o. every 12 hours to complete 3 of 3 weeks of therapy following conclusion of ceftriaxone on 08/31/2024. Will start Ceftin on 09/01/2024 to conclude with the doses administered on 09/14/2024. 3. Check blood cultures x 2. No growth to date 4. Check urinalysis with reflex to culture -pending. 5. Management of his atrial fibrillation is as directed by hospital medicine. 6. 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 Consider placement of an ambulatory EKG with an event monitor and an EEG to assess for causes of syncope. 7. Diabetes care to maintain HgbA1c less than 8 (optimally, less than 7) or an average blood glucose less than 180 mg/dl to optimize healing and immune response. Continue measures for monitoring of and maintenance of metabolic homeostasis, acid-base, fluid and nitrogen balance and measures to reduce the risk of and treat wounds as they occur and address hygiene. His current HgbA1c is 8.2%. 8. Physical therapy and occupational assessment given his history of falling. 9. Immunizations with patient consent if not already administered: 10. Decubitus precautions and DVT precautions, mobilization as is feasible, measures to reduce the risk of and treat wounds as they occur and address hygiene. 11. Hemodynamic monitoring 12. Clinical observation for tolerance and efficacy of the plan of care. Patient remains afebrile. Most recent labs reviewed, hemoglobin 9.3, WBCs 6.67, creatinine 0.89, GFR greater than 90. SC ID will follow. The patient had the opportunity to ask and have questions answered. The patient voiced an understanding of the diagnosis and of the care plan and intent to comply with it. ADELE HICKS 08/28/2024 Cosigned by Grant Toscano MD at 08/28/2024 11:07 PM CDT Associated attestation - Grant Toscano MD - 08/28/2024 11:07 PM CDT I, GRANT TOSCANO MD, participated in the care of this patient today and discussed the plan of care with ADELE Hicks, who shared in this visit. I have reviewed the DREW's documentation and agree with the findings except as I have documented. I personally spent 12 minutes, caring for this patient. GRANT TOSCANO MD * Kia Sierra RN - 08/27/2024 12:57 PM CDT Problem: Discharge Planning Goal: Knowledge of discharge instructions Outcome: Progressing Problem: Pain control/comfort Goal: Promote pain control/comfort Outcome: Progressing Problem: Skin integrity, Impaired-wound Goal: Absence of new skin breakdown Outcome: Progressing Goal: Evidence of wound healing Outcome: Progressing Problem: Skin integrity, Impaired-pressure injury/ulcer Goal: Absence of new skin breakdown Outcome: Progressing Goal: Evidence of pressure injury/ulcer healing Outcome: Progressing Problem: Skin integrity, at risk Goal: Absence of new skin breakdown Outcome: Progressing Problem: Moisture associated skin impairment Goal: Reduce moisture exposure Outcome: Progressing Goal: Evidence of wound healing Outcome: Progressing Goal: Evidence of pressure injury/ulcer healing Outcome: Progressing Goal: Absence of new skin breakdown Outcome: Progressing Problem: Reduced risk for falls/injury Goal: Reduced Risk for Falls/Injury Outcome: Progressing Goal: Reduced Risk of Confusion (Acute vs Chronic) Outcome: Progressing Goal: Reduced Risk of Symptomatic Depression Outcome: Progressing Goal: Reduced Risk of Altered Elimination Outcome: Progressing Goal: Reduced Risk of Dizziness/Vertigo/Balance Outcome: Progressing Goal: Reduced Risk of Polypharmacy Outcome: Progressing Problem: Abnormal Serum Glucose Level Goal: Glucose level within specified parameters Outcome: Progressing Problem: Fluid Volume - Imbalance Goal: Absence of imbalanced fluid volume signs and symptoms Outcome: Progressing Problem: Mobility - Impaired Goal: Able to use ambulatory assistive device appropriately Outcome: Progressing Goal: Knowledge of need for increased mobility Outcome: Progressing * Sue Jean RN - 08/27/2024 11:43 AM CDT 08/27/24 0000 Interdisciplinary Group Conference Team Members Present Case/Care management;Nursing Barriers to Discharge Inpatient Review Barriers to Discharge Inpatient Other (Comment) Complex - Social and/or Medical follow up DOWN GRADE ORDERS Other follow up (Comment) LVM WITH LADAN TO DISCUSS SWING BED UNIT RECOMMENDATION Patient expects to be discharged to Patient expects to be discharged to: Other (Comment) (PENDING CLINICAL PROGRESS) * Haley Levi OT - 08/27/2024 9:48 AM CDTSummary: OT evaluation OT Initial Evaluation Discharge Recommendation: Swing bed unit DME equipment recommendation: Activity 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 He was admitted with DKA, hyperglycemia, metabolic encephalopathy, and CAP...PMH: DM, HLD, HTN,hypothyroidism, hx of LUE fxs 2021...Orders: eval and treat...Activity: up in chair Ordering Provider Ariadna Saucedo MD Verified Two Patient Identifiers Yes Patient consents to therapy Yes Acute Inpatient OT Time Calculation OT Start Time 923 OT Stop Time 947 OT Time Calculation (min) 24 min Precautions General Precautions Bed Alarm;Chair Alarm;Fall Risk Other IV, tele, oxygen 2L, [facility] Subjective Subjective Pt supine in bed upon arrival and agreeable to evaluation Prior Function PLOF Comments Pt reports that he lives with his in a 2 story home with 5 steps to enter with HR. His bedroom is on the 2nd floor with 16 steps to access with HR x 1...Bathroom: ML: tub/shower with standard toilet with sink close; 2nd floor: walk-in shower with seat and grab bar along with a standard toilet with sink close....Baseline: independent with self care, mobility, and does IADLs. sleeps on the ML and walks without AE...Falls: none...AE: I don't remmber, I don't use them Pain Pain No Activity Tolerance Pre-activity VS HR 94, sats 95%, BP 88/54 VS Response During Activity BP 91/57 EOB Post Activity VS Recovery HR 95, sats 98% BP 119/59 Activity Tolerance Comments RN aware of BPs and notified MD with fluids ordered and hung during this session Vision - Basic Assessment Current Vision No visual deficits Visual History Corrective eye surgery Vision - Complex Assessment Acuity Able to read clock/calendar on wall without difficulty;Able to read employee name badge without difficulty Additional Comments Pt reports no changes in vision since admit Cognition Overall Cognitive Status WFL Arousal/Alertness Appropriate responses to stimuli Attention Span Attends with cues to redirect Memory Appears intact Orientation Level Oriented to person;Oriented to place;Disoriented to time;Disoriented to situation (date: able to state month but not year or day) Following Commands Follows multistep commands with increased time Safety Judgment Decreased awareness of need for assistance Awareness of Errors Assistance required to identify errors made Deficits Fully aware of deficits Problem Solving Able to problem solve independently Motor Planning Appears intact Perseveration Not present Initiation Appears intact Overall Extremity Assessment Upper Extremity BUE AROM WFL with strength 4/5 Hand Function Hand Dominance Right Gross Grasp Functional Coordination Functional Sensation Light Touch No apparent deficits ADL Eating/Feeding Assistance Sitting in chair Eating/Feeding Deficit Setup;Beverage management Grooming Assistance Stand by;Sitting in chair LE Dressing Assistance Sitting in chair (min A to doff socks and mod A to myriam socks) Bed Mobility Supine to Sit Min assist to right (with HOB elevated, use of rail and increased time) Functional Transfers Sit to Stand Min assist;Assist of 2 Bed to Chair Min assist;Assist of 2 Balance Sitting - Static SBA Sitting - Dynamic CGA Standing - Static Min Assist;Assist of 2 Persons Standing - Dynamic Min Assist;Assist of 2 Persons Assessment Occupational Profile and History Complexity Moderate (Expanded) Performance Skills Deficits Bathing/showering;Dressing;Education;Functional mobility;Personal device care;Personal hygiene and grooming;Toileting Performance Deficit Level High (5 or more deficits) Clinical Decision Making High (max modifications) Complexity Level of Evaluation Moderate Prognosis Good OT Assess/Eval Other (Comment) Pt reports that at baseline he is independent with self care, mobility, and IADLs. Currently the patient presents with decreased independence with self care and mobility due weakness, decreased balance, and acute deconditioning. They would benefit from continued OT services while here and then at a swing bed to maximize their independence prior to returning home. Discharge Recommendation OT Recommendation Swing bed unit Plan OT Treatment/Intervention Self-care training;Therapeutic activities;Safety;Functional activity;Patient/family training OT Frequency 5 times/week OT - Next Appointment 08/27/24 If this is the last treatment note, it will serve as the discharge summary Yes End of Session End of Session Safety Call light within reach;Chair alarm set/activated;Nursing aware of session;Transfer status education Goals: The below POC to be followed until 09/09/24 at that time POC will be re-assessed to ensure patient ismaking appropriate progression. Pt will complete dressing with modified independence using AE as needed sitting EOB or in chair to increase safety and independence with ADLs. Pt will complete ADLs at sink with Independent to increase independence with ADLs. Pt will complete toileting hygiene and clothing management with Independent to increase safety and independence with ADLs. Pt to complete bathing with Modified Margie seated in chair/EOB to increase independence withADLs. Pt will complete bed mobility with Independent with HOB flat to increase safety and independence with functional transfers. Pt will complete transfers all surfaces to/from all surfaces with Modified Margie using wheeled walker to increase functional mobility and transfers. Pt will participate within skilled therapy services for 20-30 minutes with 1-2 rest breaks to increase independence with ADLs and functional transfers. Education: Primary Learners Name: Corby Valiente Primary Language of learner: [place] Patient was educated on transfers ADLs balance bed mobility therapy plan safety. Education was completed one to one verbal hands-on this date. Preference of learning new concepts one to one verbal hands-on Barriers to education this date were fatigue physical impairment. Response to education this date demos with verbal cues needs reinforcement needs follow up needs assistance. * Flaca Thapa, PT - 08/27/2024 9:47 AM CDTSummary: PT EVAL PT Initial Evaluation Discharge Recommendation: Swing bed unit DME equipment recommendation: Activity Recommendation for carpet winder: up with assist of 2 and gait belt for bed/chair transfers 08/27/24 0947 Therapy Visit Ordering Provider Ariadna Saucedo MD PT Received On 08/27/24 Subjective RN ok'd therapy session. Pt received in bed and agreeable to therapy session. Reason for admission Pt presented 08/24 with hyperglycemia, altered mental status, and syncopal episode. He was admitted with DKA, hyperglycemia, metabolic encephalopathy, and CAP...PMH: DM, HLD, HTN,hypothyroidism, hx of LUE fxs 2021...Orders: eval and treat...Activity: up in chair Verified Two Patient Identifiers Yes Patient consents to therapy Yes Acute Inpatient PT Time Calculation PT Start Time 923 PT Stop Time 946 PT Time Calculation (min) 23 min Precautions General Precautions Bed Alarm;Chair Alarm;Fall Risk Instructed on Precautions Yes;Verbalizes understanding Other IV, telemetry, 2LO2NC, male purewick Prior Function PLOF Comments Pt reports that he lives with his in a 2 story home with 5 steps to enter with handrail. His bedroom is on the 2nd floor with 16 steps to access with HR x 1...Bathroom: main level:tub/shower with standard toilet with sink close; 2nd floor: walk-in shower with seat and grab bar along with a standard toilet with sink close....Baseline: independent with self care, mobility, and does IADLs. sleeps on the main level and walks without AE...Falls: none...AE: I don't remmber, I don't use them Pain Pain No Activity Tolerance Limiting Factors to Endurance Acute deconditioning;Fatigue;Weakness Pre-activity VS HR 94, sats 95%, BP 88/54 VS Response During Activity BP 91/57 EOB Post Activity VS Recovery HR 95, sats 98% BP 119/59 Activity Tolerance Comments RN aware of BPs and notified MD with fluids ordered and hung during this session Vision - Basic Assessment Current Vision No visual deficits Visual History Corrective eye surgery Vision - Complex Assessment Acuity Able to read clock/calendar on wall without difficulty;Able to read employee name badge without difficulty Additional Comments Pt reports no changes in vision since admit Cognition Overall Cognitive Status WFL Arousal/Alertness Appropriate responses to stimuli Attention Span Attends with cues to redirect Memory Appears intact Orientation Level Oriented to person;Oriented to place;Disoriented to time;Disoriented to situation (date: able to state month but not year or day) Following Commands Follows multistep commands with increased time Safety Judgment Decreased awareness of need for assistance Awareness of Errors Assistance required to identify errors made Deficits Fully aware of deficits Problem Solving Able to problem solve independently Comments pt requires instruction and verbal cues for proper body positioning and walker management during mobility Motor Planning Appears intact Perseveration Not present Initiation Appears intact Sensation Light Touch No apparent deficits RLE Assessment RLE Comment MMT: hip flex 4/5, knee ext 4+/5, ankle DF 4+/5 LLE Assessment LLE Comment MMT: hip flex 4/5, knee ext 4+/5, ankle DF 4+/5 Bed Mobility Supine to Sit Min assist to right Other (Comment) pt requires HOB elevated, use of bed rail, extra time to complete TRANSFERS Sit to Stand Min assist;Assist of 2 Bed to Chair Min assist;Assist of 2 Other (Comment) pt stands from bed, requires BUE support on therapists; pt able to take a few stepsfrom bed to chair at bedside (approx 2 feet), requires BUE support on therapists, demonstrates BLE weakness with knees min flexed and quick fatigue, general unsteadiness and requires seated rest after completion Balance Sitting - Static SBA Sitting - Dynamic CGA Standing - Static Min Assist;Assist of 2 Persons;Support of both upper extremities Standing - Dynamic Min Assist;Assist of 2 Persons;Support of both upper extremities Other (Comment) pt demonstrates very quick fatigue, general unsteadiness during brief standing activity with BUE support on therapists Assessment Personal Factors/Comorbidities Impacting Care 3-4 personal factors/comorbidities Examination of Body Systems Moderate (3 or more Elements) Objectives of Body Systems Impaired bed mobility;Impaired transfers;Impaired ambulation;Impaired balance;Decreased LE strength;Decreased endurance;Decreased safe judgement Clinical Presentation of Patient Evolving and changing characteristics Complexity Level of Evaluation Moderate Prognosis Good PT Assess/Eval Other (Comment) Pt is a 73 year old male who was admitted with DKA, hyperglycemia, metabolic encephalopathy, and CAP. Pt is appropriate for skilled P/T during hospitalization to address impairments and functional limitations related to difficulty with bed mobility and requires Aidan, d ifficulty with transfers and requires Dave of 2, difficulty with gait and requires Aidan of 2 and BUE support on therapists for short distance bed to chair at bedside, impaired standing balance, decreased activity tolerance, decreased safety awareness, bilateral LE weakness. At baseline, pt was independent with ADLs, bed mobility, transfers, gait without device and stairs negotiation. Anticipate pt will require continued P/T at swing bed facility upon discharge from this hospital to address deficits and reduce fall risk as pt requires assist for functional mobility and is unable to care for himself at home currently. Patient/Family Training Other (Comment) educated pt regarding fall precautions, P/T POC, discharge rec including rehab placement Discharge Recommendation PT Recommendation Swing bed unit Barriers to Community Discharge Other (comment) (weakness) Plan PT Treatments/Interventions Gait Training;Therapeutic Exercises;Therapeutic Activities;Neuromuscular re-education;Patient/family training PT Frequency 5 times/week PT - Next Appointment 08/27/24 If this is the last treatment note,it will serve as the discharge summary Yes End of Session End of Session Safety Chair alarm set/activated;Call light within reach;Nursing aware of session;Transfer status education Interdisciplinary Collaboration OT-functional status, deficits, discharge rec; RN-functional status, deficits, position in chair End of Session Comment pt sitting in chair at bedside, needs within reach, chair reclined to support BLE, remains on 2LO2NC The below POC to be followed until 09/10/2024 at that time POC will be re- assessed to ensure patient is making appropriate progression. Pt. will be able to perform supine to/from sitting at EOB with Independent to improve mobility. Pt. will be able to perform sit to/from standing with Modified Margie using BUE support to improve independence. Pt. will be able to ambulate 400 feet with Modified Margie using wheeled walker to help improve strength and functional independence. Pt. will be able to maintain static sitting balance for 5-10 minutes with Independent to improve independence. Pt. will be able to maintain dynamic sitting balance on soft surface with Independent to improve functional mobility. Pt. will be able to maintain static standing balance 5-10 minutes with Modified Margie using wheeled walker to improve independence. Pt. will be able to maintain dynamic standing balance during side-stepping L/R and marching with Modified Margie using wheeled walker to improve functional mobility. Pt. will be able to ascend/descend 5 steps and 16 steps with Modified Margie using handrail(s) to increase strength and to safely access home and second level of home at D/C. Education: Primary Learners Name: Corby Valiente Primary Language of learner: [place] Patient was educated on precautions transfers balance bed mobility therapy plan gait safety. Education was completed one to one verbal hands-on this date. Preference of learning new concepts one to one verbal hands-on Barriers to education this date were fatigue. Response to education this date verbalized understanding demos with verbal cues needs reinforcement needs follow up. * Ariadna Saucedo MD - 08/27/2024 8:28 AM CDT Images from the original note were not included. Critical Care Medicine [facility], [place], [place] 25/12 Pager: [phone] Progress Note Reason for ICU admission: DKA, acute metabolic encephalopathy Subjective Alert and oriented tolerating oral intake. Good urine output. Blood pressure soft this morning given LR bolus. Input/Output 08/26 0700 - 08/27 0659 In: 4410 [P.O.:510; I.V.:3750] Out: 1125 [Urine:1125] Intake/Output Summary (Last 24 hours) at 08/27/2024 0828 Last data filed at 08/27/2024 0400 Gross per 24 hour Intake 4410 ml Output 1125 ml Net 3285 ml Principal Problem: DKA HPI: Corby Valiente is a 73-year-old male admitted 08/25/2024 with DKA and acute metabolic encephalopathy. Patient insulin-dependent diabetes mellitus presented to [facility] ER with confusion and weakness. Lab significant for blood sugars in the 600 and increased anion gap. Patient started on insulin infusion per DKA protocol and transferred to [facility] for management of the same. CT head obtained negative for acute intracranial pathology. On arrival to [facility] patient heart rate 80/min, blood pressure 80/40 improved with IV fluid. Chest x-ray showing left lower lobe consolidation. Patient started on antibiotic and insulin infusion. Assessment and Plan: Corby Valiente is a 73-year-old male admitted acute metabolic encephalopathy, DKA and pneumonia # Acute metabolic encephalopathy # DKA # Community-acquired pneumonia # Insulin-dependent diabetes mellitus # Hypothyroidism # Coronary artery disease on DAPT # Acute kidney injury secondary to dehydration # Hypophosphatemia require evaluation monitoring and treatment #Hypercarbic respiratory failure secondary to metabolic encephalopathy. PLAN: MRI brain no acute abnormality. MAP goal 65 and above. Saturation goal 92% and above. Ceftriaxone total 5 days for pneumonia Continue monitor urine output and replace electrolytes. Blood glucose target 140-180. Lantus and sliding scale. Resume home medication when patient able to tolerate. DVT Prophylaxis: SCD, Lovenox Code Status: fuLL LINES and TUBES: PIV Disposition: Continue ICU Status Critical Care time spent in evaluation and management of a critically ill or injured patient is 70 minutes, such that the critical illness or injury acutely impairs one or more organ system: (neuro, resp, cardio, ID, metab, renal, ortho) such that there is a high probability of imminent or life-threatening deterioration in the patient's condition needing immediate attention or presence of critical care physician near bedside for the above time . Complex decisions were made to manipulate and support multiple organ systems. The time listed is exclusive of any procedures which may have been performed. Critical care time includes time spent at bedside performing history and physical exam, time spent researching patient prior to interaction with patient, time spent discussing findings and treatment plan with patient and/or family, time spent discussing patient with consultants and colleagues, time spent reviewing pertinent laboratory and radiographic evaluations, time spent re-evaluating patient, or time spent discussing patient with nursing staff. All of the patient's and his family's questions were answered, and the plan of care going forward was outlined to them. ARIADNA SAUCEDO MD 08/27/2024 8:28 AM Past Medical Hx: As below Past surgical Hx: As below Home Medications: As below Past Medical History: Diagnosis Date Diabetes mellitus ([facility]) Fracture, clavicle DOI: 06/11/2021 LEFT Clavicle Hyperlipemia Hypothyroidism Radius and ulna distal fracture DOI: 06/11/2021 LEFT distal radius No past surgical history on file. Family History Problem Relation Name Age of Onset No Known Problems Mother No Known Problems Father No Known Problems Brother Current Facility-Administered Medications on File Prior to Encounter Medication Dose Route Frequency Provider Last Rate Last Admin 0.45 % NaCl with KCl 20 mEq infusion Intravenous Continuous Jovanny Street DO 300 mL/hr at 08/25/24 0036 New Bag at 08/25/24 0036 dextrose 10 % bolus infusion 125-250 mL 125-250 mL Intravenous PRN Jovanny Street DO dextrose 5 % and 0.45 % NaCl with KCl 20 mEq infusion Intravenous Continuous Jovanny Street DO glucagon injection 1 mg 1 mg Intramuscular Once PRN Jovanny Street DO insulin regular (MYXREDLIN) 1 unit/mL in NS 100 mL infusion (PREMIX) 0.02-0.1 Units/kg/hr Intravenous Continuous Jovanny Street DO 6.08 mL/hr at 08/25/24 0037 0.1 Units/kg/hr at 08/25/24 0037 Current Outpatient Medications on File Prior to Encounter Medication Sig Dispense Refill aspirin 81 MG chewable tablet Chew 1 tablet (81 mg total) by mouth daily. BASAGLAR KWIKPEN 100 UNIT/ML injection (PEN) Inject 12 Units into the skin every morning. 6 units every night clopidogrel (PLAVIX) 75 MG tablet Take 1 tablet (75 mg total) by mouth daily. JARDIANCE 10 MG tablet Take 1 tablet (10 mg total) by mouth daily. levothyroxine (SYNTHROID) 100 MCG tablet Take 1 tablet (100 mcg total) by mouth every morning. NOVOLOG FLEXPEN 100 UNIT/ML injection (PEN) Inject 10 Units into the skin see administration instructions. Sliding scale simvastatin 40 MG tablet Take 1 tablet (40 mg total) by mouth daily. Review of patient's allergies indicates: No Known Allergies Social History Socioeconomic History Marital status: Spouse name: Not on file Number of children: Not on file Years of education: Not on file Highest education level: Not on file Occupational History Not on file Tobacco Use Smoking status: Never Smokeless tobacco: Never Vaping Use Vaping status: Never Used Substance and Sexual Activity Alcohol use: Never Drug use: Never Sexual activity: Not on file Other Topics Concern Not on file Social History Narrative Not on file Social Drivers of Health Financial Resource Strain: Patient Unable To Answer (08/25/2024) Overall Financial Resource Strain (CARDIA) Difficulty of Paying Living Expenses: Patient unable to answer Food Insecurity: Patient Unable To Answer (08/25/2024) Hunger Vital Sign Worried About Running Out of Food in the Last Year: Patient unable to answer Ran Out of Food in the Last Year: Patient unable to answer Transportation Needs: Patient Unable To Answer (08/25/2024) PRAPARE - Transportation Lack of Transportation (Medical): Patient unable to answer Lack of Transportation (Non-Medical): Patient unable to answer Physical Activity: Not on file Stress: Not on file Social Connections: Not on file Intimate Partner Violence: Patient Unable To Answer (08/25/2024) Humiliation, Afraid, Rape, and Kick questionnaire Fear of Current or Ex-Partner: Patient unable to answer Emotionally Abused: Patient unable to answer Physically Abused: Patient unable to answer Sexually Abused: Patient unable to answer Housing Stability: Patient Unable To Answer (08/25/2024) Housing Stability Vital Sign Unable to Pay for Housing in the Last Year: Patient unable to answer Number of Times Moved in the Last Year: 1 Homeless in the Last Year: Patient unable to answer Current inpatient medications: Current Facility-Administered Medications: acetaminophen (TYLENOL) tablet 650 mg, 650 mg, Oral, Q4H PRN, Charis Singh MD, 650 mg at 08/27/24 0524 aspirin chewable tablet 81 mg, 81 mg, Oral, Daily, Ariadna Saucedo MD, 81 mg at 08/27/24 0812 atorvastatin (LIPITOR) tablet 20 mg, 20 mg, Oral, Daily, Ariadna Saucedo MD, 20 mg at 08/27/24 0812 budesonide (PULMICORT) nebulizer solution 0.5 mg, 0.5 mg, Nebulization, 2 times daily RT, Ariadna Saucedo MD, 0.5 mg at 08/27/24 0721 cefTRIAXone (ROCEPHIN) 1 g in sodium chloride 0.9 % 50 mL IVPB, 1 g, Intravenous, Q24H, Steven Saucedo MD, Stopped at 08/26/24 1225 clopidogrel (PLAVIX) tablet 75 mg, 75 mg, Oral, Daily, Ariadna Saucedo MD, 75 mg at 08/27/24 0812 dextrose 10 % bolus infusion 125-250 mL, 125-250 mL, Intravenous, PRN, Alexandria Longo MD enoxaparin (LOVENOX) 40 MG/0.4ML syringe 40 mg, 40 mg, Subcutaneous, Q24H, 40 mg at 08/27/24 0812 AND [COMPLETED] Moderate Risk for VTE, , , Once, Alexandria Longo MD glucagon injection 1 mg, 1 mg, Intramuscular, Once PRN, Alexandria Longo MD insulin lispro (HUMALOG/ADMELOG) injection 0-8 Units, 0-8 Units, Subcutaneous, 4x Daily WC, Ariadna Saucedo MD, 2 Units at 08/27/24 0812 ipratropium-albuterol (DUONEB) 0.5-2.5 (3) MG/3ML nebulizer solution 3 mL, 3 mL, Nebulization, Q4H RT, Ariadna Saucedo MD, 3 mL at 08/27/24 0721 levothyroxine (SYNTHROID) tablet 112 mcg, 112 mcg, Oral, Daily, Ariadna Saucedo MD, 112mcg at 08/27/24 0524 normal saline 0.9 % flush 3-10 mL, 3-10 mL, Intravenous, Q8H, Alexandria Longo MD, 10 mL at 08/27/24 0525 normal saline 0.9 % flush 3-10 mL, 3-10 mL, Intravenous, PRN, Alexandria Longo MD ondansetron (ZOFRAN) injection 4 mg, 4 mg, Intravenous, Q8H PRN, Alxeandria Longo MD Subjective: 12 point review of systems was completed and negative except findings reported above in ICU timeline and HPI. Objective: Body mass index is 18.49 kg/m??. Current vital signs Blood pressure 106/62, pulse 75, temperature 98.6 ??F (37 ??C), temperature source Tympanic, resp. rate 18, height 1.803 m (5' 10.98 ), weight 60.1 kg (132 lb 7.9 oz), SpO2 98%. Vitals: 08/27/24 0600 BP: 106/62 Pulse: 75 Resp: 18 Temp: SpO2: 98% 24 hour BP and temperature range @[id number]@ Temp (24hrs), Av.4 ??F (36.9 ??C), Min:97 ??F (36.1 ??C), Max:99.8 ??F (37.7 ??C) Input/Output 08/26 0700 - 08/27 0659 In: 4410 [P.O.:510; I.V.:3750] Out: 1125 [Urine:1125] Intake/Output Summary (Last 24 hours) at 08/27/2024 0828 Last data filed at 08/27/2024 0400 Gross per 24 hour Intake 4410 ml Output 1125 ml Net 3285 ml Physical exam: Gen: Patient alert and awake Neuro: Moving all extremities, no deficit appreciated Head: Atraumatic and normocephalic Eyes: Pupils equal round and reactive, no jaundice ENT: Moist mucous membrane Neck: No JVD. No CVC Cardiac: S1, S2, no added sounds Pulm: Bilateral air entry, no wheezing or crackles Abdomen: Soft and nontender, bowel sounds present Skin: No rash or erythema Extremities: No edema Data Review: Recent Labs 08/24/24 2316 08/26/24 0425 WBC 7.04 6.67 HGB 10.9* 9.3* HCT 35.0* 28.3* MCV 102.9* 99.6 PLT 121* SEE NOTE RBC 3.40* 2.84* Recent Labs Lab 08/24/24 2316 08/25/24 0450 08/25/24 0815 08/26/24 0425 08/26/24 1245 08/26/24 1800 08/26/24 2105 08/27/24 0400 NA 140 143 < > 141 -- 140 139 140 K 4.3 4.0 < > 4.5 < > 4.0 4.0 4.1 CL 97* 109 < > 109 -- 109 108 107 CO2 10.7* 20.6* < > 28.3 -- 25.2 27.1 27.5 AGAP 32.3* 13.4* < > 3.7 -- 5.8 3.9 5.5 BUN 39* 36* < > 22* -- 16 17 15 CR 2.48* 2.02* < > 1.39* -- 1.15 1.24 0.97 BUNCREATININ 15.7 -- -- -- -- -- -- -- GLU 588* 268* < > 88 -- 209* 179* 103 CA 9.1 8.6 < > 8.1* -- 7.9* 8.5 8.6 TP 6.9 6.1* -- 5.6* -- -- -- -- ALB 3.5 3.3* -- 3.1* -- -- -- -- TBIL 0.9 0.8 -- 0.8 -- -- -- -- ALKP 83 71 -- 63 -- -- -- -- AST 27 33 -- 87* -- -- -- -- ALT 18 24 -- 29 -- -- -- -- < > = values in this interval not displayed. Coagulation: No results for input(s): INR , APTT in the last 72 hours. Invalid input(s): PT Troponins: Recent Labs Lab 08/24/24 2316 TROP 46 ABG: No results found for: BASEEXCESS VBG: No components found for: PHMIXEDVEN , [id number] , [id number] , [id number] , YF7NJZL Lactic acid: No components found for: LACTATE EKG: No results found for this visit on 08/25/24. ECHO: Microbiology: No results found for this or any previous visit. Microbiology Results (last 14 days) Procedure Component Value Units Date/Time BIOFIRE PCR UPPER RESPIRATORY PROFILE (RESPIRATORY PCR PANEL 2) [[id number]] Collected: 08/25/24 1245 Order Status: Completed Lab Status: Final result Updated: 08/25/24 1416 Specimen: NASOPHARYNGEAL SWAB ADENOVIRUS PCR (RESP) NOT DETECTED CORONAVIRUS 229E PCR (RESP) NOT DETECTED CORONAVIRUS HKU1 PCR (RESP) NOT DETECTED CORONAVIRUS NL63 PCR (RESP) NOT DETECTED CORONAVIRUS OC43 PCR (RESP) NOT DETECTED METAPNEUMOVIRUS PCR (RESP) NOT DETECTED RHINOVIRUS/ENTEROVIRUS PCR (RESP) NOT DETECTED INFLUENZA A PCR (RESP) NOT DETECTED INFLUENZA B PCR (RESP) NOT DETECTED PARAINFLUENZA 1 PCR (RESP) NOT DETECTED PARAINFLUENZA 2 PCR (RESP) NOT DETECTED PARAINFLUENZA 3 PCR (RESP) NOT DETECTED PARAINFLUENZA 4 PCR (RESP) NOT DETECTED RSV PCR (RESP) NOT DETECTED B PARAPERTUSIS PCR (RESP) NOT DETECTED BORDETELLA PERTUSSIS PCR (RESP) NOT DETECTED CHLAMYDOPHILA PNEUMONIAE PCR (RESP) NOT DETECTED MYCOPLASMA PNEUMONIAE PCR (RESP) NOT DETECTED CORONAVIRUS SARS COV 2 PCR (RESP) NOT DETECTED CULTURE, RESPIRATORY W/ GRAM STAIN [[id number]] Order Status: No result Lab Status: No result Specimen: SPUTUM, EXPECTORATED Radiology: Imaging: XR CHEST PORTABLE Result Date: 08/25/[address] [place] [address] SINGLE VIEW OF THE CHEST Clinicalhistory: Dyspnea Comparison: December 24, 2023 A single view of the chest demonstrates cardiomegaly. Multiple mitral clips are noted. The pulmonary vessels are normally distributed. Mild left basilar atelectasis or consolidation partially silhouettes the heart border and left hemidiaphragm. The right lung is clear IMPRESSION: Mild left basilar atelectasis or consolidation Ordered By: JOVANNY STREET Interpreted By: Artur Morales MD, 08/25/2024 12:[address] HEAD WO CON Result Date: 08/24/[address] [address] [address] HEAD WITHOUT CONTRAST Exam date: 08/24/2024 [...] clear. There is no evidence of fracture. IMPRESSION: Compromised study due to motion artifact. No gross acute findings Ordered By: JOVANNY ANDINO Interpreted By: Artur Morales MD, 08/24/2024 11:49 PM ECG 12 lead Result Date: 08/24/2024 HFG Test Date: 2024-08-24 Pat Name: CORBY VALIENTE Department: 100 Room: ED202 Gender: Male Filling Carrier: : 1950 Requested By: JOVANNY STREET Order Number: [id number] Reading MD: Measurements Intervals [place] Rate: 109 P: 0 ME: 0 QRS: 24 QRSD: 113 T: 77 QT: 341 QTc: 460 Interpretive Statements ATRIAL FIBRILLATION WITH RAPID VENTRICULAR RESPONSE WITH ABERRANT CONDUCTION OR VENTRICULAR PREMATURE COMPLEXES MODERATE INTRAVENTRICULAR CONDUCTION DELAY [110+ ms QRS DURATION] NONSPECIFIC ST & T-WAVE ABNORMALITY ABNORMAL RHYTHM ECG ARIADNA SAUCEDO MD 08/27/2024 8:28 AM * Mary Dawn, PharmD - 08/26/2024 9:28 PM CDT Pharmacy Clinical Services: Renal Dose Adjustment Note CREATININE S/P/B Date Value Ref Range Status 08/26/2024 1.15 0.70 - 1.30 MG/DL Final CrCl = estimated creatinine clearance is 49.4 mL/min (by C-G formula based on SCr of 1.15 mg/dL). Weight = 60.1 kg (132 lb 7.9 oz) According to the patient's renal function, enoxaparin was adjusted from 30 mg every 24 hours to 40 mg every 24 hours. Renal adjustment per P&T Policy MARY DAWN PharmD Phone number: [phone] 08/26/2024 9:28 PM * Danielle Patton RN - 08/26/2024 4:50 PM CDTSummary: Shift summary Since lunch blood sugar has been in the 200's, will contact md about stopping D10 infusion. Pt morealert and oriented than yesterday but remains very weak and tires easily. PT/OT ordered and MRI brain ordered for weakness/confusion/fatigue. Problem: Abnormal Serum Glucose Level Goal: Glucose level within specified parameters 08/26/2024 1650 by Danielle Patton RN Outcome: Not Progressing 08/26/2024 164 by Danielle Patton RN Outcome: Progressing Problem: Fluid Volume - Imbalance Goal: Absence of imbalanced fluid volume signs and symptoms 08/26/2024 1650 by Danielle Patton RN Outcome: Not Progressing 08/26/20241648 by Danielle Patton RN Outcome: Progressing Problem: Mobility - Impaired Goal: Able to use ambulatory assistive device appropriately Outcome: Not Progressing Goal: Knowledge of need for increased mobility Outcome: Not Progressing Problem: Discharge Planning Goal: Knowledge of discharge instructions 08/26/2024 1650 by Danielle Patton RN Outcome: Progressing 08/26/2024 164 by Danielle Patton RN Outcome: Progressing Problem: Pain control/comfort Goal: Promote pain control/comfort 08/26/20240 by Danielle Patton RN Outcome: Progressing 08/26/20241648 by Danielle Patton RN Outcome: Progressing Problem: Skin integrity, Impaired-wound Goal: Absence of new skin breakdown 08/26/20240 by Danielle Patton RN Outcome: Progressing 08/26/2024 164 by Danielle Patton RN Outcome: Progressing Goal: Evidence of wound healing 08/26/2024 1650 by Danielle Patton RN Outcome: Progressing 08/26/2024 1649 by Danielle Patton RN Outcome: Progressing Problem: Skin integrity, Impaired-pressure injury/ulcer Goal: Absence of new skin breakdown 08/26/2024 1650 by Danielle Patton RN Outcome: Progressing 08/26/2024 1649 by Danielle Patton RN Outcome: Progressing Goal: Evidence of pressure injury/ulcer healing 08/26/2024 1650 by Danielle Patton RN Outcome: Progressing 08/26/2024 1649 by Danielle Patton RN Outcome: Progressing Problem: Skin integrity, at risk Goal: Absence of new skin breakdown 08/26/2024 1650 by Danielle Patton RN Outcome: Progressing 08/26/2024 1649 by Danielle Patton RN Outcome: Progressing Problem: Moisture associated skin impairment Goal: Reduce moisture exposure 08/26/2024 1650 by Danielle Patton RN Outcome: Progressing 08/26/2024 1649 by Danielle Patton RN Outcome: Progressing Goal: Evidence of wound healing 08/26/2024 1650 by Danielle Patton RN Outcome: Progressing 08/26/2024 1649 by Danielle Patton RN Outcome: Progressing Goal: Evidence of pressure injury/ulcer healing 08/26/2024 1650 by Danielle Patton RN Outcome: Progressing 08/26/2024 1649 by Danielle Patton RN Outcome: Progressing Goal: Absence of new skin breakdown 08/26/2024 1650 by Danielle Patton RN Outcome: Progressing 08/26/2024 1649 by Danielle Patton RN Outcome: Progressing Problem: Reduced risk for falls/injury Goal: Reduced Risk for Falls/Injury 08/26/2024 1650 by Danielle Patton RN Outcome: Progressing 08/26/2024 1649 by Danielle Patton RN Outcome: Progressing Goal: Reduced Risk of Confusion (Acute vs Chronic) 08/26/2024 1650 by Danielle Patton RN Outcome: Progressing 08/26/2024 1649 by Danielle Patton RN Outcome: Progressing Goal: Reduced Risk of Symptomatic Depression 08/26/2024 1650 by Danielle Patton RN Outcome: Progressing 08/26/2024 1649 by Danielle Patton RN Outcome: Progressing Goal: Reduced Risk of Altered Elimination 08/26/2024 1650 by Danielle Patton RN Outcome: Progressing 08/26/2024 1649 by Danielle Patton RN Outcome: Progressing Goal: Reduced Risk of Dizziness/Vertigo/Balance 08/26/2024 1650 by Danielle Patton RN Outcome: Progressing 08/26/2024 1649 by Danielle Patton RN Outcome: Progressing Goal: Reduced Risk of Polypharmacy 08/26/2024 1650 by Danielle Patton RN Outcome: Progressing 08/26/2024 1649 by Danielle Patton RN Outcome: Progressing * Sue Jean RN - 08/26/2024 11:41 AM CDT Met with patient at bedside, is alert and oriented. States lives at home with no devices or services. States that he had a Jajah blood glucose monitor, however medicare is no longer paying for it. can transport at discharge 08/26/24 1139 Interdisciplinary Group Conference Team Members Present Case/Care management;Nursing Patient Current Status Paient current status Inpatient Barriers to Discharge Inpatient Review Barriers to Discharge Inpatient Administering IV meds;Complex - Social and/or Medical Administering IV meds follow up CEFTRIAXONE, ROCEPHIN, CALCIUM GLOCONATE Complex - Social and/or Medical follow up O2 2L NC Patient expects to be discharged to Patient expects to be discharged to: Home or Self care no new needs * Ariadna Saucedo MD - 08/26/2024 11:00 AM CDT Images from the original note were not included. Critical Care Medicine [facility], [place], [place] 25/12 Pager: [phone] Progress Note Reason for ICU admission: DKA, acute metabolic encephalopathy Subjective Somnolent, ordered MRI brain. Gap widened. IVF resuscitation. Input/Output 08/25 0700 - 08/26 0659 In: 8076 [P.O.:110; I.V.:7916] Out: 850 [Urine:850] Intake/Output Summary (Last 24 hours) at 08/26/2024 1210 Last data filed at 08/26/2024 1148 Gross per 24 hour Intake 5518 ml Output 450 ml Net 5068 ml Principal Problem: DKA HPI: Corby Valiente is a 73-year-old male admitted 08/25/2024 with DKA and acute metabolic encephalopathy. Patient insulin-dependent diabetes mellitus presented to [facility] ER with confusion and weakness. Lab significant for blood sugars in the 600 and increased anion gap. Patient started on insulin infusion per DKA protocol and transferred to [facility] for management of the same. CT head obtained negative for acute intracranial pathology. On arrival to [facility] patient heart rate 80/min, blood pressure 80/40 improved with IV fluid. Chest x-ray showing left lower lobe consolidation. Patient started on antibiotic and insulin infusion. Assessment and Plan: Corby Valiente is a 73-year-old male admitted acute metabolic encephalopathy, DKA and pneumonia # Acute metabolic encephalopathy # DKA # Community-acquired pneumonia # Insulin-dependent diabetes mellitus # Hypothyroidism # Coronary artery disease on DAPT # Acute kidney injury secondary to dehydration # Hypophosphatemia require evaluation monitoring and treatment #Hypercarbic respiratory failure secondary to metabolic encephalopathy. PLAN: MRI brain Every 4 hours labs MAP goal 65 and above. Saturation goal 92% and above. Ceftriaxone total 5 days for pneumonia Continue monitor urine output and replace electrolytes. Blood glucose target 140-180. Lantus and sliding scale. Resume home medication when patient able to tolerate. DVT Prophylaxis: SCD, Lovenox Code Status: fuLL LINES and TUBES: PIV Disposition: Continue ICU Status Critical Care time spent in evaluation and management of a critically ill or injured patient is 70 minutes, such that the critical illness or injury acutely impairs one or more organ system: (neuro, resp, cardio, ID, metab, renal, ortho) such that there is a high probability of imminent or life-threatening deterioration in the patient's condition needing immediate attention or presence of critical care physician near bedside for the above time . Complex decisions were made to manipulate and support multiple organ systems. The time listed is exclusive of any procedures which may have been performed. Critical care time includes time spent at bedside performing history and physical exam, time spent researching patient prior to interaction with patient, time spent discussing findings and treatment plan with patient and/or family, time spent discussing patient with consultants and colleagues, time spent reviewing pertinent laboratory and radiographic evaluations, time spent re-evaluating patient, or time spent discussing patient with nursing staff. All of the patient's and his family's questions were answered, and the plan of care going forward was outlined to them. ARIADNA SAUCEDO MD 08/26/2024 11:00 AM Past Medical Hx: As below Past surgical Hx: As below Home Medications: As below Past Medical History: Diagnosis Date Diabetes mellitus ([facility]) Fracture, clavicle DOI: 06/11/2021 LEFT Clavicle Hyperlipemia Hypothyroidism Radius and ulna distal fracture DOI: 06/11/2021 LEFT distal radius No past surgical history on file. Family History Problem Relation Name Age of Onset No Known Problems Mother No Known Problems Father No Known Problems Brother Current Facility-Administered Medications on File Prior to Encounter Medication Dose Route Frequency Provider Last Rate Last Admin 0.45 % NaCl with KCl 20 mEq infusion Intravenous Continuous Jovanny Street DO 300 mL/hr at 08/25/24 0036 New Bag at 08/25/24 0036 dextrose 10 % bolus infusion 125-250 mL 125-250 mL Intravenous PRN Jovanny Street DO dextrose 5 % and 0.45 % NaCl with KCl 20 mEq infusion Intravenous Continuous Jovanny Street DO glucagon injection 1 mg 1 mg Intramuscular Once PRN Jovanny Street DO insulin regular (MYXREDLIN) 1 unit/mL in NS 100 mL infusion (PREMIX) 0.02-0.1 Units/kg/hr Intravenous Continuous Jovanny Deluna DO Jad 6.08 mL/hr at 08/25/24 0037 0.1 Units/kg/hr at 08/25/24 0037 Current Outpatient Medications on File Prior to Encounter Medication Sig Dispense Refill aspirin 81 MG chewable tablet Chew 1 tablet (81 mg total) by mouth daily. BASAGLAR KWIKPEN 100 UNIT/ML injection (PEN) Inject 12 Units into the skin every morning. 6 units every night clopidogrel (PLAVIX) 75 MG tablet Take 1 tablet (75 mg total) by mouth daily. JARDIANCE 10 MG tablet Take 1 tablet (10 mg total) by mouth daily. levothyroxine (SYNTHROID) 100 MCG tablet Take 1 tablet (100 mcg total) by mouth every morning. NOVOLOG FLEXPEN 100 UNIT/ML injection (PEN) Inject 10 Units into the skin see administration instructions. Sliding scale simvastatin 40 MG tablet Take 1 tablet (40 mg total) by mouth daily. Review of patient's allergies indicates: No Known Allergies Social History Socioeconomic History Marital status: Spouse name: Not on file Number of children: Not on file Years of education: Not on file Highest education level: Not on file Occupational History Not on file Tobacco Use Smoking status: Never Smokeless tobacco: Never Vaping Use Vaping status: Never Used Substance and Sexual Activity Alcohol use: Never Drug use: Never Sexual activity: Not on file Other Topics Concern Not on file Social History Narrative Not on file Social Drivers of Health Financial Resource Strain: Patient Unable To Answer (08/25/2024) Overall Financial Resource Strain (CARDIA) Difficulty of Paying Living Expenses: Patient unable to answer Food Insecurity: Patient Unable To Answer (08/25/2024) Hunger Vital Sign Worried About Running Out of Food in the Last Year: Patient unable to answer Ran Out of Food in the Last Year: Patient unable to answer Transportation Needs: Patient Unable To Answer (08/25/2024) PRAPARE - Transportation Lack of Transportation (Medical): Patient unable to answer Lack of Transportation (Non-Medical): Patient unable to answer Physical Activity: Not on file Stress: Not on file Social Connections: Not on file Intimate Partner Violence: Patient Unable To Answer (08/25/2024) Humiliation, Afraid, Rape, and Kick questionnaire Fear of Current or Ex-Partner: Patient unable to answer Emotionally Abused: Patient unable to answer Physically Abused: Patient unable to answer Sexually Abused: Patient unable to answer Housing Stability: Patient Unable To Answer (08/25/2024) Housing Stability Vital Sign Unable to Pay for Housing in the Last Year: Patient unable to answer Number of Times Moved in the Last Year: 1 Homeless in the Last Year: Patient unable to answer Current inpatient medications: Current Facility-Administered Medications: aspirin chewable tablet 81 mg, 81 mg, Oral, Daily, Ariadna Saucedo MD, 81 mg at 08/26/24 1011 atorvastatin (LIPITOR) tablet 20 mg, 20 mg, Oral, Daily, Ariadna Saucedo MD, 20 mg at 08/26/24 1011 budesonide (PULMICORT) nebulizer solution 0.5 mg, 0.5 mg, Nebulization, 2 times daily RT, Ariadna Saucedo MD, 0.5 mg at 08/26/24 0655 calcium gluconate 2 gram in NS 100 mL IVPB, 2 g, Intravenous, Once, Ariadna Saucedo MD,Last Rate: 100 mL/hr at 08/26/24 1048, 2 g at 08/26/24 1048 cefTRIAXone (ROCEPHIN) 1 g in sodium chloride 0.9 % 50 mL IVPB, 1 g, Intravenous, Q24H, Steven Saucedo MD, Stopped at 08/25/24 1350 clopidogrel (PLAVIX) tablet 75 mg, 75 mg, Oral, Daily, Ariadna Saucedo MD, 75 mg at 08/26/24 1011 dextrose 10 % bolus infusion 125-250 mL, 125-250 mL, Intravenous, PRN, Alexandria Longo MD dextrose 10 % infusion, , Intravenous, Continuous, Phil Partida [facility], Last Rate: 75 mL/hr at 08/26/24 0523, New Bag at 08/26/24 0523 enoxaparin (LOVENOX) 30 mg/0.3 mL syringe 30 mg, 30 mg, Subcutaneous, Q24H, 30 mg at 08/26/24 0839 AND [COMPLETED] Moderate Risk for VTE, , , Once, Alexandria Longo MD glucagon injection 1 mg, 1 mg, Intramuscular, Once PRN, Alexandria Longo MD insulin lispro (HUMALOG/ADMELOG) injection 0-8 Units, 0-8 Units, Subcutaneous, 4x Daily WC, Ariadna Saucedo MD ipratropium-albuterol (DUONEB) 0.5-2.5 (3) MG/3ML nebulizer solution 3 mL, 3 mL, Nebulization, Q4H RT, Ariadna Saucedo MD, 3 mL at 08/26/24 0655 lactated ringers bolus infusion 2,000 mL, 2,000 mL, Intravenous, Once, Ariadna Saucedo MD, Last Rate: 2,000 mL/hr at 08/26/24 1047, 2,000 mL at 08/26/24 1047 levothyroxine (SYNTHROID) tablet 112 mcg, 112 mcg, Oral, Daily, Ariadna Saucedo MD lidocaine 2 % URO-JET jelly, , Topical, PRN, Olutola Devinode, [facility], 10 mL at 08/26/24 0119 normal saline 0.9 % flush 3-10 mL, 3-10 mL, Intravenous, Q8H, Alexandria Longo MD, 10 mL at 08/26/24 0500 normal saline 0.9 % flush 3-10 mL, 3-10 mL, Intravenous, PRN, Alexandria Longo MD ondansetron (ZOFRAN) injection 4 mg, 4 mg, Intravenous, Q8H PRN, Alexandria Longo MD Subjective: 12 point review of systems was completed and negative except findings reported above in ICU timeline and HPI. Objective: Body mass index is 18.49 kg/m??. Current vital signs Blood pressure 96/61, pulse 70, temperature 97.9 ??F (36.6 ??C), temperature source Oral, resp. rate 14, height 1.803 m (5' 10.98 ), weight 60.1 kg (132 lb 7.9 oz), SpO2 100%. Vitals: 03/25/25 0732 BP: Pulse: 70 Resp: 14 Temp: 97.9 ??F (36.6 ??C) SpO2: 100% 24 hour BP and temperature range @[id number]@ Temp (24hrs), Av ??F (36.7 ??C), Min:95.7 ??F (35.4 ??C), Max:99.6 ??F (37.6 ??C) Input/Output 08/25 0700 - 08/26 0659 In: 8076 [P.O.:110; I.V.:7916] Out: 850 [Urine:850] Intake/Output Summary (Last 24 hours) at 08/26/2024 1100 Last data filed at 08/26/2024 0100 Gross per 24 hour Intake 3168 ml Output 450 ml Net 2718 ml Physical exam: Gen: Patient alert and awake Neuro: Moving all extremities, no deficit appreciated Head: Atraumatic and normocephalic Eyes: Pupils equal round and reactive, no jaundice ENT: Moist mucous membrane Neck: No JVD. No CVC Cardiac: S1, S2, no added sounds Pulm: Bilateral air entry, no wheezing or crackles Abdomen: Soft and nontender, bowel sounds present Skin: No rash or erythema Extremities: No edema Data Review: Recent Labs 08/24/24 2316 08/26/24 0425 WBC 7.04 6.67 HGB 10.9* 9.3* HCT 35.0* 28.3* MCV 102.9* 99.6 PLT 121* SEE NOTE RBC 3.40* 2.84* Recent Labs Lab 08/24/24 2316 08/25/24 0450 08/25/24 0815 08/25/24 1245 08/25/24 1630 08/26/24 0425 NA 140 143 < > 144 142 141 K 4.3 4.0 < > 3.6 3.7 4.5 CL 97* 109 < > 114 112 109 CO2 10.7* 20.6* < > 24.4 26.2 28.3 AGAP 32.3* 13.4* < > 5.6 3.8 3.7 BUN 39* 36* < > 25* 24* 22* CR 2.48* 2.02* < > 1.28 1.37* 1.39* BUNCREATININ 15.7 -- -- -- -- -- GLU 588* 268* < > 88 99 88 CA 9.1 8.6 < > 7.3* 7.4* 8.1* TP 6.9 6.1* -- -- -- 5.6* ALB 3.5 3.3* -- -- -- 3.1* TBIL 0.9 0.8 -- -- -- 0.8 ALKP 83 71 -- -- -- 63 AST 27 33 -- -- -- 87* ALT 18 24 -- -- -- 29 < > = values in this interval not displayed. Coagulation: No results for input(s): INR , APTT in the last 72 hours. Invalid input(s): PT Troponins: Recent Labs Lab 08/24/24 2316 TROP 46 ABG: No results found for: BASEEXCESS VBG: No components found for: PHMIXEDVEN , [id number] , [id number] , [id number] , AP6BGEK Lactic acid: No components found for: LACTATE EKG: No results found for this visit on 08/25/24. ECHO: Microbiology: No results found for this or any previous visit. Microbiology Results (last 14 days) Procedure Component Value Units Date/Time BIOFIRE PCR UPPER RESPIRATORY PROFILE (RESPIRATORY PCR PANEL 2) [[id number]] Collected: 08/25/24 1245 Order Status: Completed Lab Status: Final result Updated: 08/25/24 1416 Specimen: NASOPHARYNGEAL SWAB ADENOVIRUS PCR (RESP) NOT DETECTED CORONAVIRUS 229E PCR (RESP) NOT DETECTED CORONAVIRUS HKU1 PCR (RESP) NOT DETECTED CORONAVIRUS NL63 PCR (RESP) NOT DETECTED CORONAVIRUS OC43 PCR (RESP) NOT DETECTED METAPNEUMOVIRUS PCR (RESP) NOT DETECTED RHINOVIRUS/ENTEROVIRUS PCR (RESP) NOT DETECTED INFLUENZA A PCR (RESP) NOT DETECTED INFLUENZA B PCR (RESP) NOT DETECTED PARAINFLUENZA 1 PCR (RESP) NOT DETECTED PARAINFLUENZA 2 PCR (RESP) NOT DETECTED PARAINFLUENZA 3 PCR (RESP) NOT DETECTED PARAINFLUENZA 4 PCR (RESP) NOT DETECTED RSV PCR (RESP) NOT DETECTED B PARAPERTUSIS PCR (RESP) NOT DETECTED BORDETELLA PERTUSSIS PCR (RESP) NOT DETECTED CHLAMYDOPHILA PNEUMONIAE PCR (RESP) NOT DETECTED MYCOPLASMA PNEUMONIAE PCR (RESP) NOT DETECTED CORONAVIRUS SARS COV 2 PCR (RESP) NOT DETECTED CULTURE, RESPIRATORY W/ GRAM STAIN [[id number]] Order Status: No result Lab Status: No result Specimen: SPUTUM, EXPECTORATED Radiology: Imaging: XR CHEST PORTABLE Result Date: 08/25/[address] [place] [address] SINGLE VIEW OF THE CHEST Clinicalhistory: Dyspnea Comparison: December 24, 2023 A single view of the chest demonstrates cardiomegaly. Multiple mitral clips are noted. The pulmonary vessels are normally distributed. Mild left basilar atelectasis or consolidation partially silhouettes the heart border and left hemidiaphragm. The right lung is clear IMPRESSION: Mild left basilar atelectasis or consolidation Ordered By: JOVANNY STREET Interpreted By: Artur Morales MD, 08/25/2024 12:[address] HEAD WO CON Result Date: 08/24/2024 [address] [place] [address] CT HEAD WITHOUT CONTRAST Exam date: 08/24/2024 [...] clear. There is no evidence of fracture. IMPRESSION: Compromised study due to motion artifact. No gross acute findings Ordered By: JOVANNY ANDINO Interpreted By: Artur Morales MD, 08/24/2024 11:49 PM ECG 12 lead Result Date: 08/24/2024 HFG Test Date: 2024-08-24 Pat Name: CORBY VALIENTE Department: 100 Room: ED202 Gender: Male Filling Carrier: : 1950 Requested By: JOVANNY JAD Order Number: [id number] Reading MD: Measurements Intervals [place] Rate: 109 P: 0 ME: 0 QRS: 24 QRSD: 113 T: 77 QT: 341 QTc: 460 Interpretive Statements ATRIAL FIBRILLATION WITH RAPID VENTRICULAR RESPONSE WITH ABERRANT CONDUCTION OR VENTRICULAR PREMATURE COMPLEXES MODERATE INTRAVENTRICULAR CONDUCTION DELAY [110+ ms QRS DURATION] NONSPECIFIC ST & T-WAVE ABNORMALITY ABNORMAL RHYTHM ECG ARIADNA SAUCEDO MD 08/26/2024 11:00 AM * Charles Spicer RN - 08/26/2024 5:54 AM CDT Problem: Discharge Planning Goal: Knowledge of discharge instructions Outcome: Progressing Problem: Pain control/comfort Goal: Promote pain control/comfort Outcome: Progressing Problem: Skin integrity, Impaired-wound Goal: Absence of new skin breakdown Outcome: Progressing Goal: Evidence of wound healing Outcome: Progressing Problem: Skin integrity, Impaired-pressure injury/ulcer Goal: Absence of new skin breakdown Outcome: Progressing Goal: Evidence of pressure injury/ulcer healing Outcome: Progressing Problem: Skin integrity, at risk Goal: Absence of new skin breakdown Outcome: Progressing Problem: Moisture associated skin impairment Goal: Reduce moisture exposure Outcome: Progressing Goal: Evidence of wound healing Outcome: Progressing Goal: Evidence of pressure injury/ulcer healing Outcome: Progressing Goal: Absence of new skin breakdown Outcome: Progressing Problem: Reduced risk for falls/injury Goal: Reduced Risk for Falls/Injury Outcome: Progressing Goal: Reduced Risk of Confusion (Acute vs Chronic) Outcome: Progressing Goal: Reduced Risk of Symptomatic Depression Outcome: Progressing Goal: Reduced Risk of Altered Elimination Outcome: Progressing Goal: Reduced Risk of Dizziness/Vertigo/Balance Outcome: Progressing Goal: Reduced Risk of Polypharmacy Outcome: Progressing Problem: Abnormal Serum Glucose Level Goal: Glucose level within specified parameters Outcome: Progressing Problem: Fluid Volume - Imbalance Goal: Absence of imbalanced fluid volume signs and symptoms Outcome: Progressing * Flakita Flores - 08/25/2024 7:00 PM CDT Patient assessed for emotional/spiritual needs and well-being; role of Spiritual Care explained. Patient's Disposition/People present: pt slow to respond in bed ICU Patient's support system: family Roman Catholic Affiliation/Spiritual Background: [employer] Dian community: [employer] Notification of dian community desired: No Needs identified: support Interventions: blessing, active listening, supportive presence Follow up Needed:Chaplains will collaborate with Interdisciplinary Team as needed . Flakita Flores MA. [facility] HSChaplain TL, 08/25/2024 * Danielle Patton RN - 08/25/2024 4:01 PM CDTSummary: Shift summary Insulin drip and fluids off since 1210, lantus given at 1011. Switched to ssi but pt has been lethargic and not taking po well. Spot checked blood sugar and it was 45. D50 given, provider notified, D10 infusion ordered. Problem: Fluid Volume - Imbalance Goal: Absence of imbalanced fluid volume signs and symptoms Outcome: Not Progressing Problem: Discharge Planning Goal: Knowledge of discharge instructions Outcome: Progressing Problem: Pain control/comfort Goal: Promote pain control/comfort Outcome: Progressing Problem: Skin integrity, Impaired-wound Goal: Absence of new skin breakdown Outcome: Progressing Goal: Evidence of wound healing Outcome: Progressing Problem: Skin integrity, Impaired-pressure injury/ulcer Goal: Absence of new skin breakdown Outcome: Progressing Goal: Evidence of pressure injury/ulcer healing Outcome: Progressing Problem: Skin integrity, at risk Goal: Absence of new skin breakdown Outcome: Progressing Problem: Moisture associated skin impairment Goal: Reduce moisture exposure Outcome: Progressing Goal: Evidence of wound healing Outcome: Progressing Goal: Evidence of pressure injury/ulcer healing Outcome: Progressing Goal: Absence of new skin breakdown Outcome: Progressing Problem: Reduced risk for falls/injury Goal: Reduced Risk for Falls/Injury Outcome: Progressing Goal: Reduced Risk of Confusion (Acute vs Chronic) Outcome: Progressing Goal: Reduced Risk of Symptomatic Depression Outcome: Progressing Goal: Reduced Risk of Altered Elimination Outcome: Progressing Goal: Reduced Risk of Dizziness/Vertigo/Balance Outcome: Progressing Goal: Reduced Risk of Polypharmacy Outcome: Progressing Problem: Abnormal Serum Glucose Level Goal: Glucose level within specified parameters Outcome: Progressing * Sue Jean RN - 08/25/2024 3:09 PM CDT Jig Worker went to patient bedside, he was lethargic at this time. Attempted to call Ladan and left voicemail. Will f/u for more information when available or patient awake. PCP Otoniel Melton MD Rx Renae De Paz Readmission Risk 18 08/25/24 1506 Referral Data Source of Information Chart review;Other (Comment) (patient currently lethargic, left VM with spouse Ladan listed in contacts) Patient Information Current living Situation Spouse/significant other Type of Residence Private residence Support System Spouse/Significant Other Are you employed? 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 The screening is to screen the patient for what services and destination would be beneficial for patient for next level of care Chart Review Will the patient be returning to prior living situation with no new identified needs? (pending clinical progress) Based on the screening the DC plan for consideration is: Patient expects to be discharged to: Other (Comment) (pending clinical progress) Adequate Resources Available Adequate Resources Yes * Nallely Feliciano RN - 08/25/2024 6:00 AM CDT Problem: Discharge Planning Goal: Knowledge of discharge instructions Outcome: Progressing Problem: Pain control/comfort Goal: Promote pain control/comfort Outcome: Progressing Problem: Skin integrity, Impaired-wound Goal: Absence of new skin breakdown Outcome: Progressing Goal: Evidence of wound healing Outcome: Progressing Problem: Skin integrity, Impaired-pressure injury/ulcer Goal: Absence of new skin breakdown Outcome: Progressing Goal: Evidence of pressure injury/ulcer healing Outcome: Progressing Problem: Skin integrity, at risk Goal: Absence of new skin breakdown Outcome: Progressing Problem: Moisture associated skin impairment Goal: Reduce moisture exposure Outcome: Progressing Goal: Evidence of wound healing Outcome: Progressing Goal: Evidence of pressure injury/ulcer healing Outcome: Progressing Goal: Absence of new skin breakdown Outcome: Progressing documented in this encounter H&P Notes * Ariadna Saucedo MD - 08/25/2024 4:22 AM CDT Images from the original note were not included. Critical Care Medicine [facility], [place], [place] 25/12 Pager: [phone] H&P/Consult Note Reason for ICU admission: DKA, acute metabolic encephalopathy Principal Problem: DKA HPI: Corby Valiente is a 73-year-old male admitted 08/25/2024 with DKA and acute metabolic encephalopathy. Patient insulin-dependent diabetes mellitus presented to [facility] ER with confusion and weakness. Lab significant for blood sugars in the 600 and increased anion gap. Patient started on insulin infusion per DKA protocol and transferred to [facility] for management of the same. CT head obtained negative for acute intracranial pathology. On arrival to [facility] patient heart rate 80/min, blood pressure 80/40 improved with IV fluid. Chest x-ray showing left lower lobe consolidation. Patient started on antibiotic and insulin infusion. Assessment and Plan: Corby Valiente is a 73-year-old male admitted acute metabolic encephalopathy, DKA and pneumonia # Acute metabolic encephalopathy # DKA # Community-acquired pneumonia # Insulin-dependent diabetes mellitus # Hypothyroidism # Coronary artery disease on DAPT # Acute kidney injury secondary to dehydration # Hypophosphatemia require evaluation monitoring and treatment PLAN: Admit to ICU DKA protocol, insulin infusion. Every 4 hours labs MAP goal 65 and above. Saturation goal 92% and above. Ceftriaxone total 5 days for pneumonia Continue monitor urine output and replace electrolytes. Blood glucose target 140-180. Transition to subcu insulin when anion gap closed and patient able totolerate oral intake. Resume home medication when patient able to tolerate. DVT Prophylaxis: SCD, Lovenox Code Status: fuLL LINES and TUBES: PIV Disposition: Continue ICU Status Critical Care time spent in evaluation and management of a critically ill or injured patient is 70 minutes, such that the critical illness or injury acutely impairs one or more organ system: (neuro, resp, cardio, ID, metab, renal, ortho) such that there is a high probability of imminent or life-threatening deterioration in the patient's condition needing immediate attention or presence of critical care physician near bedside for the above time . Complex decisions were made to manipulate and support multiple organ systems. The time listed is exclusive of any procedures which may have been performed. Critical care time includes time spent at bedside performing history and physical exam, time spent researching patient prior to interaction with patient, time spent discussing findings and treatment plan with patient and/or family, time spent discussing patient with consultants and colleagues, time spent reviewing pertinent laboratory and radiographic evaluations, time spent re-evaluating patient, or time spent discussing patient with nursing staff. All of the patient's and his family's questions were answered, and the plan of care going forward was outlined to them. ARIADNA SAUCEDO MD 08/25/2024 4:22 AM Past Medical Hx: As below Past surgical Hx: As below Home Medications: As below Past Medical History: Diagnosis Date Diabetes mellitus ([facility]) Fracture, clavicle DOI: 06/11/2021 LEFT Clavicle Hyperlipemia Hypothyroidism Radius and ulna distal fracture DOI: 06/11/2021 LEFT distal radius No past surgical history on file. Family History Problem Relation Name Age of Onset No Known Problems Mother No Known Problems Father No Known Problems Brother Current Facility-Administered Medications on File Prior to Encounter Medication Dose Route Frequency Provider Last Rate Last Admin 0.45 % NaCl with KCl 20 mEq infusion Intravenous Continuous Jovanny Street DO 300 mL/hr at 08/25/24 0036 New Bag at 08/25/24 0036 dextrose 10 % bolus infusion 125-250 mL 125-250 mL Intravenous PRN Jovanny Street DO dextrose 5 % and 0.45 % NaCl with KCl 20 mEq infusion Intravenous Continuous Jovanny Street DO glucagon injection 1 mg 1 mg Intramuscular Once PRN Jovanny Street DO insulin regular (MYXREDLIN) 1 unit/mL in NS 100 mL infusion (PREMIX) 0.02-0.1 Units/kg/hr Intravenous Continuous Jovanny Deluna DO Jad 6.08 mL/hr at 08/25/24 0037 0.1 Units/kg/hr at 08/25/24 0037 Current Outpatient Medications on File Prior to Encounter Medication Sig Dispense Refill aspirin 81 MG chewable tablet Chew 1 tablet (81 mg total) by mouth daily. BASAGLAR KWIKPEN 100 UNIT/ML injection (PEN) Inject 12 Units into the skin every morning. 6 units every night clopidogrel (PLAVIX) 75 MG tablet Take 1 tablet (75 mg total) by mouth daily. JARDIANCE 10 MG tablet Take 1 tablet (10 mg total) by mouth daily. levothyroxine (SYNTHROID) 100 MCG tablet Take 1 tablet (100 mcg total) by mouth every morning. NOVOLOG FLEXPEN 100 UNIT/ML injection (PEN) Inject 10 Units into the skin see administration instructions. Sliding scale simvastatin 40 MG tablet Take 1 tablet (40 mg total) by mouth daily. No Known Allergies Social History Socioeconomic History Marital status: Spouse name: Not on file Number of children: Not on file Years of education: Not on file Highest education level: Not on file Occupational History Not on file Tobacco Use Smoking status: Never Smokeless tobacco: Never Vaping Use Vaping status: Never Used Substance and Sexual Activity Alcohol use: Never Drug use: Never Sexual activity: Not on file Other Topics Concern Not on file Social History Narrative Not on file Social Drivers of Health Financial Resource Strain: Low Risk (10/14/2023) Overall Financial Resource Strain (CARDIA) Difficulty of Paying Living Expenses: Not hard at all Food Insecurity: No Food Insecurity (10/14/2023) Hunger Vital Sign Worried About Running Out of Food in the Last Year: Never true Ran Out of Food in the Last Year: Never true Transportation Needs: No Transportation Needs (10/14/2023) PRAPARE - Transportation Lack of Transportation (Medical): No Lack of Transportation (Non-Medical): No Physical Activity: Not on file Stress: Not on file Social Connections: Not on file Intimate Partner Violence: Not At Risk (10/14/2023) Humiliation, Afraid, Rape, and Kick questionnaire Fear of Current or Ex-Partner: No Emotionally Abused: No Physically Abused: No Sexually Abused: No Housing Stability: Low Risk (10/14/2023) Housing Stability Vital Sign Unable to Pay for Housing in the Last Year: No Number of Times Moved in the Last Year: 0 Homeless in the Last Year: No Current inpatient medications: No current facility-administered medications for this encounter. Current Outpatient Medications: aspirin 81 MG chewable tablet, Chew 1 tablet (81 mg total) by mouth daily., Disp: , Rfl: BASAGLAR KWIKPEN 100 UNIT/ML injection (PEN), Inject 12 Units into the skin every morning. 6 units every night, Disp: , Rfl: clopidogrel (PLAVIX) 75 MG tablet, Take 1 tablet (75 mg total) by mouth daily., Disp: , Rfl: JARDIANCE 10 MG tablet, Take 1 tablet (10 mg total) by mouth daily., Disp: , Rfl: levothyroxine (SYNTHROID) 100 MCG tablet, Take 1 tablet (100 mcg total) by mouth every morning., Disp: , Rfl: NOVOLOG FLEXPEN 100 UNIT/ML injection (PEN), Inject 10 Units into the skin see administration instructions. Sliding scale, Disp: , Rfl: simvastatin 40 MG tablet, Take 1 tablet (40 mg total) by mouth daily., Disp: , Rfl: Facility-Administered Medications Ordered in Other Encounters: 0.45 % NaCl with KCl 20 mEq infusion, , Intravenous, Continuous, Jovanny Street DO, Last Rate: 300mL/hr at 08/25/2435, New Bag at 08/25/2435 dextrose 10 % bolus infusion 125-250 mL, 125-250 mL, Intravenous, PRN, Jovanny Street DO dextrose 5 % and 0.45 % NaCl with KCl 20 mEq infusion, , Intravenous, Continuous, Jovanny Street DO glucagon injection 1 mg, 1 mg, Intramuscular, Once PRN, Jovanny Street DO insulin regular (MYXREDLIN) 1 unit/mL in NS 100 mL infusion (PREMIX), 0.02-0.1 Units/kg/hr, Intravenous, Continuous, Jovanny Street DO, Last Rate: 6.08 mL/hr at 08/25/247, 0.1 Units/kg/hr at 08/25/2436 Subjective: 12 point review of systems was completed and negative except findings reported above in ICU timeline and HPI. Objective: There is no height or weight on file to calculate BMI. Current vital signs There were no vitals taken for this visit. There were no vitals filed for this visit. 24 hour BP and temperature range @[id number]@ Temp (24hrs), Av.7 ??F (36.5 ??C), Min:97.5 ??F (36.4 ??C), Max:97.8 ??F (36.6 ??C) Input/Output No intake/output data recorded. No intake or output data in the 24 hours ending 08/25/24 0422 Physical exam: Gen: Patient alert and awake Neuro: Moving all extremities, no deficit appreciated Head: Atraumatic and normocephalic Eyes: Pupils equal round and reactive, no jaundice ENT: Moist mucous membrane Neck: No JVD. No CVC Cardiac: S1, S2, no added sounds Pulm: Bilateral air entry, no wheezing or crackles Abdomen: Soft and nontender, bowel sounds present Skin: No rash or erythema Extremities: No edema Data Review: Recent Labs 08/24/24 2316 WBC 7.04 HGB 10.9* HCT 35.0* MCV 102.9* PLT 121* RBC 3.40* Recent Labs Lab 08/24/24 2316 NA 140 K 4.3 CL 97* CO2 10.7* AGAP 32.3* BUN 39* CR 2.48* BUNCREATININ 15.7 GLU 588* CA 9.1 TP 6.9 ALB 3.5 TBIL 0.9 ALKP 83 AST 27 ALT 18 Coagulation: No results for input(s): INR , APTT in the last 72 hours. Invalid input(s): PT Troponins: Recent Labs Lab 08/24/24 2316 TROP 46 ABG: No results found for: BASEEXCESS VBG: No components found for: PHMIXEDVEN , XV9PXOORDB , [id number] , STC8IKNYW , FX0YVYY Lactic acid: No components found for: LACTATE EKG: No results found for this visit on 08/25/24. ECHO: Microbiology: No results found for this or any previous visit. Microbiology Results (last 14 days) No results found for the last 336 hours. Radiology: Imaging: XR CHEST PORTABLE Result Date: 08/25/[address] [place] [address] SINGLE VIEW OF THE CHEST Clinicalhistory: Dyspnea Comparison: December 24, 2023 A single view of the chest demonstrates cardiomegaly. Multiple mitral clips are noted. The pulmonary vessels are normally distributed. Mild left basilar atelectasis or consolidation partially silhouettes the heart border and left hemidiaphragm. The right lung is clear IMPRESSION: Mild left basilar atelectasis or consolidation Ordered By: JOVANNY STREET Interpreted By: Artur Morales MD, 08/25/2024 12:[address] HEAD WO CON Result Date: 08/24/[address] [place] [address] CT HEAD WITHOUT CONTRAST Exam date: 08/24/2024 [...] clear. There is no evidence of fracture. IMPRESSION: Compromised study due to motion artifact. No gross acute findings Ordered By: JOVANNY ANDINO Interpreted By: Artur Morales MD, 08/24/2024 11:49 PM ECG 12 lead Result Date: 08/24/2024 HFG Test Date: 2024-08-24 Pat Name: CORBY VALIENTE Department: 100 Room: ED202 Gender: Male Filling Carrier: : 1950 Requested By: JOVANNY STREET Order Number: [id number] Reading MD: Measurements Intervals [place] Rate: 109 P: 0 ME: 0 QRS: 24 QRSD: 113 T: 77 QT: 341 QTc: 460Interpretive Statements ATRIAL FIBRILLATION WITH RAPID VENTRICULAR RESPONSE WITH ABERRANT CONDUCTION OR VENTRICULAR PREMATURE COMPLEXES MODERATE INTRAVENTRICULAR CONDUCTION DELAY [110+ ms QRS DURATION] NONSPECIFIC ST & T-WAVE ABNORMALITY ABNORMAL RHYTHM ECG ARIADNA SAUCEDO MD 08/25/2024 4:22 AM documented in this encounter Consult Notes * Jorge Alberto Singh MD - 08/29/2024 12:49 PM CDT Consult Note Patient Name: Corby Valiente Date of : 1950 Admission Date: 08/25/2024 Requested Consult By: Consults Consult Date: 08/29/2024 HPI: New patient consult for type 1 diabetes. 73 admitted to the hospital on 08/25/2024 ketoacidosis and acute metabolic encephalopathy on 08/25/24. Patient was found to have elevated blood glucose level in the 600 range and was found to be in diabetic ketoacidosis. Patient was also found to have acute pneumonia causing respiratory failure. Patient currently receiving broad- spectrum antibiotics. The patient was given IV insulin drip with significant improvement in glycemic control and was later transitioned to subcu insulin. Patient currently on Lantus 10 units twice a day. Humalog 6 units with each meal. He has known history of hypothyroidism on Synthroid 112 mcg daily. Patient recently had his tooth extracted, as result does not have a good appetite and is not eatingwell at mealtimes. The patient does not have any nausea. Patient had a severe hypoglycemia episode of 33 at 4:00 in the morning. Also had hypoglycemia episode 61 at 1147. 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 Dee. Home diabetes regimen: Lantus 10 units Q AM / 5 units Q HS Humalog 20 bkfst / 13 lunch / 20 supper if <140 -- 14 units supper if glucose >140 Prandial correction (Humalog): <80 -1 >180 +1 >280 +2 Take Humalog 2-4 units before bkfst if glucose >140 with upward trend Past Medical History: Past Medical History: Diagnosis Date Diabetes mellitus ([facility]) Fracture, clavicle DOI: 06/11/2021 LEFT Clavicle Hyperlipemia Hypothyroidism Radius and ulna distal fracture DOI: 06/11/2021 LEFT distal radius Surgical History: No past surgical history on file. Allergies: No Known Allergies Social History: Social History Socioeconomic History Marital status: Tobacco Use Smoking status: Never Smokeless tobacco: Never Vaping Use Vaping status: Never Used Substance and Sexual Activity Alcohol use: Never Drug use: Never Social Drivers of Health Financial Resource Strain: Patient Unable To Answer (08/25/2024) Overall Financial Resource Strain (CARDIA) Difficulty of Paying Living Expenses: Patient unable to answer Food Insecurity: Patient Unable To Answer (08/25/2024) Hunger Vital Sign Worried About Running Out of Food in the Last Year: Patient unable to answer Ran Out of Food in the Last Year: Patient unable to answer Transportation Needs: Patient Unable To Answer (08/25/2024) PRAPARE - Transportation Lack of Transportation (Medical): Patient unable to answer Lack of Transportation (Non-Medical): Patient unable to answer Intimate Partner Violence: Patient Unable To Answer (08/25/2024) Humiliation, Afraid, Rape, and Kick questionnaire Fear of Current or Ex-Partner: Patient unable to answer Emotionally Abused: Patient unable to answer Physically Abused: Patient unable to answer Sexually Abused: Patient unable to answer Housing Stability: Patient Unable To Answer (08/25/2024) Housing Stability Vital Sign Unable to Pay for Housing in the Last Year: Patient unable to answer Number of Times Moved in the Last Year: 1 Homeless in the Last Year: Patient unable to answer Family History: Family History Problem Relation Name Age of Onset No Known Problems Mother No Known Problems Father No Known Problems Brother Medications: No current outpatient medications on file. Weight: Last Recorded Weight 08/25/24 0530 Weight: 60.1 kg (132 lb 7.9 oz) Height: Ht Readings from Last 1 Encounters: 08/25/24 1.803 m (5' 10.98 ) BMI: Body mass index is 18.49 kg/m??. Current Vitals: Vitals: 08/29/24 0838 BP: 113/63 Pulse: 78 Resp: 20 Temp: 97.5 ??F (36.4 ??C) SpO2: 100% Physical Exam: Labs: Recent Results (from the past 24 hours) POCT glucose Collection Time: 08/28/24 5:44 PM Result Value Ref Range GLUCOSE POC 213 (H) 70 - 109 CULTURE, URINE Collection Time: 08/28/24 5:47 PM Specimen: URINE, CLEAN CATCH Result Value Ref Range SPEC DESCRIPTION URINE CLEAN CATCH SPECIAL REQUESTS NO SPECIAL REQUEST CULTURE RESULT NO GROWTH (< OR = 1,000 CFU/ML) TO DATE POCT glucose Collection Time: 08/28/24 8:42 PM Result Value Ref Range GLUCOSE POC 147 (H) 70 - 109 CBC W/DIFF AUTOMATED Collection Time: 08/29/24 4:04 AM Result Value Ref Range WBC 7.71 4.00 - 10.80 x10'3/uL RBC 3.09 (L) 4.50 - 6.10 x10'6/uL HGB 9.8 (L) 12.0 - 16.0 G/DL HCT 30.4 (L) 37.0 - 52.0 % MCV 98.4 78.0 - 100.0 FL MCH 31.7 (H) 27.0 - 31.0 PG MCHC 32.2 (L) 33.0 - 36.0 G/DL RDW 15.9 (H) 11.5 - 14.5 % PLT 62 (L) 150 - 350 x10'3/uL MPV 11.5 (H) 7.4 - 10.4 FL DIFFERENTIAL TYPE AUTOMATED DIFFERENTIAL SEG NEUTROPHILS 68.6 % LYMPHOCYTES 17.3 % MONOCYTES 11.2 % EOSINOPHILS 2.3 % BASOPHILS 0.3 % IMMATURE GRANS % 0.3 % ABS. NEUTROPHILS 5.30 1.60 - 8.30 x10'3/uL ABS. LYMPHOCYTES 1.33 0.80 - 4.70 x10'3/uL ABS. MONOCYTES 0.86 0.00 - 1.50 x10'3/uL ABS. EOSINOPHILS 0.18 0.00 - 0.40 x10'3/uL ABS. BASOPHILS 0.02 0.00 - 0.20 x10'3/uL ABS. IMMATURE GRANULOCYTES 0.02 0.00 - 0.03 x10'3/uL ABS. NUCLEATED RBC'S 0.00 0.00 - 0.01 x10'3/uL NRBC % 0.0 % BASIC METABOLIC PANEL Collection Time: 08/29/24 4:04 AM Result Value Ref Range SODIUM S/P/B 141 136 - 145 MMOL/L POTASSIUM S/P/B 3.6 3.5 - 5.1 MMOL/L CHLORIDE S/P/B 106 97 - 115 MMOL/L CO2 30.7 21.0 - 32.0 MMOL/L GLUCOSE 33 (LL) 74 - 106 MG/DL BUN 16 7 - 18 MG/DL CREATININE S/P/B 0.79 0.70 - 1.30 MG/DL CALCIUM S/P/B 8.8 8.5 - 10.1 MG/DL ANION GAP 4.3 2.0 - 10.0 MMOL/L OSMOLALITY (CALC) 290 MOSM/KG GFR ESTIMATE >90 >90 ML/MIN/1.73 M2 GFR NOTES GFR REFERENCES: POCT glucose Collection Time: 08/29/24 5:05 AM Result Value Ref Range GLUCOSE POC 75 70 - 109 POCT glucose Collection Time: 08/29/24 6:04 AM Result Value Ref Range GLUCOSE POC 55 (L) 70 - 109 POCT glucose Collection Time: 08/29/24 6:23 AM Result Value Ref Range GLUCOSE POC 175 (H) 70 - 109 POCT glucose Collection Time: 08/29/24 11:47 AM Result Value Ref Range GLUCOSE POC 61 (L) 70 - 109 Problem List: Patient Active Problem List Diagnosis Closed nondisplaced fracture of sternal end of left clavicle with routine healing Other closed fracture of distal end of left radius with routine healing, subsequent encounter SDH (subdural hematoma) ([facility]) Nasal bones, closed fracture Nasal septum fracture, closed, initial encounter Closed fracture of right orbit ([facility]) Closed fracture of left orbit ([facility]) Fall DKA (diabetic ketoacidosis) ([facility]/HCC) Assessment: Type 1 diabetes Current use of insulin Hypothyroidism Pneumonia The patient was admitted to the hospital with diabetic ketoacidosis and pneumonia. 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 Dee. Home diabetes regimen: Lantus 10 units Q AM / 5 units Q HS Humalog 20 bkfst / 13 lunch / 20 supper if <140 -- 14 units supper if glucose >140 Prandial correction (Humalog): <80 -1 >180 +1 >280 +2 Take Humalog 2-4 units before bkfst if glucose >140 with upward trend Current diabetes regimen: Lantus 10 units twice a day. Humalog 6 units with each meal. Patient is not eating well which has significantly reduced patient insulin dosing requirements. Patient has had hypoglycemia episode overnight and also had hypoglycemia at lunchtime. Plan: Reduce Lantus to 8 units in the morning 3 units at night. As patient is currently not eating we will hold off on the mealtime Humalog for now. Will continue to monitor blood sugars and modify dose of insulin accordingly JORGE ALBERTO SINGH MD 08/29/2024 * Grant Toscano MD - 08/27/2024 9:57 AM CDT Images from the original note were not included. [place] Infectious Diseases Consultation Patient Name: Corby Valiente Date of : 1950 Admission Date: 08/25/2024 Requested Consult By: Consults Consult Date: 08/27/2024 @CHFCOMP2@ HPI: Corby Valiente is a 73-year-old male patient who is seen and examined and the chart is reviewed.The patient is referred for recommendations for diagnostic assessment and evaluation and managementin consideration of partially treated pneumonia, dka and a toxic and metabolic encephalopathy. The patient cannot recall what happened immediately prior to his admission or the process of being admitted to the hospital. He has recovered and he knows his name, the year and that he is at [facility]. Heasks me what day is this? The patient was admitted on 08/25/2024 with a toxic and metabolic encephalopathy with his laboratoryand clinical presentation consistent with diabetic ketoacidosis. He has type 1 insulin-dependent diabetes mellitus and he states he was taking his insulin as prescribed He has a history of an aortic murmur, mitral regurgitation and a mitral clip procedure and atrial fibrillation for which he receives direct acting antiplatelet therapy (clopidogrel). He has a historyof falls a/w a subdural hematoma, facial fractures (nasal septal and bilateral orbital fractures) and left clavicle and left radius and ulnar fractures in June,. He does not demonstrate fever during this admission. The patient demonstrates on chest x-ray left basilar atelectasis or consolidation. His CT of the head studies over time have demonstrated healing of prior facial fractures and clear sinuses and clearmastoid air cells. His MRI of the head demonstrates indeterminate mastoid air cell effusions.' He is treated empirically for left basilar atelectasis as possible pneumonia and for possible mastoiditis with low dose Ceftriaxone. There is no report of skin or skin structure inflammation or ulceration. Culture data is limited to a [employer] upper respiratory pcr which is negative. A sputum gram stain and culture were ordered and a specimen is not submitted A urine culture is not displayed but it is in the system as ordered and not done. Blood cultures are not done. Review of systems: ROS The ROS reflects his responses related to 08/27/2024, he does not recall what happened prior to thisas noted in the hpi. There is no complaint of acute alteration in visual acuity. There is no c/o acute alteration in hearing or dizziness. There is no c/o nasal congestion or drainage. There is no c/o sore throat or difficulty swallowing. There is no c/o chest pain, pressure or palpitations. There is no c/o shortness of breath, cough or productive cough. There is no c/o nausea, vomiting, diarrhea or constipation. There is no c/o abdominal pain. There is no c/o pain or burning with urinating, flank pain or blood in the urine. There is no c/o seizures or loss of consciousness, tremors or abnormal movement, loss of sensation or muscle or exremity weakness. There is no c/o bleeding or bruising. There is no c/o joint pain or swelling. There is no c/o skin rash. See also the assessment, hpi and pmh. Historical Data: Active Problems Problems 1. Aortic systolic murmur on examination (I35.8) 2. Carpal tunnel syndrome of left wrist (G56.02) 3. 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 Cubital tunnel syndrome on left (G56.22) 5. Diabetes type 1, uncontrolled 6. Diabetic hypoglycemia (E11.649) 7. Entrapment syndrome (G58.9) 8. Foot pain (M79.673) 9. Hyperlipidemia (E78.5) 10. Hypoglycemia unawareness in type 1 diabetes mellitus (E10.649) 11. Mild carpal tunnel syndrome (G56.00) 12. Mitral regurgitation (I34.0) 13. Primary hypothyroidism (E03.9) 14. Systolic murmur (R01.1) 15. Type 1 diabetes mellitus (E10.9) 16. Type 1 diabetes mellitus with neurological manifestations (E10.49) 17. Type 1 diabetes mellitus with neurological manifestations, uncontrolled 18. Atrial fibrillation. 19. History of falls, a subdural hematoma, nasal septal and bilateral orbital fractures and left clavicle and left radius and ulnar fractures on 06/11/2021. Surgical History Problems 1. History of Complete Colonoscopy 2. History of Laparoscopic Appendectomy 3. Mitral clip procedure. ? Social History Problems He does not smoke He does not drink alcohol He does not use recreational drugs. 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 Family History: Father from a myocardial infarction. Mother from a myocardial infarction. Past Medical History: Past Medical History: Diagnosis Date Diabetes mellitus ([facility]) Fracture, clavicle DOI: 06/11/2021 LEFT Clavicle Hyperlipemia Hypothyroidism Radius and ulna distal fracture DOI: 06/11/2021 LEFT distal radius Surgical History: No past surgical history on file. Allergies: No Known Allergies Social History: Social History Socioeconomic History Marital status: Tobacco Use Smoking status: Never Smokeless tobacco: Never Vaping Use Vaping status: Never Used Substance and Sexual Activity Alcohol use: Never Drug use: Never Social Drivers of Health Financial Resource Strain: Patient Unable To Answer (08/25/2024) Overall Financial Resource Strain (CARDIA) Difficulty of Paying Living Expenses: Patient unable to answer Food Insecurity: Patient Unable To Answer (08/25/2024) Hunger Vital Sign Worried About Running Out of Food in the Last Year: Patient unable to answer Ran Out of Food in the Last Year: Patient unable to answer Transportation Needs: Patient Unable To Answer (08/25/2024) PRAPARE - Transportation Lack of Transportation (Medical): Patient unable to answer Lack of Transportation (Non-Medical): Patient unable to answer Intimate Partner Violence: Patient Unable To Answer (08/25/2024) Humiliation, Afraid, Rape, and Kick questionnaire Fear of Current or Ex-Partner: Patient unable to answer Emotionally Abused: Patient unable to answer Physically Abused: Patient unable to answer Sexually Abused: Patient unable to answer Housing Stability: Patient Unable To Answer (08/25/2024) Housing Stability Vital Sign Unable to Pay for Housing in the Last Year: Patient unable to answer Number of Times Moved in the Last Year: 1 Homeless in the Last Year: Patient unable to answer Family History: Family History Problem Relation Name Age of Onset No Known Problems Mother No Known Problems Father No Known Problems Brother Medications: Prior to Admission medications Medication Sig Start Date End Date Taking? Authorizing Provider aspirin 81 MG chewable tablet Chew 1 tablet (81 mg total) by mouth daily. Yes Default History Genericprovider BASAGLAR KWIKPEN 100 UNIT/ML injection (PEN) Inject 12 Units into the skin every morning. 6 units every night 04/19/21 Yes Doc [facility] clopidogrel (PLAVIX) 75 MG tablet Take 1 tablet (75 mg total) by mouth daily. Yes Default History Genericprovider JARDIANCE 10 MG tablet Take 1 tablet (10 mg total) by mouth daily. Yes Default History Genericprovider levothyroxine (SYNTHROID) 112 MCG tablet Take 1 tablet (112 mcg total) by mouth every morning. Yes Default History Genericprovider NOVOLOG FLEXPEN 100 UNIT/ML injection (PEN) Inject 10 Units into the skin 3 (three) times daily before meals. Sliding scale with meals. Typically about 10 units 06/06/21 Yes Doc [facility] simvastatin 40 MG tablet Take 1 tablet (40 mg total) by mouth daily. 05/20/21 Yes Doc [facility] Current Facility-Administered Medications Medication Dose Route Frequency Provider Last Rate Last Admin acetaminophen (TYLENOL) tablet 650 mg 650 mg Oral Q4H PRN Charis Singh MD 650 mg at 08/27/24 0524 aspirin chewable tablet 81 mg 81 mg Oral Daily Ariadna Saucedo MD 81 mg at 08/27/24 0812 atorvastatin (LIPITOR) tablet 20 mg 20 mg Oral Daily Ariadna Saucedo MD 20 mg at 08/27/24 0812 budesonide (PULMICORT) nebulizer solution 0.5 mg 0.5 mg Nebulization 2 times daily RT Ariadna Bonilla MD 0.5 mg at 08/27/24 0721 cefTRIAXone (ROCEPHIN) 1 g in sodium chloride 0.9 % 50 mL IVPB 1 g Intravenous Q24H Ariadna Saucedo MD Stopped at 08/26/24 1225 clopidogrel (PLAVIX) tablet 75 mg 75 mg Oral Daily Ariadna Saucedo MD 75 mg at 812 dextrose 10 % bolus infusion 125-250 mL 125-250 mL Intravenous PRN Alexandria Longo MD enoxaparin (LOVENOX) 40 MG/0.4ML syringe 40 mg 40 mg Subcutaneous Q24H Ariadna Saucedo MD 40 mg at 08/27/24 0812 glucagon injection 1 mg 1 mg Intramuscular Once PRN Alexandria Longo MD insulin lispro (HUMALOG/ADMELOG) injection 0-8 Units 0-8 Units Subcutaneous 4x Daily WC Steven Saucedo MD 2 Units at 08/27/24 0812 ipratropium-albuterol (DUONEB) 0.5-2.5 (3) MG/3ML nebulizer solution 3 mL 3 mL Nebulization Q4H RT Ariadna Saucedo MD 3 mL at 08/27/24 0721 lactated ringers bolus infusion 2,000 mL 2,000 mL Intravenous Once Ariadna Saucedo MD 2,000 mL/hr at 08/27/24 0950 2,000 mL at 08/27/24 0950 levothyroxine (SYNTHROID) tablet 112 mcg 112 mcg Oral Daily Ariadna Saucedo MD 112 mcg at 08/27/24 0524 normal saline 0.9 % flush 3-10 mL 3-10 mL Intravenous Q8H Alexandria Longo MD 10 mL at 08/27/24 0525 normal saline 0.9 % flush 3-10 mL 3-10 mL Intravenous PRN Alexandria Longo MD ondansetron (ZOFRAN) injection 4 mg 4 mg Intravenous Q8H PRN Alexandria Longo MD Weight: Last Recorded Weight 08/25/24 0530 Weight: 60.1 kg (132 lb 7.9 oz) Height: Ht Readings from Last 1 Encounters: 08/25/24 1.803 m (5' 10.98 ) BMI: Body mass index is 18.49 kg/m??. Current Vitals: Vitals: 08/27/24 0900 BP: 97/57 Pulse: 89 Resp: 17 Temp: SpO2: 97% Physical Exam: Physical Exam The patient is alert and oriented antonietta person, place, station and year and responds appropriately tothe examiner. The patient's body habitus was consistent with the patient's vital measurements and the bmi of 18.5kg/m2. There was no anterior or posterior cervical adenopathy, no significant axillary adenopathy and no significant inguinal adenopathy. Pupils were equal round and reactive to light, there is a red reflex bilaterally. The lids were notinflamed and the extra ocular movements were intact. The external ears were not inflamed. The ear canals reveal no inflammation or drainage and cerumen partially occludes the tympanic membranes bilaterally. There was a satisfactory light reflex involving the tympanic membranes. There was no external ear or mastoid tenderness. The nasopharyngeal mucosa revealed no erythema, there was no frontal or maxillary sinus tenderness. The oropharynx revealed no erythema or exudate. The neck was without meningismus and without adenopathy and there was no thyroid enlargement. Back revealed no spinous or CVA tenderness. The lungs are clear to percussion and demonstrate left more than right base rales auscultation. Heart had an irregularly irregular rhythm with a controlled rate and with a grade 2/6 systolic murmur and no gallop. The abdomen was soft and nontender with no evidence for hepatosplenomegaly. Bowel tones were present and there was no rigidity, rebound tenderness or guarding. The skin revealed no rash. He has onychomycosis of his toenails and no evidence of skin ulceration or cellulitis. The joints of the upper and lower extremities revealed no evidence for acute synovitis or findings consistent with acute arthritis. Cranial nerves III through XII were without asymmetry or deficit. Patient moved upper extremities against gravity at 4 over 5 power and lower extremities against gravity at 3-4 over 5 power. Sensation was intact to light touch and subjectively diminished distally. Reflexes were 1+ and symmetric in the patellar and Achilles tendon areas. There was no tremor or drift or asterixis. Gait and Romberg were not assessed. The and rectal exams were deferred. Labs: Recent Results (from the past 24 hours) POCT ACUTE VENOUS PANEL Collection Time: 08/26/24 10:22 AM Result Value Ref Range SODIUM WHOLE BLOOD 143 138 - 146 mmol/L POTASSIUM WHOLE BLOOD 3.1 (L) 3.5 - 4.9 mmol/L CA IONIZED WH BLOOD 1.05 (L) 1.12 - 1.32 mmol/L POC PH VENOUS 7.327 7.31 - 7.41 POC PCO2 VENOUS 36.8 (L) 41.0 - 51.0 MMHG POC PO2 VENOUS 44 (H) 25 - 40 MMHG POC HCO3 VENOUS 19.2 (L) 23 - 28 MMOL/L POC TCO2 VENOUS 20 (L) 24 - 29 MMOL/L POC BASE DEFICIT VENOUS 7 (H) 0 - 2 MMOL/L POC HEMATOCRIT 20 (L) 38 - 51 % TIME TEST WAS PERFORMED: 1022 POTASSIUM, SERUM Collection Time: 08/26/24 12:45 PM Result Value Ref Range POTASSIUM S/P/B 4.3 3.5 - 5.1 MMOL/L Blood gas, venous Collection Time: 08/26/24 1:45 PM Result Value Ref Range PH VENOUS 7.32 7.32 - 7.42 PCO2 VENOUS 49.8 41.0 - 51.0 MMHG PO2 VENOUS 85.0 (H) 25.0 - 40.0 MM HG BICARB VENOUS 25.1 24 - 28 MMOL/L TOTAL CO2 VENOUS 26.6 25.0 - 29.0 MMOL/L BASE DEFICIT VENOUS 0.6 0.0 - 3.0 MMOL/L O2 SAT VENOUS 97 (H) <75 % POCT glucose Collection Time: 08/26/24 1:49 PM Result Value Ref Range GLUCOSE POC 251 (H) 70 - 109 Blood gas, venous Collection Time: 08/26/24 4:00 PM Result Value Ref Range PH VENOUS 7.35 7.32 - 7.42 PCO2 VENOUS 39.9 (L) 41.0 - 51.0 MMHG PO2 VENOUS 156.0 (H) 25.0 - 40.0 MM HG BICARB VENOUS 21.3 (L) 24 - 28 MMOL/L TOTAL CO2 VENOUS 22.5 (L) 25.0 - 29.0 MMOL/L BASE DEFICIT VENOUS 3.5 (H) 0.0 - 3.0 MMOL/L O2 SAT VENOUS 99 (H) <75 % POCT glucose Collection Time: 08/26/24 4:25 PM Result Value Ref Range GLUCOSE POC 237 (H) 70 - 109 POCT glucose Collection Time: 08/26/24 5:47 PM Result Value Ref Range GLUCOSE POC 214 (H) 70 - 109 BASIC METABOLIC PANEL Collection Time: 08/26/24 6:00 PM Result Value Ref Range SODIUM S/P/B 140 136 - 145 MMOL/L POTASSIUM S/P/B 4.0 3.5 - 5.1 MMOL/L CHLORIDE S/P/B 109 97 - 115 MMOL/L CO2 25.2 21.0 - 32.0 MMOL/L GLUCOSE 209 (H) 74 - 106 MG/DL BUN 16 7 - 18 MG/DL CREATININE S/P/B 1.15 0.70 - 1.30 MG/DL CALCIUM S/P/B 7.9 (L) 8.5 - 10.1 MG/DL ANION GAP 5.8 2.0 - 10.0 MMOL/L OSMOLALITY (CALC) 297 MOSM/KG GFR ESTIMATE 68 (L) >90 ML/MIN/1.73 M2 GFR NOTES GFR REFERENCES: BASIC METABOLIC PANEL Collection Time: 08/26/24 9:05 PM Result Value Ref Range SODIUM S/P/B 139 136 - 145 MMOL/L POTASSIUM S/P/B 4.0 3.5 - 5.1 MMOL/L CHLORIDE S/P/B 108 97 - 115 MMOL/L CO2 27.1 21.0 - 32.0 MMOL/L GLUCOSE 179 (H) 74 - 106 MG/DL BUN 17 7 - 18 MG/DL CREATININE S/P/B 1.24 0.70 - 1.30 MG/DL CALCIUM S/P/B 8.5 8.5 - 10.1 MG/DL ANION GAP 3.9 2.0 - 10.0 MMOL/L OSMOLALITY (CALC) 294 MOSM/KG GFR ESTIMATE 62 (L) >90 ML/MIN/1.73 M2 GFR NOTES GFR REFERENCES: POCT ACUTE VENOUS PANEL Collection Time: 08/26/24 9:06 PM Result Value Ref Range SODIUM WHOLE BLOOD 140 138 - 146 mmol/L POTASSIUM WHOLE BLOOD 4.1 3.5 - 4.9 mmol/L CA IONIZED WH BLOOD 1.25 1.12 - 1.32 mmol/L POC PH VENOUS 7.338 7.31 - 7.41 POC PCO2 VENOUS 48.0 41.0 - 51.0 MMHG POC PO2 VENOUS 27 25 - 40 MMHG POC HCO3 VENOUS 25.8 23 - 28 MMOL/L POC TCO2 VENOUS 27 24 - 29 MMOL/L POC BASE EXCESS VENOUS 0 0 - 3 MMOL/L POC HEMATOCRIT 27 (L) 38 - 51 % TIME TEST WAS PERFORMED: 2105 POCT glucose Collection Time: 08/26/24 9:06 PM Result Value Ref Range GLUCOSE POC 199 (H) 70 - 109 PHOSPHORUS, INORGANIC PHOSPHATE Collection Time: 08/27/24 4:00 AM Result Value Ref Range PHOSPHORUS 2.6 2.5 - 4.9 MG/DL MAGNESIUM Collection Time: 08/27/24 4:00 AM Result Value Ref Range MAGNESIUM 1.9 1.6 - 2.6 MG/DL BASIC METABOLIC PANEL Collection Time: 08/27/24 4:00 AM Result Value Ref Range SODIUM S/P/B 140 136 - 145 MMOL/L POTASSIUM S/P/B 4.1 3.5 - 5.1 MMOL/L CHLORIDE S/P/B 107 97 - 115 MMOL/L CO2 27.5 21.0 - 32.0 MMOL/L GLUCOSE 103 74 - 106 MG/DL BUN 15 7 - 18 MG/DL CREATININE S/P/B 0.97 0.70 - 1.30 MG/DL CALCIUM S/P/B 8.6 8.5 - 10.1 MG/DL ANION GAP 5.5 2.0 - 10.0 MMOL/L OSMOLALITY (CALC) 291 MOSM/KG GFR ESTIMATE 83 (L) >90 ML/MIN/1.73 M2 GFR NOTES GFR REFERENCES: POCT EG7 BLD GAS VENOUS TEMP VERÓNICA Collection Time: 08/27/24 4:03 AM Result Value Ref Range SODIUM WHOLE BLOOD 139 138 - 146 mmol/L POTASSIUM WHOLE BLOOD 4.2 3.5 - 4.9 mmol/L CA IONIZED WH BLOOD 1.25 1.12 - 1.32 mmol/L POC PH VENOUS 7.349 7.31 - 7.41 POC PCO2 VENOUS 49.2 41.0 - 51.0 MMHG POC PO2 VENOUS 43 (H) 25 - 40 MMHG POC HCO3 VENOUS 27.1 23 - 28 MMOL/L POC TCO2 VENOUS 29 24 - 29 MMOL/L POC BASE EXCESS VENOUS 1 0 - 3 MMOL/L TEMPERATURE 98.6 POC PH TEMP CORRECTED VENOUS 7.349 7.31 - 7.41 POC PCO2 TEMP VERÓNICA VENOUS 49.2 41.0 - 51.0 MMHG POC PO2 TEMP VERÓNICA VENOUS 43 (H) 25 - 40 MMHG POC HEMATOCRIT 28 (L) 38 - 51 % TIME TEST WAS PERFORMED: 403 POCT glucose Collection Time: 08/27/24 6:29 AM Result Value Ref Range GLUCOSE POC 194 (H) 70 - 109 Microbiology: No results found for this or any previous visit. No results found for this visit on 08/25/24 (from the past week). and No results found for this visit on 08/25/24 (from the past week). [employer] Font Size Corby Valiente #[id number] (CSN: [id number]) (73-year-old M) (Adm: 08/25/24) [id number] Microbiology Results (last 14 days) Procedure Component Value Units Date/Time BIOFIRE PCR UPPER RESPIRATORY PROFILE (RESPIRATORY PCR PANEL 2) [[id number]] Collected: 08/25/24 1245 Order Status: Completed Lab Status: Final result Updated: 08/25/24 1416 Specimen: NASOPHARYNGEAL SWAB ADENOVIRUS PCR (RESP) NOT DETECTED CORONAVIRUS 229E PCR (RESP) NOT DETECTED CORONAVIRUS HKU1 PCR (RESP) NOT DETECTED CORONAVIRUS NL63 PCR (RESP) NOT DETECTED CORONAVIRUS OC43 PCR (RESP) NOT DETECTED METAPNEUMOVIRUS PCR (RESP) NOT DETECTED RHINOVIRUS/ENTEROVIRUS PCR (RESP) NOT DETECTED INFLUENZA A PCR (RESP) NOT DETECTED INFLUENZA B PCR (RESP) NOT DETECTED PARAINFLUENZA 1 PCR (RESP) NOT DETECTED PARAINFLUENZA 2 PCR (RESP) NOT DETECTED PARAINFLUENZA 3 PCR (RESP) NOT DETECTED PARAINFLUENZA 4 PCR (RESP) NOT DETECTED RSV PCR (RESP) NOT DETECTED B PARAPERTUSIS PCR (RESP) NOT DETECTED BORDETELLA PERTUSSIS PCR (RESP) NOT DETECTED CHLAMYDOPHILA PNEUMONIAE PCR (RESP) NOT DETECTED MYCOPLASMA PNEUMONIAE PCR (RESP) NOT DETECTED CORONAVIRUS SARS COV 2 PCR (RESP) NOT DETECTED CULTURE, RESPIRATORY W/ GRAM STAIN [[id number]] Order Status: No result Lab Status: No result Specimen: SPUTUM, EXPECTORATED Imaging: MRI BRAIN WWO CON Result Date: 08/26/[address] [address] EXAMINATION: MRI Brain without and with Contrast REPORT DATE: 08/26/2024 INDICATION: Brain abscess COMPARISON(S): CT head without 08/24/2024, 11/22/2023. TECHNIQUE: Multiplanar, multisequence MR imaging of the brain before and after intravenous administration of gadolinium based contrast. Contrast: 13 mL Dotarem. FINDINGS: Brain: Scattered foci of T2 hyperintensity within the periventricular and subcortical whitematter. Small foci of increased diffusion signal with T2 shine through, no diffusion restriction. Small foci of susceptibility. No abnormal enhancement. Ventricles/CSF spaces: Mildly prominent size with associated parenchymal loss. Vascular: Intracranial flow voids are normal. Intracranial vascularstructures enhance normally. Orbits: Bilateral lens replacement. Paranasal sinuses: Normal. Mastoids/middle ears: Moderate left and small right mastoid air cell effusions. Bones: Normal. Scalp/facialsoft tissues: Normal. IMPRESSION: 1. No acute intracranial findings. No brain abscess. 2. Indeterminate mastoid air cell effusions. 3. Chronic/nonemergent findings as above. Referred By: JOVANNY STREET Interpreted By: Whitney Thorne DO, 08/26/2024 7:08 PM ECG 12 lead Result Date: 08/26/2024 HFG Test Date: 2024-08-24 Pat Name: CORBY VALIENTE Department: [facility] Room: [facility] Gender: Male Filling Carrier: : 1950 Requested By: JOVANNY STREET Order Number: [id number] Reading MD: Adrian Nieto Measurements Intervals [place] Rate: 109 P: 0 ME: 0 QRS: 24 QRSD: 113 T: 77QT: 341 QTc: 460 Interpretive Statements ATRIAL FIBRILLATION WITH RAPID VENTRICULAR RESPONSE WITH ABERRANT CONDUCTION OR VENTRICULAR PREMATURE COMPLEXES MODERATE INTRAVENTRICULAR CONDUCTION DELAY [110+ ms QRS DURATION] NONSPECIFIC ST & T-WAVE ABNORMALITY ABNORMAL RHYTHM ECG COMPARED TO PREVIOUSTRACING Atrial fibrillation is present XR CHEST PORTABLE Result Date: 08/25/[address] [place] [address] SINGLE VIEW OF THE CHEST Clinicalhistory: Dyspnea Comparison: December 24, 2023 A single view of the chest demonstrates cardiomegaly. Multiple mitral clips are noted. The pulmonary vessels are normally distributed. Mild left basilar atelectasis or consolidation partially silhouettes the heart border and left hemidiaphragm. The right lung is clear IMPRESSION: Mild left basilar atelectasis or consolidation Ordered By: JOVANNY STREET Interpreted By: Artur Morales MD, 08/25/2024 12:[address] HEAD WO CON Result Date: 08/24/[address] [place] [address] CT HEAD WITHOUT CONTRAST Exam date: 08/24/2024 [...] clear. There is no evidence of fracture. IMPRESSION: Compromised study due to motion artifact. No gross acute findings Ordered By: JOVANNY ANDINO Interpreted By: Artur Morales MD, 08/24/2024 11:49 PM Problem List: Patient Active Problem List Diagnosis Closed nondisplaced fracture of sternal end of left clavicle with routine healing Other closed fracture of distal end of left radius with routine healing, subsequent encounter SDH (subdural hematoma) (CMS/HCC) Nasal bones, closed fracture Nasal septum fracture, closed, initial encounter Closed fracture of right orbit (CMS/HCC) Closed fracture of left orbit (CMS/HCC) Fall DKA (diabetic ketoacidosis) (CMS/HCC HHS/HCC) Assessment: This is Corby Valiente, a 73-year-old male, who is referred for recommendations for diagnostic evaluation and treatment in consideration of: 1. Left base atelectasis or pneumonia. 2. Bilateral indeterminate mastoid effusions. 3. Admission on 08/25/2024 with altered mental status and diabetic ketoacidosis. 4. Atrial fibrillation. 5. History of mitral regurgitation s/p mitral valve clip. 6. History of and demonstration of an systolic aortic murmur.Long-term use of direct acting oral anticoagulant. 7. History of falls, multifactorial in etiology. 8. History of a fall on June 21, 2021 resulting in subdural hematoma, a nasal septal fracture, bilateral orbital fractures, left clavicular fracture and left radius and ulnar fractures. 9. Insulin treated type 1 diabetes mellitus with complications. 10. Hyperlipidemia 11. Hypothyroidism 12. Need for vaccination. 13. superintendent terminal use of a DOAC (Clopidogrel) 14. See the past medical history and history of present illness. Plan: 1. Increase ceftriaxone to 2 g IV daily and discontinue ceftriaxone after the dose on 08/31/2024. 2. Substitute Ceftin 500 p.o. every 12 hours to complete 3 of 3 weeks of therapy following conclusion of ceftriaxone with the doses administered on 09/14/2024. 3. Check blood cultures x 2. 4. Check urinalysis with reflex to culture. 5. Management of his atrial fibrillation is as directed by hospital medicine. 6. 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 Consider placement of an ambulatory EKG with an event monitor and an EEG to assess for causes of syncope. 7. Diabetes care to maintain HgbA1c less than 8 (optimally, less than 7) or an average blood glucose less than 180 mg/dl to optimize healing and immune response. Continue measures for monitoring of and maintenance of metabolic homeostasis, acid-base, fluid and nitrogen balance and measures to reduce the risk of and treat wounds as they occur and address hygiene. His current HgbA1c is 8.2%. 8. Physical therapy and occupational assessment given his history of falling. 9. Immunizations with patient consent if not already administered: 10. Decubitus precautions and DVT precautions, mobilization as is feasible, measures to reduce the risk of and treat wounds as they occur and address hygiene. 11. Hemodynamic monitoring 12. Clinical observation for tolerance and efficacy of the plan of care. The patient had the opportunity to ask and have questions answered. The patient voiced an understanding of the diagnosis and of the care plan and intent to comply with it. A total of 90 minutes was spent in providing evaluation and management services in the process of caring for this patient, including coordination of care and in discussion with this patient in the design and implementation of the care plan. The above note was completed during the watch dial maker hours and represents work performed yesterday. The note was completed after midnight as a consequence of triage of conflicting patient care responsibility. GRANT TOSCANO MD 08/27/2024 documented in this encounter Nursing Notes * Radha Mijares RN - 08/31/2024 8:30 PM CDTSummary: Update Received call from very angry and upset family member who stated that we were leaving pt in chair and he's getting bedsores on both legs, bed is too uncomfortable and spoke w/ someone yesterday who was going to order eggcrate topper and he was still in the chair and uncomfortable, and that we were not cleaning pt after he soils himself. Informed family member that pt refuses to move to bed whenever we ask him and this occurs w/ multiple staff members many times during each shift. Also told her that pt is, in fact, cleaned thoroughly after each incontinent episode and this commercial lines underwriter has witnessedsuch. Eggcrate topper ordered Stat and pt moved to bed and assisted for comfort. Family left without speaking further with this RN. * Nallely Feliciano RN - 08/25/2024 8:49 AM CDT RN spoke with patient Ladan, who said that patient is alert and orientated at baseline, able to organize his medications, complete daily cares independently (bathing, dressing, etc.). states that patient had 3 Mitral clips placed 1 month prior at [facility] with Dr. Rodas. Ladan, patient's also states that pt's Supervisor Ride Assembly is Dr. Frantz Dee with [facility] documented in this encounter Plan of Treatment Pending Results Name Type Priority Associated Diagnoses Date /Time CULTURE, BACTERIA BLOOD X2 Microbiology Routine 08/28/2024 7:51 AM CDT documented as of this encounter Procedures Procedure Name Priority Date/Time Associated Diagnosis [...] DOCKED DEVICE Routine 08/31/2024 11:43 AM CDT HEPARIN INDUCED ANTIBODIES Routine 08/31/2024 8:25 AM CDT BASIC METABOLIC PANEL Routine 08/31/2024 8:25 AM CDT CBC W/DIFF AUTOMATED Routine 08/31/2024 8:25 AM CDT PHOSPHORUS, INORGANIC PHOSPHATE Routine 08/31/2024 8:25 AM CDT MAGNESIUM Routine 08/31/2024 8:25 AM CDT POCT GLUCOSE [...] DOCKED DEVICE Routine 08/28/2024 5:15 AM CDT BLOOD GAS, VENOUS Routine 08/28/2024 3:3 3 AM CDT BASIC METABOLIC PANEL Routine 08/28/2024 3:33 AM CDT PHOSPHORUS, INORGANIC PHOSPHATE Routine 08/28/2024 3:33 AM CDT MAGNESIUM Routine 08/28/2024 3:33 AM CDT POCT GLUCOSE [...] METABOLIC PANEL TIMED 08/27/2024 4:00 AM CDT PHOSPHORUS, INORGANIC PHOSPHATE Routine 08/27/2024 4:00 AM CDT MAGNESIUM Routine 08/27/2024 4:00 AM CDT POCT GLUCOSE [...] 5 PM CDT POTASSIUM, SERUM Routine 08/26/2024 12:4 5 PM CDT POCT ACUTE VENOUS PANEL Routine 08/26/2024 10:22 AM CDT POCT GLUCOSE - CHÁVEZ DOCKED DEVICE Routine 08/26/2024 8:36 AM CDT POCT GLUCOSE - CHÁVEZ DOCKED DEVICE Routine 08/26/2024 6:37 AM CDT POCT ACUTE VENOUS PANEL Routine 08/26/2024 4:27 AM CDT POCT GLUCOSE - CHÁVEZ DOCKED DEVICE Routine 08/26/2024 4:26 AM CDT HEMOGLOBIN, GLYCOSYLATED Routine 08/26/2024 4:25 AM CDT COMPREHENSIVE METABOLIC PANEL Routine 08/26/2024 4:25 AM CDT CBC W/DIFF AUTOMATED Routine 08/26/2024 4:25 AM CDT PHOSPHORUS, INORGANIC PHOSPHATE Routine 08/26/2024 4:25 AM CDT MAGNESIUM Routine 08/26/2024 4:25 AM CDT POCT GLUCOSE - CHÁVEZ DOCKED DEVICE Routine 08/25/2024 11:58 PM CDT POCT GLUCOSE - CHÁVEZ DOCKED DEVICE Routine 08/25/2024 9:12 PM CDT POCT GLUCOSE - CHÁVEZ DOCKED DEVICE Routine 08/25/2024 6:13 PM CDT POCT GLUCOSE - CHÁVEZ DOCKED DEVICE Routine 08/25/2024 4:32 PM CDT BLOOD GAS, VENOUS TIMED 08/25/2024 4:3 0 PM CDT BASIC METABOLIC PANEL TIMED 08/25/2024 4:30 PM CDT PHOSPHORUS, INORGANIC PHOSPHATE TIMED 08/25/2024 4:30 PM CDT MAGNESIUM TIMED 08/25/2024 4:30 PM CDT POCT GLUCOSE - CHÁVEZ DOCKED DEVICE Routine 08/25/2024 3:33 PM CDT RESPIRATORY PCR PANEL 2 Nurse Collected Priority 08/25/2024 12:45 PM CDT BLOOD GAS, VENOUS TIMED 08/25/2024 12: 45 PM CDT BASIC METABOLIC PANEL TIMED 08/25/2024 12:45 PM CDT PHOSPHORUS, INORGANIC PHOSPHATE TIMED 08/25/2024 12:45 PM CDT MAGNESIUM TIMED 08/25/2024 12:45 PM CDT POCT GLUCOSE - CHÁVEZ DOCKED DEVICE Routine 08/25/2024 12:38 PM CDT POCT GLUCOSE - CHÁVEZ DOCKED DEVICE Routine 08/25/2024 11:09 AM CDT POCT GLUCOSE - CHÁVEZ DOCKED DEVICE Routine 08/25/2024 10:07 AM CDT POCT GLUCOSE - CHÁVEZ DOCKED DEVICE Routine 08/25/2024 9:11 AM CDT BLOOD GAS, VENOUS TIMED 08/25/2024 8:1 5 AM CDT BASIC METABOLIC PANEL TIMED 08/25/2024 8:15 AM CDT PHOSPHORUS, INORGANIC PHOSPHATE TIMED 08/25/2024 8:15 AM CDT MAGNESIUM TIMED 08/25/2024 8:15 AM CDT POCT GLUCOSE - CHÁVEZ DOCKED DEVICE Routine 08/25/2024 8:09 AM CDT POCT GLUCOSE - CHÁVEZ DOCKED DEVICE Routine 08/25/2024 6:25 AM CDT COMPREHENSIVE METABOLIC PANEL STAT 08/25/2024 4:50 AM CDT MAGNESIUM STAT 08/25/2024 4:50 AM CDT POCT GLUCOSE - CHÁVEZ DOCKED DEVICE Routine 08/25/2024 4:45 AM CDT documented in this encounter Results * (ABNORMAL) HEMOGLOBIN AND HEMATOCRIT (09/01/2024 12:13 PM CDT) HGB 9.2(L) 12.0 - 16.0 G/DL 09/01/2024 12:35 PM CDT [facility] HCT 28.5(L) 37.0 - 52.0 % 09/01/2024 12:35 PM CDT [facility] 09/01/2024 12:1 3 PM CDT us Zay Bellamy MD LABORATORY Final Result Performing Organization Address City/[facility]/ZIP Co de Phone Number [facility] [address] [address], [id number] * (ABNORMAL) POCT glucose (09/01/2024 10:29 AM CDT) GLUCOSE POC 284(H) 70 - 109 09/01/2024 10:51 AM CDT [facility] 09/01/2024 10:2 9 AM CDT us Zay Bellamy MD POCT ORDERABLES - DEVICE Final Result Performing Organization Address City/[facility]/ZIP Co de Phone Number [facility] [address] [place] [address], [id number] * (ABNORMAL) POCT glucose (09/01/2024 8:39 AM CDT) GLUCOSE POC 250(H) 70 - 109 09/01/2024 8:41 AM CDT [facility] 09/01/2024 8:39 AM CDT us Zay Bellamy MD POCT ORDERABLES - DEVICE Final Result Performing Organization Address [facility] Co de Phone Number [facility] [address] [place] [address], [place] [phone] * (ABNORMAL) POCT glucose (09/01/2024 6:25 AM CDT) GLUCOSE POC 138(H) 70 - 109 09/01/2024 6:26 AM CDT [facility] 09/01/2024 6:25 AM CDT us Zay Bellamy MD POCT ORDERABLES - DEVICE Final Result Performing Organization Address [facility] de Phone Number [facility] [address] [place] [address], [place] [phone] * (ABNORMAL) POCT glucose (08/31/2024 8:12 PM CDT) GLUCOSE POC 214(H) 70 - 109 08/31/2024 9:11 PM CDT [facility] 08/31/2024 8:12 PM CDT us aZy Bellamy MD POCT ORDERABLES - DEVICE Final Result Performing Organization Address [facility] de Phone Number [facility] [address] [place] [address], [place] [phone] * (ABNORMAL) POCT glucose (08/31/2024 5:21 PM CDT) GLUCOSE POC 351(H) 70 - 109 08/31/2024 5:28 PM CDT [facility] 08/31/2024 5:21 PM CDT us Zay Bellamy MD POCT ORDERABLES - DEVICE Final Result Performing Organization Address [facility] Co de Phone Number [facility] [address] [place] [address], [place] [phone] * (ABNORMAL) POCT glucose (08/31/2024 11:43 AM CDT) GLUCOSE POC 288(H) 70 - 109 08/31/2024 11:56 AM CDT [facility] 08/31/2024 11:4 3 AM CDT us Zay Bellamy MD POCT ORDERABLES - DEVICE Final Result Performing Organization Address [facility] de Phone Number [facility] [address] [place] [address], [place] [phone] * PHOSPHORUS, INORGANIC PHOSPHATE (08/31/2024 8:25 AM CDT) PHOSPHORUS 3.0 2.5 - 4.9 MG/DL 08/31/2024 9:19 AM CDT [facility] 08/31/2024 8:25 AM CDT us Zay Bellamy MD LABORATORY Final Result Performing Organization Address [facility] Co de Phone Number [facility] [address] [place] [address], [place] [phone] * MAGNESIUM (08/31/2024 8:25 AM CDT) MAGNESIUM 2.0 1.6 - 2.6 MG/DL 08/31/2024 9:19 AM CDT [facility] 08/31/2024 8:25 AM CDT Zay Bellamy MD LABORATORY Final Result [facility] [address] [place] [address], [id number] * (ABNORMAL) BASIC METABOLIC PANEL (08/31/2024 8:25 AM CDT) SODIUM S/P/B 140 136 - 145 MMOL/L 08/31/2024 9:19 AM CDT [facility] POTASSIUM S/P/B 3.7 3.5 - 5.1 MMOL/L 08/31/2024 9:19 AM CDT [facility] CHLORIDE S/P/B 103 97 - 115 MMOL/L 08/31/2024 9:19 AM CDT [facility] CO2 30.2 21.0 - 32.0 MMOL/L 08/31/2024 9:19 AM CDT [facility] GLUCOSE 131(H) 74 - 106 MG/DL 08/31/2024 9:19 AM CDT [facility] BUN 9 7 - 18 MG/DL 08/31/2024 9:19 AM CDT [facility] CREATININE S/P/B 0.84 0.70 - 1.30 MG/DL 08/31/2024 9:19 AM CDT [facility] CALCIUM S/P/B 8.7 8.5 - 10.1 MG/DL 08/31/2024 9:19 AM CDT [facility] ANION GAP 6.8 2.0 - 10.0 MMOL/L 08/31/2024 9:19 AM CDT [facility] OSMOLALITY (CALC) 290 MOSM/KG 025 9:19 AM CDT [facility] Comment:REFERENCE RANGE NOT ESTABLISHED GFR ESTIMATE >90 >90 ML/MIN/1. 73 M2 08/31/2024 9:19 AM CDT [facility] GFR NOTES GFR REFERENCE S: 08/31/2024 9:19 AM CDT [facility] Comment: THE ESTIMATED GFR IS CALCULATED [...] CDT Zay Bellamy MD LABORATORY Final Result [facility] [address] [place] [address], [id number] * (ABNORMAL) CBC W/DIFF AUTOMATED (08/31/2024 8:25 AM CDT) WBC 4.93 4.00 - 10.80 x10'3/uL 08/31/2024 9:12 AM CDT [facility] RBC 2.95(L) 4.50 - 6.10 x10'6/uL 08/31/2024 9:12 AM CDT [facility] HGB 9.8(L) 12.0 - 16.0 G/DL 08/31/2024 9:12 AM CDT [facility] HCT 29.3(L) 37.0 - 52.0 % 08/31/2024 9:12 AM CDT [facility] MCV 99.3 78.0 - 100.0 FL 08/31/2024 9:12 AM CDT [facility] MCH 33.2(H) 27.0 - 31.0 PG 08/31/2024 9:12 AM CDT [facility] MCHC 33.4 33.0 - 36.0 G/DL 08/31/2024 9:12 AM CDT [facility] RDW 16.2(H) 11.5 - 14.5 % 08/31/2024 9:12 AM CDT [facility] PLT 66(L) 150 - 350 x10'3/uL 08/31/2024 9:12 AM CDT [facility] MPV 12.0(H) 7.4 - 10.4 FL 08/31/2024 9:12 AM CDT [facility] DIFFERENTIAL TYPE AUTOMATED DIFFERENTIAL 08/31/2024 9:13 AM CDT [facility] SEG NEUTROPHILS 64.3 % 9:13 AM CDT [facility] LYMPHOCYTES 17.4 % 08/31/2024 9:13 AM CDT [facility] MONOCYTES 13.6 % 08/31/2024 9:13 AM CDT [facility] EOSINOPHILS 3.7 % 08/31/2024 9:13 AM CDT [facility] BASOPHILS 0.6 % 08/31/2024 9:13 AM CDT [facility] IMMATURE GRANS % 0.4 % 09/01/19 9:13 AM CDT [facility] ABS. NEUTROPHILS 3.17 1.60 - 8.30 x10'3/uL 08/31/2024 9:13 AM CDT [facility] ABS. LYMPHOCYTES 0.86 0.80 - 4.70 x10'3/uL 08/31/2024 9:13 AM CDT [facility] ABS. MONOCYTES 0.67 0.00 - 1.50 x10'3/uL 08/31/2024 9:13 AM CDT [facility] ABS. EOSINOPHILS 0.18 0.00 - 0.40 x10'3/uL 08/31/2024 9:13 AM CDT [facility] ABS. BASOPHILS 0.03 0.00 - 0.20 x10'3/uL 08/31/2024 9:13 AM CDT [facility] ABS. IMMATURE GRANULOCYTES 0.02 0.00 - 0.03 x10'3/uL 08/31/2024 9:13 AM CDT [facility] ABS. NUCLEATED RBC'S 0.00 0.00 - 0.01 x10'3/uL 08/31/2024 9:13 AM CDT [facility] NRBC % 0.0 % 08/31/2024 9:13 AM CDT [facility] 08/31/2024 8:25 AM CDT us Zay Bellamy MD LABORATORY Final Result Performing Organization Address [facility] de Phone Number [facility] [address] [place] [address], [id number] * HEPARIN INDUCED ANTIBODIES (08/31/2024 8:25 AM CDT) [facility] HIT AMINATA (ANTI-HEPARIN PF4) NEGATIVE NEGATIVE 09/01/2024 9:30 AM CDT [facility] Comment: A POSITIVE HIT AB (HEPARIN PF4 ANTIBODY PRISCILA TEST) IS EXTREMELY SENSITIVE FOR HEPARIN-INDUCED THROMBOCYTOPENIA (HIT), BUT NOT SPECIFIC, SINCE MANY PATIENTS EXPOSED TO HEPARIN HAVE POSITIVE ANTIBODY TESTS WITHOUT DEVELOPING HIT. HIT IS A CLINICAL DIAGNOSIS, SUPPORTED BY LABORATORY TESTING. THEREFORE, CLINICAL CORRELATION IS REQUIRED. 08/31/2024 8:25 AM CDT us Zay Bellamy MD LABORATORY Final Result Performing Organization Address [facility] de Phone Number [facility] [address] [place] [address], [phone] * (ABNORMAL) POCT glucose (08/31/2024 5:50 AM CDT) [facility] GLUCOSE POC 47(L) 70 - 109 08/31/2024 6:05 AM CDT [facility] 08/31/2024 5:50 AM CDT us Zay Bellamy MD POCT ORDERABLES - DEVICE Final Result Performing Organization Address [facility] Co de Phone Number [facility] [address] [place] [address], [phone] * (ABNORMAL) POCT glucose (08/30/2024 8:56 PM CDT) GLUCOSE POC 118(H) 70 - 109 08/30/2024 9:10 PM CDT [facility] 08/30/2024 8:56 PM CDT us Zay Bellamy MD POCT ORDERABLES - DEVICE Final Result Performing Organization Address [facility] Co de Phone Number [facility] [address] [address], [place] [phone] * POCT glucose (08/30/2024 4:46 PM CDT) GLUCOSE POC 106 70 - 109 08/30/2024 5:03 PM CDT [facility] 08/30/2024 4:46 PM CDT us Zay Bellamy MD POCT ORDERABLES - DEVICE Final Result Performing Organization Address [facility] de Phone Number [facility] [address] [place] [address], [place] [phone] * (ABNORMAL) POCT glucose (08/30/2024 11:47 AM CDT) GLUCOSE POC 206(H) 70 - 109 08/30/2024 12:32 PM CDT [facility] 08/30/2024 11:4 7 AM CDT us Zay Bellamy MD POCT ORDERABLES - DEVICE Final Result Performing Organization Address [facility] de Phone Number [facility] [address] [place] [address], [place] [phone] * (ABNORMAL) POCT glucose (08/30/2024 9:45 AM CDT) GLUCOSE POC 207(H) 70 - 109 08/30/2024 9:47 AM CDT [facility] 08/30/2024 9:45 AM CDT us Zay Bellamy MD POCT ORDERABLES - DEVICE Final Result Performing Organization Address [facility] de Phone Number [facility] [address] [place] [address], [place] [phone] * (ABNORMAL) POCT glucose (08/30/2024 5:43 AM CDT) GLUCOSE POC 126(H) 70 - 109 08/30/2024 8:54 AM CDT [facility] 08/30/2024 5:43 AM CDT us Zay Bellamy MD POCT ORDERABLES - DEVICE Final Result Performing Organization Address [facility] de Phone Number [facility] [address] [place] [address], [place] [phone] * BASIC METABOLIC PANEL (08/30/2024 4:53 AM CDT) SODIUM S/P/B 139 136 - 145 MMOL/L 08/30/2024 5:33 AM CDT [facility] POTASSIUM S/P/B 3.9 3.5 - 5.1 MMOL/L 08/30/2024 5:33 AM CDT [facility] CHLORIDE S/P/B 103 97 - 115 MMOL/L 08/30/2024 5:33 AM T [facility] CO2 31.0 21.0 - 32.0 MMOL/L 08/30/2024 5:33 AM CDT [facility] GLUCOSE 103 74 - 106 MG/DL 08/30/2024 5:33 AM CDT [facility] BUN 10 7 - 18 MG/DL 08/30/2024 5:33 AM T [facility] CREATININE S/P/B 0.83 0.70 - 1.30 MG/DL 08/30/2024 5:33 AM T [facility] CALCIUM S/P/B 8.9 8.5 - 10.1 MG/DL 08/30/2024 5:33 AM T [facility] ANION GAP 5.0 2.0 - 10.0 MMOL/L 08/30/2024 5:33 AM T [facility] OSMOLALITY (CALC) 287 MOSM/KG 025 5:33 AM [facility] Comment:REFERENCE RANGE NOT ESTABLISHED GFR ESTIMATE >90 >90 ML/MIN/1. 73 M2 08/30/2024 5:33 AM [facility] GFR NOTES GFR REFERENCE S: 08/30/2024 5:33 AM T [facility] Comment: THE ESTIMATED GFR IS CALCULATED [...] ml/min/1.73 m2 G5,KIDNEY FAILURE: <15 ml/min/1.73 m2 08/30/2024 4:53 AM CDT Lucas Kenny MD LABORATORY Final Result [facility] [address] [place] [address], [place] [phone] * (ABNORMAL) CBC W/DIFF AUTOMATED (08/30/2024 4:53 AM CDT) WBC 6.29 4.00 - 10.80 x10'3/uL 08/30/2024 5:07 AM CDT [facility] RBC 2.99(L) 4.50 - 6.10 x10'6/uL 08/30/2024 5:07 AM CDT [facility] HGB 9.7(L) 12.0 - 16.0 G/DL 08/30/2024 5:07 AM CDT [facility] HCT 29.8(L) 37.0 - 52.0 % 08/30/2024 5:07 AM CDT [facility] MCV 99.7 78.0 - 100.0 FL 08/30/2024 5:07 AM CDT [facility] MCH 32.4(H) 27.0 - 31.0 PG 08/30/2024 5:07 AM CDT [facility] MCHC 32.6(L) 33.0 - 36.0 G/DL 08/30/2024 5:07 AM CDT [facility] RDW 16.3(H) 11.5 - 14.5 % 08/30/2024 5:07 AM CDT [facility] PLT 59(L) 150 - 350 x10'3/uL 08/30/2024 5:07 AM CDT [facility] MPV 11.9(H) 7.4 - 10.4 FL 08/30/2024 5:07 AM CDT [facility] DIFFERENTIAL TYPE AUTOMATED DIFFERENTIAL 08/30/2024 5:08 AM CDT [facility] SEG NEUTROPHILS 67.4 % 5:08 AM CDT [facility] LYMPHOCYTES 16.2 % 08/30/2024 5:08 AM CDT [facility] MONOCYTES 12.4 % 08/30/2024 5:08 AM CDT [facility] EOSINOPHILS 3.5 % 08/30/2024 5:08 AM CDT [facility] BASOPHILS 0.3 % 08/30/2024 5:08 AM CDT [facility] IMMATURE GRANS % 0.2 % 08/31/19 5:08 AM CDT [facility] ABS. NEUTROPHILS 4.24 1.60 - 8.30 x10'3/uL 08/30/2024 5:08 AM CDT [facility] ABS. LYMPHOCYTES 1.02 0.80 - 4.70 x10'3/uL 08/30/2024 5:08 AM CDT [facility] ABS. MONOCYTES 0.78 0.00 - 1.50 x10'3/uL 08/30/2024 5:08 AM CDT [facility] ABS. EOSINOPHILS 0.22 0.00 - 0.40 x10'3/uL 08/30/2024 5:08 AM CDT [facility] ABS. BASOPHILS 0.02 0.00 - 0.20 x10'3/uL 08/30/2024 5:08 AM CDT [facility] ABS. IMMATURE GRANULOCYTES 0.01 0.00 - 0.03 x10'3/uL 08/30/2024 5:08 AM T [facility] ABS. NUCLEATED RBC'S 0.00 0.00 - 0.01 x10'3/uL 08/30/2024 5:08 AM T [facility] NRBC % 0.0 % 08/30/2024 5:08 AM T [facility] 08/30/2024 4:53 AM CDT us Lucas Kenny MD LABORATORY Final Result Performing Organization Address [facility] de Phone Number [facility] [address] [place] [address], [place] [phone] * (ABNORMAL) POCT glucose (08/29/2024 8:23 PM CDT) GLUCOSE POC 111(H) 70 - 109 08/29/2024 9:29 PM CDT [facility] 08/29/2024 8:23 PM CDT us Lucas Kenny MD POCT ORDERABLES - DEVICE Final Result Performing Organization Address [facility] Phone Number [facility] [address] [place] [address], [place] [phone] * (ABNORMAL) POCT glucose (08/29/2024 6:39 PM CDT) GLUCOSE POC 127(H) 70 - 109 08/29/2024 6:42 PM CDT [facility] 08/29/2024 6:39 PM CDT us Lucas Kenny MD POCT ORDERABLES - DEVICE Final Result Performing Organization Address [facility] de Phone Number [facility] [address] [place] [address], [place] [phone] * (ABNORMAL) POCT glucose (08/29/2024 5:07 PM CDT) GLUCOSE POC 63(L) 70 - 109 08/29/2024 5:10 PM CDT [facility] 08/29/2024 5:07 PM CDT us Lucas Kenny MD POCT ORDERABLES - DEVICE Final Result Performing Organization Address [facility] de Phone Number [facility] [address] [place] [address], [place] [phone] * (ABNORMAL) POCT glucose (08/29/2024 11:47 AM CDT) GLUCOSE POC 61(L) 70 - 109 08/29/2024 11:52 AM CDT [facility] 08/29/2024 11:4 7 AM CDT us Lucas Kenny MD POCT ORDERABLES - DEVICE Final Result Performing Organization Address [facility] de Phone Number [facility] [address] [place] [address], [place] [phone] * (ABNORMAL) POCT glucose (08/29/2024 6:23 AM CDT) GLUCOSE POC 175(H) 70 - 109 08/29/2024 6:26 AM CDT [facility] 08/29/2024 6:23 AM CDT us Lucas Kenny MD POCT ORDERABLES - DEVICE Final Result Performing Organization Address [facility] Co de Phone Number [facility] [address] [place] [address], [place] [phone] * (ABNORMAL) POCT glucose (08/29/2024 6:04 AM CDT) GLUCOSE POC 55(L) 70 - 109 08/29/2024 6:26 AM CDT [facility] 08/29/2024 6:04 AM CDT us Lucas Kenny MD POCT ORDERABLES - DEVICE Final Result Performing Organization Address [facility]/ZIP Co de Phone Number [facility] [address] [place] [address], [id number] * POCT glucose (08/29/2024 5:05 AM CDT) [facility] Signature GLUCOSE POC 75 70 - 109 08/29/2024 5:09 AM CDT [facility] 08/29/2024 5:05 AM CDT Lucas Kenny MD POCT ORDERABLES - DEVICE Final Result Performing Organization Address [facility] Co de Phone Number [facility] [address] [place] [address], [id number] * (ABNORMAL) BASIC METABOLIC PANEL (08/29/2024 4:04 AM CDT) [facility] SODIUM S/P/B 141 136 - 145 MMOL/L 08/29/2024 4:55 AM CDT [facility] POTASSIUM S/P/B 3.6 3.5 - 5.1 MMOL/L 08/29/2024 4:55 AM CDT [facility] CHLORIDE S/P/B 106 97 - 115 MMOL/L 08/29/2024 4:55 AM CDT [facility] CO2 30.7 21.0 - 32.0 MMOL/L 08/29/2024 4:55 AM CDT [facility] GLUCOSE 33(LL) 74 - 106 MG/DL 08/29/2024 4:55 AM CDT [facility] Comment: Critical Result(s) Called to and read back by: FRANCISCO [id number] at: 04:52:49 08/29/2024 by HE. BUN 16 7 - 18 MG/DL 08/29/2024 4:55 AM CDT [facility] CREATININE S/P/B 0.79 0.70 - 1.30 MG/DL 08/29/2024 4:55 AM CDT [facility] CALCIUM S/P/B 8.8 8.5 - 10.1 MG/DL 08/29/2024 4:55 AM CDT [facility] ANION GAP 4.3 2.0 - 10.0 MMOL/L 08/29/2024 4:55 AM CDT [facility] OSMOLALITY (CALC) 290 MOSM/KG 025 4:55 AM CDT [facility] Comment:REFERENCE RANGE NOT ESTABLISHED GFR ESTIMATE >90 >90 ML/MIN/1. 73 M2 08/29/2024 4:55 AM CDT [facility] GFR NOTES GFR REFERENCE S: 08/29/2024 4:55 AM CDT [facility] Comment: THE ESTIMATED GFR IS CALCULATED [...] ml/min/1.73 m2 G5,KIDNEY FAILURE: <15 ml/min/1.73 m2 08/29/2024 4:04 AM CDT Lucas Kenny MD LABORATORY Final Result [facility] [address] [place] [address], [id number] * (ABNORMAL) CBC W/DIFF AUTOMATED (08/29/2024 4:04 AM CDT) WBC 7.71 4.00 - 10.80 x10'3/uL 08/29/2024 4:43 AM CDT [facility] RBC 3.09(L) 4.50 - 6.10 x10'6/uL 08/29/2024 4:43 AM CDT [facility] HGB 9.8(L) 12.0 - 16.0 G/DL 08/29/2024 4:43 AM CDT [facility] HCT 30.4(L) 37.0 - 52.0 % 08/29/2024 4:43 AM CDT [facility] MCV 98.4 78.0 - 100.0 FL 08/29/2024 4:43 AM CDT [facility] MCH 31.7(H) 27.0 - 31.0 PG 08/29/2024 4:43 AM CDT [facility] MCHC 32.2(L) 33.0 - 36.0 G/DL 08/29/2024 4:43 AM CDT [facility] RDW 15.9(H) 11.5 - 14.5 % 08/29/2024 4:43 AM CDT [facility] PLT 62(L) 150 - 350 x10'3/uL 08/29/2024 4:43 AM CDT [facility] MPV 11.5(H) 7.4 - 10.4 FL 08/29/2024 4:43 AM CDT [facility] DIFFERENTIAL TYPE AUTOMATED DIFFERENTIAL 08/29/2024 4:44 AM CDT [facility] SEG NEUTROPHILS 68.6 % 4:44 AM CDT [facility] LYMPHOCYTES 17.3 % 08/29/2024 4:44 AM CDT [facility] MONOCYTES 11.2 % 08/29/2024 4:44 AM CDT [facility] EOSINOPHILS 2.3 % 08/29/2024 4:44 AM CDT [facility] BASOPHILS 0.3 % 08/29/2024 4:44 AM CDT [facility] IMMATURE GRANS % 0.3 % 08/30/19 4:44 AM CDT [facility] ABS. NEUTROPHILS 5.30 1.60 - 8.30 x10'3/uL 08/29/2024 4:44 AM CDT [facility] ABS. LYMPHOCYTES 1.33 0.80 - 4.70 x10'3/uL 08/29/2024 4:44 AM CDT [facility] ABS. MONOCYTES 0.86 0.00 - 1.50 x10'3/uL 08/29/2024 4:44 AM CDT [facility] ABS. EOSINOPHILS 0.18 0.00 - 0.40 x10'3/uL 08/29/2024 4:44 AM CDT [facility] ABS. BASOPHILS 0.02 0.00 - 0.20 x10'3/uL 08/29/2024 4:44 AM CDT [facility] ABS. IMMATURE GRANULOCYTES 0.02 0.00 - 0.03 x10'3/uL 08/29/2024 4:44 AM CDT [facility] ABS. NUCLEATED RBC'S 0.00 0.00 - 0.01 x10'3/uL 08/29/2024 4:44 AM CDT [facility] NRBC % 0.0 % 08/29/2024 4:44 AM CDT [facility] 08/29/2024 4:04 AM CDT Lucas Kenny MD LABORATORY Final Result [facility] [address] [place] [address], [id number] * (ABNORMAL) POCT glucose (08/28/2024 8:42 PM CDT) [facility] GLUCOSE POC 147(H) 70 - 109 08/28/2024 8:55 PM CDT [facility] 08/28/2024 8:42 PM CDT Lucas Kenny MD POCT ORDERABLES - DEVICE Final Result Performing Organization Address City/[facility]/ZIP Co de Phone Number [facility] [address] [place] [address], [id number] * CULTURE, URINE (08/28/2024 5:47 PM CDT) SPEC DESCRIPTION URINE CLEAN CATCH 08/28/2024 5:47 PM CDT [facility] SPECIAL REQUESTS NO SPECIAL REQUEST 08/28/2024 5:47 PM CDT [facility] CULTURE RESULT NO GROWTH (< OR = 1,000 CFU/ML) 08/30/2024 12:13 PM CDT [facility] URINE SPECIMEN OBTAINED BY CLEAN CATCH PROCEDURE / Unknown 08/28/2024 5:47 PM CDT 08/28/2024 5:59 PM CDT Simin Carisa CAT DRIVER-BC MICROBIOLOGY - GENERAL ORDER MIAH Final Result Performing Organization Address [facility] Co de Phone Number [facility] [address] [place] [address], [id number] * (ABNORMAL) POCT glucose (08/28/2024 5:44 PM CDT) [facility] GLUCOSE POC 213(H) 70 - 109 08/28/2024 5:56 PM CDT [facility] 08/28/2024 5:44 PM CDT Lucas Kenny MD POCT ORDERABLES - DEVICE Final Result Performing Organization Address [facility]/ZIP Co de Phone Number [facility] [address] [place] [address], [id number] * (ABNORMAL) CBC W/DIFF AUTOMATED (08/28/2024 12:25 PM CDT) [facility] WBC 8.91 4.00 - 10.80 x10'3/uL 08/28/2024 12:42 PM CDT [facility] RBC 3.23(L) 4.50 - 6.10 x10'6/uL 08/28/2024 12:42 PM CDT [facility] HGB 10.7(L) 12.0 - 16.0 G/DL 08/28/2024 12:42 PM CDT [facility] HCT 32.9(L) 37.0 - 52.0 % 08/28/2024 12:42 PM CDT [facility] MCV 101.9(H) 78.0 - 100.0 FL 08/28/2024 12:42 PM CDT [facility] MCH 33.1(H) 27.0 - 31.0 PG 08/28/2024 12:42 PM CDT [facility] MCHC 32.5(L) 33.0 - 36.0 G/DL 08/28/2024 12:42 PM CDT [facility] RDW 15.9(H) 11.5 - 14.5 % 08/28/2024 12:42 PM CDT [facility] PLT 55(L) 150 - 350 x10'3/uL 08/28/2024 12:55 PM CDT [facility] MPV 11.9(H) 7.4 - 10.4 FL 08/28/2024 12:55 PM CDT [facility] DIFFERENTIAL TYPE AUTOMATED DIFFERENTIAL 08/28/2024 12:56 PM CDT [facility] SEG NEUTROPHILS 90.4 % 12:56 PM CDT [facility] LYMPHOCYTES 3.9 % 08/28/2024 12:56 PM CDT [facility] MONOCYTES 4.9 % 08/28/2024 12:56 PM CDT [facility] EOSINOPHILS 0.3 % 08/28/2024 12:56 PM CDT [facility] BASOPHILS 0.2 % 08/28/2024 12:56 PM CDT [facility] IMMATURE GRANS % 0.3 % 08/29/19 12:56 PM CDT [facility] ABS. NEUTROPHILS 8.04 1.60 - 8.30 x10'3/uL 08/28/2024 12:56 PM CDT [facility] ABS. LYMPHOCYTES 0.35(L) 0.80 - 4.70 x10'3/uL 08/28/2024 12:56 PM CDT [facility] ABS. MONOCYTES 0.44 0.00 - 1.50 x10'3/uL 08/28/2024 12:56 PM CDT [facility] ABS. EOSINOPHILS 0.03 0.00 - 0.40 x10'3/uL 08/28/2024 12:56 PM CDT [facility] ABS. BASOPHILS 0.02 0.00 - 0.20 x10'3/uL 08/28/2024 12:56 PM CDT [facility] ABS. IMMATURE GRANULOCYTES 0.03 0.00 - 0.03 x10'3/uL 08/28/2024 12:56 PM CDT [facility] ABS. NUCLEATED RBC'S 0.00 0.00 - 0.01 x10'3/uL 08/28/2024 12:56 PM CDT [facility] NRBC % 0.0 % 08/28/2024 12:56 PM CDT [facility] 08/28/2024 12:2 5 PM CDT Lucas Kenny MD LABORATORY Final Result [facility] [address] [place] [address], [id number] * (ABNORMAL) POCT glucose (08/28/2024 10:59 AM CDT) GLUCOSE POC 255(H) 70 - 109 08/28/2024 11:14 AM CDT [facility] 08/28/2024 10:5 9 AM CDT Lucas Kenny MD POCT ORDERABLES - DEVICE Final Result Performing Organization Address [facility] Co de Phone Number [facility] [address] [place] [address], [id number] * (ABNORMAL) POCT glucose (08/28/2024 5:15 AM CDT) GLUCOSE POC 206(H) 70 - 109 08/28/2024 5:38 AM CDT [facility] Comment:RN Notified 08/28/2024 5:15 AM CDT Dony Mercado MD POCT ORDERABLES - DEVICE Fin al Result Performing Organization Address [facility] de Phone Number [facility] [address] [place] [address], [id number] * (ABNORMAL) BASIC METABOLIC PANEL (08/28/2024 3:33 AM CDT) SODIUM S/P/B 138 136 - 145 MMOL/L 08/28/2024 4:20 AM CDT [facility] POTASSIUM S/P/B 4.0 3.5 - 5.1 MMOL/L 08/28/2024 4:20 AM CDT [facility] CHLORIDE S/P/B 105 97 - 115 MMOL/L 08/28/2024 4:20 AM CDT [facility] CO2 27.4 21.0 - 32.0 MMOL/L 08/28/2024 4:20 AM CDT [facility] GLUCOSE 183(H) 74 - 106 MG/DL 08/28/2024 4:20 AM CDT [facility] BUN 15 7 - 18 MG/DL 08/28/2024 4:20 AM CDT [facility] CREATININE S/P/B 0.89 0.70 - 1.30 MG/DL 08/28/2024 4:20 AM CDT [facility] CALCIUM S/P/B 8.6 8.5 - 10.1 MG/DL 08/28/2024 4:20 AM CDT [facility] ANION GAP 5.6 2.0 - 10.0 MMOL/L 08/28/2024 4:20 AM CDT [facility] OSMOLALITY (CALC) 292 MOSM/KG 025 4:20 AM CDT [facility] Comment:REFERENCE RANGE NOT ESTABLISHED GFR ESTIMATE >90 >90 ML/MIN/1. 73 M2 08/28/2024 4:20 AM CDT [facility] GFR NOTES GFR REFERENCE S: 08/28/2024 4:20 AM CDT [facility] Comment: THE ESTIMATED GFR IS CALCULATED [...] ml/min/1.73 m2 G5,KIDNEY FAILURE: <15 ml/min/1.73 m2 08/28/2024 3:33 AM CDT us Ariadna Saucedo MD LABORATORY Fi nal Result [facility] [address] [place] [address], [phone] * (ABNORMAL) Blood gas, venous (08/28/2024 3:33 AM CDT) PH VENOUS 7.38 7.32 - 7.42 08/28/2024 3:48 AM CDT [facility] PCO2 VENOUS 49.6 41.0 - 51.0 MMHG 08/28/2024 3:48 AM CDT [facility] PO2 VENOUS 45.9(H) 25.0 - 40.0 MM HG 08/28/2024 3:48 AM CDT [facility] BICARB VENOUS 28.8(H) 24 - 28 MMOL/L 08/28/2024 3:48 AM CDT [facility] TOTAL CO2 VENOUS 30.3(H) 25.0 - 29.0 MMOL/L 08/28/2024 3:48 AM CDT [facility] BASE EXCESS VENOUS 3.6(H) 0 - 2 MMOL/L 08/28/2024 3:48 AM CDT [facility] O2 SAT VENOUS 80(H) <75 % 08/28/2024 3:48 AM CDT [facility] 08/28/2024 3:33 AM CDT us Ariadna Saucedo MD LABORATORY Fi nal Result Performing Organization Address [facility]/ZIP Co de Phone Number [facility] [address] [place] [address], [id number] * MAGNESIUM (08/28/2024 3:33 AM CDT) MAGNESIUM 1.9 1.6 - 2.6 MG/DL 08/28/2024 4:20 AM CDT [facility] 08/28/2024 3:33 AM CDT us Ariadna Saucedo MD LABORATORY Fi nal Result [facility] [address] [place] [address], [place] [phone] [id number] * (ABNORMAL) PHOSPHORUS, INORGANIC PHOSPHATE (08/28/2024 3:33 AM CDT) PHOSPHORUS 2.3(L) 2.5 - 4.9 MG/DL 08/28/2024 4:20 AM CDT [facility] 08/28/2024 3:33 AM CDT us Ariadna Saucedo MD LABORATORY Fi nal Result Performing Organization Address [facility] de Phone Number [facility] [address] [place] [address], [place] [phone] * (ABNORMAL) POCT glucose (08/27/2024 8:31 PM CDT) GLUCOSE POC 354(H) 70 - 109 08/27/2024 8:58 PM CDT [facility] 08/27/2024 8:31 PM CDT us Dony Mercado MD POCT ORDERABLES - DEVICE Fin al Result Performing Organization Address [facility] Co de Phone Number [facility] [address] [place] [address], [place] [phone] * (ABNORMAL) POCT glucose (08/27/2024 4:59 PM CDT) GLUCOSE POC 195(H) 70 - 109 08/27/2024 5:23 PM CDT [facility] 08/27/2024 4:59 PM CDT us Dony Mercado MD POCT ORDERABLES - DEVICE Fin al Result Performing Organization Address [facility]/ZIP Co de Phone Number [facility] [address] [place] [address], [id number] * USE ECHOCARDIOGRAM (08/27/2024 4:04 PM CDT) Anatomical Region Laterality Modality Cardiac Echocardiogram 08/27/2024 3:29 PM CDT Narrative 08/28/2024 10:59 AM CDT Echocardiography Report Pat.Name: CORBY VALIENTE Pat.ID: [id number] .Date: 08/27/2024 Refer.MD: [id number] JAD Deluna EWDPROV EWDPROV Exam Time: 3:29:00 PM Study Type:ECHO WITH CARDIAC DOPPLER COMP Height: 70 in Weight: 132 lb BSA: 1.75 m2 Age: 6 1950,73Y Sex: M HR: 70 bpm Sonogrphr: Shari Garg Pat. Stat.:Inpatient Room: [facility] CPT - 4: 39249 Reason for Study:CAD Procedures: 2D, M-mode, Doppler, [...] Mass 2D Value 261 g LV Mass [id number] Value 149 g/m2 RA Volume Atrial Barahona [...] Right Ventricle Right Ventricle 4.4 cm Major Tafton 8.67 cm MMODE TA Tricuspid Annul 2.89 cm <Electronic Signature> 08/28/2024 10:59 AM Kim Montes M.D. Procedure Note Kim Montes MD - 08/28/2024 Echocardiography Report Pat.Name: CORBY VALIENTE Pat.ID: [id number] St.Date: 08/27/2024 Refer.: [id number] JAD Deluna EWDPROV EWDPROV Exam Time: 3:29:00 PM Study Type:ECHO WITH CARDIAC DOPPLER COMP Height: 70 in Weight: 132 lb BSA: 1.75 m2 Age: 6 1950,73Y Sex: M HR: 70 bpm Sonogrphr: Shari Garg. Stat.:Inpatient Room: 440 CPT - 4: 59966 Reason for Study:CAD Procedures: 2D, M-mode, Doppler, [...] Mass 2D Value 261 g LV Mass [id number] Value 149 g/m2 RA Volume Atrial Barahona [...] Right Ventricle Right Ventricle 4.4 cm Major Tafton 8.67 cm MMODE TA Tricuspid Annul 2.89 cm <Electronic Signature> 08/28/2024 10:59 AM Kim Montes M.D. Mary Kay Kilgore DNP ECHO Final Result * (ABNORMAL) POCT glucose (08/27/2024 1:06 PM CDT) [facility] Signature GLUCOSE POC 200(H) 70 - 109 08/27/2024 1:11 PM CDT [facility] 08/27/2024 1:06 PM CDT Dony Mercado MD POCT ORDERABLES - DEVICE Fin al Result [facility] [address] [place] [address], [id number] * (ABNORMAL) POCT glucose (08/27/2024 6:29 AM CDT) GLUCOSE POC 194(H) 70 - 109 08/27/2024 6:32 AM CDT [facility] 08/27/2024 6:29 AM CDT us Ariadna Saucedo MD POCT ORDERABLES - DEVICE Final Result [facility] [address] [place] [address], [place] [phone] * (ABNORMAL) POCT EG7 BLD GAS VENOUS TEMP VERÓNICA (08/27/2024 4:03 AM CDT) SODIUM WHOLE BLOOD 139 138 - 146 mmol/L 08/27/2024 4:08 AM CDT [facility] POTASSIUM WHOLE BLOOD 4.2 3.5 - 4.9 mmol/L 08/27/2024 4:08 AM CDT [facility] CA IONIZED WH BLOOD 1.25 1.12 - 1.32 mmol/L 08/27/2024 4:08 AM CDT [facility] POC PH VENOUS 7.349 7.31 - 7.41 08/27/2024 4:08 AM CDT [facility] POC PCO2 VENOUS 49.2 41.0 - 51.0 MMHG 08/27/2024 4:08 AM CDT [facility] POC PO2 VENOUS 43(H) 25 - 40 MMHG 08/27/2024 4:08 AM CDT [facility] POC HCO3 VENOUS 27.1 23 - 28 MMOL/L 08/27/2024 4:08 AM CDT [facility] POC TCO2 VENOUS 29 24 - 29 MMOL/L 08/27/2024 4:08 AM CDT [facility] POC BASE EXCESS VENOUS 1 0 - 3 MMOL/L 08/27/2024 4:08 AM CDT [facility] TEMPERATURE 98.6 08/27/2024 4:08 AM CDT [facility] POC PH TEMP CORRECTED VENOUS 7.349 7.31 - 7.41 08/27/2024 4:08 AM CDT [facility] POC PCO2 TEMP VERÓNICA VENOUS 49.2 41.0 - 51.0 MMHG 08/27/2024 4:08 AM CDT [facility] POC PO2 TEMP VERÓNICA VENOUS 43(H) 25 - 40 MMHG 08/27/2024 4:08 AM CDT [facility] POC HEMATOCRIT 28(L) 38 - 51 % 08/27/2024 4:08 AM CDT [facility] TIME TEST WAS PERFORMED: 403 08/27/2024 4:08 AM CDT [facility] 08/27/2024 4:03 AM CDT us Ariadna Saucedo MD POINT OF CARE TEST ORDERABLES Final Result [facility] [address] [place] [address], [phone] * (ABNORMAL) BASIC METABOLIC PANEL (08/27/2024 4:00 AM CDT) SODIUM S/P/B 140 136 - 145 MMOL/L 08/27/2024 5:06 AM CDT [facility] POTASSIUM S/P/B 4.1 3.5 - 5.1 MMOL/L 08/27/2024 5:06 AM CDT [facility] CHLORIDE S/P/B 107 97 - 115 MMOL/L 08/27/2024 5:06 AM CDT [facility] CO2 27.5 21.0 - 32.0 MMOL/L 08/27/2024 5:06 AM CDT [facility] GLUCOSE 103 74 - 106 MG/DL 08/27/2024 5:06 AM CDT [facility] BUN 15 7 - 18 MG/DL 08/27/2024 5:06 AM CDT [facility] CREATININE S/P/B 0.97 0.70 - 1.30 MG/DL 08/27/2024 5:06 AM CDT [facility] CALCIUM S/P/B 8.6 8.5 - 10.1 MG/DL 08/27/2024 5:06 AM CDT [facility] ANION GAP 5.5 2.0 - 10.0 MMOL/L 08/27/2024 5:06 AM CDT [facility] OSMOLALITY (CALC) 291 MOSM/KG 025 5:06 AM CDT [facility] Comment:REFERENCE RANGE NOT ESTABLISHED GFR ESTIMATE 83(L) >90 ML/MIN/1. 73 M2 08/27/2024 5:06 AM CDT [facility] GFR NOTES GFR REFERENCE S: 08/27/2024 5:06 AM T [facility] Comment: THE ESTIMATED GFR IS CALCULATED [...] ml/min/1.73 m2 G5,KIDNEY FAILURE: <15 ml/min/1.73 m2 08/27/2024 4:00 AM CDT Ariadna Saucedo MD LABORATORY Fi nal Result [facility] [address] [place] [address], [id number] * MAGNESIUM (08/27/2024 4:00 AM CDT) MAGNESIUM 1.9 1.6 - 2.6 MG/DL 08/27/2024 5:06 AM CDT [facility] 08/27/2024 4:00 AM CDT us Ariadna Saucedo MD LABORATORY Fi nal Result Performing Organization Address [facility] Co de Phone Number [facility] [address] [place] [address], [place] [phone] * PHOSPHORUS, INORGANIC PHOSPHATE (08/27/2024 4:00 AM CDT) Pathologist [facility] PHOSPHORUS 2.6 2.5 - 4.9 MG/DL 08/27/2024 5:06 AM CDT [facility] 08/27/2024 4:00 AM CDT us Ariadna Saucedo MD LABORATORY Fi nal Result Performing Organization Address [facility] de Phone Number [facility] [address] [place] [address], [place] [phone] * (ABNORMAL) POCT glucose (08/26/2024 9:06 PM CDT) [facility] GLUCOSE POC 199(H) 70 - 109 08/26/2024 9:17 PM CDT [facility] 08/26/2024 9:06 PM CDT us Ariadna Saucedo MD POCT ORDERABLES - DEVICE Final Result Performing Organization Address [facility] de Phone Number [facility] [address] [place] [address], [place] [phone] * (ABNORMAL) POCT ACUTE VENOUS PANEL (08/26/2024 9:06 PM CDT) SODIUM WHOLE BLOOD 140 138 - 146 mmol/L 08/26/2024 9:13 PM CDT [facility] POTASSIUM WHOLE BLOOD 4.1 3.5 - 4.9 mmol/L 08/26/2024 9:13 PM CDT [facility] CA IONIZED WH BLOOD 1.25 1.12 - 1.32 mmol/L 08/26/2024 9:13 PM CDT [facility] POC PH VENOUS 7.338 7.31 - 7.41 08/26/2024 9:13 PM CDT [facility] POC PCO2 VENOUS 48.0 41.0 - 51.0 MMHG 08/26/2024 9:13 PM CDT [facility] POC PO2 VENOUS 27 25 - 40 MM[facility] 08/26/2024 9:13 PM CDT [facility] POC HCO3 VENOUS 25.8 23 - 28 MMOL/L 08/26/2024 9:13 PM CDT [facility] POC TCO2 VENOUS 27 24 - 29 MMOL/L 08/26/2024 9:13 PM CDT [facility] POC BASE EXCESS VENOUS 0 0 - 3 MMOL/L 08/26/2024 9:13 PM CDT [facility] POC HEMATOCRIT 27(L) 38 - 51 % 08/26/2024 9:13 PM CDT [facility] TIME TEST WAS PERFORMED: 210508/26/2024 9:13 PM CDT [facility] 08/26/2024 9:06 PM CDT Ariadna Saucedo MD POCT ORDERABLES - DEVICE Final Result [facility] [address] [place] [address], [phone] * (ABNORMAL) BASIC METABOLIC PANEL (08/26/2024 9:05 PM CDT) [facility] SODIUM S/P/B 139 136 - 145 MMOL/L 08/26/2024 9:35 PM CDT [facility] POTASSIUM S/P/B 4.0 3.5 - 5.1 MMOL/L 08/26/2024 9:35 PM CDT [facility] CHLORIDE S/P/B 108 97 - 115 MMOL/L 08/26/2024 9:35 PM CDT [facility] CO2 27.1 21.0 - 32.0 MMOL/L 08/26/2024 9:35 PM T [facility] GLUCOSE 179(H) 74 - 106 MG/DL 08/26/2024 9:35 PM CDT [facility] BUN 17 7 - 18 MG/DL 08/26/2024 9:35 PM T [facility] CREATININE S/P/B 1.24 0.70 - 1.30 MG/DL 08/26/2024 9:35 PM CDT [facility] CALCIUM S/P/B 8.5 8.5 - 10.1 MG/DL 08/26/2024 9:35 PM T [facility] ANION GAP 3.9 2.0 - 10.0 MMOL/L 08/26/2024 9:35 PM T [facility] OSMOLALITY (CALC) 294 MOSM/KG 025 9:35 PM T [facility] Comment:REFERENCE RANGE NOT ESTABLISHED GFR ESTIMATE 62(L) >90 ML/MIN/1. 73 M2 08/26/2024 9:35 PM T [facility] GFR NOTES GFR REFERENCE S: 08/26/2024 9:35 PM T [facility] Comment: THE ESTIMATED GFR IS CALCULATED [...] m2 G5,KIDNEY FAILURE: <15 ml/min/1.73 m2 08/26/2024 9:05 PM CDT Ariadna Saucedo MD LABORATORY Fi nal Result [facility] [address] [place] [address], [phone] * MRI BRAIN WWO CON (08/26/2024 6:58 PM CDT) Anatomical Region Laterality Modality Head Magnetic Resonan ce 08/26/2024 7:08 PM CDT Impressions 08/26/2024 7:17 PM CDT IMPRESSION: 1. No acute intracranial findings. No brain abscess. 2. Indeterminate mastoid air cell effusions. 3. Chronic/nonemergent findings as above. Referred By: [address]NY STRE[address] Interpreted By: Whitney Thorne DO, 08/26/2024 7:08 PM Narrative 08/26/2024 7:17 PM [address]T [address] [address] EXAMINATION: MRI Brain without and with Contrast [...] Procedure Note Whitney Thorne DO - 08/26/[address] [address] EXAMINATION: MRI Brain without and with Contrast REPORT DATE: 08/26/2024 INDICATION: Brain abscess COMPARISON(S): CT head without 08/24/2024, 11/22/2023. TECHNIQUE: Multiplanar, multisequence MR imaging of the brain before andafter intravenous administration of gadolinium based contrast. Contrast: 13 mL Dotarem. FINDINGS: Brain: Scattered foci of T2 hyperintensity within the periventricular andsubcortical white matter. Small foci of increased diffusion signal with [id number] through, no diffusion restriction. Small foci of [...] Saucedo MD MRI Fi nal Result * (ABNORMAL) BASIC METABOLIC PANEL (08/26/2024 6:00 PM CDT) SODIUM S/P/B 140 136 - 145 MMOL/L 08/26/2024 6:34 PM CDT [facility] POTASSIUM S/P/B 4.0 3.5 - 5.1 MMOL/L 08/26/2024 6:34 PM CDT [facility] CHLORIDE S/P/B 109 97 - 115 MMOL/L 08/26/2024 6:34 PM CDT [facility] CO2 25.2 21.0 - 32.0 MMOL/L 08/26/2024 6:34 PM CDT [facility] GLUCOSE 209(H) 74 - 106 MG/DL 08/26/2024 6:34 PM CDT [facility] BUN 16 7 - 18 MG/DL 08/26/2024 6:34 PM CDT [facility] CREATININE S/P/B 1.15 0.70 - 1.30 MG/DL 08/26/2024 6:34 PM CDT [facility] CALCIUM S/P/B 7.9(L) 8.5 - 10.1 MG/DL 08/26/2024 6:34 PM CDT [facility] ANION GAP 5.8 2.0 - 10.0 MMOL/L 08/26/2024 6:34 PM CDT [facility] OSMOLALITY (CALC) 297 MOSM/KG 025 6:34 PM T [facility] Comment:REFERENCE RANGE NOT ESTABLISHED GFR ESTIMATE 68(L) >90 ML/MIN/1. 73 M2 08/26/2024 6:34 PM CDT [facility] GFR NOTES GFR REFERENCE S: 08/26/2024 6:34 PM T [facility] Comment: THE ESTIMATED GFR IS CALCULATED [...] m2 G5,KIDNEY FAILURE: <15 ml/min/1.73 m2 08/26/2024 6:00 PM CDT us Ariadna Saucedo MD LABORATORY Fi nal Result Performing Organization Address [facility] Co de Phone Number [facility] [address] [place] [address], [id number] * (ABNORMAL) POCT glucose (08/26/2024 5:47 PM CDT) GLUCOSE POC 214(H) 70 - 109 08/26/2024 5:49 PM CDT [facility] 08/26/2024 5:47 PM CDT us Ariadna Saucedo MD POCT ORDERABLES - DEVICE Final Result Performing Organization Address [facility] Co de Phone Number [facility] [address] [place] [address], [place] [phone] [id number] * (ABNORMAL) POCT glucose (08/26/2024 4:25 PM CDT) GLUCOSE POC 237(H) 70 - 109 08/26/2024 4:27 PM CDT [facility] 08/26/2024 4:25 PM CDT us Ariadna Saucedo MD POCT ORDERABLES - DEVICE Final Result Performing Organization Address [facility] Co de Phone Number [facility] [address] [place] [address], [place] [phone] * (ABNORMAL) Blood gas, venous (08/26/2024 4:00 PM CDT) PH VENOUS 7.35 7.32 - 7.42 08/26/2024 4:49 PM CDT [facility] PCO2 VENOUS 39.9(L) 41.0 - 51.0 MMHG 08/26/2024 4:49 PM CDT [facility] PO2 VENOUS 156.0(H) 25.0 - 40.0 MM HG 08/26/2024 4:49 PM CDT [facility] Comment: RESULTS, SPECIMEN DATE, TIME WERE READ BACK BY RN [id number] 08.26.24 GILMER BICARB VENOUS 21.3(L) 24 - 28 MMOL/L 08/26/2024 4:49 PM CDT [facility] TOTAL CO2 VENOUS 22.5(L) 25.0 - 29.0 MMOL/L 08/26/2024 4:49 PM CDT [facility] BASE DEFICIT VENOUS 3.5(H) 0.0 - 3.0 MMOL/L 08/26/2024 4:49 PM CDT [facility] O2 SAT VENOUS 99(H) <75 % 08/26/2024 4:49 PM CDT [facility] 08/26/2024 4:00 PM CDT us Ariadna Saucedo MD LABORATORY Fi nal Result Performing Organization Address [facility] Co de Phone Number [facility] [address] [place] [address], [id number] * (ABNORMAL) POCT glucose (08/26/2024 1:49 PM CDT) GLUCOSE POC 251(H) 70 - 109 08/26/2024 1:50 PM CDT [facility] 08/26/2024 1:49 PM CDT us Ariadna Saucedo MD POCT ORDERABLES - DEVICE Final Result Performing Organization Address [facility] Co de Phone Number [facility] [address] [place] [address], [id number] * (ABNORMAL) Blood gas, venous (08/26/2024 1:45 PM CDT) PH VENOUS 7.32 7.32 - 7.42 08/26/2024 2:05 PM CDT [facility] PCO2 VENOUS 49.8 41.0 - 51.0 MMHG 08/26/2024 2:05 PM CDT [facility] PO2 VENOUS 85.0(H) 25.0 - 40.0 MM HG 08/26/2024 2:05 PM CDT [facility] Comment: RESULTS, SPECIMEN DATE, TIME WERE READ BACK BY [email or web address] 08.26.24 GILMER BICARB VENOUS 25.1 24 - 28 MMOL/L 08/26/2024 2:05 PM CDT [facility] TOTAL CO2 VENOUS 26.6 25.0 - 29.0 MMOL/L 08/26/2024 2:05 PM CDT [facility] BASE DEFICIT VENOUS 0.6 0.0 - 3.0 MMOL/L 08/26/2024 2:05 PM CDT [facility] O2 SAT VENOUS 97(H) <75 % 08/26/2024 2:05 PM CDT [facility] 08/26/2024 1:45 PM CDT us Ariadna Saucedo MD LABORATORY Fi nal Result Performing Organization Address City/[facility]/ZIP Co de Phone Number [facility] [address] [place] [address], [id number] * POTASSIUM, SERUM (08/26/2024 12:45 PM CDT) POTASSIUM S/P/B 4.3 3.5 - 5.1 MMOL/L 08/26/2024 2:32 PM CDT [facility] 08/26/2024 12:4 5 PM CDT us Ariadna Saucedo MD LABORATORY Fi nal Result [facility] [address] [place] [address], [place] [phone] * (ABNORMAL) POCT ACUTE VENOUS PANEL (08/26/2024 10:22 AM CDT) SODIUM WHOLE BLOOD 143 138 - 146 mmol/L 08/26/2024 10:29 AM CDT [facility] POTASSIUM WHOLE BLOOD 3.1(L) 3.5 - 4.9 mmol/L 08/26/2024 10:29 AM CDT [facility] CA IONIZED WH BLOOD 1.05(L) 1.12 - 1.32 mmol/L 08/26/2024 10:29 AM CDT [facility] POC PH VENOUS 7.327 7.31 - 7.41 08/26/2024 10:29 AM CDT [facility] POC PCO2 VENOUS 36.8(L) 41.0 - 51.0 MMHG 08/26/2024 10:29 AM CDT [facility] POC PO2 VENOUS 44(H) 25 - 40 MMHG 08/26/2024 10:29 AM CDT [facility] POC HCO3 VENOUS 19.2(L) 23 - 28 MMOL/L 08/26/2024 10:29 AM CDT [facility] POC TCO2 VENOUS 20(L) 24 - 29 MMOL/L 08/26/2024 10:29 AM CDT [facility] POC BASE DEFICIT VENOUS 7(H) 0 - 2 MMOL/L 08/26/2024 10:29 AM CDT [facility] POC HEMATOCRIT 20(L) 38 - 51 % 08/26/2024 10:29 AM CDT [facility] TIME TEST WAS PERFORMED: 1022 08/26/2024 10:29 AM CDT [facility] 08/26/2024 10:2 2 AM CDT Ariadna Saucedo MD POCT ORDERABLES - DEVICE Final Result Performing Organization Address [facility] Co de Phone Number [facility] [address] [place] [address], [id number] * (ABNORMAL) POCT glucose (08/26/2024 8:36 AM CDT) GLUCOSE POC 126(H) 70 - 109 08/26/2024 8:44 AM CDT [facility] 08/26/2024 8:36 AM CDT Ariadna Saucedo MD POCT ORDERABLES - DEVICE Final Result Performing Organization Address [facility] Co de Phone Number [facility] [address] [place] [address], [id number] * POCT glucose (08/26/2024 6:37 AM CDT) GLUCOSE POC 92 70 - 109 08/26/2024 6:46 AM CDT [facility] 08/26/2024 6:37 AM CDT Ariadna Saucedo MD POCT ORDERABLES - DEVICE Final Result Performing Organization Address City/[facility] Co de Phone Number [facility] [address] [place] [address], [place] [phone] * (ABNORMAL) POCT ACUTE VENOUS PANEL (08/26/2024 4:27 AM CDT) SODIUM WHOLE BLOOD 142 138 - 146 mmol/L 08/26/2024 4:30 AM CDT [facility] POTASSIUM WHOLE BLOOD 4.7 3.5 - 4.9 mmol/L 08/26/2024 4:30 AM CDT [facility] CA IONIZED WH BLOOD 1.20 1.12 - 1.32 mmol/L 08/26/2024 4:30 AM CDT [facility] POC PH VENOUS 7.289(L) 7.31 - 7.41 08/26/2024 4:30 AM CDT [facility] POC PCO2 VENOUS 57.0(H) 41.0 - 51.0 MMHG 08/26/2024 4:30 AM CDT [facility] POC PO2 VENOUS 26 25 - 40 MMHG 08/26/2024 4:30 AM CDT [facility] POC HCO3 VENOUS 27.4 23 - 28 MMOL/L 08/26/2024 4:30 AM CDT [facility] POC TCO2 VENOUS 29 24 - 29 MMOL/L 08/26/2024 4:30 AM CDT [facility] POC BASE EXCESS VENOUS 1 0 - 3 MMOL/L 08/26/2024 4:30 AM CDT [facility] POC HEMATOCRIT 29(L) 38 - 51 % 08/26/2024 4:30 AM CDT [facility] TIME TEST WAS PERFORMED: 427 08/26/2024 4:30 AM CDT [facility] 08/26/2024 4:27 AM CDT Ariadna Saucedo MD POCT ORDERABLES - DEVICE Final Result Performing Organization Address [facility]/ZIP Co de Phone Number [facility] [address] [place] [address], [id number] * POCT glucose (08/26/2024 4:26 AM CDT) [facility] Signature GLUCOSE POC 99 70 - 109 08/26/2024 4:30 AM CDT [facility] 08/26/2024 4:26 AM CDT Ariadna Saucedo MD POCT ORDERABLES - DEVICE Final Result Performing Organization Address City/[facility]/ZIP Co de Phone Number [facility] [address] [place] [address], [phone] * MAGNESIUM (08/26/2024 4:25 AM CDT) MAGNESIUM 2.1 1.6 - 2.6 MG/DL 08/26/2024 5:57 AM CDT [facility] 08/26/2024 4:25 AM CDT us Ariadna Saucedo MD LABORATORY Fi nal Result Performing Organization Address [facility] Co de Phone Number [facility] [address] [place] [address], [phone] * PHOSPHORUS, INORGANIC PHOSPHATE (08/26/2024 4:25 AM CDT) PHOSPHORUS 4.7 2.5 - 4.9 MG/DL 08/26/2024 5:57 AM CDT [facility] 08/26/2024 4:25 AM CDT us Ariadna Saucedo MD LABORATORY Fi nal Result Performing Organization Address [facility] Co de Phone Number [facility] [address] [place] [address], [phone] * (ABNORMAL) HEMOGLOBIN, GLYCATED (08/26/2024 4:25 AM CDT) HGB A1C 8.2(H) <5.7 % 08/26/2024 5:51 AM CDT [facility] ESTIMATED AVG GLUCOSE 189(H) 74 - 114 MG/DL 08/26/2024 5:51 AM CDT [facility] 08/26/2024 4:25 AM CDT Alexandria Longo MD LABORATORY Final Result [facility] [address] [place] [address], [phone] * (ABNORMAL) COMPREHENSIVE METABOLIC PANEL (08/26/2024 4:25 AM CDT) SODIUM S/P/B 141 136 - 145 MMOL/L 08/26/2024 5:30 AM CDT [facility] POTASSIUM S/P/B 4.5 3.5 - 5.1 MMOL/L 08/26/2024 5:30 AM CDT [facility] CHLORIDE S/P/B 109 97 - 115 MMOL/L 08/26/2024 5:30 AM CDT [facility] CO2 28.3 21.0 - 32.0 MMOL/L 08/26/2024 5:30 AM CDT [facility] GLUCOSE 88 74 - 106 MG/DL 08/26/2024 5:30 AM CDT [facility] BUN 22(H) 7 - 18 MG/DL 08/26/2024 5:30 AM CDT [facility] CREATININE S/P/B 1.39(H) 0.70 - 1.30 MG/DL 08/26/2024 5:30 AM CDT [facility] CALCIUM S/P/B 8.1(L) 8.5 - 10.1 MG/DL 08/26/2024 5:30 AM CDT [facility] BILIRUBIN TOTAL S/P/B 0.8 0.2 - 1.0 MG/DL 08/26/2024 5:30 AM CDT [facility] ALKALINE PHOSPHATASE S/P/B 63 45 - 115 U/L 08/26/2024 5:30 AM CDT [facility] AST 87(H) 15 - 37 U/L 08/26/2024 5:30 AM CDT [facility] ALT 29 16 - 61 U/L 08/26/2024 5:30 AM CDT [facility] TOTAL PROTEIN S/P/B 5.6(L) 6.4 - 8.2 G/DL 08/26/2024 5:30 AM CDT [facility] ALBUMIN S/P/B 3.1(L) 3.4 - 5.0 G/DL 08/26/2024 5:30 AM CDT [facility] ANION GAP 3.7 2.0 - 10.0 MMOL/L 08/26/2024 5:30 AM CDT [facility] OSMOLALITY (CALC) 295 MOSM/KG 5:30 AM CDT [facility] Comment:REFERENCE RANGE NOT ESTABLISHED GFR ESTIMATE 54(L) >90 ML/MIN/1. 73 M2 08/26/2024 5:30 AM CDT [facility] GFR NOTES GFR REFERENCE S: 08/26/2024 5:30 AM CDT [facility] Comment: THE ESTIMATED GFR IS CALCULATED [...] <15 ml/min/1.73 m2 08/26/2024 4:25 AM CDT us Alexandria Longo MD LABORATORY Final Result [facility] [address] [place] [address], [phone] * (ABNORMAL) CBC W/DIFF AUTOMATED (08/26/2024 4:25 AM CDT) WBC 6.67 4.00 - 10.80 x10'3/uL 08/26/2024 5:09 AM CDT [facility] RBC 2.84(L) 4.50 - 6.10 x10'6/uL 08/26/2024 5:09 AM CDT [facility] HGB 9.3(L) 12.0 - 16.0 G/DL 08/26/2024 5:09 AM CDT [facility] HCT 28.3(L) 37.0 - 52.0 % 08/26/2024 5:09 AM CDT [facility] MCV 99.6 78.0 - 100.0 FL 08/26/2024 5:09 AM CDT [facility] MCH 32.7(H) 27.0 - 31.0 PG 08/26/2024 5:09 AM CDT [facility] MCHC 32.9(L) 33.0 - 36.0 G/DL 08/26/2024 5:09 AM CDT [facility] RDW 15.9(H) 11.5 - 14.5 % 08/26/2024 5:09 AM CDT [facility] PLT SEE NOTE 150 - 350 x10'3/uL 08/26/2024 7:05 AM CDT [facility] Comment: Platelet clumps present. Estimate from slide appears to be between 50,000 to 99,000. Reorder Platelet Count if actual value is clinically significant. DIFFERENTIAL TYPE AUTOMATED DIFFERENTIAL 08/26/2024 7:06 AM CDT [facility] SEG NEUTROPHILS 73.9 % 7:06 AM CDT [facility] LYMPHOCYTES 17.2 % 08/26/2024 7:06 AM CDT [facility] MONOCYTES 7.9 % 08/26/2024 7:06 AM CDT [facility] EOSINOPHILS 0.6 % 08/26/2024 7:06 AM CDT [facility] BASOPHILS 0.1 % 08/26/2024 7:06 AM CDT [facility] IMMATURE GRANS % 0.3 % 08/27/19 7:06 AM CDT [facility] ABS. NEUTROPHILS 4.92 1.60 - 8.30 x10'3/uL 08/26/2024 7:06 AM CDT [facility] ABS. LYMPHOCYTES 1.15 0.80 - 4.70 x10'3/uL 08/26/2024 7:06 AM CDT [facility] ABS. MONOCYTES 0.53 0.00 - 1.50 x10'3/uL 08/26/2024 7:06 AM CDT [facility] ABS. EOSINOPHILS 0.04 0.00 - 0.40 x10'3/uL 08/26/2024 7:06 AM CDT [facility] ABS. BASOPHILS 0.01 0.00 - 0.20 x10'3/uL 08/26/2024 7:06 AM CDT [facility] ABS. IMMATURE GRANULOCYTES 0.02 0.00 - 0.03 x10'3/uL 08/26/2024 7:06 AM CDT [facility] ABS. NUCLEATED RBC'S 0.00 0.00 - 0.01 x10'3/uL 08/26/2024 7:06 AM CDT [facility] NRBC % 0.0 % 08/26/2024 7:06 AM CDT [facility] 08/26/2024 4:25 AM CDT Alexandria Longo MD LABORATORY Final Result [facility] [address] [place] [address], [id number] * POCT glucose (08/25/2024 11:58 PM CDT) GLUCOSE POC 77 70 - 109 08/26/2024 1:23 AM CDT [facility] 08/25/2024 11:5 8 PM CDT us Ariadna Saucedo MD POCT ORDERABLES - DEVICE Final Result Performing Organization Address City/[facility]/ZIP Co de Phone Number [facility] [address] [place] [address], [id number] * POCT glucose (08/25/2024 9:12 PM CDT) GLUCOSE POC 72 70 - 109 08/25/2024 9:15 PM CDT [facility] 08/25/2024 9:12 PM CDT us Ariadna Saucedo MD POCT ORDERABLES - DEVICE Final Result Performing Organization Address [facility] Co de Phone Number [facility] [address] [place] [address], [place] [phone] * POCT glucose (08/25/2024 6:13 PM CDT) GLUCOSE POC 89 70 - 109 08/25/2024 6:16 PM CDT [facility] 08/25/2024 6:13 PM CDT us Ariadna Saucedo MD POCT ORDERABLES - DEVICE Final Result Performing Organization Address City/[facility] Co de Phone Number [facility] [address] [place] [address], [place] [phone] * (ABNORMAL) POCT glucose (08/25/2024 4:32 PM CDT) GLUCOSE POC 114(H) 70 - 109 08/25/2024 4:35 PM CDT [facility] 08/25/2024 4:32 PM CDT us Ariadna Saucedo MD POCT ORDERABLES - DEVICE Final Result Performing Organization Address [facility] de Phone Number [facility] [address] [place] [address], [phone] * MAGNESIUM (08/25/2024 4:30 PM CDT) MAGNESIUM 1.8 1.6 - 2.6 MG/DL 08/25/2024 5:44 PM CDT [facility] 08/25/2024 4:30 PM CDT us Ariadna Saucedo MD LABORATORY Fi nal Result Performing Organization Address [facility] de Phone Number [facility] [address] [place] [address], [place] [phone] * (ABNORMAL) BASIC METABOLIC PANEL (08/25/2024 4:30 PM CDT) SODIUM S/P/B 142 136 - 145 MMOL/L 08/25/2024 5:24 PM CDT [facility] POTASSIUM S/P/B 3.7 3.5 - 5.1 MMOL/L 08/25/2024 5:24 PM CDT [facility] CHLORIDE S/P/B 112 97 - 115 MMOL/L 08/25/2024 5:24 PM CDT [facility] CO2 26.2 21.0 - 32.0 MMOL/L 08/25/2024 5:24 PM CDT [facility] GLUCOSE 99 74 - 106 MG/DL 08/25/2024 5:24 PM CDT [facility] BUN 24(H) 7 - 18 MG/DL 08/25/2024 5:24 PM CDT [facility] CREATININE S/P/B 1.37(H) 0.70 - 1.30 MG/DL 08/25/2024 5:24 PM CDT [facility] CALCIUM S/P/B 7.4(L) 8.5 - 10.1 MG/DL 08/25/2024 5:24 PM CDT [facility] ANION GAP 3.8 2.0 - 10.0 MMOL/L 08/25/2024 5:24 PM CDT [facility] OSMOLALITY (CALC) 298 MOSM/KG 025 5:24 PM CDT [facility] Comment:REFERENCE RANGE NOT ESTABLISHED GFR ESTIMATE 55(L) >90 ML/MIN/1. 73 M2 08/25/2024 5:24 PM CDT [facility] GFR NOTES GFR REFERENCE S: 08/25/2024 5:24 PM CDT [facility] Comment: THE ESTIMATED GFR IS CALCULATED [...] ml/min/1.73 m2 G5,KIDNEY FAILURE: <15 ml/min/1.73 m2 08/25/2024 4:30 PM CDT us Ariadna Saucedo MD LABORATORY Fi nal Result [facility] [address] [place] [address], [phone] * (ABNORMAL) Blood gas, venous (08/25/2024 4:30 PM CDT) PH VENOUS 7.31(L) 7.32 - 7.42 08/25/2024 4:42 PM CDT [facility] PCO2 VENOUS 54.9(H) 41.0 - 51.0 MMHG 08/25/2024 4:42 PM CDT [facility] PO2 VENOUS 58.0(H) 25.0 - 40.0 MM HG 08/25/2024 4:42 PM CDT [facility] BICARB VENOUS 26.7 24 - 28 MMOL/L 08/25/2024 4:42 PM CDT [facility] TOTAL CO2 VENOUS 28.4 25.0 - 29.0 MMOL/L 08/25/2024 4:42 PM CDT [facility] BASE EXCESS VENOUS 0.5 0 - 2 MMOL/L 08/25/2024 4:42 PM CDT [facility] O2 SAT VENOUS 88(H) <75 % 08/25/2024 4:42 PM CDT [facility] 08/25/2024 4:30 PM CDT Ariadna Saucedo MD LABORATORY Fi nal Result Performing Organization Address [facility] Co de Phone Number [facility] [address] [place] [address], [id number] * (ABNORMAL) PHOSPHORUS, INORGANIC PHOSPHATE (08/25/2024 4:30 PM CDT) PHOSPHORUS 2.4(L) 2.5 - 4.9 MG/DL 08/25/2024 5:44 PM CDT [facility] 08/25/2024 4:30 PM CDT Alexandria Longo MD LABORATORY Final Result Performing Organization Address [facility] Co de Phone Number [facility] [address] [place] [address], [place] [phone] * (ABNORMAL) POCT glucose (08/25/2024 3:33 PM CDT) [facility] GLUCOSE POC 45(L) 70 - 109 08/25/2024 3:49 PM CDT [facility] Comment:MD Notified 08/25/2024 3:33 PM CDT Ariadna Saucedo MD POCT ORDERABLES - DEVICE Final Result [facility] [address] [place] [address], [id number] * BIOFIRE PCR UPPER RESPIRATORY PROFILE (RESPIRATORY PCR PANEL 2) (08/25/2024 12:45 PM CDT) [facility] ADENOVIRUS PCR (RESP) NOT DETECTED NOT DETECTED 08/25/2024 2:15 PM CDT [facility] CORONAVIRUS 229E PCR (RESP) NOT DETECTED NOT DETECTED 08/25/2024 2:15 PM CDT [facility] CORONAVIRUS HKU1 PCR (RESP) NOT DETECTED NOT DETECTED 08/25/2024 2:15 PM CDT [facility] CORONAVIRUS NL63 PCR (RESP) NOT DETECTED NOT DETECTED 08/25/2024 2:15 PM CDT [facility] CORONAVIRUS OC43 PCR (RESP) NOT DETECTED NOT DETECTED 08/25/2024 2:15 PM CDT [facility] METAPNEUMOVIRUS PCR (RESP) NOT DETECTED NOT DETECTED 08/25/2024 2:15 PM CDT [facility] RHINOVIRUS/ENTEROV IRUS PCR (RESP) NOT DETECTED NOT DETECTED 08/25/2024 2:15 PM CDT [facility] INFLUENZA A PCR (RESP) NOT DETECTED NOT DETECTED 08/25/2024 2:15 PM CDT [facility] INFLUENZA B PCR (RESP) NOT DETECTED NOT DETECTED 08/25/2024 2:15 PM CDT [facility] PARAINFLUENZA 1 PCR (RESP) NOT DETECTED NOT DETECTED 08/25/2024 2:15 PM CDT [facility] PARAINFLUENZA 2 PCR (RESP) NOT DETECTED NOT DETECTED 08/25/2024 2:15 PM CDT [facility] PARAINFLUENZA 3 PCR (RESP) NOT DETECTED NOT DETECTED 08/25/2024 2:15 PM CDT [facility] PARAINFLUENZA 4 PCR (RESP) NOT DETECTED NOT DETECTED 08/25/2024 2:15 PM CDT [facility] RSV PCR (RESP) NOT DETECTED NOT DETECTED 08/25/2024 2:15 PM CDT [facility] B PARAPERTUSIS PCR (RESP) NOT DETECTED NOT DETECTED 08/25/2024 2:15 PM CDT [facility] BORDETELLA PERTUSSIS PCR (RESP) NOT DETECTED NOT DETECTED 08/25/2024 2:15 PM CDT [facility] CHLAMYDOPHILA PNEUMONIAE PCR (RESP) NOT DETECTED NOT DETECTED 08/25/2024 2:15 PM CDT [facility] MYCOPLASMA PNEUMONIAE PCR (RESP) NOT DETECTED NOT DETECTED 08/25/2024 2:15 PM CDT [facility] CORONAVIRUS SARS COV 2 PCR (RESP) NOT DETECTED NOT DETECTED 08/25/2024 2:15 PM CDT [facility] NASOPHARYNGEAL SWAB / Unknown 08/25/2024 12:45 PM CDT us Ariadna Saucedo MD MICROBIOLOGY - GEN ERAL ORDERABLES Final Result [facility] [address] [place] [address], [id number] * MAGNESIUM (08/25/2024 12:45 PM CDT) MAGNESIUM 1.8 1.6 - 2.6 MG/DL 08/25/2024 4:07 PM CDT [facility] 08/25/2024 12:4 5 PM CDT us Ariadna Saucedo MD LABORATORY Fi nal Result [facility] [address] [place] [address], [id number] * (ABNORMAL) BASIC METABOLIC PANEL (08/25/2024 12:45 PM CDT) SODIUM S/P/B 144 136 - 145 MMOL/L 08/25/2024 1:33 PM CDT [facility] POTASSIUM S/P/B 3.6 3.5 - 5.1 MMOL/L 08/25/2024 1:33 PM CDT [facility] CHLORIDE S/P/B 114 97 - 115 MMOL/L 08/25/2024 1:33 PM CDT [facility] CO2 24.4 21.0 - 32.0 MMOL/L 08/25/2024 1:33 PM CDT [facility] GLUCOSE 88 74 - 106 MG/DL 08/25/2024 1:33 PM CDT [facility] BUN 25(H) 7 - 18 MG/DL 08/25/2024 1:33 PM CDT [facility] CREATININE S/P/B 1.28 0.70 - 1.30 MG/DL 08/25/2024 1:33 PM CDT [facility] CALCIUM S/P/B 7.3(L) 8.5 - 10.1 MG/DL 08/25/2024 1:33 PM CDT [facility] ANION GAP 5.6 2.0 - 10.0 MMOL/L 08/25/2024 1:33 PM CDT [facility] OSMOLALITY (CALC) 302 MOSM/KG 025 1:33 PM CDT [facility] Comment:REFERENCE RANGE NOT ESTABLISHED GFR ESTIMATE 59(L) >90 ML/MIN/1. 73 M2 08/25/2024 1:33 PM CDT [facility] GFR NOTES GFR REFERENCE S: 08/25/2024 1:33 PM CDT [facility] Comment: THE ESTIMATED GFR IS CALCULATED [...] ml/min/1.73 m2 G5,KIDNEY FAILURE: <15 ml/min/1.73 m2 08/25/2024 12:4 5 PM CDT us Ariadna Saucedo MD LABORATORY Fi nal Result [facility] [address] [place] [address], [id number] * (ABNORMAL) Blood gas, venous (08/25/2024 12:45 PM CDT) PH VENOUS 7.38 7.32 - 7.42 08/25/2024 1:10 PM CDT [facility] PCO2 VENOUS 34.7(L) 41.0 - 51.0 MMHG 08/25/2024 1:10 PM CDT [facility] PO2 VENOUS 179.0(H) 25.0 - 40.0 MM HG 08/25/2024 1:10 PM CDT [facility] BICARB VENOUS 19.8(L) 24 - 28 MMOL/L 08/25/2024 1:10 PM CDT [facility] TOTAL CO2 VENOUS 20.9(L) 25.0 - 29.0 MMOL/L 08/25/2024 1:10 PM CDT [facility] BASE DEFICIT VENOUS 4.4(H) 0.0 - 3.0 MMOL/L 08/25/2024 1:10 PM CDT [facility] O2 SAT VENOUS 99(H) <75 % 08/25/2024 1:10 PM CDT [facility] 08/25/2024 12:4 5 PM CDT Ariadna Saucedo MD LABORATORY Fi nal Result Performing Organization Address [facility] Co de Phone Number [facility] [address] [id number], [id number] * (ABNORMAL) PHOSPHORUS, INORGANIC PHOSPHATE (08/25/2024 12:45 PM CDT) PHOSPHORUS 1.9(L) 2.5 - 4.9 MG/DL 08/25/2024 4:07 PM CDT [facility] 08/25/2024 12:4 5 PM CDT Alexandria Longo MD LABORATORY Final Result Performing Organization Address [facility]/ZIP Co de Phone Number [facility] [address] [place] [address], [id number] * (ABNORMAL) POCT glucose (08/25/2024 12:38 PM CDT) GLUCOSE POC 120(H) 70 - 109 08/25/2024 12:59 PM CDT [facility] 08/25/2024 12:3 8 PM CDT us Ariadna Saucedo MD POCT ORDERABLES - DEVICE Final Result Performing Organization Address [facility]/ZIP Co de Phone Number [facility] [address] [place] [address], [id number] * (ABNORMAL) POCT glucose (08/25/2024 11:09 AM CDT) GLUCOSE POC 133(H) 70 - 109 08/25/2024 11:11 AM CDT [facility] 08/25/2024 11:0 9 AM CDT us Ariadna Saucedo MD POCT ORDERABLES - DEVICE Final Result Performing Organization Address [facility] Co de Phone Number [facility] [address] [place] [address], [id number] * (ABNORMAL) POCT glucose (08/25/2024 10:07 AM CDT) GLUCOSE POC 120(H) 70 - 109 08/25/2024 10:09 AM CDT [facility] 08/25/2024 10:0 7 AM CDT us Ariadna Saucedo MD POCT ORDERABLES - DEVICE Final Result Performing Organization Address [facility] Co de Phone Number [facility] [address] [place] [address], [place] [phone] * (ABNORMAL) POCT glucose (08/25/2024 9:11 AM CDT) GLUCOSE POC 116(H) 70 - 109 08/25/2024 9:15 AM CDT [facility] 08/25/2024 9:11 AM CDT us Ariadna Saucedo MD POCT ORDERABLES - DEVICE Final Result Performing Organization Address [facility] Co de Phone Number [facility] [address] [place] [address], [phone] * MAGNESIUM (08/25/2024 8:15 AM CDT) Pathologist [facility] MAGNESIUM 2.2 1.6 - 2.6 MG/DL 08/25/2024 9:20 AM CDT [facility] 08/25/2024 8:15 AM CDT Ariadna Saucedo MD LABORATORY Fi nal Result Performing Organization Address [facility] de Phone Number [facility] [address] [place] [address], [place] [phone] * (ABNORMAL) BASIC METABOLIC PANEL (08/25/2024 8:15 AM CDT) [facility] SODIUM S/P/B 143 136 - 145 MMOL/L 08/25/2024 8:54 AM CDT [facility] POTASSIUM S/P/B 3.8 3.5 - 5.1 MMOL/L 08/25/2024 8:54 AM CDT [facility] CHLORIDE S/P/B 110 97 - 115 MMOL/L 08/25/2024 8:54 AM CDT [facility] CO2 26.4 21.0 - 32.0 MMOL/L 08/25/2024 8:54 AM CDT [facility] GLUCOSE 110(H) 74 - 106 MG/DL 08/25/2024 8:54 AM CDT [facility] BUN 31(H) 7 - 18 MG/DL 08/25/2024 8:54 AM CDT [facility] CREATININE S/P/B 1.72(H) 0.70 - 1.30 MG/DL 08/25/2024 8:54 AM CDT [facility] CALCIUM S/P/B 8.3(L) 8.5 - 10.1 MG/DL 08/25/2024 8:54 AM CDT [facility] ANION GAP 6.6 2.0 - 10.0 MMOL/L 08/25/2024 8:54 AM CDT [facility] OSMOLALITY (CALC) 303 MOSM/KG 025 8:54 AM CDT [facility] Comment:REFERENCE RANGE NOT ESTABLISHED GFR ESTIMATE 42(L) >90 ML/MIN/1. 73 M2 08/25/2024 8:54 AM CDT [facility] GFR NOTES GFR REFERENCE S: 08/25/2024 8:54 AM CDT [facility] Comment: THE ESTIMATED GFR IS CALCULATED [...] ml/min/1.73 m2 G5,KIDNEY FAILURE: <15 ml/min/1.73 m2 08/25/2024 8:15 AM CDT Ariadna Saucedo MD LABORATORY Fi nal Result [facility] [address] [place] [address], [phone] * (ABNORMAL) Blood gas, venous (08/25/2024 8:15 AM CDT) PH VENOUS 7.33 7.32 - 7.42 08/25/2024 8:42 AM CDT [facility] PCO2 VENOUS 47.6 41.0 - 51.0 MMHG 08/25/2024 8:42 AM CDT [facility] PO2 VENOUS 175.0(H) 25.0 - 40.0 MM HG 08/25/2024 8:42 AM CDT [facility] BICARB VENOUS 24.5 24 - 28 MMOL/L 08/25/2024 8:42 AM CDT [facility] TOTAL CO2 VENOUS 26.0 25.0 - 29.0 MMOL/L 08/25/2024 8:42 AM CDT [facility] BASE DEFICIT VENOUS 0.9 0.0 - 3.0 MMOL/L 08/25/2024 8:42 AM CDT [facility] O2 SAT VENOUS 99(H) <75 % 08/25/2024 8:42 AM CDT [facility] 08/25/2024 8:15 AM CDT Ariadna Saucedo MD LABORATORY Fi nal Result Performing Organization Address City/[facility]/ZIP Co de Phone Number [facility] [address] [place] [address], [phone] * (ABNORMAL) PHOSPHORUS, INORGANIC PHOSPHATE (08/25/2024 8:15 AM CDT) PHOSPHORUS 2.3(L) 2.5 - 4.9 MG/DL 08/25/2024 9:20 AM CDT [facility] 08/25/2024 8:15 AM CDT Alexandria Longo MD LABORATORY Final Result Performing Organization Address [facility]/ZIP Co de Phone Number [facility] [address] [place] [address], [id number] * POCT glucose (08/25/2024 8:09 AM CDT) GLUCOSE POC 105 70 - 109 08/25/2024 8:11 AM CDT [facility] 08/25/2024 8:0 9 AM CDT us Ariadna Saucedo MD POCT ORDERABLES - DEVICE Final Result Performing Organization Address [facility] Co de Phone Number [facility] [address] [place] [address], [phone] * (ABNORMAL) POCT glucose (08/25/2024 6:25 AM CDT) GLUCOSE POC 209(H) 70 - 109 08/25/2024 6:28 AM CDT [facility] 08/25/2024 6:25 AM CDT us Ariadna Saucedo MD POCT ORDERABLES - DEVICE Final Result Performing Organization Address [facility] de Phone Number [facility] [address] [place] [address], [place] [phone] * MAGNESIUM (08/25/2024 4:50 AM CDT) MAGNESIUM 2.5 1.6 - 2.6 MG/DL 08/25/2024 5:46 AM CDT [facility] Comment:RESULT QUESTIONABLE DUE TO HEMOLYSIS, CONSIDER RECOLLECTION. 08/25/2024 4:50 AM CDT Alexandria Longo MD LABORATORY Final Result Performing Organization Address [facility] de Phone Number [facility] [address] [place] [address], [place] [phone] * (ABNORMAL) COMPREHENSIVE METABOLIC PANEL (08/25/2024 4:50 AM CDT) SODIUM S/P/B 143 136 - 145 MMOL/L 08/25/2024 5:46 AM CDT [facility] POTASSIUM S/P/B 4.0 3.5 - 5.1 MMOL/L 08/25/2024 5:46 AM T [facility] Comment:SLIGHT HEMOLYSIS, RE SULT MAY BE AFFECTED. CHLORIDE S/P/B 109 97 - 115 MMOL/L 08/25/2024 5:46 AM T [facility] CO2 20.6(L) 21.0 - 32.0 MMOL/L 08/25/2024 5:46 AM T [facility] GLUCOSE 268(H) 74 - 106 MG/DL 08/25/2024 5:46 AM T [facility] BUN 36(H) 7 - 18 MG/DL 08/25/2024 5:46 AM T [facility] CREATININE S/P/B 2.02(H) 0.70 - 1.30 MG/DL 08/25/2024 5:46 AM T [facility] CALCIUM S/P/B 8.6 8.5 - 10.1 MG/DL 08/25/2024 5:46 AM T [facility] BILIRUBIN TOTAL S/P/B 0.8 0.2 - 1.0 MG/DL 08/25/2024 5:46 AM T [facility] ALKALINE PHOSPHATASE S/P/B 71 45 - 115 U/L 08/25/2024 5:46 AM T [facility] AST 33 15 - 37 U/L 08/25/2024 5:46 AM T [facility] ALT 24 16 - 61 U/L 08/25/2024 5:46 AM T [facility] TOTAL PROTEIN S/P/B 6.1(L) 6.4 - 8.2 G/DL 08/25/2024 5:46 AM T [facility] ALBUMIN S/P/B 3.3(L) 3.4 - 5.0 G/DL 08/25/2024 5:46 AM T [facility] ANION GAP 13.4(H) 2.0 - 10.0 MMOL/L 08/25/2024 5:46 AM CDT [facility] OSMOLALITY (CALC) 314 MOSM/KG 025 5:46 AM CDT [facility] Comment:REFERENCE RANGE NOT ESTABLISHED GFR ESTIMATE 34(L) >90 ML/MIN/1. 73 M2 08/25/2024 5:46 AM CDT [facility] GFR NOTES GFR REFERENCE S: 08/25/2024 5:46 AM CDT [facility] Comment: THE ESTIMATED GFR IS CALCULATED [...] ml/min/1.73 m2 G5,KIDNEY FAILURE: <15 ml/min/1.73 m2 08/25/2024 4:50 AM CDT us Alexandria Longo MD LABORATORY Final Result Performing Organization Address City/[facility]/ZIP Co de Phone Number [facility] [address] [place] [address], [phone] * (ABNORMAL) POCT glucose (08/25/2024 4:45 AM CDT) GLUCOSE POC 321(H) 70 - 109 08/25/2024 5:23 AM CDT [facility] 08/25/2024 4:45 AM CDT Ariadna Saucedo MD POCT ORDERABLES - DEVICE Final Result [facility] [address] [place] [address], [id number] documented in this encounter Visit Diagnoses Diagnosis DKA (diabetic ketoacidosis) ([facility])- Primary Type II or unspecified type diabetes mellitus with ketoacidosis, not stated as uncontrolled Diabetic ketoacidosis without coma associated with type 1 diabetes mellitus ([facility]) documented in this encounter Admitting Diagnoses Diagnosis DKA (diabetic ketoacidosis) ([facility]) Type II or unspecified type diabetes mellitus with ketoacidosis, not stated as uncontrolled documented in this encounter Administered Medications Inactive Administered Medications - up to 3 most recent administrations Medication Order MAR Action Action Date Dose Rate Site 0.45 % NaCl with KCl 20 mEq infusion at 300 mL/hr, Intravenous, Continuous, Starting on Sun08/25/24 at 0500, Until Sun08/25/24 at 0958, Fluid #1 USE UNTIL GLUCOSE BELOW 200 mg/dL. Then, DISCONTINUE and begin FLUID #2 below. Contact MD if potassium falls below 3.5 or rises above 5.2 New Bag 08/25/2024 4:54 AM CDT 300 mL/hr acetaminophen (TYLENOL) tablet 650 mg 650 mg, Oral, Every 4 hours PRN, Mild pain (Scale 1 - 3), Starting on Sun08/27/24 at 0506, Until Sun09/01/24 at 1641, Maximum dose of acetaminophen is 4000 mg from all sources in 24 hours. Given 08/27/2024 5:24 AM CDT 650 mg aspirin chewable tablet 81 mg 81 mg, Oral, Daily, First dose on Sun08/26/24 at 1015, Until Discontinued Given 08/29/2024 8:22 AM CDT 81 mg Given 08/28/2024 10:07 AM CDT 81 mg Given 08/27/2024 8:12 AM CDT 81 mg aspirin chewable tablet 81 mg 81 mg, Oral, Daily, First dose on Sun08/30/24 at 0900, Until Discontinued Given 09/01/2024 9:33 AM CDT 81 mg Given 08/31/2024 9:28 AM CDT 81 mg Given 08/30/2024 8:36 AM CDT 81 mg atorvastatin (LIPITOR) tablet 20 mg 20 mg, Oral, Daily, First dose on Sun08/26/24 at 1015, Until Discontinued Given 09/01/2024 9:33 AM CDT 20 mg Given 08/31/2024 9:28 AM CDT 20 mg Given 08/30/2024 8:36 AM CDT 20 mg budesonide (PULMICORT) nebulizer solution 0.5 mg 0.5 mg, Nebulization, 2 times daily RT, First dose on Sun08/25/24 at 1900, Until Discontinued, Shake Gently Given 09/01/2024 6:29 AM CDT 0.5 mg Given 08/31/2024 5:40 PM CDT 0.5 mg Given 08/31/2024 6:30 AM CDT 0.5 mg calcium gluconate 2 gram in NS 100 mL IVPB 2 g, Intravenous, at 100 mL/hr, Once, 1 dose, On Sun08/26/24 at 1100 08/26/2024 10:48 AM CDT 2 g 100 mL/hr cefTRIAXone (ROCEPHIN) 1 g in sodium chloride 0.9 % 50 mL IVPB 1 g, Intravenous, at 100 mL/hr, Every 24 hours, 5 doses, First dose on Sun08/25/24 at 1245, Last dose on Sun08/29/24 at 1245 [facility] 08/27/2024 1:23 PM CDT 1 g 100 mL/hr 08/26/2024 11:55 AM CDT 1 g 100 mL/hr [facility] 08/25/2024 1:20 PM CDT 1 g 100 mL/hr cefTRIAXone (ROCEPHIN) 2 g in sodium chloride 0.9 % 50 mL IVPB 2 g, Intravenous, at 100 mL/hr, Every 24 hours, 4 doses, First dose (after last modification) on Sun08/28/24 at 1245, Last dose on Sun08/31/24 at 1245 [facility] 08/31/2024 12:55 PM CDT 2 g 100 mL/hr 08/30/2024 2:40 PM CDT 2 g 100 mL/hr [facility] 08/29/2024 12:54 PM CDT 2 g 100 mL/hr clopidogrel (PLAVIX) tablet 75 mg 75 mg, Oral, Daily, First dose on Sun08/26/24 at 1015, Until Discontinued Given 08/29/2024 8:22 AM CDT 75 mg Given 08/28/2024 11:01 AM CDT 75 mg Given 08/27/2024 8:12 AM CDT 75 mg clopidogrel (PLAVIX) tablet 75 mg 75 mg, Oral, Daily, First dose on Sun08/30/24 at 0900, Until Discontinued Given 09/01/2024 9:33 AM CDT 75 mg Given 08/31/2024 9:28 AM CDT 75 mg Given 08/30/2024 8:36 AM CDT 75 mg dextrose 10 % bolus infusion 125-250 mL 125-250 mL, Intravenous, Administer over 15 Minutes, As needed, Low blood sugar, Starting on Sun08/25/24 at 0438, Until Sun09/01/24 at 1641, Use in conjunction with DKA insulin and fluid orders. Glucose 70-100 - give 125 mL (12.5 g) Glucose below 70 - give 250 mL (25 g) When insulin infusion is discontinued, discontinue this order and use standard hypoglycemia standing orders. New Bag 08/31/2024 6:06 AM CDT 250 mLs 999 mL/hr New Bag 08/29/2024 6:08 AM CDT 125 mLs 500 mL/hr New Bag 08/29/2024 4:56 AM CDT 250 mLs 1000 mL/hr dextrose 10 % infusion at 75 mL/hr, Intravenous, Continuous, Starting on Sun08/25/24 at 1600, Until Sun08/26/24 at 1752 New Bag 08/26/2024 5:23 AM CDT 75 mL/hr New Bag 08/26/2024 12:59 AM CDT 75 mL/hr New Bag 08/25/2024 9:34 PM CDT 75 mL/hr dextrose 10 % infusion at 50 mL/hr, Intravenous, Continuous, Starting on Sun08/29/24 at 0700, Until Sun08/29/24 at 1859 Rate/Dose Change 08/29/2024 4:25 PM CDT 50 mL/hr New Bag 08/29/2024 7:15 AM CDT 75 mL/hr dextrose 5 % and 0.45 % NaCl with KCl 20 mEq infusion at 250 mL/hr, Intravenous, Continuous, Starting on Sun08/25/24 at 0500, Until Sun08/25/24 at 0958, IV fluid #2 begin when glucose falls BELOW 200 mg/dL. Continue REGARDLESS of subsequent glucose. Contact MD if potassium falls below 3.5 or above 5.2 New Bag 08/25/2024 8:16 AM CDT 250 mL/hr dextrose 50 % solution 1 dose, Starting on Sun08/25/24 at 1539, Until Sun08/25/24 at 1541, Created by cabinet override Given 08/25/2024 3:41 PM CDT 25 g enoxaparin (LOVENOX) 30 mg/0.3 mL syringe 30 mg 30 mg, Subcutaneous, Every 24 hours, First dose on Sun08/25/24 at 0900, Until Discontinued, Administer by deep SubQ injection alternating between the left or right anterolateral and left or right posterolateral abdominal wall. Given 08/26/2024 8:39 AM CDT 30 mg Left Upper Abdomen Given 08/25/2024 8:51 AM CDT 30 mg Ri ght Lower Abdomen enoxaparin (LOVENOX) 40 MG/0.4ML syringe 40 mg 40 mg, Subcutaneous, Every 24 hours, First dose (after last modification) on Sun08/27/24 at 0900, Until Discontinued, Administer by deep SubQ injection alternating between the left or right anterolateral and left or right posterolateral abdominal wall. Given 08/29/2024 8:22 AM CDT 40 mg Right Lower Abdomen Given 08/28/2024 10:09 AM CDT 40 mg L eft Lower Abdomen Given 08/27/2024 8:12 AM CDT 40 mg Le ft Lower Abdomen gadoterate meglumine (DOTAREM) 5 MMOL/10ML injection 13 mL 13 mL, Intravenous, IMG once as needed, Contrast, Contrast, 1 dose, Starting on Sun08/26/24 at 1859, Until Sun08/26/24 at 1859 Given 08/26/2024 6:59 PM CDT 13 mLs glucagon injection 1 mg 1 mg, Intramuscular, Once as needed, Other, Low blood sugar, 1 dose, Starting on Sun08/25/24 at 0438, Until Sun09/01/24 at 1641, If patient is verbally UNresponsive and no IV access with blood glucose less than 70 mg/dL. Do NOT repeat administration. insulin glargine (LANTUS) injection 10 Units 10 Units, Subcutaneous, Every morning, First dose on Sun08/28/24 at 0815, Until Discontinued Given 08/28/2024 11:00 AM CDT 10 Units Left Arm insulin glargine (LANTUS) injection 10 Units 10 Units, Subcutaneous, 2 times daily, First dose (after last modification) on Tita 08/28/24 at 2100, Until Discontinued Given 08/28/2024 10:22 PM CDT 10 Units Left Arm insulin glargine (LANTUS) injection 2 Units 2 Units, Subcutaneous, Nightly at bedtime, First dose (after last modification) on Sun08/31/24 at 2100, Until Discontinued Given 08/31/2024 10:13 PM CDT 2 Units Left Arm insulin glargine (LANTUS) injection 20 Units 20 Units, Subcutaneous, Every morning, First dose on Sun08/25/24 at 1015, Until Discontinued Given 08/25/2024 10:11 AM CDT 20 Units Right Lower Abdomen insulin glargine (LANTUS) injection 3 Units 3 Units, Subcutaneous, Nightly at bedtime, First dose on Sun08/29/24 at 2100, Until Discontinued Given 08/29/2024 9:39 PM CDT 3 Units Right Arm insulin glargine (LANTUS) injection 5 Units 5 Units, Subcutaneous, Nightly at bedtime, First dose (after last modification) on Sun08/30/24 at 2100, Until Discontinued Given 08/30/2024 9:25 PM CDT 5 Units Right Arm insulin glargine (LANTUS) injection 8 Units 8 Units, Subcutaneous, 2 times daily, First dose (after last modification) on Sun08/29/24 at 0900, Until Discontinued Given 08/29/2024 8:22 AM CDT 8 Units Left Lower Abdomen insulin glargine (LANTUS) injection 8 Units 8 Units, Subcutaneous, Daily, First dose (after last modification) on Sun08/30/24 at 0900, Until Discontinued Given 09/01/2024 9:37 AM CDT 8 Units Left Lower Abdomen Given 08/30/2024 8:36 AM CDT 8 Units Le ft Arm insulin lispro (HUMALOG/ADMELOG) injection 0-5 Units 0-5 Units, Subcutaneous, 4 times daily with meals and nightly, First dose (after last modification) on Sun08/29/24 at 1700, Until Discontinued, Humalog for high blood sugars. 150-200 +1 unit 201-250 +2 unit 251-300 +3 units 301-350 +4 units 351-400 +5 units. Given 09/01/2024 12:56 PM CDT 3 Units Left Lower Abdomen Given 09/01/2024 9:37 AM CDT 2 Units Le ft Lower Abdomen Given 08/31/2024 10:12 PM CDT 2 Units L eft Arm insulin lispro (HUMALOG/ADMELOG) injection 0-8 Units 0-8 Units, Subcutaneous, 4 times daily with meals and nightly, First dose (after last modification) on Sun08/25/24 at 1200, Until Discontinued, From sliding scale insulin subcut med order set - For TDI 30 - 59 units Blood Glucose: (Less than 70: Initiate Hypoglycemia Standing Orders) (70 - 149, administer 0 units) (150 - 199, administer 2 units) (200 - 249, administer 3 units) (250 - 299, administer 5 units) (300 - 349, administer 7 units) (Greater than 349, administer 8 units and Call Physician) Given 08/29/2024 8:22 AM CDT 2 Units Left Lower Abdomen Given 08/28/2024 6:19 PM CDT 3 Units Le ft Arm Given 08/28/2024 1:51 PM CDT 5 Units Le ft Arm insulin lispro (HUMALOG/ADMELOG) injection 2 Units 2 Units, Subcutaneous, 3 times daily with meals, First dose on Sun08/30/24 at 1700, Until Discontinued, For sliding scale, activate Sliding Scale Insulin order set. Given 08/31/2024 5:36 PM CDT 1,002 Units Right Arm Given 08/31/2024 12:14 PM CDT 2 Units R ight Arm insulin lispro (HUMALOG/ADMELOG) injection 4 Units 4 Units, Subcutaneous, 3 times daily with meals, First dose (after last modification) on Sun09/01/24 at 1200, Until Discontinued, For sliding scale, activate Sliding Scale Insulin order set. Given 09/01/2024 12:57 PM CDT 4 Units Left Lower Abdomen insulin lispro (HUMALOG/ADMELOG) injection 6 Units 6 Units, Subcutaneous, 3 times daily with meals, First dose on 08/28/24 at 1700, Until Discontinued, For sliding scale, activate Sliding Scale Insulin order set. Given 08/29/2024 8:23 AM CDT 6 Units Left Lower Abdomen Given 08/28/2024 6:18 PM CDT 6 Units Le ft Arm insulin regular (MYXREDLIN) 1 unit/mL in NS 100 mL infusion (PREMIX) 0.02-0.1 Units/kg/hr 60.8 kg (1.216-6.08 mL/hr, rounded to 1.22-6.08 mL/hr), Intravenous, Continuous, Starting on Sun08/25/24 at 0500, Until Sun08/25/24 at 0958, Adult DKA Insulin Infusion Calculator Use with DKA Fluid orders. If not ordered, contact MD Do NOT start insulin if potassium below 3.3 Notify provider when anion gap normalizes and bicarb greater than 15. *High Alert* Rate/Dose Verify 08/25/2024 11:09 AM CDT 0.03 Units/kg/hr 1.82 mL/hr Rate/Dose Verify 08/25/2024 10:07 AM CDT 0.03 Units/kg/hr 1.82 mL/hr Rate/Dose Change 08/25/2024 9:12 AM CDT 0.03 Units/kg/hr 1 .82 mL/hr ipratropium-albuterol (DUONEB) 0.5-2.5 (3) MG/3ML nebulizer solution 3 mL 3 mL, Nebulization, Every 4 hours RT, First dose on Sun08/25/24 at 1830, Until Discontinued Given 09/01/2024 9:35 AM CDT 3 mLs Given 09/01/2024 6:29 AM CDT 3 mLs Given 08/31/2024 10:14 PM CDT 3 mLs lactated ringers bolus infusion 2,000 mL 2,000 mL, Intravenous, Administer over 120 Minutes, Once, 1 dose, On Sun08/25/24 at 0515 New Bag 08/25/2024 4:59 AM CDT 2,000 mLs 1000 mL/hr lactated ringers bolus infusion 2,000 mL 2,000 mL, Intravenous, Administer over 120 Minutes, Once, 1 dose, On Sun08/25/24 at 0730 New Bag 08/25/2024 8:23 AM CDT 2,000 mLs 1000 mL/hr lactated ringers bolus infusion 2,000 mL 2,000 mL, Intravenous, Administer over 60 Minutes, Once, 1 dose, On Sun08/25/24 at 1430, Do not Co-administer with Ceftriaxone New Bag 08/25/2024 2:30 PM CDT 2,000 mLs 2000 mL/hr lactated ringers bolus infusion 2,000 mL 2,000 mL, Intravenous, Administer over 60 Minutes, Once, 1 dose, On Sun08/26/24 at 1100 New Bag 08/26/2024 10:47 AM CDT 2,000 mLs 2000 mL/hr lactated ringers bolus infusion 2,000 mL 2,000 mL, Intravenous, Administer over 60 Minutes, Once, 1 dose, On Sun08/27/24 at 1000 New Bag 08/27/2024 9:50 AM CDT 2,000 mLs 2000 mL/hr levothyroxine (SYNTHROID) tablet 112 mcg 112 mcg, Oral, Daily (levothyroxine), First dose on Sun08/26/24 at 1015, Until Discontinued, Avoid iron, calcium, and antacids within 4 hours of administration. Given 09/01/2024 6:28 AM CDT 112 mcg Given 08/31/2024 6:06 AM CDT 112 mcg Given 08/30/2024 6:41 AM CDT 112 mcg lidocaine 2 % URO-JET jelly Topical, As needed, Other, Before straight catheter, Starting on Sun08/26/24 at 0056, Until Sun08/27/24 at 0804 Given 08/26/2024 1:19 AM CDT 10 mLs normal saline 0.9 % flush 3-10 mL 3-10 mL, Intravenous, Every 8 hours, First dose on Sun08/25/24 at 0500, Until Discontinued Given 09/01/2024 12:57 PM CDT 10 mLs Given 09/01/2024 6:31 AM CDT 5 mLs Given 08/31/2024 10:15 PM CDT 5 mLs normal saline 0.9 % flush 3-10 mL 3-10 mL, Intravenous, As needed, Line care, Starting on Sun08/25/24 at 0438, Until Sun09/01/24 at 1641 ondansetron (ZOFRAN) injection 4 mg 4 mg, Intravenous, Every 8 hours PRN, Nausea, Vomiting, Starting on Sun08/25/24 at 0438, Until Sun09/01/24 at 1641, IV push over 2-5 minutes. polyethylene glycol (GLYCOLAX) packet 1 packet 1 packet, Oral, Daily, First dose on Sun08/31/24 at 1300, Until Discontinued, Dissolve entire packet in 240 mL of water Given 09/01/2024 9:34 AM CDT 1 packet Given 08/31/2024 12:56 PM CDT 1 packet potassium chloride CR (KLOR-CON M) tablet 40 mEq 40 mEq, Oral, Once, 1 dose, On Sun08/26/24 at 1100, Do not chew, crush, or suck on tablet. May break in half. May dissolve whole tablet in 120 mL of water and drink immediately. Given 08/26/2024 10:47 AM CDT 40 mEq potassium phosphate 45 mmol in sodium chloride 0.9 % 500 mL IVPB 45 mmol, Intravenous, at 76.9 mL/hr, Once, 1 dose, On Sun08/25/24 at 1830, For each 1 mmol of phosphate, ~1.5 mEq of potassium will be administered. New Bag 08/25/2024 6:33 PM CDT 45 mmol 76.9 mL/hr senna-docusate (SENOKOT-S) 8.6-50 MG tablet 2 tablet 2 tablet, Oral, Nightly at bedtime, First dose on Sun08/31/24 at 2100, Until Discontinued Given 08/31/2024 10:14 PM CDT 2 tablets documented in this encounter Active and Recently Administered Medications Times are shown in CDT. Scheduled Medication Order 08/30/2024 08/31/2024 09/01/2024 aspirin chewable tablet 81 mg 81 mg, Oral, Daily, First dose on Sun08/30/24 at 0900, Until Discontinued 08 (Given - Provider: Val Hernandez RN) 0928 (Given - Provider: Alvarado Magallon LPN) 0933 (Given - Provider: Lien Mcelroy RN) atorvastatin (LIPITOR) tablet 20 mg 20 mg, Oral, Daily, First dose on Sun08/26/24 at 1015, Until Discontinued 0836 (Given - Provider: Val Hernandez RN) 0928 (Given - Provider: Alvarado Magallon LPN) 0933 (Given - Provider: Lien Mcelroy, FRANCISCO) budesonide (PULMICORT) nebulizer solution 0.5 mg 0.5 mg, Nebulization, 2 times daily RT, First dose on 08/25/24 at 1900, Until Discontinued, Shake Gently 0641 (Given - Provider: Radha Mijares RN - Comment: scanned w/ other neb - didn't get recorded)1832 (Not Given - Provider: Val Hernandez RN - Reason: Patient/family declined) 0630 (Given - Provider: Radha Mijares RN)1740 (Given - Provider: Alvarado Magallon LPN) 0629 (Given - Provider: Radha Mijares RN) cefTRIAXone (ROCEPHIN) 2 g in sodium chloride 0.9 % 50 mL IVPB (COMPLETED) 2 g, Intravenous, at 100 mL/hr, Every 24 hours, 4 doses, First dose (after last modification) on Tita 08/28/24 at 1245, Last dose on 08/31/24 at 1245 1440 (New Bag - Provider: Val Hernandez RN)1510 (Infusion Stop Time - Provider: Val Hernandez RN) 1255 (New Bag - Provider: Alvarado Magallon LPN)1325 (Infusion Stop Time - Provider: Briana Austin RN) clopidogrel (PLAVIX) tablet 75 mg 75 mg, Oral, Daily, First dose on 08/30/24 at 0900, Until Discontinued 0836 (Given - Provider: Val Hernandez RN) 09 (Given - Provider: Alvarado Magallon LPN) 0933 (Given - Provider: Lien Mcelroy, FRANCISCO) insulin glargine (LANTUS) injection 2 Units 2 Units, Subcutaneous, Nightly at bedtime, First dose (after last modification) on 08/31/24 at 2100, Until Discontinued 221 (Given - Provider: Radha Mijares RN) insulin glargine (LANTUS) injection 5 Units (CANCELED) 5 Units, Subcutaneous, Nightly at bedtime, First dose (after last modification) on Sat /29/25 at 2100, Until Discontinued 2124 (Given - Provider: Radha Mijares RN) insulin glargine (LANTUS) injection 8 Units 8 Units, Subcutaneous, Daily, First dose (after last modification) on Sun08/30/24 at 0900, Until Discontinued 08 (Given - Provider: Val Hernandez RN) 0929 (Not Given - Provider: Alvarado Magallon LPN - Reason: Contraindicated) 0937 (Given - Provider: Lien Mcelroy RN) insulin lispro (HUMALOG/ADMELOG) injection 0-5 Units 0-5 Units, Subcutaneous, 4 times daily with meals and nightly, First dose (after last modification) on Sun08/29/24 at 1700, Until Discontinued, Humalog for high blood sugars. 150-200 +1 unit 201-250 +2 unit 251-300 +3 units 301-350 +4 units 351-400 +5 units. 0601 (Not Given - Provider: Radha Mijares RN - Reason: Order parameters not met)1440 (Given - Provider: Val Hernandez RN)1650 (Not Given - Provider: Val Hernandez RN - Reason: Order parameters not met - Comment: bs 106)2119 (Not Given - Provider: Radha Mijares RN - Reason: Order parameters not met) 0933 (Not Given - Provider: Alvarado Magallon LPN - Reason: Order parameters not met)1215 (Given - Provider: Alvarado Magallon LPN)1738 (Given - Provider: Alvarado Magallon LPN)2212 (Given - Provider: Radha Mijares RN) 0937 (Given - Provider: Lien Mcelroy RN)1256 (Given - Provider: Lien Mcelroy RN) insulin lispro (HUMALOG/ADMELOG) injection 2 Units (CANCELED) 2 Units, Subcutaneous, 3 times daily with meals, First dose on Sun08/30/24 at 1700, Until Discontinued, For sliding scale, activate Sliding Scale Insulin order set. 1650 (Not Given - Provider: Val Hernandez RN - Reason: Other - Comment: patient not eating dinner, bs 106) 0933 (Not Given - Provider: Alvarado Magallon LPN - Reason: Order parameters not met)1214 (Given - Provider: Alvarado Magallon LPN)1736 (Given - Provider: Alvarado Magallon LPN) 0939 (Not Given - Provider: Lien Mcelroy RN - Reason: Medication Discontinued) insulin lispro (HUMALOG/ADMELOG) injection 4 Units 4 Units, Subcutaneous, 3 times daily with meals, First dose (after last modification) on Sun09/01/24 at 1200, Until Discontinued, For sliding scale, activate Sliding Scale Insulin order set. 1257 (Given - Provider: Lien Mcelroy, FRANCISCO) ipratropium-albuterol (DUONEB) 0.5-2.5 (3) MG/3ML nebulizer solution 3 mL 3 mL, Nebulization, Every 4 hours RT, First dose on Sun08/25/24 at 1830, Until Discontinued 0137 (Not Given - Provider: Radha Mijares RN - Reason: Patient sleeping)0641 (Given - Provider: Radha Mijares RN)1117 (Given - Provider: Val Hernandez RN)1635 (Given - Provider: Val Hernandez RN)1745 (Not Given - Provider: Val Hernandez RN - Reason: Other - Comment: too close to previous dose)2138 (Given - Provider: Radha Mijares RN) 0238 (Not Given - Provider: Radha Mijarse RN - Reason: Patient sleeping)0629 (Given - Provider: Radha Mijares RN)0934 (Not Given - Provider: Alvarado Magallon LPN - Reason: Patient already took)1555 (Not Given - Provider: Alvarado Magallon LPN - Reason: Other)1740 (Given - Provider: Alvarado Magallon LPN)2214 (Given - Provider: Radha Mijares RN) 0147 (Not Given - Provider: Radha Mijares RN - Reason: Patient sleeping)0629 (Given - Provider: Radha Mijares RN)0935 (Given - Provider: Lien Mcelroy RN)1439 (Not Given - Provider: Briana Austin RN - Reason: Patient not available) levothyroxine (SYNTHROID) tablet 112 mcg 112 mcg, Oral, Daily (levothyroxine), First dose on Sun08/26/24 at 1015, Until Discontinued, Avoid iron, calcium, and antacids within 4 hours of administration. 0641 (Given - Provider: Radha Mijares RN) 0606 (Given - Provider: Radha Mijares RN) 0628 (Given - Provider: Radha Mijares RN) normal saline 0.9 % flush 3-10 mL 3-10 mL, Intravenous, Every 8 hours, First dose on Sun08/25/24 at 0500, Until Discontinued 0500 (Given - Provider: Radha Mijares RN)1037 (Not Given - Provider: Val Hernandez RN - Reason: Patient already took)2132 (Given - Provider: Radha Mijares RN) 0606 (Given - Provider: Radha Mijares RN)1306 (Given - Provider: Alvarado Magallon LPN)2215 (Given - Provider: Radha Mijares RN) 0631 (Given - Provider: Radha Mijares RN)1257 (Given - Provider: Lien Mcelroy RN) polyethylene glycol (GLYCOLAX) packet 1 packet 1 packet, Oral, Daily, First dose on Sun08/31/24 at 1300, Until Discontinued, Dissolve entire packet in 240 mL of water 1256 (Given - Provider: Alvarado Magallon LPN) 0934 (Given - Provider: Lien Mcelroy RN) senna-docusate (SENOKOT-S) 8.6-50 MG tablet 2 tablet 2 tablet, Oral, Nightly at bedtime, First dose on Sun08/31/24 at 2100, Until Discontinued 221 (Given - Provider: Radha Mijares RN) PRN Medication Order 08/30/2024 08/31/2024 09/01/2024 acetaminophen (TYLENOL) tablet 650 mg 650 mg, Oral, Every 4 hours PRN, Mild pain (Scale 1 - 3), Starting on Sun08/27/24 at 0506, Until Sun09/01/24 at 1641, Maximum dose of acetaminophen is 4000 mg from all sources in 24 hours. dextrose 10 % bolus infusion 125-250 mL 125-250 mL, Intravenous, Administer over 15 Minutes, As needed, Low blood sugar, Starting on Sun08/25/24 at 0438, Until Sun09/01/24 at 1641, Use in conjunction with DKA insulin and fluid orders. Glucose 70-100 - give 125 mL (12.5 g) Glucose below 70 - give 250 mL (25 g) When insulin infusion is discontinued, discontinue this order and use standard hypoglycemia standing orders. 0606 (New Bag - Provider: Da Mijares, FRANCISCO)0621 (Infusion Stop Time - Provider: Radha Mijares RN) glucagon injection 1 mg 1 mg, Intramuscular, Once as needed, Other, Low blood sugar, 1 dose, Starting on Sun08/25/24 at 0438, Until Sun09/01/24 at 1641, If patient is verbally UNresponsive and no IV access with blood glucose less than 70 mg/dL. Do NOT repeat administration. normal saline 0.9 % flush 3-10 mL 3-10 mL, Intravenous, As needed, Line care, Starting on Sun08/25/24 at 0438, Until Sun09/01/24 at 1641 ondansetron (ZOFRAN) injection 4 mg 4 mg, Intravenous, Every 8 hours PRN, Nausea, Vomiting, Starting on Sun08/25/24 at 0438, Until Sun09/01/24 at 164, IV push over 2-5 minutes. documented in this encounter Additional Health Concerns Infection Onset Date Last Indicated Resolved Time Respiratory Rule-Out 08/25/2024 08/25/2024 025 2:16 PM CDT documented as of this encounter Care Teams [employer] Database Consultant Relationship Specialty Start Date End Date Otoniel Melton MD [address] [place] [id number] PCP - General FAMILY PRACTICE 02/15/21 documented as of this encounter
--- OUTSIDE RECORDS SUMMARY | 2024-09-01 17:20 | XMS_ITS | Data Portability ---
Author Organization [facility], [address] [place] [address] Neurology ([place]) Address [address] [address] Care Team Providers Care Class A Lineman Name Role Phone KIM MONTES Marketing Intelligence Manager TANO PERKINS Franchise Sales Representative OTONIEL MELTON Primary Care Provider [phone] Assessment Encounter Date Assessment Date Assessment LastModified by Organization Details LastModified Time 03/04/2024 03/04/2024 SUBJECTIVE: Mr. Raysa Valiente, 73-year-old male, with severe degenerative mitral regurgitation, comes in for followup visit. He recently had surgery for cervical spinal cord compression. He has been having issues with shortness of breath with activities like going outside to get the mail. Symptoms improve with rest. He denies resting shortness of breath, orthopnea, PND, ankle edema, palpitations. He denies chest pain, chest tightness, chest pressure. Last BNP was elevated. He recently underwent further workup for severe mitral regurgitation, including ERNESTINA and a left heart cath. His ERNESTINA was aborted as the probe could not be passed out through the upper esophagus. He was subsequently seen by GI and he is undergoing EGD tomorrow for dysphagia. His left heart cath on 02/01/2024, showed mild nonobstructive CAD involving LAD, diagonal and circumflex. His EDP was normal. EF was 55%. Recent blood work is unremarkable from cardiac standpoint. Last 12 lead EKG from 12/10/2023, showed sinus rhythm, first degree AV block and PACs. He has nonspecific ST and T wave changes. nv PREVIOUS CARDIAC WORKUP: 1. Transthoracic echo, 07/27/2023, showed EF 60% with normal RV size and function. He had severe prolapse of the posterior leaflet with moderate to severe eccentric mitral regurgitation. 2. Exercise treadmill test on August 28, 2023. He was able to exercise for 3 minutes and 54 seconds, up to stage 2 of Otoniel protocol. He achieved a workload of 4.8 METs. The test was stopped due to dyspnea. IMPRESSION: 73-year-old male with severe degenerative mitral regurgitation, comes in for followup. chase PLAN: 1. Severe mitral regurgitation. NYHA class II symptoms. He is euvolemic on exam. His blood pressure is normal. With his ongoing symptoms and elevated BNP with severe mitral regurgitation, he meets the criteria for mitral valve repair/replacement . After his EGD, we will proceed with second attempt at ERNESTINA for further confirm the anatomy, severity and etiology of mitral regurgitation. His left heart cath shows nonobstructive disease. After his ERNESTINA, we will consult CT Surgery to determine whether surgical or transcatheter aortic valve intervention should be performed. The plan of care was discussed with patient and all of his questions were answered. Patient was counseled regarding lifestyle modification healthy diet, daily exercise and weight loss. Patient understood the care plan and voiced no concerns. Followup visit after ERNESTINA. chase [email or web address] Not available 03/06/2024 09:03:54 07/01/2024 07/01/2024 SUBJECTIVE: Mr. Raysa Valiente, 73-year-old male, with severe degenerative mitral regurgitation, comes in for followup visit. He has mild dyspnea with activities like walking outside. He denies resting shortness of breath, orthopnea. He has minimal lower extremity edema. No reports of chest pain, chest tightness, chest pressure. He has not required heart failure hospitalization. His last BNP was elevated though. He underwent further cardiac workup, which showed nonobstructive CAD. His ERNESTINA confirmed primary mitral regurgitation with flail mitral posterior leaflet involving P1 and P2 scallops. He was subsequently seen by Dr. Dawson, who deemed him at high risk for mitral valve repair and replacement. We discussed his case in our structural heart team meeting and he was thought to be an appropriate candidate for transcatheter jktj-ny-bhgh mitral valve repair. His 12 lead EKG today shows sinus rhythm with first degree AV block and PACs. chase PREVIOUS CARDIAC WORKUP: 1. Left heart cath, 02/01/2024, showed mild nonobstructive CAD involving LAD, diagonal and circumflex. EDP was normal. EF was 55% on left ventriculogram. 2. ERNESTINA on 04/30/2024, EF 60%-65% with dilated left atrium. There is flail posterior mitral valve leaflet involving P1 and P2 scallops. The jet is anteriorly directed. 3. Transthoracic echo, 07/27/2023, showed EF 60% with normal RV size and function. He had severe prolapse of the posterior leaflet with moderate to severe eccentric mitral regurgitation. 4. Exercise treadmill test on August 28, 2023. He was able to exercise for 3 minutes and 54 seconds, up to stage 2 of Otoniel protocol. He achieved a workload of 4.8 METs. The test was stopped due to dyspnea. IMPRESSION: 73-year-old male, comes in for management of severe mitral regurgitation. nv PLAN: 1. Severe degenerative mitral regurgitation, flail P1 and P2. He has NYHA class II symptoms. Previous BNP was elevated. EF is normal. He has been deemed high risk for surgical mitral valve repair/replacement . He is a good candidate for transcatheter [id number]-[id number] mitral valve repair. His procedure is scheduled at the end of July. I will see him in preop visit on 21 of July. He is going to have his teeth pulled on 10 of July as well. I discussed the risk associated with the procedure, including the risk of vascular complication, pericardial effusion, stroke, myocardial infarction and . He understands the risk and would like to proceed. We will recommend continuation of p.r.n. Lasix. Patient was counseled regarding lifestyle modification healthy diet, daily exercise and weight loss. Patient understood the care plan and voiced no concerns. Followup visit as scheduled as preop visit on July 21. nv Not available 07/01/2024 19:03:02 07/17/2024 07/17/2024 REASONS FOR FOLLOW-UP: 1. Type 1 diabetes mellitus. 2. Primary hypothyroidism. 3. Hypoglycemia unawareness. HISTORY OF PRESENT ILLNESS: Mr. Raysa Valiente is a delightful male returning to endocrine clinic. He was diagnosed with type 1 diabetes mellitus at 31 years of age. He was treated briefly with oral medications for less than one year, then required insulin. He has microvascular complication of peripheral neuropathy affecting his feet. Denies any current painful paresthesias. No evidence of diabetes pathology on eye examination April 08, 2021. Eye examination December 19, 2022, made no mention of retinopathy per the dictated report. CGM data were downloaded and reviewed with the patient at the time of his appointment. Glycemic control has fluctuated somewhat. Hemoglobin A1c in June 2024 was 7.1%. Average sensor glucose 164 with standard deviation of 74. There is pattern of hyperglycemia following meals. Occasional hypoglycemia noted around 7 a.m. No patterns of severe hypoglycemia noted. Overall, glucose values are above 250 a total of 13% of the time; 181 to 250 a total of 25% of the time; 70 to 180 a total of 53% of the time; and below 70 a total of 9% of the time. Mr. Valiente has primary hypothyroidism. TSH exceeded 17 in June 2022. He increased levothyroxine to 112 micrograms each day at that time. Mr. Valiente fell and sustained intracranial hemorrhage in October of 2023. He then required cervical spine fusion in December 2023. He feels overall that he is making a very slow recovery. Mr. Valiente has mitral valve disease and will be having a mitral clipping procedure performed in late July 2024. PHYSICAL EXAMINATION: CONST: The patient is in no acute distress. Appears well. Vitals as documented. EYES: PERRL. EOMI. No scleral icterus or injection. No exophthalmos or lid lag. ENT: External inspection of the ears and nose is without scars, lesions, or masses. Oropharynx is pink, moist, and without lesions. Neck without thyromegaly, thyroid bruits, or carotid bruits. No cervical or supraclavicular lymphadenopathy. RESP: Lung daley clear to auscultation bilaterally with unlabored respiratory effort. CV: Heart rhythm regular. DP pulses palpable. There is a grade III/ systolic murmur most audible over the left mitral valve region. No lower extremity edema. GI: Abdomen is soft and nontender. Normoactive bowel sounds. No organomegaly. MSK: No lower extremity edema. No clubbing or cyanosis. Normocephalic. SKIN: No rashes or lesions. Mild pre-ulcerative callus seen. No foot wounds noted. Acanthosis and skin tags absent. Onychomycosis present. PSYCH: Alert and oriented x3. Appropriate mood and affect. NEURO: No focal neurologic deficits. Gait without abnormalities. No hand tremors. Monofilament sensation of the feet normal on examination July 17, 2024. Reviewed recent diagnostic tests, lab work, and imaging. These were reviewed with the patient. DIAGNOSTIC DATA: June 2024: Hemoglobin A1c 7.1%. Urine kdlpsuymlauq-xe-vw eatinine ratio slightly elevated at 35. Vitamin B12 level was 1549. Cholesterol 181, triglycerides 92, HDL 76, LDL 87. Glucose 146, creatinine 1.16. AST, ALT, alkaline phosphatase were normal. TSH 17.73, reflective of a dose of levothyroxine 100 micrograms daily. ASSESSMENT: 1. Type 1 diabetes mellitus with microvascular complication of mild peripheral neuropathy affecting the feet. 2. Valvular heart disease. 3. Hypercholesterolem ia. 4. Hypercholesterolem ia. 5. Hypertension. 6. Primary hypothyroidism. 7. History of frequent hypoglycemia unawareness with history of severe hypoglycemia: These episodes have essentially resolved with implementation of his Dexcom CGM. 8. Cervical spine fusion in December 2023. RECOMMENDATIONS: 1. Glycemic goals were reviewed in detail today with the patient. Changes in diabetes program as outlined in diabetes management flowsheet. The parameters for communicating the patient s glucose values to our office were discussed. Potential microvascular and macrovascular complications of hyperglycemia were reviewed with the patient at the time of the appointment. 2. Potential benefits, risks, and adverse effects of the patient s endocrine medications were reviewed at the time of the appointment. We also reviewed appropriate timing of the patient s endocrine medications with respect to meals and other medications. The patient verbalized/indicat ed understanding of all education presented. 3. The patient was instructed on the plan of care. We discussed signs and symptoms to report. The patient/caregiver is aware and agreeable with plan. Return to clinic if signs or symptoms do not improve, worsen, or if new symptoms develop. The importance of achieving and maintaining a normal BMI was discussed. 4. Diagnostic studies as outlined in this note. Further recommendations will be based on these results as well as the patient s clinical course. 5. Return to endocrinology clinic in 6 months per the patient's request due to geographic circumstances. 6. Lantus will be changed to 10 units each morning and 5 units at bedtime. Humalog will range from 14 to 20 units at meals based on glucose values as well as meal patterns. He will also use prandial correction as outlined in the diabetes management flowsheet. 7. The patient is an ideal candidate for a continuous glucose monitor (CGM). A continuous glucose monitor will improve patient safety by alerting the patient to evolving hypoglycemia. Furthermore, a personal CGM will allow the patient to treat hyperglycemia more aggressively with the assurance the patient will be notified of any developing hypoglycemia. Lessening the degree of hyperglycemia can reduce the risks of microvascular/macr ovascular complications from diabetes mellitus. 8. Multiple diagnostic studies will be performed as outlined in this note. 9. Continue statin therapy. [email or web address] Not available 07/17/2024 20:26:10 Plan of Treatment Reminders Order Date Submit Date Provider Last Modified By Organization Details Last Modified Time Details Appointments Establish ed Patient 15.EST 2024 11:30A M Dr. Kim Montes Not available Not available Not available Establish ed Patient 15.EST 2024 01:30P M Dr. Frantz Dee Not available Not available Not available Lab T4, free, serum 2024 025 [facility] Only - [facility], [address] [place] [address], [id number], 08/31/2024 12:45:35 hemoglobi n A1c + average glucose, QN, blood 2024 025 [facility] Only - [facility], [address] [place] [address], [id number], 08/25/2024 06:45:07 TSH, serum or plasma 2024 025 [facility] Only - [facility], [address] [place] [address], [id number], 08/25/2024 06:45:20 Referral None recorded. Procedures None recorded. Surgeries None recorded. Imaging None recorded. Medication Orders Lantus Solostar U-100 Insulin 100 unit/mL (3 mL) subcutane ous pen 2024 025 [id number], [address], [place], [phone], 07/17/2024 18:00:52 Humalog KwikPen (U-100) Insulin 100 unit/mL subcutane ous 2024 025 [facility][id number], [address], [place], [phone], 07/17/2024 18:00:52 Patient TargetsNo targets recorded. Patient InstructionsNo instructions recorded. Reason for Referral None Reported. Results Created Date Observation Date Name Description Value Unit Range Abnormal Flag Note LastModifiedBy Organization Detail LastModifiedTime 03/05/20 24 03/05/2024 gluco , abrahame rstic k, blood Blood Glucose: mg/dl 227 Not Available Admini strativ e Office ([facility]) [address] [place] [address], [phone], 03/05/2024 12:45:44 03/05/2003/05/2024 gluco , abrahame rstic k, blood Blood Glucose: mg/dl 218 Not Available Admini strativ e Office ([facility]) [address] [place] [address], [phone], 03/05/2024 11:35:56 07/21/19 25 07/23/2024 C MRSA MRSA culture (new) Print Date/ Time: 2024 10:12 SECURITY INSTALLER Patie nt: VARNE R, SOTO E L Micro biolo gy - Misce anastasiia merrills Marcus d: c=Cor recte d, F=Res ult Comme nt, S=Jackie cepti ble, I=Int ermed iate, R=Res istan t, N/A=N ot Appli cable PROCE DURE: MRSA Cultu re [] ACCES SAMIR: [id number] SOURC E: Nasal BODY SITE: COLLE CTED DATE/ TIME: 2024 12:30 SECURITY INSTALLER RECEI REYNOLD DATE/ TIME: 2024 14:05 SECURITY INSTALLER START DATE/ TIME: 2024 14:05 SECURITY INSTALLER FREE TEXT SOURC E: FI NAL REPOR TS Final Repor t [] Verif ied Date/ Time: 2024 10:12 SECURITY INSTALLER No Methi cilli n Resis tant Staph yloco ccus aureu s isola gilma. [place] ELIMI NARY REPOR TS Preli minar y Repor t [] Verif ied Date/ Time: 2024 09:32 SECURITY INSTALLER Cultu re in progr ess Not Available [facility] Only - [facility] [address] [place] [address], [id number], 07/23/2024 11:12:33 07/21/19 25 07/21/2024 ABS antibody screen Negati ve Not Available [facility] Only - [facility] [address] [place] [address], [id number], 07/21/2024 15:37:26 07/21/19 25 07/21/2024 ABORH ABO and Rh O POS Not Avail able [facility] Only - [facility] [address] [place] [address], [id number], 07/21/2024 15:37:24 07/21/19 25 07/21/2024 EGFR eGFR 58 mL/mi n/1.7 3m? This eGFR is calcu lated using the 2020 CKD-E PI Creat inine equat ion witho ut race modif ier. In most healt hy peopl e, the caitlyn l GFR is 90 mL/mi n/1.7 3 m2 or highe r. A resul t of 60 - 89 mL/mi n/1.7 3 m2 witho ut kidne y damag e may be caitlyn l in some peopl e (such as the elder ly, infan ts). A resul t of 60 - 89 mL/mi n/1.7 3 m2 for three month s or more, along with kidne y damag e (such as persi stent prote in in the urine ), means the perso n has early kidne y disea se. When GFR is <60 for three month s or more, chron ic kidne y disea se(CK D) is prese nt. Not Available [facility] Only - [facility] [address] [place] [address], [id number], 07/21/2024 15:17:28 07/21/19 25 07/21/2024 BMP sodium 138 mmol/ L 136-14 5 Not Available [facility] - [facility] [address] [place] [address], [id number], 07/21/2024 15:17:26 07/21/19 25 07/21/2024 BMP potassium 4.6 mmol/ L 3.5-5. 1 Not Available [facility] Only - [facility] [address] [place] [address], [id number], 07/21/2024 15:17:26 07/21/19 25 07/21/2024 BMP chloride 98 mmol/ L 98-107 Not Available [facility] Only - [facility] [address] [place] [address], [id number], 07/21/2024 15:17:26 07/21/19 25 07/21/2024 BMP CO2 32 mmol/ L 21-31 high Not Available [facility] Only - [facility] [address] [place] [address], [id number], 07/21/2024 15:17:26 07/21/19 25 07/21/2024 BMP BUN 19 mg/dL 7-25 Not Available [facility] Only - [facility] [address] [place] [address], [id number], 07/21/2024 15:17:26 07/21/19 25 07/21/2024 BMP creatinine 1.3 mg/dL 0.6-1. 3 Not Available [facility] Only - [facility] [address] [place] [address], [id number], 07/21/2024 15:17:26 07/21/19 25 07/21/2024 BMP glucose 165 mg/dL 70-105 high Not Availabl e [facility] Only - [facility] [address] [place] [address], [id number], 07/21/2024 15:17:26 07/21/19 25 07/21/2024 BMP calcium 8.9 mg/dL 8.6-10 .3 Not Available [facility] Only - [facility] [address] [place] [address], [id number], 07/21/2024 15:17:26 07/21/19 25 07/21/2024 BMP anion gap 8 8-16 Anion gap calcu lated using formu la: Na - (Cl + CO2) Measu red total CO2 is used in place of HCO3 Not Available [facility] Only - [facility] [address] [place] [address], [id number], 07/21/2024 15:17:26 07/21/19 25 07/21/2024 CBAT WBC 5.0 K/cum m 3.4-9. 4 Not Available [facility] Only - [facility] [address] [place] [address], [id number], 07/21/2024 14:24:53 07/21/19 25 07/21/2024 CBAT RBC 3.79 M/cum m 4.70-6 .10 low Not Available [facility] Only - [facility] [address] [place] [address], [id number], 07/21/2024 14:24:53 07/21/19 25 07/21/2024 CBAT hemoglobin 12.3 gm/dL 14.0-1 8.0 low Not Available [facility] Only - [facility] [address] [place] [address], [id number], 07/21/2024 14:24:53 07/21/19 25 07/21/2024 CBAT hematocrit 37 % 42-52 low Not Avail able [facility] Only - [facility] [address] [place] [address], [id number], 07/21/2024 14:24:53 07/21/19 25 07/21/2024 CBAT MCV 97 81-94 high Not Available [facility] Only - [facility] [address] [place] [address], [id number], 07/21/2024 14:24:53 07/21/19 25 07/21/2024 CBAT MCHC 33.4 g/dL 31.0-3 6.0 Not Available [facility] Only - [facility] [address] [place] [address], [id number], 07/21/2024 14:24:53 07/21/19 25 07/21/2024 CBAT RDW 13.5 % 11.7-1 5.5 Not Available [facility] - [facility] [address] [place] [address], [id number], 07/21/2024 14:24:53 07/21/19 25 07/21/2024 CBAT platelets 159 K/cum m 140-41 0 Not Available [facility] Only - [facility] [address] [place] [address], [id number], 07/21/2024 14:24:53 07/21/19 25 07/21/2024 CBAT MCH 32.4 pg 27.5-3 3.2 Not Available [facility] Only - [facility] [address] [place] [address], [id number], 07/21/2024 14:24:53 07/21/19 25 07/21/2024 CBAT MPV 9.0 mL Not Available [facility] Only - [facility] [address] [place] [address], [id number], 07/21/2024 14:24:53 07/21/19 25 07/22/2024 C MRSA MRSA culture (new) Print Date/ Time: 2024 09:32 SECURITY INSTALLER Patie nt: POLLO R, SOTO E L Micro biolo gy - Misce anastasiia ous [place]tab[place] d: c=Cor recte d, F=Res ult Comme nt, S=Jackie cepti ble, I=Int ermed iate, R=Res istan t, N/A=N ot Appli cable PROCE DURE: MRSA Cultu re [] ACCES SAMIR: 25- [id number] SOURC E: Nasal BODY SITE: COLLE CTED DATE/ TIME: 2024 12:30 SECURITY INSTALLER RECEI REYNOLD DATE/ TIME: 2024 14:05 SECURITY INSTALLER START DATE/ TIME: 2024 14:05 SECURITY INSTALLER FREE TEXT SOURC E: [place] ELIMI NARY REPOR TS Preli minar y Repor t [] Verif ied Date/ Time: 2024 09:32 SECURITY INSTALLER Cultu re in progr ess Not Available [facility] Only - [facility] [address] [place] [address], [id number], 07/22/2024 10:32:49 04/01/20 24 07/27/2023 imagi ng/di agnos tic resul t No observ ation record ed. [email or web address] Not Available 20:49:52 04/01/20 24 08/28/2023 imagi ng/di agnos tic resul t No observ ation record ed. [email or web address] Not Available 20:49:58 04/01/2008/28/2023 imagi ng/di agnos tic resul t No observ ation record ed. [email or web address] Not Available 20:50:01 08/06/1907/01/2024 elect ricardo diogr am, routi ne ECG, 12 leads min No observ ation record ed. [email or web address] [facility] Only - [facility] [address] [address], [place], [address], 08/05/2024 11:06:30 Result Notes None recorded. Problems Name Problem SNOMED Code Status Onset Date Resolution Date Notes Provider Name and Address Organization Details Recorded Time Type 1 diabetes mellitus 61416751 Active 2023 Kayla mchugh, [facility] 4 10:07:05 Primary hypothyroid ism 16631719 Active 2023 Frantz Dee M.D. [address] [place], [address], [facility] 4 19:44:29 Dysphagia 45720463 Active 2023 Tano Perkins MD [address], [place], [address], [facility] 4 11:59:23 Mild mitral valve regurgitati on 583191248 Active 2023 Farooq mchugh, [facility] 4 13:33:36 Hyperglycem ia due to type 1 diabetes mellitus 0668285924425 01 Active 2024 Frantz Dee M.D. [address] [place], [address], [facility] 5 14:42:27 Hypoglycemi c unawareness due to type 1 diabetes mellitus 2512281339013 08 Active 2024 Frantz Dee M.D. [address] [place], [address], [facility] 5 17:58:17 Type 2 diabetes mellitus 38709500 [facility] 16:07[facility]38 Aortic valve disorder 2649054 Active 2023 [facility] 4 14:30:22 Hyperlipide zuleika 91753964 Active 2023 [facility] 4 14:30:45 Mitral valve regurgitati on 31784609 Active 2023 Maria Isabelnikki Nugent [facility] 4 11:17:51 Severe mitral valve regurgitati on 220030453 Active 2023 Heidy Rodriguez [facility] 5 19:02:47 Problem Notes None recorded. Procedures Surgical History None recorded. Imaging Results Imaging Date Name Status [facility]Modified by [facility] Details LastModified Time 07/27/2023 imaging/diag nostic result completed Information not available 04/01/2024 20:49:52 08/28/2023 imaging/diag nostic result completed Information not available 04/01/2024 20:49:58 08/28/2023 imaging/diag nostic result completed Information not available 04/01/2024 20:50:01 07/01/2024 electrocardi ogram, routine ECG, 12 leads min completed [address] - [facility] [address] [address], [place], [address], 08/05/2024 11:06:30 Procedure Notes None recorded. Medical Equipment None Reported. Allergies No known drug allergies Medications Name Sig Start Date Stop Date Status Note LastModified by Organization Details LastModified Time levothyroxi ne 137 mcg tablet TAKE 1 TABLET BY MOUTH DAILY 12/24 completed Not Available Not Available Not Available ondansetron HCl 8 mg tablet 12/24 completed Not Available Not Available Not Available clopidogrel 75 mg tablet TAKE 1 TABLET BY MOUTH EVERY DAY active Not Available Not Available No t Available simvastatin 40 mg tablet TAKE 1 TABLET BY MOUTH EVERY DAY active Not Available Not Available No t Available ketorolac 10 mg tablet active Not Available Not Available Not Available levothyroxi ne 100 mcg tablet TAKE 1 TABLET BY MOUTH EVERY DAY BEFORE BREAKFAST 07/17 completed Not Available Not Available Not Available magnesium oxide 400 mg (241.3 mg magnesium) tablet TAKE 1 TABLET BY MOUTH EVERY DAY FOR 14 DAYS 01/14 completed Not Available Not Available Not Available tamsulosin 0.4 mg capsule 12/24 completed Not Available Not Available Not Available [email or web address] Ultra Test strips USE 1 STRIP DAILY FOR TESTING BLOOD SUGAR active Not Available Not Available No t Available aspirin 81 mg chewable tablet CHEW AND SWALLOW 1 TABLET BY MOUTH DAILY active Not Available Not Available No t Available levothyroxi ne 112 mcg tablet Take 1 tablet every day by oral route for 90 days. 2024 active Not Available Not Available Not Avai lable insulin aspart (U-100) 100 unit/mL (3 mL) subcutaneou s pen INJECT UP TO 16 UNITS UNDER SKIN AT BREAKFAST , UP TO 15 UNITS AT LUNCH, AND UP TO 20 UNITS AT DINNER DAILY. WASTE 2 UNITS FOR PRIMING active Not Available Not Available No t Available Lantus Solostar U-100 Insulin 100 unit/mL (3 mL) subcutaneou s pen Inject 30 units every day by subcutane ous route. 2024 active Not Available Not Available Not Avai lable Humalog KwikPen (U-100) Insulin 100 unit/mL subcutaneou s INJECT UP TO 16 UNITS UNDER THE SKIN AT BREAKFAST , UP TO 15 UNITS AT LUNCH AND UP TO UNITS AT DINNER DAILY. WASTE 2 UNITS FOR PRIMING active Not Available Not Available No t Available Jardiance 10 mg tablet TAKE 1 TABLET BY MOUTH EVERY DAY active Not Available Not Available No t Available TRUEplus Pen Needle 32 gauge x 5/32 USE THREE TIMES DAILY active Not Available Not Available No t Available Lagevrio 200 mg capsule (EUA) TAKE 4 CAPSULES BY MOUTH EVERY 12 HOURS FOR 5 DAYS 12/24 completed Not Available Not Available Not Available Dexcom G7 Sensor device USE DIRECTED EVERY 10 DAYS active Not Available Not Available No t Available FreeStyle Darell 3 Dugger USE ONCE DAILY WITH SENSORS 01/14 completed Not Available Not Available Not Available Vitals Date Recorded Body height Heart rate Oxygen saturation Oxygen saturation in Arterial blood by Pulse oximetry Body mass index (BMI) Body weight Systolic blood pressure Diastolic blood pressure Provider Name and Address Organization Details Last Updated DateTime 4 182.88 cm 69 /min 98 % 98 % 19.5 kg/m2 47206.3 g 110 mm[Hg] 80 mm[Hg] [facility] 4 15:28:52 Date Recorded Body height Heart rate Oxygen saturation Oxygen saturation in Arterial blood by Pulse oximetry Body mass index (BMI) Body weight Systolic blood pressure Diastolic blood pressure Provider Name and Address Organization Details Last Updated DateTime 5 182.88 cm 72 /min 96 % 96 % 20.6 kg/m2 88794.0 4 g 112 mm[Hg] 90 mm[Hg] [facility] 5 12:18:12 Date Recorded Body height Body mass index (BMI) Body weight Heart rate Oxygen saturation Oxygen saturation in Arterial blood by Pulse oximetry Systolic blood pressure Diastolic blood pressure Provider Name and Address Organization Details Last Updated DateTime 5 182.88 cm 19.9 kg/m2 52962.0 8 g 76 /min 99 % 99 % 98 mm[Hg] 60 mm[Hg] Anitra Billings [facility] 5 14:28:21 Social History None recorded. Functional Status None recorded. Mental Status None recorded. Family History Nothing Reported. Medical History No medical history recorded. Immunizations Vaccine Type Date Status Note Provider Nam e and Address Organization Details Recorded Time Influenza, split virus, quadrivalent, preservative 3 completed Ana Paula [facility] 03/04/2024 15:23:25 Influenza, split virus, quadrivalent, preservative [address] [facility] 03/04/2024 15:23:25 Influenza, split virus, quadrivalent, preservative [address] [facility] 03/04/2024 15:23:25 Influenza, split virus, quadrivalent, preservative [address] [facility] 03/04/2024 15:23:25 COVID-19, mRNA, LNP-S, PF, 100 mcg/0.5mL dose or 50 mcg/0.25mL dose [address] [facility] 03/04/2024 15:23:25 COVID-19, mRNA, LNP-S, PF, 100 mcg/0.5mL dose or 50 mcg/0.25mL dose [address] [facility] 03/04/2024 15:23:25 COVID-19, mRNA, LNP-S, PF, 100 mcg/0.5mL dose or 50 mcg/0.25mL dose [address] [facility] 03/04/2024 15:23:[address] [facility] 03/04/2024 15:23:25 Influenza, high-dose, trivalent, PF [address] [facility] 03/04/2024 15:23:25 Influenza, high-dose, trivalent, PF [address] [facility] 03/04/2024 15:23:25 Influenza, high-dose, trivalent, PF [address] [facility] 03/04/2024 15:23:25 Influenza, split virus, trivalent, preservative [address] [facility] 03/04/2024 15:23:25 Influenza, split virus, trivalent, PF 3 completed Ana Paula mchugh, [facility] 03/04/2024 15:23:25 Influenza, split virus, trivalent, PF 6 completed [facility], [facility] 03/04/2024 15:23:25 Influenza, split virus, trivalent, PF 5 completed Ana [facility], [facility] 03/04/2024 15:23:25 Past Encounters Encounter ID Performer Location Encounter Start Date Encounter Closed Date Diagnosis/Indication Diagnosis SNOMED-CT Code Diagnosis ICD10 Code Diagnosis Note [id number] Kim Montes MD [facility] ([place]) [facility] [place] [address] 11/06/2023 10:15:22 11/08/2023 13:23:22 Mitral valve regurgitation 57401048 I34.0 [id number] Kim Montes MD [facility] ([place]) [address] [place] [address] 12/25/2023 11:49:02 12/25/2023 12:42:21 Mitral valve regurgitation 29700190 I34.0 [id number] Frantz Dee M.D. [facility] ([place]) [address] [place] [address] 01/15/2024 13:48:32 01/15/2024 14:44:32 Type 1 diabetes mellitus 30978515 E10.9 humalog Primary hypothyroidism 70395356 E03.9 [id number] Tano Perkins MD [facility] 2nd Gastroent erology ([place]) [address] [facility] [place] [address] 02/29/2024 09:41:13 02/29/2024 10:40:20 Dysphagia 43879580 R13.10 [id number] Kody Norman MD [facility] ASC GI Anesthesi a S [address] [place] [address] 03/05/2024 09:38:36 03/11/2024 14:42:11 [id number] Kim Montes MD [facility] ([place]) [address] [place] [address] 03/04/2024 14:46:06 03/04/2024 16:57:42 Mild mitral valve regurgitation 702564613 I34.0 Additional diagnosis detail: Mild mitral regurgitat ion [id number] Tano Perkins MD [facility] erology ([place]) [address] [place] [address], 2[address] [place] [address] 03/05/2024 09:38:37 03/07/2024 15:09:24 [id number] Kim Montes MD [facility] ([place]) [address] [place] [address] 07/01/2024 11:27:11 07/01/2024 13:01:51 Severe mitral valve regurgitation 897050159 I34.0 [id number] Frantz Dee M.D. [facility] ([place]) [address] [place] [address] 07/17/2024 14:11:56 07/17/2024 14:54:34 Hyperglycemia due to type 1 diabetes mellitus 0552594604 30259 E10.65 humalog Primary hypothyroidism 11980524 E03.9 Hyperlipidemia 04805194 E78.5 Hypoglycem ic unawareness due to type 1 diabetes mellitus 5979753698 77516 E10.649 Type 1 jeffery betes mellitus 37923874 E10.9 humalog Health Concerns Section Related Observation LastModified by Organization Detai ls LastModified Time None Recorded Concern Status LastModified by Organization Details LastModified Time None Recorded Advance Directives Directive None Recorded Payers Encounter Date Sequence Insurance Name Policy Number Policy Green Covered Member ID Green Member ID Guarantor Name 03/04/2024 1 [employer] [id number] Raysa Valiente [id number] Raysa Valiente 03/05/2024 1 [employer] [place] [id number] Raysa Valiente [id number] Raysa Valiente 03/05/2024 2 [place] Raysa Valiente [id number] Raysa Valiente 03/05/2024 1 [employer]OSS MEDICARE ADVANTAGE - [facility] (MEDICARE REPLACEMENT PPO) [id number] Raysa Valiente [id number] Raysa Valiente 03/05/2024 2 [place] Raysa Valiente [id number] Raysa Valiente 07/01/2024 1 [employer]OSS MEDICARE ADVANTAGE - [facility] (MEDICARE REPLACEMENT PPO) [id number] Raysa Valiente [id number] Raysa Valiente 07/17/2024 1 [place] Raysa Valiente [id number] Raysa Valiente Notes Date Note Type Note Provider Name and Address Organization Details Recorded Time 03/05/2024 text/html The history and physical dated {{DATE 02/29/2024}} completed by {{ me#}}has been reviewed, the patient has been examined and no change has occurred in the patient s condition since the history and physical was completed. Tano Perkins MD [facility] [place] [address], [phone], [facility] 03/05/2024 11:49:47 03/05/2024 text/html [facility] PRE-ANEST HETIC EVALUATIONReported bypatient.Reason for Visit:PROPOSED PROCEDURE: EGD; SURGEON: Gregorio; PREOP DIAGNOSIS: Dysphagia Review of Systems General:Exercise tolerance moderate; Denies SOB, [place], PND; Denies chest pain or chest tightness Cardiac:Hyperlipidemia; Mitral regurgitation; Heart murmur Endo:IDDM; Hypothyroidism GI:Dysphagia Prior Anesthetic Complication:no history of anesthesia complications Family Anesthetic Hx:no history of anesthesia complications Physical Exam: AirwayWNL; MP II TeethWNL NeckWNL; Full range of motion CardiovascularRegular rate and rhythm RespiratoryClear to auscultation bilaterally GastrointestinalNPO status >6 hrs solids, >2 hrs clear liquids Vital Signs:Vital signs reviewed. Please refer to nursing preop note for values Assessment:ASA PS: II Plan:MAC Discussion:I have discussed with the patient the anesthetic plan, alternatives, pertinent risks, and complications; including but not limited to PONV, dental injury, sore throat, [place], stroke, etc. All questions were answered. Patient verbalize(s) understanding and agree(s) to proceed. Kody Norman MD [address] [place] [address], [phone], [facility] 03/05/2024 11:15:25
[2024-09-01 17:26] LABS: Glucose Point of Care 64 mg/dl (65-105)
[2024-09-01 17:37] VITALS: O2SAT 100
[2024-09-01 19:32] LABS: Glucose Point of Care 81 mg/dl (65-105)
[2024-09-01 19:39] LABS: Glucose Point of Care 106 mg/dl (65-105)
[2024-09-01 20:00] VITALS: PULSE 77; RESP 16; O2SAT 100
[2024-09-01] MEDS: SENNA/DOCUSATE SODIUM TABLET 1 TAB PO (20:28)
[2024-09-01] MEDS: cefuroxime axetiL 250 MG TABLET 500 MG PO (20:28)
--- NOTE | 2024-09-01 20:30 | PC.NURSE ---
Upon assessment, OCHOA hosjameson noted to have serous drainage to bilateral feet area, hose removed and 2 open blisters noted, one to each foot (See wound photos/assessments), areas cleaned and dry dressing applied. Pt states understanding of purpose and procedure, tolerated fairly.
[2024-09-01] MEDS: INSULIN GLARGINE (*BKC) 1,000 UNITS/10 ML VIAL 2 UNITS SUB-Q (20:38)
[2024-09-02] VITALS: BP 109/57; PULSE 76; RESP 17; TEMP 36.7; O2SAT 98
[2024-09-02] MEDS: LEVOTHYROXINE SODIUM 112 MCG TABLET PO (06:06)
[2024-09-02 07:50] VITALS: BP 115/69; PULSE 75; RESP 16; TEMP 35.9; O2SAT 95
[2024-09-02 07:54] LABS: Hematocrit 30.6 % (37.0-46.0); Hemoglobin 9.8 g/dL (12.4-15.3); Immature Platelet Fraction Pct 5.1 % (1.0-7.0); Mean Corpuscular Hemoglobin 32.5 pg (27.0-31.0); Mean Corpuscular Volume 101.3 fL (78.0-102.0); Mean Platelet Volume 11.4 fl (8.7-11.0); Platelet Count Result 84 K/mm3 (150-420); Red Blood Count 3.02 M/mm3 (4.70-6.10); Red Cell Distribution Width 16.4 % (11.6-14.4); White Blood Count 5.8 K/mm3 (4.8-10.8)
[2024-09-02 08:30] VITALS: O2SAT 95
[2024-09-02 08:55] LABS: Alanine Aminotransferase 18 U/L (16-63); Albumin Level 2.9 g/dL (3.4-5.0); Alkaline Phosphatase 92 U/L (46-116); Anion Gap 1 mmol/L (4-12); Aspartate Amino Transferase 26 U/L (15-37); Bilirubin,Total 0.9 mg/dL (0.00-1.00); Blood Urea Nitrogen 12 mg/dL (7-18); Calcium 8.6 mg/dL (8.5-10.1); Carbon Dioxide 36 mmol/L (21-32); Chloride 104 mmol/L (98-108); Estimated CRCL calculation 65 ml/min; Estimated Glomerular Filt Rate > 60; Glucose 53 mg/dL (70-99); Magnesium 2.1 mg/dL (1.8-2.4); Osmolality Calculated 288 mOsm/kg (285-295); Potassium 4.3 mmol/L (3.5-5.1); Sodium 141 mmol/L (136-145); Total Protein 5.9 g/dL (6.4-8.2)
[2024-09-02] MEDS: CLOPIDOGREL BISULFATE 75 MG TABLET PO (09:15)
[2024-09-02] MEDS: ATORVASTATIN 10 MG TABLET 20 MG PO (09:15)
[2024-09-02] MEDS: PANTOPRAZOLE 40 MG TABLET PO (09:16)
[2024-09-02] MEDS: cefuroxime axetiL 250 MG TABLET 500 MG PO ×2 (09:16→20:34)
[2024-09-02] MEDS: ASPIRIN 81 MG CHEWABLE TABLET PO (09:16)
[2024-09-02 09:21] LABS: Glucose Point of Care 80 mg/dl (65-105)
[2024-09-02 10:25] LABS: Glucose Point of Care 212 mg/dl (65-105)
[2024-09-02] MEDS: INSULIN GLARGINE (*BKC) 1,000 UNITS/10 ML VIAL 8 UNITS SUB-Q (10:44)
[2024-09-02 12:04] LABS: Glucose Point of Care 242 mg/dl (65-105)
[2024-09-02] MEDS: INSULIN HUMAN LISPRO (*BKC) 1,000 UNITS/10 ML VIAL SUB-Q (12:27)
--- NOTE | 2024-09-02 15:23 | P.HP_ITS ---
H&P: HPI History of Present Illness Date/Time: 09/02/24 15:23 Chief Complaint: REHAB/SWING Narrative: Patient is a 73-year-old male who is transfer to [facility] bed for continued rehab. Patient recently hospitalized at [facility] for DKA and metabolic encephalopathy. Per family patient had lost his Dexcom due to insurance and his billing analyst had placed him on Jardiance after recent valve repair which sent patient in to DKA. Patient admitted today up in chair in no acute distress patient denied any chest pain shortness a breath, nausea, vomiting abdominal pain, or dizziness. patient has had episodes of hypoglycemia will continue with Ensure supplements and sliding scale insulin. patient's past medical history include type 1 diabetes, HLD, hypothyroidism, and recent mitral valve repair. Review of Systems Review of Systems: All systems reviewed & are unremarkable except as noted in HPI and below PMFSH Past Medical History Medical History (Updated 09/02/24 @ 15:36 by Flaca Peck APRN) Hypothyroidism HLD (hyperlipidemia) Type 1 diabetes Surgical History Surgical History Status post implantation of mitral valve leaflet clip Social History Social History Smoking status: Never smoker Alcohol intake: never Substance use: never Substance use type: does not use Do You Feel Safe in your Home?: Yes Lack of Transportation: No Lack of Food: Never True Current Housing: I Have Housing Concerned About Future Housing: No Difficulty Paying Gas/Electric Bills: No Difficulty Paying for Meds: No Currently Unemployed: No Education: High School Diploma/GED Difficulty w/ Childcare or Family Care: No Spiritual care concerns: No Meds Home Medications and Allergies Home Medications ?Medication ?Instructions ?Recorded ?Confirmed ?Type aspirin 81 mg chewable tablet 1 tablet PO DAILY 09/01/24 09/01/24 History atorvastatin 20 mg tablet (Lipitor) 20 mg PO DAILY 09/01/24 09/01/24 History cefuroxime axetil 500 mg tablet 500 mg PO BID 09/01/24 09/01/24 History clopidogrel 75 mg tablet 75 mg PO DAILY 09/01/24 09/01/24 History empagliflozin 10 mg tablet 10 mg PO DAILY 09/01/24 09/01/24 History (Jardiance) insulin glargine 100 unit/mL 2 unit subcut QPM 09/01/24 09/01/24 History subcutaneous solution (Lantus U-100 Insulin) insulin glargine 100 unit/mL 8 unit subcut QAM 09/01/24 09/01/24 History subcutaneous solution (Lantus U-100 Insulin) insulin lispro 100 unit/mL 4 unit subcut QACBREAK 09/01/24 09/01/24 History subcutaneous cartridge (Humalog U-100 Insulin) insulin lispro 100 unit/mL 4 unit subcut QACLUNCH 09/01/24 09/01/24 History subcutaneous cartridge (Humalog U-100 Insulin) insulin lispro 100 unit/mL 4 unit subcut QACBREAK 09/01/24 09/01/24 History subcutaneous solution (Humalog U-100 Insulin) insulin lispro 100 unit/mL 4 unit subcut QACDINNER 09/01/24 09/01/24 History subcutaneous solution (Humalog U-100 Insulin) insulin lispro 100 unit/mL 4 unit subcut QACLUNCH 09/01/24 09/01/24 History subcutaneous solution (Humalog U-100 Insulin) levothyroxine 100 mcg tablet 112 mcg PO DAILY 09/01/24 09/01/24 History polyethylene glycol 3350 17 17 g PO DAILY PRN constipation 09/01/24 09/01/24 History gram/dose oral powder (ClearLax) senna-docusate sodium capsule 8.6 - 50 cap PO HS PRN constipation 09/01/24 09/01/24 History Allergies Allergy/AdvReac Type Severity Reaction Status Date / Time No Known Allergies Allergy Verified 09/01/24 18:01 Vital Signs Vital Signs - 24 hr 09/01/24 15:55 09/01/24 15:55 09/01/24 17:37 Temperature 98.2 F Pulse Rate 77 Respiratory Rate 16 Blood Pressure 107/71 Pulse Oximetry 100 100 100 Oxygen Delivery Room Air Room Air Room Air 09/01/24 20:00 09/02/24 00:00 09/02/24 07:50 Temperature 98.0 F 96.6 F L Pulse Rate 77 76 75 Respiratory Rate 16 17 16 Blood Pressure 109/57 L 115/69 Pulse Oximetry 100 98 95 Oxygen Delivery Room Air Room Air Room Air 09/02/24 08:30 Temperature Pulse Rate Respiratory Rate Blood Pressure Pulse Oximetry 95 Oxygen Delivery Room Air Exam Const: General: comfortable and no acute distress HENMT: Mouth: Yes moist mucous membranes Eyes: General: appearance normal, both eyes and all related structures Pupils: Equal, round and reactive pupils present Neck: Neck: supple and no JVD Resp: Effort & Inspection: normal respiratory effort Auscultation: clear to auscultation bilaterally Cardio: Rate: regular rate Rhythm: regular rhythm GI: GI Palp: Yes Soft to palpation Auscultation: normal bowel sounds Skin: General skin exam: normal color and no rashes or lesions noted W ounds: wounds noted ( bilateral feet appear to be ruptured blisters) tear upper Neuro: Speech: normal speech Sensory Exam: normal sensation Extrem: General: normal to inspection Psych: Mental Status: mental status grossly normal Affect: normal affect H&P: Results Labs Labs: Short CBC 09/02/24 Range/Units 07:45 WBC 5.8 (4.8-10.8) K/mm3 Hgb 9.8 L (12.4-15.3) g/dL Hct 30.6 L (37.0-46.0) % Plt Count 84 L (150-420) K/mm3 BMP 09/02/24 07:45 Sodium 141 Potassium 4.3 Chloride 104 Carbon Dioxide 36 H BUN 12 Creatinine 0.88 Glucose 53 L Calcium 8.6 Liver Function 09/02/24 Range/Units 07:45 Total Bilirubin 0.9 (0.00-1.00) mg/dL AST 26 (15-37) U/L ALT 18 (16-63) U/L Alkaline Phosphatase 92 (46-116) U/L Albumin 2.9 L (3.4-5.0) g/dL Assessment and Plan Assessment and plan (1) Physical deconditioning: Code(s): R53.81 - Other malaise Status: Acute Assessment and Plan: patient physically deconditioned post hospitalization for DKA metabolic encephalopathy * PT/OT (2) Type 1 diabetes: Code(s): E10.9 - Type 1 diabetes mellitus without complications Status: Acute Assessment and Plan: patient with type 1 Diabetes post hospitalization for DKA due to Jardiance * D/C Jardiance on home medication list * Accu-Cheks a.c. HS * sliding scale insulin with meals * resume patient's home long-acting * Diabetic diet * Watch for hypoglycemia/hypoglycemic protocol ordered (3) Hypothyroidism: Code(s): E03.9 - Hypothyroidism, unspecified Status: Acute Assessment and Plan: * resume patient's levothyroxine (4) HLD (hyperlipidemia): Code(s): E78.5 - Hyperlipidemia, unspecified Status: Acute Assessment and Plan: * Resumed Atorvastatin (5) Blister: Code(s): T14.8XXA - Other injury of unspecified body region, initial encounter Status: Acute Assessment and Plan: patient with bilateral blisters to top feet that have ruptured scant drainage does not appear infected * keep open to air with rest * can cover with nonadhesive bandage when ambulating with physical and occupational therapy Plan Code status: Full code per patient DVT prophylaxis: NA/SCD Stress ulcer prophylaxis: Protonix 40 daily PT/OT notes: SWING Disposition: patient admitted to [facility] bed for continued physical and occupational therapy to increase insurance strength post hospitalization. Is to return home with when medically cleared. Quality VTE Prophylaxis VTE prophylaxis: mechanical ordered -Patient's previous records reviewed on admission -ER notes reviewed in detail on admission -discussed all findings and current treatment plan with patient/Family/POA -Consultations reviewed for recommendations -Patient's disposition for safe discharge discussed with shoe caser Dictation performed by [employer] direct speech recognition software, therefore customer support consultant variants and typographical errors may occur. Hospitalist MIPS Advance Care Plan I have confirmed that the patient's Advanced Care Plan is present, code status is documented, or surrogate decision maker is listed in patient medical record.: Yes Medication Reconciliation I have utilized all available resources to obtain, update and review the patients current medications (includes all prescriptions, OTC, herbals, cannabis, and nutritional supplements).: Yes The patient is not eligible for med reconciliation; the patient is in a emergent medical situation where delaying treatment would jeopardize the patients health.: No
[2024-09-02 16:45] VITALS: BP 100/69; PULSE 71; RESP 16; TEMP 36.6; O2SAT 97
[2024-09-02 16:55] LABS: Glucose Point of Care 182 mg/dl (65-105)
[2024-09-02 20:39] LABS: Glucose Point of Care 101 mg/dl (65-105)
[2024-09-03] VITALS: BP 109/66; PULSE 76; RESP 20; TEMP 36.3; O2SAT 95
--- NOTE | 2024-09-03 00:20 | PC.NURSE ---
Pt resting quietly in bed and doesnt voice any c/o discomfort. Pt voided 175 ml of clear, nabeel urine in the urinal.
--- NOTE | 2024-09-03 02:05 | PC.NURSE ---
Pt asleep and no signs of discomfort noted.
[2024-09-03] MEDS: LEVOTHYROXINE SODIUM 112 MCG TABLET PO (06:27)
[2024-09-03 07:42] LABS: Glucose Point of Care 169 mg/dl (65-105)
[2024-09-03 07:52] VITALS: BP 103/65; PULSE 73; RESP 16; TEMP 36.3; O2SAT 95
[2024-09-03] MEDS: PANTOPRAZOLE 40 MG TABLET PO (10:03)
[2024-09-03] MEDS: cefuroxime axetiL 250 MG TABLET 500 MG PO ×2 (10:03→20:28)
[2024-09-03] MEDS: ATORVASTATIN 10 MG TABLET 20 MG PO (10:03)
[2024-09-03] MEDS: CLOPIDOGREL BISULFATE 75 MG TABLET PO (10:03)
[2024-09-03] MEDS: INSULIN GLARGINE (*BKC) 1,000 UNITS/10 ML VIAL 8 UNITS SUB-Q (10:04)
[2024-09-03] MEDS: ASPIRIN 81 MG CHEWABLE TABLET PO (10:04)
--- NOTE | 2024-09-03 11:42 | PM.EVENT ---
Event Note Event Note Event Note: Nursing reported a low blood sugar of 58 yesterday morning. We will go ahead and hold his Lantus 2 units at nighttime. I instructed him to eat a snack before he goes to bed. We will also check his blood sugar around 2:00 a.m. considering he is a brittle diabetic.
[2024-09-03 11:46] LABS: Glucose Point of Care 358 mg/dl (65-105)
[2024-09-03] MEDS: INSULIN HUMAN LISPRO (*BKC) 1,000 UNITS/10 ML VIAL SUB-Q ×2 (11:49→17:14)
[2024-09-03 12:30] VITALS: BP 142/80; PULSE 100; RESP 16; O2SAT 93
[2024-09-03 16:00] VITALS: BP 90/57; PULSE 80; RESP 18; TEMP 36.7; O2SAT 95
[2024-09-03 16:39] LABS: Glucose Point of Care 273 mg/dl (65-105)
[2024-09-03] MEDS: BACITRACIN OINTMENT 15 GM TUBE 1 APPLIC TOPICAL (20:28)
[2024-09-03 20:29] LABS: Glucose Point of Care 196 mg/dl (65-105)
[2024-09-04] VITALS: BP 104/67; PULSE 78; RESP 16; TEMP 36.7; O2SAT 96
[2024-09-04 01:33] LABS: Glucose Point of Care 122 mg/dl (65-105)
--- NOTE | 2024-09-04 01:38 | PC.NURSE ---
ac of 122, pt encouraged to have snack but does not want one at this time
[2024-09-04] MEDS: ACETAMINOPHEN 325 MG TABLET 650 MG PO (05:48)
[2024-09-04] MEDS: LEVOTHYROXINE SODIUM 112 MCG TABLET PO (06:29)
[2024-09-04 08:00] VITALS: BP 94/56; PULSE 75; RESP 16; TEMP 36.3; O2SAT 95
[2024-09-04 08:08] LABS: Glucose Point of Care 232 mg/dl (65-105)
[2024-09-04] MEDS: INSULIN HUMAN LISPRO (*BKC) 1,000 UNITS/10 ML VIAL SUB-Q ×3 (08:08→16:43)
[2024-09-04] MEDS: BACITRACIN OINTMENT 15 GM TUBE 1 APPLIC TOPICAL ×2 (09:42→20:36)
[2024-09-04] MEDS: CLOPIDOGREL BISULFATE 75 MG TABLET PO (09:43)
[2024-09-04] MEDS: ATORVASTATIN 10 MG TABLET 20 MG PO (09:43)
[2024-09-04] MEDS: ASPIRIN 81 MG CHEWABLE TABLET PO (09:43)
[2024-09-04] MEDS: PANTOPRAZOLE 40 MG TABLET PO (09:43)
[2024-09-04] MEDS: INSULIN GLARGINE (*BKC) 1,000 UNITS/10 ML VIAL 10 UNITS SUB-Q (09:43)
[2024-09-04] MEDS: cefuroxime axetiL 250 MG TABLET 500 MG PO ×2 (09:43→20:36)
--- NOTE | 2024-09-04 10:24 | PC.NURSE ---
Pt complains of room being too cold. Spoke with maintenance on 09/03/2024 and on 09/04/2024.
--- NOTE | 2024-09-04 10:30 | P.PNCROSS_ITS ---
Event Note Event Note Event Note: blood sugars ranging 169-358 over the last 24 hours. I went ahead and increas ed his Lantus to 10 units in the morning. If he still remains high tomorrow we will add mealtime replacement. We will also order a minced and moist diet as his dentures are not fitting appropriately to chew his food.
[2024-09-04 12:06] LABS: Glucose Point of Care 309 mg/dl (65-105)
[2024-09-04 16:00] VITALS: BP 95/58; PULSE 72; RESP 18; TEMP 36.9; O2SAT 95
[2024-09-04 16:48] LABS: Glucose Point of Care 339 mg/dl (65-105)
[2024-09-04 20:37] LABS: Glucose Point of Care 214 mg/dl (65-105)
[2024-09-05] VITALS: BP 116/64; PULSE 76; RESP 16; TEMP 36.8; O2SAT 96
[2024-09-05 02:01] LABS: Glucose Point of Care 232 mg/dl (65-105)
[2024-09-05] MEDS: LEVOTHYROXINE SODIUM 112 MCG TABLET PO (06:07)
[2024-09-05 08:00] VITALS: BP 120/62; PULSE 74; RESP 20; TEMP 36.6; O2SAT 97
[2024-09-05 08:11] LABS: Glucose Point of Care 270 mg/dl (65-105)
[2024-09-05] MEDS: PANTOPRAZOLE 40 MG TABLET PO (08:28)
[2024-09-05] MEDS: BACITRACIN OINTMENT 15 GM TUBE 1 APPLIC TOPICAL ×2 (08:28→21:46)
[2024-09-05] MEDS: ATORVASTATIN 10 MG TABLET 20 MG PO (08:28)
[2024-09-05] MEDS: ASPIRIN 81 MG CHEWABLE TABLET PO (08:29)
[2024-09-05] MEDS: CLOPIDOGREL BISULFATE 75 MG TABLET PO (08:29)
[2024-09-05] MEDS: INSULIN GLARGINE (*BKC) 1,000 UNITS/10 ML VIAL 10 UNITS SUB-Q (08:29)
[2024-09-05] MEDS: cefuroxime axetiL 250 MG TABLET 500 MG PO ×2 (08:29→21:45)
[2024-09-05] MEDS: INSULIN HUMAN LISPRO (*BKC) 1,000 UNITS/10 ML VIAL SUB-Q ×3 (08:30→16:53)
--- NOTE | 2024-09-05 09:32 | PM.EVENT ---
Event Note Event Note Event Note: blood sugars ranging 214-339. We will go ahead and start 5 units t.i.d. with meals in addition to his sliding scale insulin and 10 units of Lantus daily.
[2024-09-05 11:58] LABS: Glucose Point of Care 327 mg/dl (65-105)
[2024-09-05] MEDS: INSULIN HUMAN LISPRO (*BKC) 1,000 UNITS/10 ML VIAL 5 UNITS SUB-Q ×2 (12:14→16:52)
[2024-09-05 15:53] VITALS: BP 105/68; PULSE 74; RESP 16; TEMP 36.9; O2SAT 98
[2024-09-05 16:57] LABS: Glucose Point of Care 212 mg/dl (65-105)
[2024-09-05 20:00] VITALS: PULSE 74; RESP 16; O2SAT 96
[2024-09-05 21:46] LABS: Glucose Point of Care 65 mg/dl (65-105)
[2024-09-05 23:09] LABS: Glucose Point of Care 138 mg/dl (65-105)
[2024-09-06] VITALS: BP 140/62; PULSE 80; RESP 16; TEMP 36.6; O2SAT 96
[2024-09-06 02:08] LABS: Glucose Point of Care 166 mg/dl (65-105)
[2024-09-06] MEDS: LEVOTHYROXINE SODIUM 112 MCG TABLET PO (06:04)
[2024-09-06 08:00] VITALS: BP 109/58; PULSE 71; RESP 17; TEMP 36.6; O2SAT 96
[2024-09-06 08:05] LABS: Glucose Point of Care 235 mg/dl (65-105)
[2024-09-06] MEDS: INSULIN GLARGINE (*BKC) 1,000 UNITS/10 ML VIAL 10 UNITS SUB-Q (09:10)
[2024-09-06] MEDS: cefuroxime axetiL 250 MG TABLET 500 MG PO ×2 (09:11→21:09)
[2024-09-06] MEDS: INSULIN HUMAN LISPRO (*BKC) 1,000 UNITS/10 ML VIAL 5 UNITS SUB-Q (09:11)
[2024-09-06] MEDS: PANTOPRAZOLE 40 MG TABLET PO (09:11)
[2024-09-06] MEDS: ATORVASTATIN 10 MG TABLET 20 MG PO (09:11)
[2024-09-06] MEDS: BACITRACIN OINTMENT 15 GM TUBE 1 APPLIC TOPICAL ×2 (09:11→21:13)
[2024-09-06] MEDS: INSULIN HUMAN LISPRO (*BKC) 1,000 UNITS/10 ML VIAL SUB-Q ×2 (09:11→12:43)
[2024-09-06] MEDS: ASPIRIN 81 MG CHEWABLE TABLET PO (09:12)
[2024-09-06] MEDS: CLOPIDOGREL BISULFATE 75 MG TABLET PO (09:12)
--- NOTE | 2024-09-06 10:39 | P.PNCROSS_ITS ---
Event Note Event Note Event Note: blood sugars ranging 138-235. We will continue with Lantus 10 units in the mo rning and also increase his mealtime insulin to 7 units with meals in addition to a sliding scale insulin. He did dip to 65 around 10:00 p.m. last night in which she will need to be encouraged to eat a nightly snack before he goes to sleep.
[2024-09-06 11:31] LABS: Glucose Point of Care 309 mg/dl (65-105)
[2024-09-06] MEDS: INSULIN HUMAN LISPRO (*BKC) 1,000 UNITS/10 ML VIAL 7 UNITS SUB-Q (12:44)
[2024-09-06 16:00] VITALS: BP 130/68; PULSE 84; RESP 17; TEMP 36.3; O2SAT 96
[2024-09-06 17:03] LABS: Glucose Point of Care 71 mg/dl (65-105)
[2024-09-06 21:10] LABS: Glucose Point of Care 105 mg/dl (65-105)
[2024-09-06 23:39] VITALS: BP 115/67; PULSE 76; RESP 16; TEMP 36.5; O2SAT 96
[2024-09-07 02:13] LABS: Glucose Point of Care 253 mg/dl (65-105)
[2024-09-07] MEDS: LEVOTHYROXINE SODIUM 112 MCG TABLET PO (05:57)
[2024-09-07 08:00] VITALS: BP 111/69; PULSE 91; RESP 18; TEMP 36.8; O2SAT 96
[2024-09-07 08:05] LABS: Glucose Point of Care 395 mg/dl (65-105)
[2024-09-07] MEDS: INSULIN GLARGINE (*BKC) 1,000 UNITS/10 ML VIAL 10 UNITS SUB-Q (08:56)
[2024-09-07] MEDS: INSULIN HUMAN LISPRO (*BKC) 1,000 UNITS/10 ML VIAL SUB-Q ×2 (08:57→12:48)
[2024-09-07] MEDS: INSULIN HUMAN LISPRO (*BKC) 1,000 UNITS/10 ML VIAL 7 UNITS SUB-Q ×2 (08:57→12:48)
[2024-09-07] MEDS: BACITRACIN OINTMENT 15 GM TUBE 1 APPLIC TOPICAL ×2 (08:57→20:20)
[2024-09-07] MEDS: CLOPIDOGREL BISULFATE 75 MG TABLET PO (08:58)
[2024-09-07] MEDS: ASPIRIN 81 MG CHEWABLE TABLET PO (08:58)
[2024-09-07] MEDS: PANTOPRAZOLE 40 MG TABLET PO (08:58)
[2024-09-07] MEDS: ATORVASTATIN 10 MG TABLET 20 MG PO (08:58)
[2024-09-07] MEDS: cefuroxime axetiL 250 MG TABLET 500 MG PO ×2 (08:58→20:20)
--- NOTE | 2024-09-07 11:28 | PM.EVENT ---
Event Note Event Note Event Note: Blood sugars ranging 71-395 today. I will hold off on making any adjustments to his insulin. I did discuss with the patient that he needs to eat more protein and fiber in his diet and stay away from things that spike his sugar up including the candy that has been sitting in front of him, cake, cookies. He is agreeable to include these in his diet for better glycemic control. We will continue to monitor.
[2024-09-07 11:58] LABS: Glucose Point of Care 374 mg/dl (65-105)
[2024-09-07 16:00] VITALS: BP 111/70; PULSE 78; RESP 17; TEMP 36.6; O2SAT 97
[2024-09-07 17:01] LABS: Glucose Point of Care 140 mg/dl (65-105)
[2024-09-07 20:24] LABS: Glucose Point of Care 149 mg/dl (65-105)
[2024-09-08] VITALS: BP 109/69; PULSE 72; RESP 16; TEMP 37; O2SAT 98
[2024-09-08 02:00] LABS: Glucose Point of Care 293 mg/dl (65-105)
[2024-09-08] MEDS: LEVOTHYROXINE SODIUM 112 MCG TABLET PO (05:45)
[2024-09-08 08:00] VITALS: BP 100/62; PULSE 76; RESP 16; TEMP 36.6; O2SAT 96
[2024-09-08 08:06] LABS: Glucose Point of Care 397 mg/dl (65-105)
[2024-09-08] MEDS: INSULIN HUMAN LISPRO (*BKC) 1,000 UNITS/10 ML VIAL SUB-Q ×2 (08:09→12:09)
[2024-09-08] MEDS: INSULIN HUMAN LISPRO (*BKC) 1,000 UNITS/10 ML VIAL 7 UNITS SUB-Q ×2 (08:10→12:09)
[2024-09-08] MEDS: ASPIRIN 81 MG CHEWABLE TABLET PO (08:48)
[2024-09-08] MEDS: cefuroxime axetiL 250 MG TABLET 500 MG PO ×2 (08:48→20:37)
[2024-09-08] MEDS: CLOPIDOGREL BISULFATE 75 MG TABLET PO (08:48)
[2024-09-08] MEDS: INSULIN GLARGINE (*BKC) 1,000 UNITS/10 ML VIAL 10 UNITS SUB-Q (08:48)
[2024-09-08] MEDS: PANTOPRAZOLE 40 MG TABLET PO (08:48)
[2024-09-08] MEDS: ATORVASTATIN 10 MG TABLET 20 MG PO (08:48)
[2024-09-08] MEDS: BACITRACIN OINTMENT 15 GM TUBE 1 APPLIC TOPICAL ×2 (08:49→20:37)
[2024-09-08 11:45] LABS: Glucose Point of Care 310 mg/dl (65-105)
--- NOTE | 2024-09-08 11:45 | PM.EVENT ---
Event Note Event Note Event Note: blood sugars ranging 293-397 after midnight. We will go ahead and add in his Lantus 2 units at bedtime. We will continue with Lantus 10 units during the day as well as a sliding scale insulin. Discussed with the patient that he needs to make better meals choices that include protein and fiber. Also discussed with him that he will need to follow up with his drying room operator after he is discharged from here. His Case conferences tomorrow.
--- NOTE | 2024-09-08 15:08 | PCCPR ---
Met with patient today regarding his referral from Dr. Hoover for cardiac rehab s/p mitral valve repair. Discussed program details, questions answered. Encouraged patient to call after discharge and yard crane operator follow up, and will get him set up with the program. Brochure and contact information provided to patient.
[2024-09-08 16:00] VITALS: BP 105/67; PULSE 71; RESP 18; TEMP 36.7; O2SAT 97
[2024-09-08 17:07] LABS: Glucose Point of Care 95 mg/dl (65-105)
[2024-09-08 20:00] VITALS: PULSE 71; RESP 18; O2SAT 97
[2024-09-08 20:42] LABS: Glucose Point of Care 61 mg/dl (65-105)
[2024-09-08 21:36] LABS: Glucose Point of Care 108 mg/dl (65-105)
[2024-09-08 23:57] VITALS: BP 90/62; PULSE 74; RESP 17; TEMP 36.9; O2SAT 98
[2024-09-09 01:48] LABS: Glucose Point of Care 141 mg/dl (65-105)
[2024-09-09] MEDS: LEVOTHYROXINE SODIUM 112 MCG TABLET PO (06:14)
[2024-09-09 07:58] LABS: Glucose Point of Care 305 mg/dl (65-105)
[2024-09-09 08:00] VITALS: BP 110/60; PULSE 74; RESP 18; TEMP 36.6; O2SAT 97
[2024-09-09] MEDS: BACITRACIN OINTMENT 15 GM TUBE 1 APPLIC TOPICAL ×2 (08:15→20:49)
[2024-09-09] MEDS: PANTOPRAZOLE 40 MG TABLET PO (08:15)
[2024-09-09] MEDS: cefuroxime axetiL 250 MG TABLET 500 MG PO ×2 (08:15→20:47)
[2024-09-09] MEDS: CLOPIDOGREL BISULFATE 75 MG TABLET PO (08:15)
[2024-09-09] MEDS: ATORVASTATIN 10 MG TABLET 20 MG PO (08:15)
[2024-09-09] MEDS: INSULIN HUMAN LISPRO (*BKC) 1,000 UNITS/10 ML VIAL SUB-Q ×3 (08:16→16:52)
[2024-09-09] MEDS: ASPIRIN 81 MG CHEWABLE TABLET PO (08:16)
[2024-09-09] MEDS: INSULIN HUMAN LISPRO (*BKC) 1,000 UNITS/10 ML VIAL 7 UNITS SUB-Q (08:17)
--- NOTE | 2024-09-09 09:05 | P.PNIM_ITS ---
Progress Note: A&P Assessment and Plan (1) Physical deconditioning: Code(s): R53.81 - Other malaise Status: Acute Assessment and Plan: patient physically deconditioned post hospitalization for DKA metabolic e ncephalopathy * PT/OT 09/09 * continue PT and OT * care conference today (2) Type 1 diabetes: Code(s): E10.9 - Type 1 diabetes mellitus without complications Status: Acute Assessment and Plan: patient with type 1 Diabetes post hospitalization for DKA due to Jardiance * D/C Jardiance on home medication list * Accu-Cheks a.c. HS * sliding scale insulin with meals * resume patient's home long-acting * Diabetic diet * Watch for hypoglycemia/hypoglycemic protocol ordered 09/09 * Blood sugars ranging 307-361 at night and in the forestry foreman hours, 95-141 in the evening hours * will order hemoglobin A1c * Accu checks AC/HS * low-dose SSI ordered * Lantus 8 units ordered for nighttime * Lantus 2 units ordered for daytime * 5 units t.i.d. with meals long as he eats more than 50% of his meal * hypoglycemic protocol in place * Diabetic diet ordered (3) Hypothyroidism: Code(s): E03.9 - Hypothyroidism, unspecified Status: Acute Assessment and Plan: * resume patient's levothyroxine 09/09 * no change to current treatment plan (4) HLD (hyperlipidemia): Code(s): E78.5 - Hyperlipidemia, unspecified Status: Acute Assessment and Plan: * Resumed Atorvastatin 09/09 * no change to current treatment plan (5) Blister: Code(s): T14.8XXA - Other injury of unspecified body region, initial encounter Status: Acute Assessment and Plan: patient with bilateral blisters to top feet that have ruptured scant drainage does not appear infected * keep open to air with rest * can cover with nonadhesive bandage when ambulating with physical and occupational therapy 09/09 * leave blisters open to air during the day * continue bacitracin Time Spent With Patient Time with patient: 25 - 35 minutes Subjective Date/time seen: 09/09/24 09:05 Interval history: Interval history: This is a 73-year-old male with a significant past medical history of hypothyroidism, hyperlipidemia, type 1 diabetes mellitus who presented to [facility] bed program for additional rehab needs after prolong stay at [facility] for DKA And metabolic encephalopathy. Subjective: Patient denies any new complaints today. His blood sugars continue to fluctuate and are currently ranging 305-361 With some low blood sugars during the daytime ranging 95-141. I reviewed his medication with his and she states that he usually takes the 8 units of Lantus at night and 2 units during the day. He was receiving the 8 units during the day and 2 units at night while here. This could likely explain why he is higher at night and lower during the day. He also has wounds to the top of both of his feet from blisters which have popped. He has been getting bacitracin applied daily. Labs were obtained today and revealed a hemoglobin of 10.7 anion gap of 8, blood sugars ranging [id number], albumin 3.2. Review of Systems Review of Systems: All systems reviewed & are unremarkable except as noted in HPI and below Exam Narrative: General: In no acute distress, well nourished Head: atraumatic, no encephalopathy Eyes: PERRLA, sclera clear ENT: moist mucous membranes, nasal passages clear Neck: supple, no JVD, no adenopathy, trachea midline Cardiac: Normal S1 and S2. No murmur, gallops or friction rubs, peripheral pulses intact. Respiratory: Lungs clear to auscultation, no adventitious lung sounds Currently on room air Gastrointestinal: soft, non-distended, non-tender, normoactive bowel sounds. : voiding without difficulty. Extremities: moves all extremities well, 1+ edema to bilateral lower extremity Skin: popped blisters on tops of both feet, covered with Telfa dressing Neuro: Alert and oriented x4, cranial nerves intact, no neuro deficits. Psych: normal mood, normal affect, interactive Objective Data Vital Signs Vital Signs: Vital Signs - 24 hr 09/08/24 16:00 09/08/24 20:00 09/08/24 23:57 Temperature 98.1 F 98.4 F Pulse Rate 71 71 74 Respiratory Rate 18 18 17 Blood Pressure 105/67 90/62 L Pulse Oximetry 97 97 98 Oxygen Delivery Room Air Room Air Room Air Intake/Output Intake/Output: Intake & Output 09/06/24 09/07/24 09/08/24 09/09/24 23:59 23:59 23:59 23:59 Intake Total 1700 1250 1340 200 Output Total 150 1375 775 200 Balance 1550 -125 565 0 Meds/Results Medications: Active Medications Generic Name Dose Route Start Last Admin Trade Name Freq PRN Reason Stop Dose Admin Acetaminophen 650 mg 09/01/24 17:37 09/04/24 05:48 Acetaminophen 325 Mg Tablet PO 650 mg Q6H PRN Administration Mild Pain (1-3) or Fever Aspirin 81 mg 09/02/24 09:00 09/09/24 08:16 Aspirin 81 Mg Chewable Tablet PO 81 mg DAILY VIV Administration Atorvastatin Calcium 20 mg 09/02/24 09:00 09/09/24 08:15 Atorvastatin 10 Mg Tablet PO 20 mg DAILY VIV Administration Bacitracin 1 applic 09/03/24 21:00 09/09/24 08:15 Bacitracin Ointment 15 Gm Tube TOPICAL 1 applic Q12HR VIV Administration Cefuroxime Axetil 500 mg 09/01/24 21:00 09/09/24 08:15 Cefuroxime Axetil 250 Mg Tablet PO 09/15/24 10:00 500 mg Q12HR VIV Administration Clopidogrel Bisulfate 75 mg 09/02/24 09:00 09/09/24 08:15 Clopidogrel Bisulfate 75 Mg Tablet PO 75 mg DAILY VIV Administration Dextrose 12.5 gm 09/01/24 17:37 Dextrose 50% 25 Gm/50 Ml Syringe IV PUSH PRN PRN Hypoglycemia Protocol Glucagon 1 mg 09/01/24 17:37 Glucagon For Inj 1 Mg Vial IM PRN PRN Hypoglycemia Protocol Glucose 15 gm 09/01/24 17:37 Glucose Oral Gel 15 Gm Of Glucse In 37.5 Gm Tube PO PRN PRN Hypoglycemia Protocol Dextrose 1,000 mls @ 100 mls/hr 09/01/24 17:37 Dextrose 5% 1,000 Ml IVPB PRN PRN Hypoglycemia Protocol Insulin Glargine 2 units 09/01/24 21:00 09/08/24 20:48 Insulin Glargine (*Bkc) 1,000 Units/10 Ml Vial SUB-Q Not Given QHS [facility] Insulin Glargine 10 units 09/04/24 09:00 09/08/24 08:48 Insulin Glargine (*Bkc) 1,000 Units/10 Ml Vial SUB-Q 10 units QAM [facility] Administration Insulin Human Lispro 2 - 5 units 09/02/24 08:00 09/09/24 08:16 Insulin Human Lispro (*Bkc) 1,000 Units/10 Ml Vial SUB-Q 4 units TIDWM VIV Administration Protocol Insulin Human Lispro 7 units 09/06/24 12:00 09/09/24 08:17 Insulin Human Lispro (*Bkc) 1,000 Units/10 Ml Vial SUB-Q 7 units TIDWM VIV Administration Levothyroxine Sodium 112 mcg 04/01/25 06:30 09/09/24 06:14 Levothyroxine Sodium 112 Mcg Tablet PO 112 mcg DAILY@0630 VIV Administration Ondansetron HCl 4 mg 09/01/24 17:37 Ondansetron Hcl Odt 4 Mg Tablet PO Q6H PRN Nausea And Vomiting Pantoprazole Sodium 40 mg 09/02/24 09:00 09/09/24 08:15 Pantoprazole 40 Mg Tablet PO 40 mg QAM VIV Administration Polyethylene Glycol 17 gm 09/01/24 17:41 Polyethylene Glycol 3350 17 Gm Powd.Pack PO DAILY PRN constipation Senna/Docusate Sodium 1 tab 09/01/24 17:49 09/01/24 20:28 Senna/Docusate Sodium Tablet PO 1 tab HS PRN Administration constipation Labs Labs: Laboratory Results - last 24 hr 09/08/24 09/08/24 09/08/24 11:41 17:01 20:37 POC Capillary Glucose 310 H 95 61 L 09/08/24 09/09/24 09/09/24 21:31 01:42 07:56 POC Capillary Glucose 108 H 141 H 305 H Quality VTE Prophylaxis VTE prophylaxis: mechanical ordered
[2024-09-09 09:36] LABS: Basophils Absolute Auto 0.06 K/mm3 (0.00-0.10); Basophils Percent Auto 1.2 % (0.0-1.0); Eosinophils Absolute Auto 0.12 K/mm3 (0.02-0.50); Eosinophils Percent Auto 2.4 % (1.0-6.0); Hematocrit 33.9 % (37.0-46.0); Hemoglobin 10.7 g/dL (12.4-15.3); Immature Granulocyte Absolute 0.01 K/mm3 (0.00-0.00); Immature Granulocyte Percent A 0.2 % (0.0-0.0); Lymphocytes Absolute Auto 0.88 K/mm3 (1.10-4.50); Lymphocytes Percent Auto 17.6 % (18.0-42.0); Mean Corpuscular HGB Conc 31.6 g/dL (32-36); Mean Corpuscular Hemoglobin 32.5 pg (27.0-31.0); Mean Platelet Volume 10.3 fl (8.7-11.0); Monocytes Absolute Auto 0.33 K/mm3 (0.10-0.90); Monocytes Percent Auto 6.6 % (2.0-11.0); Neutrophils Absolute Auto 3.59 K/mm3 (1.70-7.20); Platelet Count Result 230 K/mm3 (150-420); Red Blood Count 3.29 M/mm3 (4.70-6.10); Red Cell Distribution Width 16.8 % (11.6-14.4)
[2024-09-09 10:07] LABS: Alanine Aminotransferase 31 U/L (16-63); Albumin Level 3.2 g/dL (3.4-5.0); Alkaline Phosphatase 109 U/L (46-116); Anion Gap 8 mmol/L (4-12); Aspartate Amino Transferase 29 U/L (15-37); Bilirubin,Total 0.8 mg/dL (0.00-1.00); Blood Urea Nitrogen 20 mg/dL (7-18); Calcium 8.6 mg/dL (8.5-10.1); Carbon Dioxide 32 mmol/L (21-32); Chloride 100 mmol/L (98-108); Estimated CRCL calculation 48 ml/min; Estimated Glomerular Filt Rate 60; Glucose 361 mg/dL (70-99); Osmolality Calculated 307 mOsm/kg (285-295); Potassium 4.2 mmol/L (3.5-5.1); Sodium 140 mmol/L (136-145); Total Protein 6.8 g/dL (6.4-8.2)
[2024-09-09 11:03] LABS: Hemoglobin A1C 7.8 % (<5.7)
[2024-09-09 11:41] LABS: Glucose Point of Care 254 mg/dl (65-105)
[2024-09-09] MEDS: INSULIN GLARGINE (*BKC) 1,000 UNITS/10 ML VIAL 2 UNITS SUB-Q (12:01)
[2024-09-09] MEDS: INSULIN HUMAN LISPRO (*BKC) 1,000 UNITS/10 ML VIAL 5 UNITS SUB-Q ×2 (12:02→16:53)
--- NOTE | 2024-09-09 14:13 | PC.NURSE ---
feet up on recliner. bar waiter/waitress wants up to leave leave wounds on top of feet open to air and only put coverings on when walking and off again. areas are very moist and edges white.
[2024-09-09 16:00] VITALS: BP 108/67; PULSE 75; RESP 18; TEMP 37.1; O2SAT 98
[2024-09-09 16:44] LABS: Glucose Point of Care 439 mg/dl (65-105)
[2024-09-09 20:44] LABS: Glucose Point of Care 240 mg/dl (65-105)
[2024-09-09] MEDS: INSULIN GLARGINE (*BKC) 1,000 UNITS/10 ML VIAL 8 UNITS SUB-Q (20:48)
[2024-09-10] VITALS: BP 101/68; PULSE 82; RESP 20; TEMP 36.8; O2SAT 98
[2024-09-10 02:17] LABS: Glucose Point of Care 227 mg/dl (65-105)
--- NOTE | 2024-09-10 05:14 | PC.NURSE ---
Stood at bedside with urinal and walker and SBA x 1 to void. Unable to void. Incontinent of stool on bed. Assisted by one and walker to bathroom. Protective dressing left off coccyx, noted stool beneath dressing. Pericare given.
[2024-09-10] MEDS: LEVOTHYROXINE SODIUM 112 MCG TABLET PO (06:00)
[2024-09-10 07:47] LABS: Glucose Point of Care 237 mg/dl (65-105)
[2024-09-10 08:00] VITALS: BP 108/64; PULSE 74; RESP 20; TEMP 36.6; O2SAT 97
[2024-09-10] MEDS: PANTOPRAZOLE 40 MG TABLET PO (08:08)
[2024-09-10] MEDS: ATORVASTATIN 10 MG TABLET 20 MG PO (08:08)
[2024-09-10] MEDS: cefuroxime axetiL 250 MG TABLET 500 MG PO ×2 (08:08→21:27)
[2024-09-10] MEDS: ASPIRIN 81 MG CHEWABLE TABLET PO (08:09)
[2024-09-10] MEDS: CLOPIDOGREL BISULFATE 75 MG TABLET PO (08:09)
[2024-09-10] MEDS: INSULIN GLARGINE (*BKC) 1,000 UNITS/10 ML VIAL 2 UNITS SUB-Q (08:09)
[2024-09-10] MEDS: INSULIN HUMAN LISPRO (*BKC) 1,000 UNITS/10 ML VIAL 5 UNITS SUB-Q ×3 (08:10→17:21)
[2024-09-10] MEDS: INSULIN HUMAN LISPRO (*BKC) 1,000 UNITS/10 ML VIAL SUB-Q ×2 (08:10→12:00)
[2024-09-10] MEDS: BACITRACIN OINTMENT 15 GM TUBE 1 APPLIC TOPICAL ×2 (08:11→21:27)
[2024-09-10 11:58] LABS: Glucose Point of Care 382 mg/dl (65-105)
[2024-09-10 16:00] VITALS: BP 102/64; PULSE 84; RESP 18; TEMP 36.6; O2SAT 96
[2024-09-10 17:12] LABS: Glucose Point of Care 194 mg/dl (65-105)
[2024-09-10] MEDS: INSULIN GLARGINE (*BKC) 1,000 UNITS/10 ML VIAL 8 UNITS SUB-Q (21:26)
[2024-09-10 21:37] LABS: Glucose Point of Care 128 mg/dl (65-105)
[2024-09-11] VITALS: BP 107/69; PULSE 82; RESP 16; TEMP 36.7; O2SAT 95
[2024-09-11 02:02] LABS: Glucose Point of Care 142 mg/dl (65-105)
[2024-09-11] MEDS: LEVOTHYROXINE SODIUM 112 MCG TABLET PO (06:19)
[2024-09-11 08:00] VITALS: BP 102/63; PULSE 77; RESP 17; TEMP 36.6; O2SAT 97
[2024-09-11 08:02] LABS: Glucose Point of Care 89 mg/dl (65-105)
[2024-09-11] MEDS: INSULIN GLARGINE (*BKC) 1,000 UNITS/10 ML VIAL 2 UNITS SUB-Q (09:23)
[2024-09-11] MEDS: cefuroxime axetiL 250 MG TABLET 500 MG PO (09:23)
[2024-09-11] MEDS: ATORVASTATIN 10 MG TABLET 20 MG PO (09:23)
[2024-09-11] MEDS: BACITRACIN OINTMENT 15 GM TUBE 1 APPLIC TOPICAL ×2 (09:23→21:55)
[2024-09-11] MEDS: INSULIN HUMAN LISPRO (*BKC) 1,000 UNITS/10 ML VIAL 5 UNITS SUB-Q ×3 (09:23→17:41)
[2024-09-11] MEDS: PANTOPRAZOLE 40 MG TABLET PO (09:23)
[2024-09-11] MEDS: ASPIRIN 81 MG CHEWABLE TABLET PO (09:23)
[2024-09-11] MEDS: CLOPIDOGREL BISULFATE 75 MG TABLET PO (09:24)
[2024-09-11 12:13] LABS: Glucose Point of Care 134 mg/dl (65-105)
[2024-09-11 16:00] VITALS: BP 102/59; PULSE 70; RESP 17; TEMP 36.6; O2SAT 98
[2024-09-11 16:45] LABS: Glucose Point of Care 81 mg/dl (65-105)
[2024-09-11 20:00] VITALS: PULSE 87; RESP 16; O2SAT 97
[2024-09-11 21:33] LABS: Glucose Point of Care 40 mg/dl (65-105)
[2024-09-11] MEDS: INSULIN GLARGINE (*BKC) 1,000 UNITS/10 ML VIAL 8 UNITS SUB-Q (21:55)
--- NOTE | 2024-09-11 22:07 | PC.NURSE ---
Alex, RESIDENT IN DIAGNOSTIC RADIOLOGY/Hospital, notified that patient's blood sugar was 40 at HS check. Patient was asymptomatic. Snack was given, will recheck blood sugar.
[2024-09-11 22:11] LABS: Glucose Point of Care 71 mg/dl (65-105)
[2024-09-12] VITALS: BP 95/60; PULSE 89; RESP 16; TEMP 36.7; O2SAT 97
[2024-09-12 02:14] LABS: Glucose Point of Care 256 mg/dl (65-105)
[2024-09-12] MEDS: LEVOTHYROXINE SODIUM 112 MCG TABLET PO (05:59)
[2024-09-12 08:00] VITALS: BP 96/69; PULSE 88; RESP 17; TEMP 37.1; O2SAT 95
[2024-09-12 08:03] LABS: Glucose Point of Care 377 mg/dl (65-105)
[2024-09-12] MEDS: BACITRACIN OINTMENT 15 GM TUBE 1 APPLIC TOPICAL ×2 (08:59→21:06)
[2024-09-12] MEDS: CLOPIDOGREL BISULFATE 75 MG TABLET PO (08:59)
[2024-09-12] MEDS: ATORVASTATIN 10 MG TABLET 20 MG PO (08:59)
[2024-09-12] MEDS: INSULIN GLARGINE (*BKC) 1,000 UNITS/10 ML VIAL 2 UNITS SUB-Q (08:59)
[2024-09-12] MEDS: PANTOPRAZOLE 40 MG TABLET PO (08:59)
[2024-09-12] MEDS: INSULIN HUMAN LISPRO (*BKC) 1,000 UNITS/10 ML VIAL SUB-Q (08:59)
[2024-09-12] MEDS: ASPIRIN 81 MG CHEWABLE TABLET PO (08:59)
[2024-09-12] MEDS: INSULIN HUMAN LISPRO (*BKC) 1,000 UNITS/10 ML VIAL 5 UNITS SUB-Q ×3 (09:00→17:58)
[2024-09-12 11:39] LABS: Glucose Point of Care 408 mg/dl (65-105)
--- NOTE | 2024-09-12 11:45 | PC.NURSE ---
Pt blood glucose >400. Joshua Peck NP notified. Received verbal order for patient to receive a total of 15 units humalog with lunch.
[2024-09-12] MEDS: INSULIN HUMAN LISPRO (*BKC) 1,000 UNITS/10 ML VIAL 10 UNITS SUB-Q (11:59)
[2024-09-12 16:00] VITALS: BP 110/64; PULSE 84; RESP 16; TEMP 36.6; O2SAT 96
[2024-09-12 16:57] LABS: Glucose Point of Care 153 mg/dl (65-105)
[2024-09-12 19:57] VITALS: PULSE 80; RESP 16; O2SAT 97
[2024-09-12 20:59] LABS: Glucose Point of Care 91 mg/dl (65-105)
[2024-09-12] MEDS: INSULIN GLARGINE (*BKC) 1,000 UNITS/10 ML VIAL 8 UNITS SUB-Q (21:03)
[2024-09-12 23:58] VITALS: BP 110/62; PULSE 70; RESP 18; TEMP 36.6; O2SAT 99
[2024-09-13 02:02] LABS: Glucose Point of Care 109 mg/dl (65-105)
[2024-09-13] MEDS: LEVOTHYROXINE SODIUM 112 MCG TABLET PO (06:49)
[2024-09-13 08:00] VITALS: BP 98/69; PULSE 76; RESP 18; TEMP 36.5; O2SAT 98
[2024-09-13 08:04] LABS: Glucose Point of Care 168 mg/dl (65-105)
[2024-09-13] MEDS: INSULIN HUMAN LISPRO (*BKC) 1,000 UNITS/10 ML VIAL 5 UNITS SUB-Q ×2 (08:32→12:16)
[2024-09-13] MEDS: CLOPIDOGREL BISULFATE 75 MG TABLET PO (09:56)
[2024-09-13] MEDS: ASPIRIN 81 MG CHEWABLE TABLET PO (09:56)
[2024-09-13] MEDS: INSULIN GLARGINE (*BKC) 1,000 UNITS/10 ML VIAL 2 UNITS SUB-Q (09:56)
[2024-09-13] MEDS: BACITRACIN OINTMENT 15 GM TUBE 1 APPLIC TOPICAL (09:56)
[2024-09-13] MEDS: ATORVASTATIN 10 MG TABLET 20 MG PO (09:56)
[2024-09-13] MEDS: PANTOPRAZOLE 40 MG TABLET PO (09:58)
[2024-09-13 11:50] LABS: Glucose Point of Care 152 mg/dl (65-105)
[2024-09-13 16:00] VITALS: BP 100/56; PULSE 76; RESP 18; TEMP 36.4; O2SAT 96
[2024-09-13] MEDS: GLUCOSE ORAL GEL 15 GM OF GLUCSE IN 37.5 GM TUBE PO (16:55)
[2024-09-13 16:57] LABS: Glucose Point of Care 40 mg/dl (65-105)
[2024-09-13 17:25] LABS: Glucose Point of Care 73 mg/dl (65-105)
[2024-09-13 20:00] VITALS: PULSE 78; RESP 16; O2SAT 96
[2024-09-13 20:52] LABS: Glucose Point of Care 343 mg/dl (65-105)
[2024-09-13] MEDS: INSULIN GLARGINE (*BKC) 1,000 UNITS/10 ML VIAL 8 UNITS SUB-Q (20:53)
[2024-09-14] VITALS: BP 98/55; PULSE 78; RESP 16; TEMP 36.7; O2SAT 96
[2024-09-14 02:11] LABS: Glucose Point of Care 207 mg/dl (65-105)
[2024-09-14] MEDS: [UNRECOGNIZED DRUG - REMARK] 1 EACH XX (05:54)
[2024-09-14] MEDS: LEVOTHYROXINE SODIUM 112 MCG TABLET PO (05:54)
[2024-09-14 07:57] LABS: Glucose Point of Care 126 mg/dl (65-105)
[2024-09-14 08:00] VITALS: BP 94/65; PULSE 74; RESP 18; TEMP 36.4; O2SAT 95
[2024-09-14] MEDS: INSULIN HUMAN LISPRO (*BKC) 1,000 UNITS/10 ML VIAL 5 UNITS SUB-Q ×2 (08:40→11:55)
[2024-09-14] MEDS: ATORVASTATIN 10 MG TABLET 20 MG PO (08:40)
[2024-09-14] MEDS: CLOPIDOGREL BISULFATE 75 MG TABLET PO (08:40)
[2024-09-14] MEDS: PANTOPRAZOLE 40 MG TABLET PO (08:40)
[2024-09-14] MEDS: ASPIRIN 81 MG CHEWABLE TABLET PO (08:40)
[2024-09-14] MEDS: INSULIN GLARGINE (*BKC) 1,000 UNITS/10 ML VIAL 2 UNITS SUB-Q (08:41)
[2024-09-14] MEDS: INSULIN HUMAN LISPRO (*BKC) 1,000 UNITS/10 ML VIAL SUB-Q (11:56)
[2024-09-14 15:27] LABS: Glucose Point of Care 94 mg/dl (65-105)
[2024-09-14 15:27] LABS: Glucose Point of Care 221 mg/dl (65-105)
[2024-09-14 16:00] VITALS: BP 98/64; PULSE 76; RESP 18; TEMP 36.4; O2SAT 96
[2024-09-14 16:59] LABS: Glucose Point of Care 103 mg/dl (65-105)
[2024-09-14 20:00] VITALS: PULSE 81; RESP 16; O2SAT 96
[2024-09-14] MEDS: INSULIN GLARGINE (*BKC) 1,000 UNITS/10 ML VIAL 8 UNITS SUB-Q (20:09)
[2024-09-14 20:11] LABS: Glucose Point of Care 225 mg/dl (65-105)
[2024-09-15] VITALS: BP 95/66; PULSE 81; RESP 16; TEMP 36.7; O2SAT 96
[2024-09-15 02:29] LABS: Glucose Point of Care 67 mg/dl (65-105)
--- NOTE | 2024-09-15 02:40 | PC.NURSE ---
Patient 0200 accu check reading was 67. No s/s of adverse effects from hypoglycemia. Hypoglycemia protocol initiated. Will recheck.
--- NOTE | 2024-09-15 03:01 | PC.NURSE ---
REcheck of patient's accu check reading currently at 76. Will continue to monitor.
[2024-09-15 03:02] LABS: Glucose Point of Care 76 mg/dl (65-105)
[2024-09-15] MEDS: LEVOTHYROXINE SODIUM 112 MCG TABLET PO (06:08)
[2024-09-15 08:00] VITALS: BP 103/57; PULSE 70; RESP 20; TEMP 36.7; O2SAT 96
[2024-09-15] MEDS: INSULIN HUMAN LISPRO (*BKC) 1,000 UNITS/10 ML VIAL 5 UNITS SUB-Q ×3 (08:25→17:43)
[2024-09-15] MEDS: INSULIN GLARGINE (*BKC) 1,000 UNITS/10 ML VIAL 2 UNITS SUB-Q (09:26)
[2024-09-15] MEDS: ACETAMINOPHEN 325 MG TABLET 650 MG PO (09:27)
[2024-09-15] MEDS: ATORVASTATIN 10 MG TABLET 20 MG PO (09:27)
[2024-09-15] MEDS: CLOPIDOGREL BISULFATE 75 MG TABLET PO (09:27)
[2024-09-15] MEDS: PANTOPRAZOLE 40 MG TABLET PO (09:27)
[2024-09-15] MEDS: ASPIRIN 81 MG CHEWABLE TABLET PO (09:27)
[2024-09-15 11:59] LABS: Glucose Point of Care 185 mg/dl (65-105)
[2024-09-15 11:59] LABS: Glucose Point of Care 139 mg/dl (65-105)
[2024-09-15 16:00] VITALS: BP 99/65; PULSE 78; RESP 18; TEMP 36.9; O2SAT 96
[2024-09-15 16:51] LABS: Glucose Point of Care 123 mg/dl (65-105)
[2024-09-15 20:54] LABS: Glucose Point of Care 95 mg/dl (65-105)
[2024-09-15] MEDS: INSULIN GLARGINE (*BKC) 1,000 UNITS/10 ML VIAL 8 UNITS SUB-Q (21:48)
--- NOTE | 2024-09-15 22:06 | PC.NURSE ---
Patient resting quietly in bed with the tv on. Alert and pleasant. HS bedside glucose monitorting done. Snack of milk, sugar free pudding, and applesauce given to patient. Patient tolerated well. Patient positioned for comfort. Bed alarm on.
[2024-09-16] VITALS: BP 102/63; PULSE 76; RESP 20; TEMP 36.9; O2SAT 96
--- NOTE | 2024-09-16 00:12 | PC.NURSE ---
Pt resting quietly in bed ands doesnt voice any c/o discomfort.
[2024-09-16 02:05] LABS: Glucose Point of Care 123 mg/dl (65-105)
--- NOTE | 2024-09-16 02:10 | PC.NURSE ---
Pt's blood glucose is 123 per accucheck. Pt incontinent of urine and bed linens, gown were changed. Pt back to bed with the walker and standby assist of one.
--- NOTE | 2024-09-16 05:15 | PC.NURSE ---
Pt up to the bathroom with the walker and assist of one. Pt voided and returned to bed with the walker and assist of one.
[2024-09-16] MEDS: LEVOTHYROXINE SODIUM 112 MCG TABLET PO (06:22)
[2024-09-16 07:57] LABS: Hematocrit 31.5 % (37.0-46.0); Mean Corpuscular HGB Conc 31.7 g/dL (32-36); Mean Corpuscular Hemoglobin 32.6 pg (27.0-31.0); Mean Corpuscular Volume 102.6 fL (78.0-102.0); Mean Platelet Volume 10.1 fl (8.7-11.0); Platelet Count Result 197 K/mm3 (150-420); Red Blood Count 3.07 M/mm3 (4.70-6.10); Red Cell Distribution Width 16.8 % (11.6-14.4); White Blood Count 3.7 K/mm3 (4.8-10.8)
[2024-09-16 08:00] VITALS: BP 98/58; PULSE 82; RESP 17; TEMP 36.3; O2SAT 97
[2024-09-16 08:13] LABS: Alanine Aminotransferase 20 U/L (16-63); Alkaline Phosphatase 102 U/L (46-116); Anion Gap 5 mmol/L (4-12); Aspartate Amino Transferase 28 U/L (15-37); Bilirubin,Total 0.7 mg/dL (0.00-1.00); Blood Urea Nitrogen 17 mg/dL (7-18); Calcium 8.5 mg/dL (8.5-10.1); Carbon Dioxide 36 mmol/L (21-32); Chloride 101 mmol/L (98-108); Estimated CRCL calculation 57 ml/min; Estimated Glomerular Filt Rate > 60; Glucose 94 mg/dL (70-99); Osmolality Calculated 295 mOsm/kg (285-295); Potassium 4.5 mmol/L (3.5-5.1); Sodium 142 mmol/L (136-145); Total Protein 6.2 g/dL (6.4-8.2)
--- NOTE | 2024-09-16 09:27 | P.PNIM_ITS ---
Progress Note: A&P Assessment and Plan (1) Physical deconditioning: Code(s): R53.81 - Other malaise Status: Acute Assessment and Plan: patient physically deconditioned post hospitalization for DKA metabolic e ncephalopathy * Continue PT/OT (2) Type 1 diabetes: Code(s): E10.9 - Type 1 diabetes mellitus without complications Status: Acute Assessment and Plan: patient with type 1 Diabetes post hospitalization for DKA due to Jardiance, Blood sugars were ranging 307-361 at night and in the early childhood coordinator hours, 95- 141 in the evening hours * D/C Jardiance on home medication list * Diabetic diet * Watch for hypoglycemia/hypoglycemic protocol ordered * low-dose SSI ordered * Lantus 8 units ordered for nighttime * Lantus 2 units ordered for daytime * BS better controlled since changes to insulin but still has episodes of hypoglycemia * patient currently wearing Dexcom for closer monitoring of blood sugars * 5 units t.i.d. with meals long as he eats more than 50% of his meal * hypoglycemic protocol in place * Diabetic diet ordered (3) Hypothyroidism: Code(s): E03.9 - Hypothyroidism, unspecified Status: Acute Assessment and Plan: * Continue patient's levothyroxine (4) HLD (hyperlipidemia): Code(s): E78.5 - Hyperlipidemia, unspecified Status: Acute Assessment and Plan: * Continue Atorvastatin (5) Blister: Code(s): T14.8XXA - Other injury of unspecified body region, initial encounter Status: Acute Assessment and Plan: patient with bilateral blisters to top feet that have ruptured scant drainage does not appear infected * keep open to air with rest * can cover with nonadhesive bandage when ambulating with physical and occupational therapy * Overall improved dry and healing Plan Code status: Full code per patient PT/OT notes: SWING BED Disposition: patient continues admission to [facility] for rehabilitation will continue on strength training and endurance plan is to return home with care conference scheduled for today 09/16/2024. Time Spent With Patient Time with patient: 15 - 25 minutes Subjective Date/time seen: 09/16/24 09:27 Interval history: Interval history: This is a 73-year-old male with a significant past medical history of hypothyroidism, hyperlipidemia, type 1 diabetes mellitus who presented to [facility] bed program for additional rehab needs after prolong stay at [facility] for DKA And metabolic encephalopathy. Subjective: 09/16/24 Labs reviewed and vitals stable, BS control is better but patient is a brittle type 1 is wearing his Dexcom now for close monitoring was having intermittent episodes of hypoglycemia. Patient progressing with therapy reports he feels good today ready to go home. Denied CP, SOB, N/V. Review of Systems Review of Systems: All systems reviewed & are unremarkable except as noted in HPI and below Exam Const: General: comfortable and no acute distress HENMT: Mouth: Yes moist mucous membranes Eyes: General: appearance normal, both eyes and all related structures Pupils: Equal, round and reactive pupils present Neck: Neck: supple and no JVD Resp: Effort & Inspection: normal respiratory effort Auscultation: clear to auscultation bilaterally Cardio: Rate: regular rate Rhythm: regular rhythm GI: Auscultation: normal bowel sounds Skin: General skin exam: normal color, no rashes or lesions noted and wounds noted ( bilateral feet appear to be ruptured blisters) Wounds: wounds noted ( bilateral feet ruptured blister that are dry and healing) Neuro: Cranial nerves: Yes Equal, round and reactive pupils present Speech: normal speech Sensory Exam: normal sensation Extrem: General: normal to inspection Psych: Mental Status: mental status grossly normal Affect: normal affect Objective Data Vital Signs Vital Signs: Vital Signs - 24 hr 09/15/24 16:00 09/16/24 00:00 Temperature 98.4 F 98.5 F Pulse Rate 78 76 Respiratory Rate 18 20 Blood Pressure 99/65 L 102/63 Pulse Oximetry 96 96 Oxygen Delivery Room Air Room Air Intake/Output Intake/Output: Intake & Output 09/13/24 09/14/24 09/15/24 09/16/24 23:59 23:59 23:59 23:59 Intake Total 1400 1470 1760 440 Output Total 200 Balance 1400 1470 1560 440 Meds/Results Medications: Active Medications Generic Name Dose Route Start Last Admin Trade Name Freq PRN Reason Stop Dose Admin Acetaminophen 650 mg 09/01/24 17:37 09/15/24 09:27 Acetaminophen 325 Mg Tablet PO 650 mg Q6H PRN Administration Mild Pain (1-3) or Fever Aspirin 81 mg 09/02/24 09:00 09/15/24 09:27 Aspirin 81 Mg Chewable Tablet PO 81 mg DAILY VIV Administration Atorvastatin Calcium 20 mg 09/02/24 09:00 09/15/24 09:27 Atorvastatin 10 Mg Tablet PO 20 mg DAILY VIV Administration Clopidogrel Bisulfate 75 mg 09/02/24 09:00 09/15/24 09:27 Clopidogrel Bisulfate 75 Mg Tablet PO 75 mg DAILY VIV Administration Dextrose 12.5 gm 09/01/24 17:37 Dextrose 50% 25 Gm/50 Ml Syringe IV PUSH PRN PRN Hypoglycemia Protocol Glucagon 1 mg 09/01/24 17:37 Glucagon For Inj 1 Mg Vial IM PRN PRN Hypoglycemia Protocol Glucose 15 gm 09/01/24 17:37 09/13/24 16:55 Glucose Oral Gel 15 Gm Of Glucse In 37.5 Gm Tube PO 15 gm PRN PRN Administration Hypoglycemia Protocol Dextrose 1,000 mls @ 100 mls/hr 09/01/24 17:37 Dextrose 5% 1,000 Ml IVPB PRN PRN Hypoglycemia Protocol Insulin Glargine 8 units 09/09/24 21:00 09/15/24 21:48 Insulin Glargine (*Bkc) 1,000 Units/10 Ml Vial SUB-Q 8 units HS VIV Administration Insulin Glargine 2 units 09/09/24 10:15 09/15/24 09:26 Insulin Glargine (*Bkc) 1,000 Units/10 Ml Vial SUB-Q 2 units DAILY VIV Administration Insulin Human Lispro 2 - 5 units 09/02/24 08:00 09/16/24 08:39 Insulin Human Lispro (*Bkc) 1,000 Units/10 Ml Vial SUB-Q Not Given TIDWM VIV Protocol Insulin Human Lispro 5 units 09/09/24 12:00 09/15/24 17:43 Insulin Human Lispro (*Bkc) 1,000 Units/10 Ml Vial SUB-Q 5 units TIDWM VIV Administration Levothyroxine Sodium 112 mcg 09/02/24 06:30 09/16/24 06:22 Levothyroxine Sodium 112 Mcg Tablet PO 112 mcg DAILY@0630 VIV Administration Ondansetron HCl 4 mg 09/01/24 17:37 Ondansetron Hcl Odt 4 Mg Tablet PO Q6H PRN Nausea And Vomiting Pantoprazole Sodium 40 mg 09/02/24 09:00 09/15/24 09:27 Pantoprazole 40 Mg Tablet PO 40 mg QAM VIV Administration Polyethylene Glycol 17 gm 09/01/24 17:41 Polyethylene Glycol 3350 17 Gm Powd.Pack PO DAILY PRN constipation Senna/Docusate Sodium 1 tab 09/01/24 17:49 09/01/24 20:28 Senna/Docusate Sodium Tablet PO 1 tab HS PRN Administration constipation Labs Labs: Laboratory Results - last 24 hr 09/15/24 09/15/24 09/15/24 08:04 11:54 16:46 WBC RBC Hgb Hct MCV MCH MCHC RDW Plt Count MPV Sodium Potassium Chloride Carbon Dioxide Anion Gap BUN Creatinine Estim Creat Clear Calc Estimated GFR Glucose POC Capillary Glucose 139 H 185 H 123 H Calculated Osmolality Calcium Total Bilirubin AST ALT Alkaline Phosphatase Total Protein Albumin 09/15/24 09/16/24 09/16/24 20:52 02:02 07:50 WBC 3.7 L RBC 3.07 L Hgb 10.0 L Hct 31.5 L MCV 102.6 H MCH 32.6 H MCHC 31.7 L RDW 16.8 H Plt Count 197 MPV 10.1 Sodium 142 Potassium 4.5 Chloride 101 Carbon Dioxide 36 H Anion Gap 5 BUN 17 Creatinine 0.86 Estim Creat Clear Calc 57 Estimated GFR > 60 Glucose 94 POC Capillary Glucose 95 123 H Calculated Osmolality 295 Calcium 8.5 Total Bilirubin 0.7 AST 28 ALT 20 Alkaline Phosphatase 102 Total Protein 6.2 L Albumin 3.0 L Quality VTE Prophylaxis VTE prophylaxis: mechanical ordered -Patient's previous records reviewed on admission -ER notes reviewed in detail on admission -discussed all findings and current treatment plan with patient/Family/POA -Consultations reviewed for recommendations -Patient's disposition for safe discharge discussed with lead case manager Dictation performed by [employer] direct speech recognition software, therefore interpretive program coordinator variants and typographical errors may occur. Hospitalist MIPS Advance Care Plan I have confirmed that the patient's Advanced Care Plan is present, code status is documented, or surrogate decision maker is listed in patient medical record.: Yes Medication Reconciliation I have utilized all available resources to obtain, update and review the patients current medications (includes all prescriptions, OTC, herbals, cannabis, and nutritional supplements).: Yes The patient is not eligible for med reconciliation; the patient is in a emergent medical situation where delaying treatment would jeopardize the patients health.: No
[2024-09-16] MEDS: INSULIN GLARGINE (*BKC) 1,000 UNITS/10 ML VIAL 2 UNITS SUB-Q (09:39)
[2024-09-16] MEDS: ASPIRIN 81 MG CHEWABLE TABLET PO (09:40)
[2024-09-16] MEDS: ATORVASTATIN 10 MG TABLET 20 MG PO (09:40)
[2024-09-16] MEDS: CLOPIDOGREL BISULFATE 75 MG TABLET PO (09:40)
[2024-09-16] MEDS: PANTOPRAZOLE 40 MG TABLET PO (09:40)
[2024-09-16] MEDS: INSULIN HUMAN LISPRO (*BKC) 1,000 UNITS/10 ML VIAL SUB-Q (11:43)
[2024-09-16] MEDS: INSULIN HUMAN LISPRO (*BKC) 1,000 UNITS/10 ML VIAL 5 UNITS SUB-Q ×2 (11:44→16:52)
[2024-09-16 11:46] LABS: Glucose Point of Care 295 mg/dl (65-105)
[2024-09-16 16:00] VITALS: BP 99/60; PULSE 76; RESP 20; TEMP 36.3; O2SAT 96
[2024-09-16 16:54] LABS: Glucose Point of Care 161 mg/dl (65-105)
[2024-09-16 19:59] LABS: Glucose Point of Care 62 mg/dl (65-105)
[2024-09-16 20:00] VITALS: PULSE 76; RESP 20; O2SAT 96
[2024-09-16 21:03] LABS: Glucose Point of Care 114 mg/dl (65-105)
--- NOTE | 2024-09-16 21:23 | PC.NURSE ---
2000 BS TAKEN PT STATES DEXCOM WAS READING LOW ACCU CHECK DONE 62 SNACK GIVEN 2100 BS RETAKEN BS 114 LANTUS HELD
[2024-09-17] VITALS: BP 111/65; PULSE 72; RESP 17; TEMP 36.4; O2SAT 96
[2024-09-17 02:12] LABS: Glucose Point of Care 260 mg/dl (65-105)
[2024-09-17] MEDS: LEVOTHYROXINE SODIUM 112 MCG TABLET PO (05:48)
--- NOTE | 2024-09-17 07:49 | PM.EVENT ---
Event Note Event Note Event Note: Patient had hypoglycemic even yesterday with blood sugar of 62. We will go ahead and discontinue his mealtime insulin. We will only give low dose SSI with his meals as needed and his Lantus regimen. He had a hypoglycemic event on 09/13/24 with BG of 40 around 1700 and another hypoglycemic even on 09/11/24 around 2100 BG 40. We will continue to monitor.
[2024-09-17 08:00] VITALS: BP 108/60; PULSE 84; RESP 16; TEMP 36.6; O2SAT 97
[2024-09-17 08:06] LABS: Glucose Point of Care 372 mg/dl (65-105)
[2024-09-17] MEDS: ATORVASTATIN 10 MG TABLET 20 MG PO (08:41)
[2024-09-17] MEDS: INSULIN GLARGINE (*BKC) 1,000 UNITS/10 ML VIAL 2 UNITS SUB-Q (08:41)
[2024-09-17] MEDS: INSULIN HUMAN LISPRO (*BKC) 1,000 UNITS/10 ML VIAL SUB-Q ×2 (08:41→12:42)
[2024-09-17] MEDS: PANTOPRAZOLE 40 MG TABLET PO (08:42)
[2024-09-17] MEDS: ASPIRIN 81 MG CHEWABLE TABLET PO (08:42)
[2024-09-17] MEDS: CLOPIDOGREL BISULFATE 75 MG TABLET PO (08:42)
[2024-09-17] MEDS: INSULIN HUMAN LISPRO (*BKC) 1,000 UNITS/10 ML VIAL 5 UNITS SUB-Q ×2 (09:29→12:42)
[2024-09-17 12:00] LABS: Glucose Point of Care 277 mg/dl (65-105)
[2024-09-17 15:48] VITALS: BP 111/56; PULSE 65; RESP 17; TEMP 36.6; O2SAT 98
[2024-09-17 17:03] LABS: Glucose Point of Care 129 mg/dl (65-105)
[2024-09-17] MEDS: INSULIN GLARGINE (*BKC) 1,000 UNITS/10 ML VIAL 8 UNITS SUB-Q (20:25)
[2024-09-17 20:33] LABS: Glucose Point of Care 294 mg/dl (65-105)
[2024-09-18] VITALS: BP 109/64; PULSE 68; RESP 14; TEMP 36.6; O2SAT 97
[2024-09-18 01:31] LABS: Glucose Point of Care 170 mg/dl (65-105)
[2024-09-18] MEDS: LEVOTHYROXINE SODIUM 112 MCG TABLET PO (06:02)
[2024-09-18 08:00] VITALS: BP 98/56; PULSE 78; RESP 16; TEMP 36.9; O2SAT 96
[2024-09-18 08:08] LABS: Glucose Point of Care 80 mg/dl (65-105)
[2024-09-18] MEDS: INSULIN HUMAN LISPRO (*BKC) 1,000 UNITS/10 ML VIAL 5 UNITS SUB-Q ×2 (08:24→12:25)
--- NOTE | 2024-09-18 08:33 | PM.EVENT ---
Event Note Event Note Event Note: Blood sugars reviewed and ranging 80-94. His lowest was around 8:00 a.m. this morning, blood glucose of 80. We will continue with this current regimen. No hypoglycemic events overnight. We will continue to monitor.
[2024-09-18] MEDS: ASPIRIN 81 MG CHEWABLE TABLET PO (09:25)
[2024-09-18] MEDS: ATORVASTATIN 10 MG TABLET 20 MG PO (09:25)
[2024-09-18] MEDS: CLOPIDOGREL BISULFATE 75 MG TABLET PO (09:25)
[2024-09-18] MEDS: INSULIN GLARGINE (*BKC) 1,000 UNITS/10 ML VIAL 2 UNITS SUB-Q (09:25)
[2024-09-18] MEDS: ACETAMINOPHEN 325 MG TABLET 650 MG PO (09:25)
[2024-09-18] MEDS: PANTOPRAZOLE 40 MG TABLET PO (09:25)
[2024-09-18 11:50] LABS: Glucose Point of Care 197 mg/dl (65-105)
[2024-09-18 16:00] VITALS: BP 98/58; PULSE 70; RESP 18; TEMP 37; O2SAT 96
[2024-09-18 17:00] LABS: Glucose Point of Care 87 mg/dl (65-105)
[2024-09-18 21:03] LABS: Glucose Point of Care 177 mg/dl (65-105)
[2024-09-18] MEDS: INSULIN GLARGINE (*BKC) 1,000 UNITS/10 ML VIAL 8 UNITS SUB-Q (21:03)
[2024-09-19] VITALS: BP 104/65; PULSE 67; RESP 18; TEMP 36.5; O2SAT 97
[2024-09-19 05:05] LABS: Glucose Point of Care 179 mg/dl (65-105)
[2024-09-19] MEDS: LEVOTHYROXINE SODIUM 112 MCG TABLET PO (06:06)
[2024-09-19 08:00] VITALS: BP 91/58; PULSE 70; RESP 20; TEMP 37; O2SAT 96
[2024-09-19] MEDS: INSULIN HUMAN LISPRO (*BKC) 1,000 UNITS/10 ML VIAL 5 UNITS SUB-Q (08:20)
[2024-09-19 08:23] LABS: Glucose Point of Care 133 mg/dl (65-105)
[2024-09-19] MEDS: ATORVASTATIN 10 MG TABLET 20 MG PO (09:20)
[2024-09-19] MEDS: CLOPIDOGREL BISULFATE 75 MG TABLET PO (09:20)
[2024-09-19] MEDS: PANTOPRAZOLE 40 MG TABLET PO (09:20)
[2024-09-19] MEDS: ASPIRIN 81 MG CHEWABLE TABLET PO (09:20)
[2024-09-19] MEDS: INSULIN GLARGINE (*BKC) 1,000 UNITS/10 ML VIAL 2 UNITS SUB-Q (09:20)
--- NOTE | 2024-09-19 10:47 | P.DS_ITS ---
DS: Admitting Diagnosis Discharge Date 09/19/24 DS: Discharge Diagnosis Discharge Diagnosis (1) Physical deconditioning: Code(s): R53.81 - Other malaise Status: Acute (2) Type 1 diabetes: Code(s): E10.9 - Type 1 diabetes mellitus without complications Status: Acute (3) Hypothyroidism: Code(s): E03.9 - Hypothyroidism, unspecified Status: Acute (4) HLD (hyperlipidemia): Code(s): E78.5 - Hyperlipidemia, unspecified Status: Acute (5) Blister: Code(s): T14.8XXA - Other injury of unspecified body region, initial encounter Status: Acute DS: Summary Time Spent with Patient Time attestation: Total time spent providing and/or coordinating discharge services: Exam Narrative: General: In no acute distress, well nourished Head: atraumatic, no encephalopathy Eyes: PERRLA, sclera clear ENT: moist mucous membranes, nasal passages clear Neck: supple, no JVD, no adenopathy, trachea midline Cardiac: Normal S1 and S2. No murmur, gallops or friction rubs, peripheral pulses intact. Respiratory: Lungs clear to auscultation, no adventitious lung sounds Currently on room air Gastrointestinal: soft, non-distended, non-tender, normoactive bowel sounds. : voiding without difficulty. Extremities: moves all extremities well, 1+ edema to bilateral lower extremity Skin: popped blisters on tops of both feet, covered with Telfa dressing Neuro: Alert and oriented x4, cranial nerves intact, no neuro deficits. Psych: normal mood, normal affect, interactive DS: Data Data Completed and Pending Labs on day of discharge: Labs from last 24 hours 09/19/24 09/19/24 09/18/24 08:18 02:57 21:02 POC Capillary Glucose 133 H 179 H 177 H 09/18/24 09/18/24 16:55 11:42 POC Capillary Glucose 87 197 H Discharge Plan Discharge Attending physician on discharge: Carla Carbajal Consulting providers: Flaca Peck; Jolynn Ramos Discharging Clinician: Jolynn Ramos Anticipated Discharge Date/Time: 09/19/24 10:46 Patient Disposition: Home with Home Health Service Activity: as tolerated Diet: as tolerated Discharge Instructions: Per Care Coordination: [facility] will follow you at discharge. They will call to schedule your first service on September 20, or September 22. Their phone number is [phone]. [facility] will give you a call in a couple of weeks to see if you qualify for help at home with a home caregiver. Their phone number is [phone]. * Follow up with your group account director as soon as possible for further insulin adjustments. Patient Instructions: Antibiotic Form Patient Language: Ugandan Stand Alone Forms: General Discharge Information Follow-up/Referrals: Sneha,MD Otoniel [Primary Care Provider] - 1 week Discharge Medications: Continued aspirin 81 mg tablet,chewable 1 tablet PO DAILY clopidogrel 75 mg tablet 75 mg PO DAILY Jardiance 10 mg tablet 10 mg PO DAILY levothyroxine 100 mcg tablet 112 mcg PO DAILY atorvastatin [Lipitor] 20 mg tablet 20 mg PO DAILY cefuroxime axetil 500 mg tablet 500 mg PO BID Rx Instructions: For 14 days Stop after 09/15/24 A.M.dose polyethylene glycol 3350 [ClearLax] 17 gram/dose powder 17 g PO DAILY PRN (Reason: constipation) senna-docusate sodium Capsule 8.6 - 50 cap PO HS PRN (Reason: constipation) Rx Instructions: Give 2 capsules insulin glargine [Lantus U-100 Insulin] 100 unit/mL solution 8 unit subcut QAM insulin glargine [Lantus U-100 Insulin] 100 unit/mL solution 2 unit subcut QPM Humalog U-100 Insulin 100 unit/mL cartridge 4 unit subcut QACBREAK Humalog U-100 Insulin 100 unit/mL cartridge 4 unit subcut QACLUNCH insulin lispro [Humalog U-100 Insulin] 100 unit/mL solution 4 unit subcut QACBREAK insulin lispro [Humalog U-100 Insulin] 100 unit/mL solution 4 unit subcut QACLUNCH insulin lispro [Humalog U-100 Insulin] 100 unit/mL solution 4 unit subcut QACDINNER Date of admission: 09/01/24 15:47 Primary Care Provider: SnehaOtoniel Admitting Provider: Artur Anthony Attending physician on admission: Jolynn Ramos Condition: Improved Quality VTE Prophylaxis VTE prophylaxis: mechanical ordered
[2024-09-19 11:32] LABS: Glucose Point of Care 289 mg/dl (65-105)
--- NOTE | 2024-09-19 11:56 | PC.NURSE ---
Med list and visit report sent to [facility] at [phone].
--- NOTE | 2024-09-19 12:15 | PC.NURSE ---
Discharge instructions reviewed with patient and . Patient taken off floor per wheelchair and assisted into vehicle.
--- NOTE | 2024-09-26 11:18 | PC.NURSE ---
Called left voice mail on home phone for call back with any question or concerns with discharge instructions.
== END 2024-09-19 12:15 | disposition home health service (06) | DRG 948 ==
PROVIDERS: Nurse Practitioner Family; Admitting Provider Internal Medicine; PCP Family Medicine; Visit Provider Nurse Practitioner Acute Care
DX: R53.81 Other malaise (principal); E10.9 Type 1 diabetes mellitus without complications; E78.5 Hyperlipidemia, unspecified; E03.9 Hypothyroidism, unspecified; E10.649 Type 1 diabetes mellitus with hypoglycemia without coma; T14.8XXA Other injury of unspecified body region, initial encounter; Z79.82 Long term (current) use of aspirin; Z79.4 Long term (current) use of insulin
CPT/HCPCS: 36415; 80053; 82948; 83036; 83735; 85025; 85027; 85055; 97110; 97112; 97161; 97165; 97530; 97535; A9270; J1815